=== PATIENT | male | born 1945 | race Caucasian/White ===

== ENCOUNTER 2019-10-13 10:10 | Outpatient (RCR) | payer MEDICARE, SELFPAY ==
[2019-10-13 10:48] LABS: INR 2.9; Prothrombin Time 29.9 Seconds (9.64-11.0)
== END 2019-12-30 10:00 | disposition home or self-care (01) ==
LOC: CHSLAB 10:10
PROVIDERS: Visit Provider Family Medicine
DX: Z79.01 Long term (current) use of anticoagulants (principal)
CPT/HCPCS: 36415; 85610

== ENCOUNTER 2020-02-01 17:53 | Outpatient (CLI) | payer MEDICARE, SELFPAY ==
[2020-02-01 18:07] LABS: Hematocrit 39.2 % (37.0-46.0); Hemoglobin 13.1 g/dL (12.4-15.3); Mean Corpuscular HGB Conc 33.4 g/dL (32.0-36.0); Mean Corpuscular Hemoglobin 29.7 pg (27.0-31.0); Mean Corpuscular Volume 88.9 fL (78.0-102.0); Mean Platelet Volume 11.3 fl (8.7-11.0); Platelet Count Result 130 K/mm3 (150-420); Red Blood Count 4.41 M/mm3 (4.70-6.10); Red Cell Distribution Width 15.6 % (11.6-14.4); White Blood Count 3.8 K/mm3 (4.8-10.8)
[2020-02-01 18:17] LABS: CRP 2.3 mg/dL (0.0-0.9)
[2020-02-01 18:20] LABS: INR 1.9; Prothrombin Time 19.7 Seconds (9.64-11.0)
[2020-02-01 18:27] LABS: Band Neutrophils Percent 0 % (0-6); Basophils Percent Manual 0 % (0-1); Eosinophils Absolute Manual 0.07 K/mm3 (0.02-0.5); Eosinophils Percent Manual 2 % (1-6); Lymphocytes Percent Manual 37 % (18-44); Monocytes Absolute Manual 0.26 K/mm3 (0.1-0.90); Monocytes Percent Manual 7 % (3-9); Neutrophils Absolute Manual 2.05 K/mm3 (1.3-6.7); Neutrophils Percent Manual 54 % (46-73); Platelet Estimate Adequate (Adequate); Total Cells Counted 100
[2020-02-04 13:32] LABS: Procalcitonin <0.10 ng/mL (<0.10)
== END 2020-02-01 17:54 | disposition home or self-care (01) ==
LOC: CHSLAB 17:55
PROVIDERS: PCP Family Medicine; Visit Provider Family Medicine
DX: J06.9 Acute upper respiratory infection, unspecified (principal); I48.91 Unspecified atrial fibrillation; Z79.01 Long term (current) use of anticoagulants
CPT/HCPCS: 36415; 84145; 85025; 85610; 86140

== ENCOUNTER 2020-02-12 19:32 | Emergency (ER) | payer MEDICARE, SELFPAY ==
--- NOTE | ~2020-02-12 | XR_ITS ---
EXAMINATION: XR tibia fibula RT 2V INDICATION: Right lower limb swelling and bruising TECHNIQUE: Two views of the tibia and fibula are obtained on four radiographs. COMPARISON: None available FINDINGS: There are changes of total knee arthroplasty. No fracture, dislocation, or subluxation is i dentified. Soft tissue swelling of the lower limb is noted. There is calcified atherosclerosis. IMPRESSION: 1. Soft tissue swelling without acute osseous abnormality. Reviewed, dictated and finalized at location A.
[2020-02-12 19:55] VITALS: BP 126/70; PULSE 88; RESP 18; TEMP 36.8; O2SAT 95
--- NOTE | 2020-02-12 20:08 | ED.GENADULT ---
HPI - General Adult General Chief complaint: Extremity Injury, Lower Stated complaint: Rt foot pain Source: patient and family () Mode of arrival: ambulatory Limitations: no limitations History of Present Illness HPI narrative: Swelling of the right lower leg x 2 days. Contusion to left anterior leg yesterday . Bruising right foot and ankle this afternoon, not present this AM with associated aching pain in right calf with walking (moderate intensity) relieved with rest; has associated lower right leg tenderness. On warfarin for atrial fibrillation. INR 2 weeks ago = 1.9. Dose of warfarin increased. dx with Flu. Tx with Levaquin. Has residual cough. DVT 2011. Related Data Home Medications Medication Instructions Recorded Confirmed carvedilol 3.125 mg tablet 3.125 mg PO BID tablet 12/02/19 02/12/20 ezetimibe 10 mg tablet 10 mg PO DAILY 12/02/19 02/12/20 isosorbide mononitrate 30 mg 30 mg PO DAILY 12/02/19 02/12/20 tablet,extended release 24 hr nitroglycerin 0.4 mg sublingual 0.4 mg SUBLINGUAL PRN PRN tablet 12/02/19 02/12/20 tablet ramipril 2.5 mg capsule 2.5 mg PO DAILY cap 12/02/19 02/12/20 warfarin 1 mg PO QMWF 02/12/20 02/12/20 warfarin 6 mg PO QMWF 02/12/20 02/12/20 warfarin 7.5 mg PO [id number] 02/12/20 02/12/20 Allergies Allergy/AdvReac Type Severity Reaction Status Date / Time atorvastatin [Lipitor] Allergy Intermediate Unknown Verified 02/09/20 10:19 meperidine [Demerol] Allergy Intermediate Unknown Verified 02/09/20 10:19 morphine Allergy Intermediate Unknown Verified 02/09/20 10:19 Penicillins Allergy Intermediate Unknown Verified 02/09/20 10:19 pravastatin Allergy Intermediate Unknown Verified 02/09/20 10:19 prochlorperazine Allergy Intermediate Unknown Verified 02/09/20 10:19 rosuvastatin [Crestor] Allergy Intermediate Unknown Verified 02/09/20 10:19 simvastatin Allergy Intermediate Unknown Verified 02/09/20 10:19 Review of Systems Constitutional: Constitutional: Denies headache(s) ENT: Denies dizziness, Reports headache(s) and Denies sinus pain Cardiovascular: Cardiovascular: Denies chest pain Respiratory: Respiratory: Denies cough and Denies dyspnea Gastrointestinal: Gastrointestinal: Denies abdominal pain, Denies diarrhea and Denies vomiting Genitourinary: Genitourinary: Denies dysuria Musculoskeletal: Musculoskeletal: Reports no additional musculoskeletal complaints Comments: chronic hypertrophy right leg . [facility] Social History Social History Smoking status: Never smoker Alcohol intake: never Exam Const: General: cooperative Nutritional Appearance: average body habitus Orientation/consciousness: oriented to person HENMT: Face and sinus: normal facial exam Mouth: Yes moist mucous membranes abnormal Eyes: General: appearance normal, both eyes and all related structures Neck: Neck: no lymphadenopathy Resp: Effort & Inspection: normal respiratory effort Auscultation: clear to auscultation bilaterally Cardio: Jugular venous distension: no JVD Rate: regular rate Rhythm: regular rhythm (not irregular) Heart sounds: S1 normal heart sound present and S2 normal heart sound present GI: Inspection: normal to inspection GI Palp: No abdominal tenderness Back/Spine/Pelvis: Back: no CVA tenderness Skin: General skin exam: normal color Neuro: General: patient oriented x3 Extrem: Right lower extremity: lower leg Details: tenderness Location: of the posterior calf, non-pitting edema (from the knee down) and ecchymosis (3 cm faint ecchymotic patch jct of middle and lower 1/3 anterior leg. ); no palpable cords, ankle (ecchmosis prominent distal to medial malleolus. ) and foot Details: other (ecchymosis of foot, sindhu. dorsum with assoc 2-3+ edema. ); joint enlargement noted Left lower extremity: abnormal to inspection (atrophy of calf; foot is externally rotated. ) Course Course Emergency Course: Ortho doc a
[2020-02-12 20:53] LABS: Basophils Absolute Auto 0.02 K/mm3 (0.00-0.10); Basophils Percent Auto 0.4 % (0.0-1.0); Eosinophils Absolute Auto 0.19 K/mm3 (0.02-0.50); Eosinophils Percent Auto 4.1 % (1.0-6.0); Hematocrit 32.9 % (37.0-46.0); Hemoglobin 10.9 g/dL (12.4-15.3); Immature Granulocyte Absolute 0.02 K/mm3 (0.00-0.00); Immature Granulocyte Percent A 0.4 % (0.0-0.0); Lymphocytes Absolute Auto 1.36 K/mm3 (1.10-4.50); Lymphocytes Percent Auto 29.1 % (18.0-42.0); Mean Corpuscular HGB Conc 33.1 g/dL (32.0-36.0); Mean Corpuscular Hemoglobin 29.4 pg (27.0-31.0); Mean Corpuscular Volume 88.7 fL (78.0-102.0); Mean Platelet Volume 11.1 fl (8.7-11.0); Monocytes Absolute Auto 0.43 K/mm3 (0.10-0.90); Monocytes Percent Auto 9.2 % (2.0-11.0); Neutrophils Absolute Auto 2.7 K/mm3 (1.7-7.2); Neutrophils Percent Auto 56.8 % (50.0-70.0); Platelet Count Result 174 K/mm3 (150-420); Red Blood Count 3.71 M/mm3 (4.70-6.10); Red Cell Distribution Width 14.8 % (11.6-14.4); White Blood Count 4.7 K/mm3 (4.8-10.8)
[2020-02-12 21:12] LABS: Alanine Aminotransferase 16 U/L (16-63); Alkaline Phosphatase 74 U/L (46-116); Anion Gap 10.1 mmol/L (7-16); Aspartate Amino Transferase 20 U/L (15-37); Bilirubin,Total 0.6 mg/dL (0.00-1.00); Blood Urea Nitrogen 20 mg/dL (7-18); Carbon Dioxide 29 mmol/L (21-32); Chloride 108 mmol/L (98-108); Estimated CRCL calculation 61 ml/min; Estimated Glomerular Filt Rate > 60; Glucose 113 mg/dL (70-99); INR 4.4; Osmolality Calculated 299 mOsm/kg (285-295); Potassium 4.1 mmol/L (3.5-5.1); Prothrombin Time 43.1 Seconds (9.64-11.0); Sodium 143 mmol/L (136-145); Total Protein 5.9 g/dL (6.4-8.2)
[2020-02-12 21:13] LABS: D Dimer 0.64 mg/L (0.19-0.50)
[2020-02-12 21:16] LABS: Calcium 8.1 mg/dL (8.5-10.1)
[2020-02-12 21:41] LABS: Creatine Kinase 410 U/L (39-308)
--- NOTE | 2020-02-12 22:13 | PC.NURSE ---
[facility] household chores contacted per Dr Allen request for ortho consult.
[2020-02-12 22:56] VITALS: BP 129/79; PULSE 84; RESP 18; O2SAT 95
--- NOTE | 2020-02-12 23:11 | PC.NURSE ---
DR. ACUNA DECLINED PT. PT REQUESTING [facility]. [facility] CONTACTED.
--- NOTE | 2020-02-12 23:14 | PC.NURSE ---
BEDSIDE REPORT GIVEN TO RICHY GRAHAM
--- NOTE | 2020-02-13 00:41 | PC.NURSE ---
0010 Call back from [facility] and spoke c Dr. Shi ERP. Dr. Tai accepts for transfer to [facility] ER for ortho eval. Pt. and informed.
[2020-02-13 00:42] VITALS: BP 130/72; PULSE 85; RESP 20; O2SAT 98
== END 2020-02-13 00:45 | disposition short-term general hospital (02) ==
PROVIDERS: Emergency Provider Family Medicine; PCP Family Medicine
DX: S80.11XA Contusion of right lower leg, initial encounter (principal); M79.604 Pain in right leg; D64.9 Anemia, unspecified
CPT/HCPCS: 36415; 73590; 80053; 82550; 85025; 85380; 85610; 99284; 99285

== ENCOUNTER 2020-02-24 08:38 | Outpatient (RCR) | payer MEDICARE, SELFPAY ==
[2019-12-02 10:48] LABS: INR 3.1; Prothrombin Time 32.8 Seconds (9.64-11.0)
[2019-12-09 09:52] LABS: Prothrombin Time 21.3 Seconds (9.64-11.0)
[2019-12-16 09:01] LABS: INR 2.2; Prothrombin Time 22.7 Seconds (9.64-11.0)
[2019-12-30 11:07] LABS: INR 2.9; Prothrombin Time 28.8 Seconds (9.64-11.0)
[2020-01-13 09:46] LABS: INR 3.1; Prothrombin Time 30.5 Seconds (9.64-11.0)
[2020-01-20 10:13] LABS: INR 2.4; Prothrombin Time 23.9 Seconds (9.64-11.0)
[2020-02-17 10:49] LABS: INR 1.1; Prothrombin Time 11.5 Seconds (9.64-11.0)
[2020-02-24 08:58] LABS: INR 1.3; Prothrombin Time 13.7 Seconds (9.64-11.0)
== END 2020-03-01 23:59 | disposition home or self-care (01) ==
LOC: CHSLAB 08:38
PROVIDERS: PCP Family Medicine; Visit Provider Family Medicine
DX: Z79.01 Long term (current) use of anticoagulants (principal)
CPT/HCPCS: 36415; 85610

== ENCOUNTER 2020-03-02 08:20 | Outpatient (RCR) | payer MEDICARE, SELFPAY ==
[2020-03-02 08:43] LABS: INR 1.8; Prothrombin Time 17.9 Seconds (9.64-11.0)
== END 2020-05-31 23:59 | disposition home or self-care (01) ==
LOC: CHSLAB 08:20
PROVIDERS: PCP Family Medicine; Visit Provider Family Medicine
DX: Z79.01 Long term (current) use of anticoagulants (principal)
CPT/HCPCS: 36415; 85610

== ENCOUNTER 2021-05-02 08:48 | Outpatient (CLI) | payer MEDICARE, SELFPAY ==
[2021-05-02 09:12] LABS: Basophils Absolute Auto 0.04 K/mm3 (0.00-0.10); Basophils Percent Auto 0.6 % (0.0-1.0); Eosinophils Absolute Auto 0.11 K/mm3 (0.02-0.50); Eosinophils Percent Auto 1.6 % (1.0-6.0); Hemoglobin 14.6 g/dL (12.4-15.3); Immature Granulocyte Absolute 0.04 K/mm3 (0.00-0.00); Immature Granulocyte Percent A 0.6 % (0.0-0.0); Lymphocytes Absolute Auto 1.83 K/mm3 (1.10-4.50); Lymphocytes Percent Auto 27.1 % (18.0-42.0); Mean Corpuscular HGB Conc 32.4 g/dL (32.0-36.0); Mean Corpuscular Hemoglobin 29.9 pg (27.0-31.0); Mean Corpuscular Volume 92.2 fL (78.0-102.0); Mean Platelet Volume 11.4 fl (8.7-11.0); Monocytes Absolute Auto 0.54 K/mm3 (0.10-0.90); Neutrophils Absolute Auto 4.2 K/mm3 (1.7-7.2); Neutrophils Percent Auto 62.1 % (50.0-70.0); Platelet Count Result 153 K/mm3 (150-420); Red Blood Count 4.88 M/mm3 (4.70-6.10); Red Cell Distribution Width 13.5 % (11.6-14.4); White Blood Count 6.8 K/mm3 (4.8-10.8)
[2021-05-02 09:34] LABS: Hemoglobin A1C 5.4 % (<5.7)
[2021-05-02 10:23] LABS: Alanine Aminotransferase 24 U/L (16-63); Albumin Level 3.9 g/dL (3.4-5.0); Alkaline Phosphatase 88 U/L (46-116); Anion Gap 9 mmol/L (8-16); Aspartate Amino Transferase 12 U/L (15-37); Bilirubin,Total 0.7 mg/dL (0.00-1.00); Blood Urea Nitrogen 20 mg/dL (7-18); Calcium 9.1 mg/dL (8.5-10.1); Carbon Dioxide 30 mmol/L (21-32); Chloride 100 mmol/L (98-108); Estimated Glomerular Filt Rate > 60; Glucose 75 mg/dL (70-99); Osmolality Calculated 289 mOsm/kg (285-295); Potassium 4.6 mmol/L (3.5-5.1); Prostate Specific Antigen 3.8 ng/mL (< OR = 4.0); Sodium 139 mmol/L (136-145); Total Protein 6.6 g/dL (6.4-8.2)
[2021-05-02 10:24] LABS: Thyroid Stimulating Hormone Reflex 1.59 u/IU/mL (0.36-3.74)
== END 2021-05-02 08:49 | disposition home or self-care (01) ==
LOC: CHSLAB 08:51
PROVIDERS: PCP Family Medicine; Visit Provider Family Medicine
DX: I10 Essential (primary) hypertension (principal); R35.1 Nocturia; Z12.5 Encounter for screening for malignant neoplasm of prostate; R73.02 Impaired glucose tolerance (oral); E78.5 Hyperlipidemia, unspecified
CPT/HCPCS: 36415; 80053; 83036; 84153; 84443; 85025; G0103

== ENCOUNTER 2021-11-14 10:58 | Outpatient (CLI) | payer MEDICARE, SELFPAY ==
[2021-11-14 11:31] LABS: INR 2.4; Prothrombin Time 24.8 Seconds (9.50-12.10)
== END 2021-11-14 10:59 | disposition home or self-care (01) ==
LOC: CHSLAB 11:00
PROVIDERS: PCP Family Medicine; Visit Provider Family Medicine
DX: Z79.01 Long term (current) use of anticoagulants (principal)
CPT/HCPCS: 36415; 85610

== ENCOUNTER 2021-12-20 08:49 | Outpatient (CLI) | payer MEDICARE, SELFPAY ==
--- NOTE | ~2021-12-20 | XR_ITS ---
XR chest 2V DATE: 12/20/2021 09:19 INDICATION: Hypertension. Preprocedural examination. TECHNIQUE: PA and lateral views COMPARISON: 04/28/2017 two-view chest FINDINGS: Normal heart size. There is aortic calcification, ectasia and tortuosity. No pulmonary infi ltrate or consolidation, pleural effusion or pulmonary vascular congestion or pneumothorax is detecte d. Osteoarthritic change at the glenohumeral joints. Degenerative spurring of the thoracic spine. IMPRESSION: Aortic calcification, ectasia and tortuosity No active cardiopulmonary disease Reviewed, dictated and finalized at location A. 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
[2021-12-20 09:09] LABS: Hemoglobin 13.9 g/dL (12.4-15.3); Mean Corpuscular HGB Conc 32.3 g/dL (32.0-36.0); Mean Corpuscular Hemoglobin 30.9 pg (27.0-31.0); Mean Corpuscular Volume 95.6 fL (78.0-102.0); Mean Platelet Volume 11.4 fl (8.7-11.0); Platelet Count Result 164 K/mm3 (150-420); Red Cell Distribution Width 12.7 % (11.6-14.4); White Blood Count 5.6 K/mm3 (4.8-10.8)
[2021-12-20 09:31] LABS: Alanine Aminotransferase 17 U/L (16-63); Albumin Level 3.7 g/dL (3.4-5.0); Alkaline Phosphatase 79 U/L (46-116); Anion Gap 5 mmol/L (8-16); Aspartate Amino Transferase 11 U/L (15-37); Bilirubin,Total 0.5 mg/dL (0.00-1.00); Blood Urea Nitrogen 17 mg/dL (7-18); Calcium 8.9 mg/dL (8.5-10.1); Carbon Dioxide 32 mmol/L (21-32); Chloride 104 mmol/L (98-108); Estimated Glomerular Filt Rate > 60; Glucose 81 mg/dL (70-99); Osmolality Calculated 292 mOsm/kg (285-295); Potassium 4.3 mmol/L (3.5-5.1); Sodium 141 mmol/L (136-145); Total Protein 6.3 g/dL (6.4-8.2)
== END 2021-12-20 08:50 | disposition home or self-care (01) ==
LOC: CHSLAB 08:51
PROVIDERS: PCP Family Medicine; Visit Provider Family Medicine
DX: Z01.818 Encounter for other preprocedural examination (principal)
CPT/HCPCS: 36415; 71046; 80053; 85027; 87081

== ENCOUNTER 2022-01-12 07:44 | Outpatient (CLI) | payer MEDICARE, SELFPAY ==
[2022-01-12 09:28] LABS: SARS-CoV-2 RNA PCR Negative (Negative)
== END 2022-01-12 07:45 | disposition home or self-care (01) ==
LOC: CHSLAB 07:48
PROVIDERS: PCP Family Medicine
DX: Z01.812 Encounter for preprocedural laboratory examination (principal); Z20.822 Contact with and (suspected) exposure to COVID-19
CPT/HCPCS: C9803; U0003; U0005

== ENCOUNTER 2022-01-29 10:01 | Outpatient (RCR) | payer MEDICARE, SELFPAY ==
--- NOTE | 2022-01-29 11:00 | PTOPEVAL ---
Thank you for referring Ernie Rueda Sr. to [facility].? The patient is scheduled to be seen for therapy? ____x/week for ___ weeks. Please review, sign, date and return this plan of care ANUSHKA. I agree with and certify that the following plan of care is medically necessary. Referring Physician Date Admitting Provider: Attending Provider: ZAY RAMÍREZ Referring Provider: OKSANA Outpatient Evaluation Start: 01/29/22 10:03 Freq: Status: Active Protocol: Document 01/29/22 10:09 [facility] (Rec: 01/29/22 10:49 [facility] [id number]) Therapy Assessment Status Assessment Status Assessment Status Evaluation Outpatient Past Medical History Cardiovascular History Hx Atrial Fibrillation Yes Hx Coronary Artery Disease Yes Hx Hypercholesterolemia Yes Hx Hypertension Yes Gastrointestinal History Hx Hernia Yes Genitourinary History Hx Kidney Stones Yes Musculoskeletal History Hx Back Pain Yes Other History Hx Other Medical Conditions Yes: POLIO A CHILD Evaluation Information 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 he Family reports he had a reverse totla shoulder arthroplasty on the R shoulder. he reports he had a lot of tears in the shoulder and had dealt with shoulder issues for more than 1 year. he reports the L shoulder has been having similar issues. he reports at home since surgery, he has been resting and using ice. he reports he is taking pain meds infrequently. Prior Level of Function Comments Additional Prior Level of Function he reports prior to surgery Comments her was having a lot of difficulty reaching any direction away from his body. he reports he would like to get back to driving, wood working, and home care activities (indoor and outdoor ). Pain Assessment Timing of Pain Assessment Timing of Pain Assessment Assessment Pain Scale P
--- NOTE | 2022-02-20 11:07 | PTOPEVAL ---
Thank you for referring Ernie Rueda Sr. to [facility].? The patient is scheduled to be seen for therapy? ____x/week for ___ weeks. Please review, sign, date and return this plan of care ANUSHKA. I agree with and certify that the following plan of care is medically necessary. Referring Physician Date Admitting Provider: Attending Provider: david valencia Referring Provider: *PT Outpatient Evaluation Start: 01/29/22 10:03 Freq: Status: Active Protocol: Document 02/20/22 10:00 [facility] (Rec: 02/20/22 11:03 [facility] [id number]) Therapy Assessment Status Assessment Status Assessment Status Re-evaluation Outpatient Past Medical History Cardiovascular History Hx Atrial Fibrillation Yes Hx Coronary Artery Disease Yes Hx Hypercholesterolemia Yes Hx Hypertension Yes Gastrointestinal History Hx Hernia Yes Genitourinary History Hx Kidney Stones Yes Musculoskeletal History Hx Back Pain Yes Other History Hx Other Medical Conditions Yes: POLIO A CHILD Evaluation Information Problem 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 he reports he does take it off to do exercises of the elbow and wrist. he reports he has a follow up with this coming thursday. he currently is 1 day over 5 weeks post operative. Pain Assessment Timing of Pain Assessment Timing of Pain Assessment Assessment Pain Scale Pain Scale Used Numeric (1 - 10) Self Report Pain Assessment Right Shoulder(s) Reported Pain Level 2 Pain Score Pain Score 2: Self Report Interventions Used Interventions Used By Clinicians Activity or ADL's,Education, Electrical Stimulation, Exercise,Heat,Ice,Medication, Rest Upper Extremity Range of Motion General Upper Extremity Range of Motion Gross Upper Extremity Range of Motion passive R shoulder flex to 120 Comments degrees passive R shoulder ER to 30 degrees in scapular plane General Exercise General Exercises Exercise Description Ther ex Query Text:Record Sets, Reps, -passive shoulder mobiltiy 10 Resistance, and Position minutes to 120 degrees flex,
--- NOTE | 2022-03-20 11:00 | PTOPEVAL ---
Thank you for referring Ernie Rueda Sr. to [facility].? The patient is scheduled to be seen for therapy? ____x/week for ___ weeks. Please review, sign, date and return this plan of care ANUSHKA. I agree with and certify that the following plan of care is medically necessary. Referring Physician Date Admitting Provider: Attending Provider: Allison Vargas Referring Provider: *PT Outpatient Evaluation Start: 01/29/22 10:03 Freq: Status: Active Protocol: Document 03/20/22 10:00 [facility] (Rec: 03/20/22 10:59 [facility] [id number]) Therapy Assessment Status Assessment Status Assessment Status Re-evaluation Outpatient Past Medical History Cardiovascular History Hx Atrial Fibrillation Yes Hx Coronary Artery Disease Yes Hx Hypercholesterolemia Yes Hx Hypertension Yes Gastrointestinal History Hx Hernia Yes Genitourinary History Hx Kidney Stones Yes Musculoskeletal History Hx Back Pain Yes Other History Hx Other Medical Conditions Yes: POLIO A CHILD Evaluation Information 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 he reports Family minimal pain in the R shoulder . he reports he has not yet been using weights for resistance training. he is now 9+ weeks out from surgery and ready to begin further strengthening (up to 5lbs) and full active and passive rom of the R shoulder. Pain Assessment Timing of Pain Assessment Timing of Pain Assessment Assessment Pain Scale Pain Scale Used Numeric (1 - 10) Self Report Pain Assessment Left Shoulder(s) Reported Pain Level 5 Right Shoulder(s) Reported Pain Level 1 Pain Score Pain Score 5,1: Self Report Interventions Used Interventions Used By Clinicians Activity or ADL's,Education, Electrical Stimulation, Exercise,Heat,Ice,Medication, Rest Upper Extremity Range of Motion General Upper Extremity Range of Motion Gross Upper Extremity Range of Motion arom R shoulder flexion = 130 Comments degrees prom R shoulder flexion = 150 degrees arom R shoulder ER = 60 degrees at 90/90 position
--- NOTE | 2022-04-24 11:06 | PTOPEVAL ---
Thank you for referring Ernie Rueda Sr. to [facility].? The patient is scheduled to be seen for therapy? ____x/week for ___ weeks. Please review, sign, date and return this plan of care ANUSHKA. I agree with and certify that the following plan of care is medically necessary. Referring Physician Date Admitting Provider: Attending Provider: Allison Vargas Referring Provider: *PT Outpatient Evaluation Start: 01/29/22 10:03 Freq: Status: Active Protocol: Document 04/24/22 10:08 [facility] (Rec: 04/24/22 10:54 [facility] [id number]) Therapy Assessment Status Assessment Status Assessment Status Discharge Outpatient Past Medical History Cardiovascular History Hx Atrial Fibrillation Yes Hx Coronary Artery Disease Yes Hx Hypercholesterolemia Yes Hx Hypertension Yes Gastrointestinal History Hx Hernia Yes Genitourinary History Hx Kidney Stones Yes Musculoskeletal History Hx Back Pain Yes Other History Hx Other Medical Conditions Yes: POLIO A CHILD Evaluation Information Problem 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 He Family feels as though he can move it better and states that he currently has no limitations from his doctor. He states that he has been performing exercises on his own, but is yet to have the strength that he would like. Pain Assessment Timing of Pain Assessment Timing of Pain Assessment Assessment Pain Scale Pain Scale Used Numeric (1 - 10) Self Report Pain Assessment Left Shoulder(s) Reported Pain Level 0 Right Shoulder(s) Reported Pain Level 0 Pain Score Pain Score 0,0: Self Report Interventions Used Interventions Used By Clinicians Activity or ADL's,Education, Exercise Upper Extremity Range of Motion Scapular/ Shoulder Range of Motion Right Shoulder Flexion - Active 135 Shoulder Flexion - Passive 155 Shoulder Medial Rotation - Passive 45 Shoulder Medial Rotation - Active T1 Query Text:Reach Behind the Back Shoulder Lateral Rotation - Passive 50 Shoulder Lateral Rotation - Active Sacrum Query Text:Reach Behind the Head Upper Extremity Muscle Strength Testing Scapular/Shoulder Right Shoul
== END 2022-04-24 13:56 | disposition home or self-care (01) ==
LOC: CHSPT 10:01
PROVIDERS: PCP Family Medicine
DX: Z96.611 Presence of right artificial shoulder joint (principal)
CPT/HCPCS: 97014; 97110; 97161; 97530; G0283

== ENCOUNTER 2022-04-17 11:17 | Outpatient (CLI) | payer MEDICARE, SELFPAY ==
[2022-04-17 12:01] LABS: Prothrombin Time 20.7 Seconds (9.50-12.10)
== END 2022-04-17 11:18 | disposition home or self-care (01) ==
LOC: CHSLAB 11:21
PROVIDERS: PCP Family Medicine; Visit Provider Family Medicine
DX: Z79.01 Long term (current) use of anticoagulants (principal)
CPT/HCPCS: 36415; 85610

== ENCOUNTER 2022-06-12 10:21 | Outpatient (CLI) | payer MEDICARE, SELFPAY ==
--- NOTE | ~2022-06-12 | US_ITS ---
EXAMINATION: US aorta DATE: 06/12/2022 10:49 INDICATION: Intermittent claudication. Encounter for screening for cardiovascular disorders . Risk fa ctors of hypertension, obesity and prior smoking. TECHNIQUE: Grayscale, color Doppler, and pulsed Doppler images of the aorta and common iliac arteries were obtained. COMPARISON: None. FINDINGS: The mid aorta measures 2.0 cm. The distal aorta measures 2.5 cm tapering to 2.2 cm at the bifurcation . The proximal aorta as well as the right and left common iliac arteries are unable to be visualized, obscured by shadowing bowel gas. IMPRESSION: 1. Visualized mid to distal abdominal aorta is normal in caliber. Reviewed, dictated and finalized at location B.
== END 2022-06-12 10:22 | disposition home or self-care (01) ==
LOC: CHSIMG 10:23
PROVIDERS: PCP Family Medicine; Visit Provider Family Medicine
DX: Z13.6 Encounter for screening for cardiovascular disorders (principal); Z87.891 Personal history of nicotine dependence
CPT/HCPCS: 76775

== ENCOUNTER 2022-09-19 14:52 | Outpatient (CLI) | payer MEDICARE, SELFPAY ==
--- NOTE | ~2022-09-19 | US_ITS ---
EXAMINATION: US soft tissue chest DATE: 09/19/2022 15:38 INDICATION: Injury with large hematoma to the right side of the chest TECHNIQUE: Multiple grayscale and Doppler ultrasound images of the right chest wall at the region of concern were obtained. COMPARISON: None FINDINGS: There appears to be thickening of the subcutaneous fat with somewhat heterogeneous hypoechoic appeara nce and increased refraction artifact at the region of concern which can be seen in setting of edema in the subcutaneous tissues. No discrete fluid collections or masses identified. IMPRESSION: 1. Subcutaneous soft tissue swelling and likely edema at the region of concern. No discrete fluid col lections or masses identified. Reviewed, dictated and finalized at location A. IMPRESSION: 1. Subcutaneous soft tissue swelling and likely edema at the region of concern. No discrete fluid collections or masses identified.
[2022-09-19 15:09] LABS: Hematocrit 38.2 % (37.0-46.0); Hemoglobin 12.5 g/dL (12.4-15.3); Mean Corpuscular HGB Conc 32.7 g/dL (32.0-36.0); Mean Corpuscular Hemoglobin 30.2 pg (27.0-31.0); Mean Corpuscular Volume 92.3 fL (78.0-102.0); Platelet Count Result 162 K/mm3 (150-420); Red Blood Count 4.14 M/mm3 (4.70-6.10); Red Cell Distribution Width 13.6 % (11.6-14.4); White Blood Count 7.7 K/mm3 (4.8-10.8)
[2022-09-19 15:49] LABS: INR 3.8; Prothrombin Time 37.2 Seconds (9.50-12.10)
[2022-09-19 15:51] LABS: Alanine Aminotransferase 15 U/L (16-63); Albumin Level 3.7 g/dL (3.4-5.0); Alkaline Phosphatase 77 U/L (46-116); Anion Gap 5 mmol/L (8-16); Aspartate Amino Transferase 12 U/L (15-37); Bilirubin,Total 0.7 mg/dL (0.00-1.00); Blood Urea Nitrogen 18 mg/dL (7-18); Calcium 8.4 mg/dL (8.5-10.1); Carbon Dioxide 31 mmol/L (21-32); Chloride 105 mmol/L (98-108); Estimated Glomerular Filt Rate > 60; Glucose 79 mg/dL (70-99); Osmolality Calculated 292 mOsm/kg (285-295); Potassium 4.3 mmol/L (3.5-5.1); Sodium 141 mmol/L (136-145); Total Protein 6.2 g/dL (6.4-8.2)
== END 2022-09-19 14:53 | disposition home or self-care (01) ==
LOC: CHSIMG 14:54
PROVIDERS: PCP Family Medicine; Visit Provider Family Medicine
DX: I48.91 Unspecified atrial fibrillation (principal); T14.8XXA Other injury of unspecified body region, initial encounter; R10.9 Unspecified abdominal pain
CPT/HCPCS: 36415; 76604; 80053; 85027; 85610

== ENCOUNTER 2022-11-10 11:32 | Outpatient (CLI) | payer MEDICARE, SELFPAY ==
[2022-11-10 12:08] LABS: Basophils Absolute Auto 0.03 K/mm3 (0.00-0.10); Basophils Percent Auto 0.7 % (0.0-1.0); Eosinophils Absolute Auto 0.19 K/mm3 (0.02-0.50); Eosinophils Percent Auto 4.4 % (1.0-6.0); Hematocrit 34.9 % (37.0-46.0); Hemoglobin 11.6 g/dL (12.4-15.3); Immature Granulocyte Absolute 0.02 K/mm3 (0.00-0.00); Immature Granulocyte Percent A 0.5 % (0.0-0.0); Lymphocytes Absolute Auto 1.46 K/mm3 (1.10-4.50); Lymphocytes Percent Auto 33.6 % (18.0-42.0); Mean Corpuscular HGB Conc 33.2 g/dL (32.0-36.0); Mean Corpuscular Hemoglobin 31.5 pg (27.0-31.0); Mean Corpuscular Volume 94.8 fL (78.0-102.0); Mean Platelet Volume 11.1 fl (8.7-11.0); Monocytes Absolute Auto 0.32 K/mm3 (0.10-0.90); Monocytes Percent Auto 7.4 % (2.0-11.0); Neutrophils Absolute Auto 2.3 K/mm3 (1.7-7.2); Neutrophils Percent Auto 53.4 % (50.0-70.0); Platelet Count Result 163 K/mm3 (150-420); Red Blood Count 3.68 M/mm3 (4.70-6.10); Red Cell Distribution Width 13.3 % (11.6-14.4); White Blood Count 4.4 K/mm3 (4.8-10.8)
[2022-11-10 15:56] LABS: Occult Blood Positive (Negative)
== END 2022-11-10 11:33 | disposition home or self-care (01) ==
LOC: CHSLAB 11:34
PROVIDERS: PCP Family Medicine; Visit Provider Nurse Practitioner Family
DX: I48.91 Unspecified atrial fibrillation (principal); K92.1 Melena
CPT/HCPCS: 36415; 82272; 85025

== ENCOUNTER 2022-12-28 11:36 | Emergency (ER) | payer MEDICARE, SELFPAY ==
[2022-12-28] VITALS (9 sets, daily range): BP systolic 102–140; BP diastolic 77–89; PULSE 72–81; RESP 16–22; TEMP 36.1–36.5; O2SAT 96–100
--- NOTE | 2022-12-28 11:39 | ECG_ITS ---
Measurements Intervals [place] Rate: 71 P: 33 NC: 197 QRS: -5 QRSD: 97 T: 63 QT: 359 QTc: 392 Interpretive Statements SINUS RHYTHM BASELINE ARTIFACT- I, II, III, AVR, AVL, AVF, V1-V3 NORMAL ECG NO PREVIOUS ECG AVAILABLE FOR COMPARISON Electronically Signed On 12-28-2022 15:25:56 RUBBER COMPOUNDER FORMULATOR by Antonio Bradford D.O.
--- NOTE | 2022-12-28 11:44 | ED.GENADULT ---
HPI - General Adult General Chief complaint: Chest Pain Stated complaint: chest pain Time Seen by Provider: 12/28/22 11:39 History of Present Illness HPI narrative: Ernie is a 77M with a PMH of afib, CAD, HTN, OA and HLD that presented to the ED because he had chest pain last night and another twinge this morning. He had a sharp twinge that went away. No dyspnea, lightheadedness, nausea or vomiting. He currently has no pain. Related Data Home Medications Medication Instructions Recorded Confirmed aspirin 81 mg chewable tablet 81 mg PO DAILY 06/10/22 11/13/22 carvedilol 3.125 mg tablet (Coreg) 3.125 mg PO Q12H 06/10/22 11/13/22 docusate calcium 240 mg capsule 240 mg PO QHS 06/10/22 11/13/22 Allergies Allergy/AdvReac Type Severity Reaction Status Date / Time atorvastatin [Lipitor] Allergy Intermediate Unknown Verified 11/13/22 09:58 Latex, Natural Rubber Allergy Intermediate Blister Verified 11/13/22 09:58 meperidine [Demerol] Allergy Intermediate Unknown Verified 11/13/22 09:58 morphine Allergy Intermediate Unknown Verified 11/13/22 09:58 Penicillins Allergy Intermediate Unknown Verified 11/13/22 09:58 pravastatin Allergy Intermediate Unknown Verified 11/13/22 09:58 prochlorperazine Allergy Intermediate Unknown Verified 11/13/22 09:58 rosuvastatin [Crestor] Allergy Intermediate Unknown Verified 11/13/22 09:58 simvastatin Allergy Intermediate Unknown Verified 11/13/22 09:58 heparin AdvReac Intermediate Unknown Verified 11/13/22 09:58 Review of Systems Review of Systems: All systems reviewed & are unremarkable except as noted in HPI and below PMFSH Past Medical History Medical History Anxiety Coronary artery disease Degenerative arthritis of lumbar spine Encounter for screening for malignant neoplasm of prostate Hematoma of lower extremity Hyperlipidemia Hypertension Impaired glucose tolerance Low back pain Osteoarthritis of knee Polio Preoperative examination Renal stones Supratherapeutic INR Umbilical hernia Surgical History Surgical History History of appendectomy History of back surgery Lumbar spine: x's 2 History of cataract removal with insertion of prosthetic lens History of heart artery stent x's 4 History of inguinal hernia repair History of right hip replacement History of right shoulder replacement History of umbilical hernia repair Hx of cholecystectomy Knee joint replacement status Bilateral Family History Family History Father Family history of coronary artery disease Brother Hypertension Family history of type 2 diabetes mellitus Family history of coronary artery disease Sister Family history of type 2 diabetes mellitus Family history of coronary artery disease Hypertension Social History Social History Smoking status: Former smoker Alcohol intake: never Substance use: never Living arrangements: with family Occupation/Education: retired 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 Gender identity (if verbalized by the patient): Male Exam Const: General: healthy appearing and no acute distress; No alert or confusion Nutritional Appearance: well nourished Orientation/consciousness: patient oriented x3 HENMT: Head: normal to inspection Ears: external ears normal Eyes: Conjunctivae: conjunctivae normal Pupils: Equal, round and reactive pupils present EOM: EOMs intact bilaterally Neck: Neck: normal visual inspection Chest: Chest palpation & inspection: normal inspection of the chest Resp: Effort & Inspection: normal respiratory effort Auscultation: clear to auscultation bilaterally Cardio: Rate: regular rate Rhythm: regular rhythm GI: Inspection: non-distended GI Palp: Yes Soft to palpation, No Tenderness to palpatio
[2022-12-28 12:04] LABS: Basophils Absolute Auto 0.03 K/mm3 (0.00-0.10); Basophils Percent Auto 0.5 % (0.0-1.0); Eosinophils Absolute Auto 0.24 K/mm3 (0.02-0.50); Eosinophils Percent Auto 4.3 % (1.0-6.0); Hematocrit 38.3 % (37.0-46.0); Hemoglobin 12.3 g/dL (12.4-15.3); Immature Granulocyte Absolute 0.03 K/mm3 (0.00-0.00); Immature Granulocyte Percent A 0.5 % (0.0-0.0); Lymphocytes Absolute Auto 1.91 K/mm3 (1.10-4.50); Mean Corpuscular HGB Conc 32.1 g/dL (32.0-36.0); Mean Corpuscular Hemoglobin 29.9 pg (27.0-31.0); Mean Platelet Volume 11.6 fl (8.7-11.0); Monocytes Absolute Auto 0.49 K/mm3 (0.10-0.90); Monocytes Percent Auto 8.7 % (2.0-11.0); Neutrophils Absolute Auto 2.9 K/mm3 (1.7-7.2); Platelet Count Result 174 K/mm3 (150-420); Red Blood Count 4.12 M/mm3 (4.70-6.10); Red Cell Distribution Width 12.9 % (11.6-14.4); White Blood Count 5.6 K/mm3 (4.8-10.8)
[2022-12-28 12:25] LABS: Alanine Aminotransferase 19 U/L (16-63); Albumin Level 3.5 g/dL (3.4-5.0); Alkaline Phosphatase 78 U/L (46-116); Anion Gap 6 mmol/L (8-16); Aspartate Amino Transferase 11 U/L (15-37); Bilirubin,Total 0.5 mg/dL (0.00-1.00); Blood Urea Nitrogen 20 mg/dL (7-18); Calcium 8.1 mg/dL (8.5-10.1); Carbon Dioxide 30 mmol/L (21-32); Chloride 105 mmol/L (98-108); Estimated Glomerular Filt Rate > 60; Glucose 89 mg/dL (70-99); NT Pro B Type Natriuretic Pept 28 pg/mL (0-450); Osmolality Calculated 293 mOsm/kg (285-295); Potassium 4.3 mmol/L (3.5-5.1); Sodium 141 mmol/L (136-145); Total Protein 6.2 g/dL (6.4-8.2); Troponin I 8.5 ng/L (0.00-60.4)
== END 2022-12-28 12:45 | disposition home or self-care (01) ==
PROVIDERS: Emergency Provider Family Medicine; PCP Family Medicine
DX: R07.9 Chest pain, unspecified (principal); I48.91 Unspecified atrial fibrillation; I25.10 Atherosclerotic heart disease of native coronary artery without angina pectoris; I10 Essential (primary) hypertension; E78.5 Hyperlipidemia, unspecified; Z87.891 Personal history of nicotine dependence
CPT/HCPCS: 36415; 80053; 83880; 84484; 85025; 93005; 99284

== ENCOUNTER 2023-02-18 10:55 | Outpatient (CLI) | payer MEDICARE, SELFPAY ==
[2023-02-18 11:14] LABS: Basophils Absolute Auto 0.04 K/mm3 (0.00-0.10); Basophils Percent Auto 0.8 % (0.0-1.0); Eosinophils Absolute Auto 0.26 K/mm3 (0.02-0.50); Eosinophils Percent Auto 4.9 % (1.0-6.0); Hematocrit 37.8 % (37.0-46.0); Hemoglobin 12.6 g/dL (12.4-15.3); Immature Granulocyte Absolute 0.01 K/mm3 (0.00-0.00); Immature Granulocyte Percent A 0.2 % (0.0-0.0); Lymphocytes Absolute Auto 2.02 K/mm3 (1.10-4.50); Lymphocytes Percent Auto 37.9 % (18.0-42.0); Mean Corpuscular HGB Conc 33.3 g/dL (32.0-36.0); Mean Corpuscular Hemoglobin 30.7 pg (27.0-31.0); Mean Platelet Volume 11.2 fl (8.7-11.0); Monocytes Percent Auto 7.5 % (2.0-11.0); Neutrophils Absolute Auto 2.6 K/mm3 (1.7-7.2); Neutrophils Percent Auto 48.7 % (50.0-70.0); Platelet Count Result 169 K/mm3 (150-420); Red Blood Count 4.11 M/mm3 (4.70-6.10); Red Cell Distribution Width 14.2 % (11.6-14.4); White Blood Count 5.3 K/mm3 (4.8-10.8)
[2023-02-18 11:27] LABS: INR 2.1; Prothrombin Time 22.1 Seconds (9.50-12.10)
[2023-02-18 11:31] LABS: Anion Gap 8 mmol/L (8-16); Blood Urea Nitrogen 17 mg/dL (7-18); Calcium 8.7 mg/dL (8.5-10.1); Carbon Dioxide 31 mmol/L (21-32); Chloride 104 mmol/L (98-108); Estimated Glomerular Filt Rate > 60; Glucose 96 mg/dL (70-99); Magnesium 1.9 mg/dL (1.8-2.4); Osmolality Calculated 297 mOsm/kg (285-295); Potassium 4.3 mmol/L (3.5-5.1); Sodium 143 mmol/L (136-145)
== END 2023-02-18 10:56 | disposition home or self-care (01) ==
LOC: CHSLAB 10:58
PROVIDERS: PCP Family Medicine; Visit Provider Specialist
DX: R06.02 Shortness of breath (principal); Z95.5 Presence of coronary angioplasty implant and graft; I25.118 Atherosclerotic heart disease of native coronary artery with other forms of angina pectoris
CPT/HCPCS: 36415; 80048; 83735; 85025; 85610

== ENCOUNTER 2023-04-15 22:53 | Emergency (ER) | payer MEDICARE, SELFPAY ==
--- NOTE | ~2023-04-15 | CT_ITS ---
Non-contrast CT scan of the Abdomen and Pelvis Clinical indication: Left flank pain Technique: 2.5 mm axial scans were obtained through the abdomen and pelvis without intravenous or or al contrast. Dose reduction technique was used on this scan by utilizing automated exposure control a nd iterative reconstruction technique. The dose-length product (DLP) was 1217.85 mGy-cm. COMPARISON: 03/17/2017 Findings: Images through the lung bases reveal mild bibasilar pleural scarring or chronic interstiti al change. There is a 6 x 5 mm stone at the proximal left ureter (Hounsfield units approximately 1400), resultin g in moderate left hydronephrosis. There are multiple additional bilateral nonobstructing stones, mary suring up to 8 mm in diameter and the left kidney, and 10 mm in diameter in the right kidney. No righ t ureteral stone or right hydronephrosis. Right lower pole renal cyst present, similar to prior exam. There are cholecystectomy clips with pneumobilia. The liver, spleen, pancreas, and adrenals are other jones appear normal. There are atherosclerotic calcifications of the aorta. There is no evidence of bowel obstruction. There is a ventral hernia superior to the umbilicus contai shavonne fat and a focal loop of small bowel (axial image 93). Images through the pelvis were performed. There is no evidence of ascites or lymphadenopathy. There i s a 2 cm somewhat stellate appearing stone in the urinary bladder. Prostate gland is enlarged. Impression: 6 x 5 mm proximal left ureteral stone, as detailed above, resulting in moderate left hydronephrosis. Multiple additional bilateral nonobstructing renal stones, as detailed above. 2 cm stellate urinary bladder stone. Ventral hernia superior to the oblique is containing a focal small bowel. No bowel obstruction or bow el wall thickening. Enlarged prostate gland. Reviewed, dictated and finalized at [facility]. Impression: 6 x 5 mm proximal left ureteral stone, as detailed above, resulting in moderate left hydronephrosis. Multiple additional bilateral nonobstructing renal stones, as detailed above. 2 cm stellate urinary bladder stone. Ventral hernia superior to the oblique is containing a focal small bowel. No hamilton wel obstruction or bowel wall thickening. Enlarged prostate gland.
--- NOTE | 2023-04-15 22:58 | ED.ABDPAIN ---
HPI - Abdominal Pain General Chief Complaint: Abdominal Pain Stated Complaint: Abdominal Pain Source: patient and family Mode of arrival: ambulatory Limitations: no limitations History of Present Illness HPI narrative: 77-year-old male, with a history of hypertension, oa, HLD coronary artery disease status post 4 stents a recent catheterization 2 months ago which was unremarkable, atrial fibrillation on Coumadin, kidney stones, GI bleeding in October of 2022 without any endoscopy, status post appendectomy status post cholecystectomy status post hernia repair presents to the ER with a 6 hour history of -- left flank abdominal pain without any radiation. he has had pain off and on in the left flank. -- Nausea with vomiting. No diarrhea. -- No fever MD elicited complaint: flank pain Pertinent past history: constipation Onset (ago): hour(s) ( Started 6 hours ago) Pain Consistency: constant Location: L flank Severity: moderate Quality: aching Radiation: none Migration to: no migration Exacerbating factors: nothing Relieving factors: nothing Associated symptoms: nausea and vomiting Related Data Home Medications Medication Instructions Recorded Confirmed aspirin 81 mg chewable tablet 81 mg PO DAILY 06/10/22 04/15/23 carvedilol 3.125 mg tablet (Coreg) 3.125 mg PO Q12H 06/10/22 04/15/23 docusate calcium 240 mg capsule 240 mg PO QHS 06/10/22 04/15/23 furosemide 20 mg tablet 20 mg PO DAILY 04/15/23 04/15/23 Allergies Allergy/AdvReac Type Severity Reaction Status Date / Time atorvastatin [Lipitor] Allergy Intermediate Unknown Verified 04/15/23 23:01 Latex, Natural Rubber Allergy Intermediate Blister Verified 04/15/23 23:01 meperidine [Demerol] Allergy Intermediate Unknown Verified 04/15/23 23:01 morphine Allergy Intermediate Unknown Verified 04/15/23 23:01 Penicillins Allergy Intermediate Unknown Verified 04/15/23 23:01 pravastatin Allergy Intermediate Unknown Verified 04/15/23 23:01 prochlorperazine Allergy Intermediate Unknown Verified 04/15/23 23:01 rosuvastatin [Crestor] Allergy Intermediate Unknown Verified 04/15/23 23:01 simvastatin Allergy Intermediate Unknown Verified 04/15/23 23:01 heparin AdvReac Intermediate Unknown Verified 04/15/23 23:01 acetaminophen [From [place]] AdvReac Vomiting Verified 04/15/23 23:12 hydrocodone [From [place]] AdvReac Vomiting Verified 04/15/23 23:12 Review of Systems Review of Systems: All systems reviewed & are unremarkable except as noted in HPI and below Constitutional: Constitutional: Reports as per HPI and Reports no additional constitutional complaints Eyes: Eyes: Reports as per HPI and Reports no additional eye complaints ENT: Reports system reviewed and no additional complaints, except as documented and Reports as per HPI Cardiovascular: Cardiovascular: Reports as per HPI and Reports no additional cardiovascular complaints Respiratory: Respiratory: Reports as per HPI and Reports no additional respiratory complaints Gastrointestinal: Gastrointestinal: Reports as per HPI and Reports no additional gastrointestinal complaints Comments: left flank pain. Genitourinary: Genitourinary: Reports no additional male genitourinary complaints Musculoskeletal: Musculoskeletal: Reports no additional musculoskeletal complaints Integumentary/Breasts: Skin/Breast: Reports system reviewed and no additional complaints, except as docu and Reports as per HPI Neurologic: Reports system reviewed and no additional complaints, except as documented and Reports as per HPI Psychiatric: Psychiatric: Reports no additional psychiatric complaints and Reports as per HPI Endocrine: Endocrine: Reports no additional endocrine complaints and Reports as per HPI Hematologic/Lymphatic: Hematologic/Lymphatic: Reports no additional hematologic/lymphatic complaints and Reports as per HPI Allergic/Immunologic: Allergic/Immunologic: Reports no additional allergic/immunologic complaints and Reports as per HPI PMFSH
[2023-04-15 23:02] VITALS: BP 147/95; PULSE 82; RESP 20; O2SAT 96
[2023-04-15 23:04] VITALS: TEMP 36.1
[2023-04-15] MEDS: HYDROmorphone HCL INJ (*CRX) 2 MG/ML VIAL 0.5 MG IM (23:17)
[2023-04-15] MEDS: ONDANSETRON HCL ODT 4 MG TABLET PO (23:17)
[2023-04-15 23:39] LABS: Basophils Absolute Auto 0.05 K/mm3 (0.00-0.10); Basophils Percent Auto 0.6 % (0.0-1.0); Eosinophils Percent Auto 2.2 % (1.0-6.0); Hematocrit 36.3 % (37.0-46.0); Hemoglobin 12.1 g/dL (12.4-15.3); Immature Granulocyte Absolute 0.05 K/mm3 (0.00-0.00); Immature Granulocyte Percent A 0.6 % (0.0-0.0); Lymphocytes Percent Auto 13.4 % (18.0-42.0); Mean Corpuscular HGB Conc 33.3 g/dL (32.0-36.0); Mean Corpuscular Hemoglobin 29.9 pg (27.0-31.0); Mean Corpuscular Volume 89.6 fL (78.0-102.0); Mean Platelet Volume 11.4 fl (8.7-11.0); Monocytes Absolute Auto 0.61 K/mm3 (0.10-0.90); Monocytes Percent Auto 6.8 % (2.0-11.0); Neutrophils Absolute Auto 6.9 K/mm3 (1.7-7.2); Neutrophils Percent Auto 76.4 % (50.0-70.0); Platelet Count Result 165 K/mm3 (150-420); Red Blood Count 4.05 M/mm3 (4.70-6.10); Red Cell Distribution Width 13.4 % (11.6-14.4)
[2023-04-15 23:52] LABS: INR 2.4; Prothrombin Time 24.6 Seconds (9.50-12.10)
[2023-04-15 23:53] LABS: Alanine Aminotransferase 19 U/L (16-63); Albumin Level 3.5 g/dL (3.4-5.0); Alkaline Phosphatase 81 U/L (46-116); Anion Gap 9 mmol/L (8-16); Aspartate Amino Transferase 25 U/L (15-37); Bilirubin,Total 0.5 mg/dL (0.00-1.00); Blood Urea Nitrogen 20 mg/dL (7-18); Calcium 8.5 mg/dL (8.5-10.1); Carbon Dioxide 26 mmol/L (21-32); Chloride 101 mmol/L (98-108); Estimated CRCL calculation 47 ml/min; Estimated Glomerular Filt Rate 57; Glucose 136 mg/dL (70-99); Osmolality Calculated 286 mOsm/kg (285-295); Potassium 4.1 mmol/L (3.5-5.1); Sodium 136 mmol/L (136-145); Total Protein 6.5 g/dL (6.4-8.2)
[2023-04-15 23:56] LABS: Lactic Acid Reflex 1.1 mmol/L (0.4-2.0)
[2023-04-15 23:58] LABS: Lipase 34 U/L (16-77); Troponin I 7.8 ng/L (0.00-60.4)
[2023-04-16] MEDS: KETOROLAC 15 MG/ML VIAL (*BKC) IV PUSH (00:22)
[2023-04-16] MEDS: LACTATED RINGERS 500 ML 999 ML IV CONT (00:22)
[2023-04-16 01:30] LABS: Appearance Urine Clear (Clear); Bilirubin Urine Negative (Negative); Blood Urine 2+ (Negative); Color Urine Yellow (Yellow); Glucose Urine UA Negative (Negative); Ketones Urine 1+ (Negative); Leukocyte Esterase Ur Negative LEU/UL (Negative); Nitrate Urine Negative (Negative); Protein Urine Trace (Negative); Specific Grav Ur 1.015 (1.010-1.020); pH Urine 7.5 (5.0-8.0)
[2023-04-16 01:33] LABS: Add Urine Microscopic? YES; Bacteria Urine Trace /hpf; Renal Epithelial Cells Urine Few /hpf; Squamous Epithelial Cell Urine Few /hpf (Few); WBC Urine None seen /hpf (0-3)
[2023-04-16] MEDS: TAMSULOSIN HCL 0.4 MG CAPSULE PO (02:02)
[2023-04-16 02:12] VITALS: BP 122/72; PULSE 79; RESP 18; O2SAT 96
== END 2023-04-16 02:13 | disposition home or self-care (01) ==
PROVIDERS: Emergency Provider Internal Medicine Critical Care Medicine; PCP Family Medicine
DX: N20.0 Calculus of kidney (principal); R10.32 Left lower quadrant pain; I10 Essential (primary) hypertension; E78.5 Hyperlipidemia, unspecified; I25.10 Atherosclerotic heart disease of native coronary artery without angina pectoris; I48.91 Unspecified atrial fibrillation; F41.9 Anxiety disorder, unspecified; Z90.49 Acquired absence of other specified parts of digestive tract; Z79.82 Long term (current) use of aspirin; Z87.891 Personal history of nicotine dependence
CPT/HCPCS: 36415; 74176; 80053; 81001; 83605; 83690; 84484; 85025; 85610; 96361; 96372; 96374; 99284; A9270; J1170; J1885; J7120

== ENCOUNTER 2023-04-17 14:24 | Emergency (ER) | payer MEDICARE, SELFPAY ==
--- NOTE | ~2023-04-17 | CT_ITS ---
EXAMINATION: CT abdomen pelvis wo con DATE: 04/17/2023 15:18 INDICATION: Left flank pain. TECHNIQUE: Computed tomography (CT) of the abdomen and pelvis was performed without intravenous contr ast. Automated exposure control and iterative reconstruction technique were employed. The dose-length product was 1257.41 mGy-cm. COMPARISON: CT abdomen and pelvis 04/16/2023 FINDINGS: The visualized portions of the lung bases demonstrate chronic septal thickening with calcif ications and volume loss in the lower lobes. No pleural effusion. The heart size is normal. There are coronary artery calcifications. No pericardial effusion. The liver is normal. There are changes of c holecystectomy. The spleen, pancreas, and adrenal glands are normal. There is a 3.1 cm cyst in right kidney. There are 7 stones in right kidney measuring up to 11 mm. There are 4 stones in left kidney m easuring up to 8 mm. There is mild left hydronephrosis. There is a 6 mm stone in proximal left ureter . The prostate is severely enlarged. There is a 2.1 cm stone in the bladder. There is diverticulosis of the colon without evidence of diverticulitis. There are diverticula of the duodenum. There is a yan praumbilical ventral hernia containing fat. There is a supraumbilical ventral hernia containing nonob structed small bowel. There is a right-sided ventral hernia containing fat. There is gas in the small bowel mesentery. There are scattered foci of free gas in the anterior peritoneum. There are no patho logically enlarged lymph nodes. There is no free intraperitoneal fluid. There is a total right hip ar throplasty. There are changes of posterior fusion procedure from L4 to S1. There is severe thoracic a nd lumbar spondylosis. IMPRESSION: 1. Free intraperitoneal gas, consistent with perforated viscus. The distribution of gas is suspicious for perforation of small bowel. I called this result to Dr. Fuentes. 2. Ventral hernias including a supraumbilical ventral hernia containing nonobstructed small bowel. 3. 6 mm stone in proximal left ureter with mild left hydronephrosis. 4. Bladder stone and bilateral nonobstructing kidney stones. Reviewed, dictated and finalized at location [facility]. IMPRESSION: 1. Free intraperitoneal gas, consistent with perforated viscus. The distributio n of gas is suspicious for perforation of small bowel. I called this result to Dr. Fuentes. 2. Ventral hernias including a supraumbilical ventral hernia containing nonobst ructed small bowel. 3. 6 mm stone in proximal left ureter with mild left hydronephrosis. 4. Bladder stone and bilateral nonobstructing kidney stones.
[2023-04-17 14:24] VITALS: BP 108/84; PULSE 79; RESP 20; TEMP 36.4; O2SAT 98
--- NOTE | 2023-04-17 14:37 | ED.GENADULT ---
HPI - General Adult General Chief complaint: Nausea/Vomiting/Diarrhea Stated complaint: abdominal pain, headache, vomiting Time Seen by Provider: 04/17/23 14:37 History of Present Illness HPI narrative: 77-year-old male patient with a known history of recently diagnosed renal calculus the left ureter measuring approximately 6 mm with significant hydronephrosis returns back with complaints of increased abdominal pain and increased nausea and vomiting. Patient also states that his pain has been steadily worse since he was seen here 2 days ago. He has been using the medications at home of tramadol for pain with very little relief. He has also been using Zofran and Flomax as well. He states that he has been straining the urine but has not noticed any stones. He denies any fever or chills. He localizes the pain to the lower abdomen most of the time. He has no radiation of pain into the groin or the scrotal sacs. He has no trouble urinating. Patient has had normal bowel movements and is passing gas. He states that his appetite is gone and he has not been able to eat much especially today. Related Data Home Medications Medication Instructions Recorded Confirmed aspirin 81 mg chewable tablet 81 mg PO DAILY 06/10/22 04/15/23 carvedilol 3.125 mg tablet (Coreg) 3.125 mg PO Q12H 06/10/22 04/15/23 docusate calcium 240 mg capsule 240 mg PO QHS 06/10/22 04/15/23 furosemide 20 mg tablet 20 mg PO DAILY 04/15/23 04/15/23 Allergies Allergy/AdvReac Type Severity Reaction Status Date / Time atorvastatin [Lipitor] Allergy Intermediate Unknown Verified 04/16/23 09:33 Latex, Natural Rubber Allergy Intermediate Blister Verified 04/16/23 09:33 meperidine [Demerol] Allergy Intermediate Unknown Verified 04/16/23 09:33 morphine Allergy Intermediate Unknown Verified 04/16/23 09:33 Penicillins Allergy Intermediate Unknown Verified 04/16/23 09:33 pravastatin Allergy Intermediate Unknown Verified 04/16/23 09:33 prochlorperazine Allergy Intermediate Unknown Verified 04/16/23 09:33 rosuvastatin [Crestor] Allergy Intermediate Unknown Verified 04/16/23 09:33 simvastatin Allergy Intermediate Unknown Verified 04/16/23 09:33 heparin AdvReac Intermediate Unknown Verified 04/16/23 09:33 acetaminophen [From [place]] AdvReac Vomiting Verified 04/16/23 09:33 hydrocodone [From [place]] AdvReac Vomiting Verified 04/16/23 09:33 Review of Systems Review of Systems: All systems reviewed & are unremarkable except as noted in HPI and below Constitutional: Constitutional: Reports no additional constitutional complaints Eyes: Eyes: Reports no additional eye complaints ENT: Reports system reviewed and no additional complaints, except as documented Cardiovascular: Cardiovascular: Reports no additional cardiovascular complaints Respiratory: Respiratory: Reports no additional respiratory complaints Gastrointestinal: Gastrointestinal: Reports abdominal pain, Reports nausea and Reports vomiting Genitourinary: Genitourinary: Reports no additional male genitourinary complaints Musculoskeletal: Musculoskeletal: Reports no additional musculoskeletal complaints Integumentary/Breasts: Skin/Breast: Reports system reviewed and no additional complaints, except as docu Neurologic: Reports system reviewed and no additional complaints, except as documented Psychiatric: Psychiatric: Reports no additional psychiatric complaints Endocrine: Endocrine: Reports no additional endocrine complaints Hematologic/Lymphatic: Hematologic/Lymphatic: Reports no additional hematologic/lymphatic complaints Allergic/Immunologic: Allergic/Immunologic: Reports no additional allergic/immunologic complaints PMFSH Past Medical History Medical History Anxiety Coronary artery disease Degenerative arthritis of lumbar spine Encounter for screening for malignant neoplasm of prostate Hematoma of lower extremity Hyperlipidemia Hypertension Impaired glucose fausto
[2023-04-17] MEDS: METOCLOPRAMIDE HCL INJ 10 MG/2 ML VIAL IV PUSH (14:54)
[2023-04-17 15:08] LABS: Basophils Absolute Auto 0.03 K/mm3 (0.00-0.10); Basophils Percent Auto 0.3 % (0.0-1.0); Eosinophils Absolute Auto 0.14 K/mm3 (0.02-0.50); Eosinophils Percent Auto 1.4 % (1.0-6.0); Hematocrit 33.4 % (37.0-46.0); Immature Granulocyte Absolute 0.06 K/mm3 (0.00-0.00); Immature Granulocyte Percent A 0.6 % (0.0-0.0); Lymphocytes Absolute Auto 1.19 K/mm3 (1.10-4.50); Lymphocytes Percent Auto 12.2 % (18.0-42.0); Mean Corpuscular HGB Conc 32.9 g/dL (32.0-36.0); Mean Corpuscular Hemoglobin 29.4 pg (27.0-31.0); Mean Corpuscular Volume 89.3 fL (78.0-102.0); Monocytes Percent Auto 7.2 % (2.0-11.0); Neutrophils Absolute Auto 7.7 K/mm3 (1.7-7.2); Neutrophils Percent Auto 78.3 % (50.0-70.0); Platelet Count Result 153 K/mm3 (150-420); Red Blood Count 3.74 M/mm3 (4.70-6.10); Red Cell Distribution Width 13.4 % (11.6-14.4); White Blood Count 9.8 K/mm3 (4.8-10.8)
[2023-04-17 15:24] LABS: Alkaline Phosphatase 72 U/L (46-116); Anion Gap 7 mmol/L (8-16); Aspartate Amino Transferase 13 U/L (15-37); Bilirubin,Total 0.9 mg/dL (0.00-1.00); Blood Urea Nitrogen 21 mg/dL (7-18); Calcium 8.3 mg/dL (8.5-10.1); Carbon Dioxide 27 mmol/L (21-32); Chloride 97 mmol/L (98-108); Estimated CRCL calculation 37 ml/min; Estimated Glomerular Filt Rate 43; Glucose 122 mg/dL (70-99); Osmolality Calculated 276 mOsm/kg (285-295); Potassium 4.2 mmol/L (3.5-5.1); Sodium 131 mmol/L (136-145); Total Protein 6.1 g/dL (6.4-8.2)
[2023-04-17] MEDS: SODIUM CHLORIDE 0.9% IV 1,000 ML 500 ML IV CONT (15:55)
[2023-04-17 16:01] LABS: Appearance Urine Cloudy (Clear); Bilirubin Urine Negative (Negative); Blood Urine 3+ (Negative); Color Urine Yellow (Yellow); Glucose Urine UA Negative (Negative); Ketones Urine Trace (Negative); Leukocyte Esterase Ur Negative (Negative); Nitrate Urine Negative (Negative); Protein Urine Trace (Negative); Specific Grav Ur 1.025 (1.010-1.020)
[2023-04-17 16:02] LABS: Amylase 43 U/L (25-115); Lipase 22 U/L (16-77)
[2023-04-17 16:03] LABS: Alanine Aminotransferase 16 U/L (16-63)
[2023-04-17 16:07] LABS: Add Urine Microscopic? YES; RBC Urine >75 /hpf (0-2)
[2023-04-17 16:08] LABS: Bacteria Urine 1+ /hpf; Squamous Epithelial Cell Urine Rare /hpf (Few); WBC Urine None seen /hpf (0-3)
[2023-04-17] MEDS: metroNIDAZOLE 500 MG/ISO 100ML 500 MG/100 ML BAG 100 MG IVPB (16:22)
[2023-04-17] MEDS: levoFLOXacin 500 MG/D5W 100 ML 500 MG/100 ML BAG 100 MG IVPB (16:29)
[2023-04-17 16:30] LABS: Lactic Acid Reflex 1.2 mmol/L (0.4-2.0)
[2023-04-17 17:54] VITALS: BP 123/73; PULSE 81; RESP 20; O2SAT 94
[2023-04-17 18:10] VITALS: BP 124/74; PULSE 81; RESP 20; TEMP 36.9; O2SAT 97
== END 2023-04-17 18:39 | disposition short-term general hospital (02) ==
PROVIDERS: Emergency Provider Emergency Medicine; PCP Family Medicine
DX: K56.609 Unspecified intestinal obstruction, unspecified as to partial versus complete obstruction (principal); I25.10 Atherosclerotic heart disease of native coronary artery without angina pectoris; E78.5 Hyperlipidemia, unspecified; I10 Essential (primary) hypertension; Z79.82 Long term (current) use of aspirin; Z87.891 Personal history of nicotine dependence
CPT/HCPCS: 36415; 74176; 80053; 81001; 82150; 83605; 83690; 85025; 96361; 96365; 96368; 96375; 99285; J1956; J2765; J7030

== ENCOUNTER 2023-04-17 20:56 | Inpatient (IN) | payer MEDICARE, SELFPAY ==
--- NOTE | ~2023-04-17 | CT_ITS ---
EXAMINATION: CT abdomen pelvis wo con DATE: 04/18/2023 10:42 INDICATION: Possible small bowel perforation TECHNIQUE: Computed tomography (CT) of the abdomen and pelvis was performed without intravenous contr ast. The dose-length product (DLP) was 1135.21 mGy-cm. Automated exposure control and iterative recon struction technique were employed. Oral contrast was administered. COMPARISON: 04/17/2023 FINDINGS: Chronic septal thickening and volume loss are again noted in the visualized lower lobes. Th e heart size is normal. There is calcified coronary artery atherosclerosis. The gallbladder is surgic ally absent. The liver, spleen, pancreas, and adrenal glands are normal. The previously described 6 m m stone of the proximal left ureter is now in the left renal pelvis. There is mild left hydronephrosi s. Nonobstructing stones of the left kidney measure up to 8 mm. Nonobstructing stones of the right ki dney measure up to 11 mm. There is a 2.1 cm bladder stone. No pathologically enlarged abdominal or pe lvic lymph nodes are identified. There are no dilated loops of bowel. There is a supraumbilical herni a containing nonobstructed small bowel. Again noted are multiple foci of gas in the small bowel mesen breezy, in the anterior abdomen, and in the ventral hernia sac. No definite extraluminal oral contrast is identified. There is an epigastric midline hernia containing fat and free intraperitoneal gas. Annette nges of posterior fusion procedure are present from L4 through S1. IMPRESSION: 1. Persistent gas in the small bowel mesentery and free intraperitoneal gas, consistent with bowel pe rforation. No definite evidence of extraluminal oral contrast. 2. Supraumbilical ventral hernia containing gas and nonobstructed small bowel and epigastric ventral hernia containing fat and gas. 3. 6 mm stone of the left renal pelvis, previously in the proximal ureter. 4. Bilateral nephrolithiasis and bladder stone. Reviewed, dictated and finalized at location [facility]. IMPRESSION: 1. Persistent gas in the small bowel mesentery and free intraperitoneal gas, co nsistent with bowel perforation. No definite evidence of extraluminal oral cont rast. 2. Supraumbilical ventral hernia containing gas and nonobstructed small bowel a nd epigastric ventral hernia containing fat and gas. 3. 6 mm stone of the left renal pelvis, previously in the proximal ureter. 4. Bilateral nephrolithiasis and bladder stone.
--- NOTE | ~2023-04-17 | XR_ITS ---
EXAMINATION: XR retrograde pyelo w/stent LT INDICATION: Stone of the left renal pelvis TECHNIQUE: 10 intraoperative fluoroscopic images are submitted for review. Total fluoroscopic time wa s 85.8 seconds. COMPARISON: None available FINDINGS: Retrograde opacification of the left ureter and renal pelvis demonstrates a filling defect in the renal pelvis, consistent with kidney stone seen on recent CT. A left internal ureteral stent i s placed in expected position. Changes of posterior lumbosacral fusion are noted. IMPRESSION: 1. Stone in the left renal pelvis with left internal ureteral stent placed in expected position. Reviewed, dictated and finalized at location [facility]. IMPRESSION: 1. Stone in the left renal pelvis with left internal ureteral stent placed in e xpected position.
--- NOTE | 2023-04-17 20:15 | PM.IMHP ---
H&P: HPI History of Present Illness Date/Time: 04/17/23 19:15 Chief Complaint: Perforated viscus. Narrative: This is a very pleasant 77-year-old male with history of anxiety, hypertension, dyslipidemia, GERD, benign prostatic hyperplasia, paroxysmal atrial fibrillation on chronic anticoagulation, coronary artery disease with history of stents, and kidney stones who is being directly admitted to the medical floor from the emergency department at the [facility] for close monitoring and surgery consultation after he was found to have evidence of a perforated viscus on CT of the abdomen and pelvis done today. The patient provides the following history; his provides additional history with the patient's permission. He was seen in the emergency department on Thursday evening for evaluation of sudden onset left-sided flank pain and he was found to have a 6 x 5 mm proximal left ureteral stone resulting in moderate left hydronephrosis, multiple additional bilateral nonobstructing renal stones, and a 2 cm stellate urinary bladder stone. He was discharged home with Flomax and tramadol instructions to follow-up with Urology. The tramadol does seem to help with his pain somewhat. He has not passed the stones to his knowledge and he denies dysuria and hematuria. He reports pretty constant nausea the last couple of days since being home in addition to belching and hiccuping. Last night he developed a severe headache and he reports several episodes of pretty violent retching today. While vomiting he developed sudden onset of severe, sharp, diffuse abdominal pain associated with bloating and he return to the ER. Repeat CT scan today showed free intraperitoneal gas consistent with perforated viscus with a distribution suspicious for perforation of small bowel. The ED physician spoke with on-call surgeon Dr. Jung who did not feel the patient had an acute abdomen by description but he did recommend that he be transferred to [place] for close monitoring and evaluation. At the time my evaluation the patient is resting comfortably and he is not having any severe pain at this time. He continues to have nausea and reports feeling a bit better after receiving Reglan at the outside facility. He has not had a fever but does endorse chills. He has not had a bowel movement for several days. He has no history of peptic ulcers. He denies hematemesis, melena, and hematochezia. Review of Systems Review of Systems: Twelve systems were reviewed and are negative except for as per HPI. [facility] Past Medical History Medical History Anxiety Chronic anticoagulation Coronary artery disease Degenerative arthritis of lumbar spine Encounter for screening for malignant neoplasm of prostate Hyperlipidemia Hypertension Impaired glucose tolerance Low back pain Osteoarthritis of knee [place] Preoperative examination Renal stones Supratherapeutic INR Umbilical hernia Surgical History Surgical History History of appendectomy History of back surgery Lumbar spine: x's 2 History of cataract removal with insertion of prosthetic lens History of heart artery stent x's 4 History of inguinal hernia repair History of right hip replacement History of right shoulder replacement History of umbilical hernia repair Hx of cholecystectomy Knee joint replacement status Bilateral Family History Family History Father Family history of coronary artery disease Brother Hypertension Family history of type 2 diabetes mellitus Family history of coronary artery disease Sister Family history of type 2 diabetes mellitus Family history of coronary artery disease Hypertension Social History Social History (Updated 04/18/23 @ 21:26 by Jessica Ewing PA-C) Smoking status: Never smoker Alcohol
[2023-04-17 21:00] VITALS: BMI 30.6
[2023-04-17 21:43] LABS: Anion Gap 5 mmol/L (8-16); Blood Urea Nitrogen 18 mg/dL (9-20); Calcium 7.9 mg/dL (8.4-10.2); Carbon Dioxide 26 mmol/L (22-30); Chloride 98 mmol/L (98-107); Estimated Glomerular Filt Rate 45; Glucose 100 mg/dL (65-110); Magnesium 1.9 mg/dL (1.6-2.3); Potassium 4.2 mmol/L (3.4-5.0); Sodium 129 mmol/L (137-145)
[2023-04-17 21:44] LABS: INR 2.8; Prothrombin Time 32.2 Seconds (11.1-14.7)
[2023-04-17 22:00] VITALS: BP 124/78; PULSE 86; RESP 18; TEMP 36.5; O2SAT 97
--- NOTE | 2023-04-17 22:22 | ADMGEN ---
This patient, Ernie Rueda ., was admitted to 3 [facility] Surg Room 312-01. Patient/family oriented to hospital policies and general routines including ID bracelet, bed and alarms, visiting hours, pain management, procedures, bathroom and other care routines, personal items, smoking policy, room service/diet, and visiting hours. Information on how to activate the Rapid Response Team has been discussed. Patient/Family are encouraged to report perceived risks to care and to ask questions if they do not understand what they are told or what they should do.
[2023-04-17] MEDS: SODIUM CHLORIDE 0.9% IV 1,000 ML 100 ML IV CONT (22:55)
[2023-04-17] MEDS: PHYTONADIONE ADULT INJ 10 MG in DEXTROSE 5% IN WATER 50 ML 100 MG IVPB (22:55)
[2023-04-18 06:00] VITALS: BP 125/81; PULSE 73; RESP 18; TEMP 36.6; O2SAT 97
--- NOTE | 2023-04-18 08:00 | PM.CNGS ---
Assessment and Plan Assessment and plan (1) Recurrent incisional hernia: Code(s): K43.2 - Incisional hernia without obstruction or gangrene Status: Acute Assessment and Plan: I reviewed the CT, and patient's clinical exam and history do not support the findings of a perforated viscus. He has no peritoneal signs and no abdominal tenderness on exam. The free air might be an incidental finding. I will get a CT with oral contrast to confirm whether there is any sign of contrast extravasation. He has known about this recurrent hernia for quite some time but was told previously that repeat surgery will be difficult and higher risk. He has been wearing a hernia belt and reports no change in the symptoms from the hernia. Most of his symptoms seem to be related to the ureteral stone. I will consult Urology for their input. If the CT shows no sign of bowel perforation, I am okay with him having a diet. Will continue to follow for any changes in his abdominal exam. 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 Status: Acute (4) Calculus of proximal left ureter: Code(s): N20.1 - Calculus of ureter Status: Acute (5) Hydronephrosis: Code(s): N13.30 - Unspecified hydronephrosis Status: Acute (6) Bladder calculi: Code(s): N21.0 - Calculus in bladder Status: Acute (7) A-fib: Code(s): I48.91 - Unspecified atrial fibrillation Status: Chronic (8) Coronary artery disease: Code(s): I25.10 - Atherosclerotic heart disease of [place] coronary artery without angina pectoris Status: Chronic (9) Hypertension: Code(s): I10 - Essential (primary) hypertension Status: Chronic History of Present Illness Consult details Consult date: 04/18/23 Reason for consult: abdominal pain Requesting physician: Jessica Ewing PA-C Narrative: This is a 77-year-old man who I am asked to see for a possible perforated bowel. He presented to the emergency department in [place] twice over the last 2 days. On 04/15 he had presented to the emergency department with left flank pain. He was also experiencing nausea and vomiting. He was found have evidence a left ureteral stone with hydronephrosis and a 2 cm bladder stone. He was discharged from the emergency department and then returned again yesterday with worsening symptoms. He was then having lower abdominal pain with nausea and vomiting. A repeat CT at that time showed free air in the intraperitoneal space suspicious for small bowel perforation. He still had persistent left ureteral stone with left hydronephrosis. He was then transferred to [facility] for further treatment. His pain currently is not severe and he denies any abdominal pain. He has not had any fever. His bowels have been moving and his nausea and vomiting her currently resolved. He has had multiple previous abdominal surgeries and has a recurrent incisional hernia containing bowel. He reports no pain over this region and reports no worsening swelling. Review of Systems Review of Systems: All systems reviewed & are unremarkable except as noted in HPI and below Constitutional: Constitutional: Denies chills, Denies fever(s), Denies headache(s) and Denies weight loss Eyes: Eyes: Denies change in vision ENT: Denies dizziness, Denies headache(s), Denies neck mass and Denies throat swelling Cardiovascular: Cardiovascular: Denies chest pain, Denies lightheadedness and Denies dyspnea Respiratory: Respiratory: Denies cough, Denies dyspnea and Denies wheezing Gastrointestinal: Gastrointestinal: Denies abdominal pain, Denies change in bowel habits, Denies nausea and Denies vomiting Genitourinary: Genitourinary: Reports flank pain In
[2023-04-18 08:58] LABS: Basophils Percent Auto 0.5 % (0.2-1.2); Eosinophils Absolute Auto 0.2 K/mm3 (0-0.3); Eosinophils Percent Auto 3.2 % (0-4.4); Hematocrit 38.3 % (42.0-52.0); Hemoglobin 12.4 g/dL (14.0-18.0); Immature Granulocyte Absolute 0.04 K/mm3 (0.00-0.031); Immature Granulocyte Percent A 0.6 % (0-0.5); Lymphocytes Absolute Auto 1.26 K/mm3 (0.9-3.2); Lymphocytes Percent Auto 20.1 % (18.3-44.2); Mean Corpuscular HGB Conc 32.4 g/dl (32-36); Mean Corpuscular Hemoglobin 29.8 pg (26-34); Mean Corpuscular Volume 92.1 fl (80-100); Mean Platelet Volume 11.3 fl (7.4-10.4); Monocytes Absolute Auto 0.6 K/mm3 (0.1-0.6); Monocytes Percent Auto 9.3 % (2.6-8.5); Neutrophils Absolute Auto 4.2 K/mm3 (1.3-6.7); Neutrophils Percent Auto 66.3 % (45.5-73.1); Platelet Count Result 154 k/mm3 (150-375); Red Blood Count 4.16 M/mm3 (4.6-6.20); Red Cell Distribution Width 13.9 % (11.5-14.5); White Blood Count 6.3 K/mm3 (4.5-10.0)
[2023-04-18 09:15] LABS: Alanine Aminotransferase 17 U/L (6-50); Albumin Level 3.9 g/dL (3.5-5.1); Alkaline Phosphatase 72 U/L (38-126); Anion Gap 8 mmol/L (8-16); Aspartate Amino Transferase 22 U/L (17-59); Bilirubin,Total 1.4 mg/dL (0.2-1.3); Blood Urea Nitrogen 16 mg/dL (9-20); Calcium 8.5 mg/dL (8.4-10.2); Carbon Dioxide 25 mmol/L (22-30); Chloride 103 mmol/L (98-107); Estimated CRCL calculation 64 ml/min; Estimated Glomerular Filt Rate > 60; Glucose 88 mg/dL (65-110); Sodium 136 mmol/L (137-145)
[2023-04-18] MEDS: PANTOPRAZOLE SODIUM IV 40 MG VIAL IV PUSH (09:32)
--- NOTE | 2023-04-18 09:55 | PM.IMPN ---
Progress Note: A&P Assessment and Plan (1) Perforated viscus: Code(s): R19.8 - Other specified symptoms and signs involving the digestive system and abdomen Status: Acute Assessment and Plan: No peritoneal signs on abdominal exam. History does not suggest perforated viscus. I wonder perhaps he has barotrauma from severe retching. Chest x-ray ordered to evaluate for possible pneumomediastinum. No subcutaneous emphysema crepitus, or swelling noted over the chest wall or neck. Dr. Jung has been consulted and his input is greatly appreciated. NPO for now. (2) Calculus of proximal left ureter: Code(s): N20.1 - Calculus of ureter Status: Acute Assessment and Plan: Patient will need to follow-up with Urology for definitive management. (3) Hydronephrosis: Code(s): N13.30 - Unspecified hydronephrosis Status: Acute Assessment and Plan: Related to above. Hydronephrosis is improved on today's CT reading. (4) Bladder calculi: Code(s): N21.0 - Calculus in bladder Status: Acute Assessment and Plan: Will need to be managed per Urology as an outpatient. (5) Renal insufficiency: Code(s): N28.9 - Disorder of kidney and ureter, unspecified Status: Acute Assessment and Plan: Related to ureterolithiasis with hydronephrosis and probably some component of dehydration. He is being hydrated. Avoid nephrotoxic agents. Monitor I/O. (6) Chronic anticoagulation: Code(s): Z79.01 - prison (current) use of anticoagulants Status: Acute Assessment and Plan: Hold anticoagulation in case he requires surgical intervention. Subjective Date/time seen: 04/18/23 09:55 Interval history: no new complaints Exam Narrative: General: Mildly ill, nontoxic-appearing male sitting up in bed. Weight: 99.6 kg. BMI: 30.6. HEENT: Wearing corrective lenses. PERRL, EOMI. Sclera anicteric. Tacky mucous membranes. Neck: Supple. No crepitus or subcu emphysema. Respiratory: Lungs are clear to auscultation bilaterally. Cardiovascular: Regular rate and rhythm with S1-S2. Chest: No crepitus or subcutaneous emphysema. Gastrointestinal: Abdomen is soft, protuberant, and nondistended with slightly hypoactive bowel sounds. He does have a ventral hernia which is not tender to palpation. No guarding or rebound tenderness. Skin: Warm and dry. No rash or lesions on limited exam. Extremities: No cyanosis or clubbing. Trace pretibial edema bilaterally (patient states this is chronic). Peripheral pulses intact. Neurological: Alert. Cranial nerves 2-12 are grossly intact. No gross focal deficits to casual conversation. Psychiatric: Pleasant and cooperative with normal mood and affect. Judgment and insight intact. Objective Data Vital Signs Vital Signs: Vital Signs - 24 hr 04/17/23 22:00 04/17/23 20:00 04/18/23 06:00 Temperature 97.7 F 97.8 F Pulse Rate 86 73 Respiratory Rate 18 18 Blood Pressure 124/78 125/81 Pulse Oximetry 97 97 Oxygen Delivery Room Air Intake/Output Intake/Output: Intake & Output 04/15/23 04/16/23 04/17/23 04/18/23 23:59 23:59 23:59 23:59 Intake Total 0 Output Total 2100 Balance -2100 Meds/Results Medications: Active Medications Generic Name Dose Route Start Last Admin Trade Name Freq PRN Reason Stop Dose Admin Sodium Chloride 1,000 mls @ 100 mls/hr 04/17/23 21:05 04/17/23 22:55 Normal Saline Iv IV CONT 100 mls/hr .Q10H KOFI Administration Acetaminophen 1,000 mg in 100 mls @ 400 mls/hr 04/18/23 00:53 Ofirmev 1,000 Mg Ivpb IVPB 04/19/23 00:52 Q6H PRN Pain or Fever Ondansetron HCl 4 mg 04/17/23 20:56 Ondansetron Inj 4 Mg/2 Ml Vial IV PUSH Q6H PRN Nausea And Vomiting Pantoprazole Sodium 40 mg 04/18/23 09:00 04/18/23 09:32 Pantoprazole Sodium Iv 40 Mg Vial IV PUSH 40 mg QAM KOFI Administration Labs Labs: Kwame
[2023-04-18] MEDS: SODIUM CHLORIDE 0.9% IV 1,000 ML 100 ML IV CONT (11:58)
[2023-04-18 14:00] VITALS: BP 133/73; PULSE 75; RESP 16; TEMP 36.6; O2SAT 97
[2023-04-18 22:00] VITALS: BP 130/76; PULSE 72; RESP 16; TEMP 36.3; O2SAT 96
[2023-04-18] MEDS: TAMSULOSIN HCL 0.4 MG CAPSULE PO (22:43)
[2023-04-18] MEDS: carvediloL 3.125 MG TABLET PO (22:43)
[2023-04-18] MEDS: diphenhydrAMINE HCl CAP 25 MG CAPSULE 50 MG PO (22:44)
[2023-04-18] MEDS: traMADol HCL (*CRX) 50 MG TABLET PO (22:44)
[2023-04-18] MEDS: ALPRAZolam (*CRX) 0.5 MG TABLET PO (22:46)
[2023-04-19] VITALS (8 sets, daily range): BP systolic 112–135; BP diastolic 72–89; PULSE 69–95; RESP 12–20; TEMP 35.5–36.7; O2SAT 94–100
[2023-04-19] MEDS: SODIUM CHLORIDE 0.9% IV 1,000 ML 100 ML IV CONT (02:54)
[2023-04-19 06:29] LABS: INR 1.3; Prothrombin Time 17.1 Seconds (11.1-14.7)
--- NOTE | 2023-04-19 07:19 | WPDANESEPP ---
Anes - Eval Pre Procedure Procedure: Cystoscopy, Left Stent Placement Date/Time: 04/19/23 07:19 Surgeon: Florinda Preop Diagnosis: Nonobstructing stone, left renal pelvis Pre Op Diagnosis: Perforated Viscus Patient Data Age: 77 Gender: M Height: 1.8 m Weight: 98.6 kg Last Vital Signs Temp 96 F L 04/19/23 05:56 Pulse 71 04/19/23 05:56 Resp 16 04/19/23 05:56 BP 133/87 04/19/23 05:56 Pulse Ox 97 04/19/23 05:56 O2 Del Method Room Air 04/18/23 20:00 Allergies Allergy/AdvReac Type Severity Reaction Status Date / Time atorvastatin [Lipitor] Allergy Intermediate Unknown Verified 04/16/23 09:33 Latex, Natural Rubber Allergy Intermediate Blister Verified 04/16/23 09:33 meperidine [Demerol] Allergy Intermediate Unknown Verified 04/16/23 09:33 morphine Allergy Intermediate Unknown Verified 04/16/23 09:33 Penicillins Allergy Intermediate Unknown Verified 04/16/23 09:33 pravastatin Allergy Intermediate Unknown Verified 04/16/23 09:33 prochlorperazine Allergy Intermediate Unknown Verified 04/16/23 09:33 rosuvastatin [Crestor] Allergy Intermediate Unknown Verified 04/16/23 09:33 simvastatin Allergy Intermediate Unknown Verified 04/16/23 09:33 heparin AdvReac Intermediate Unknown Verified 04/16/23 09:33 acetaminophen [From [facility]] AdvReac Vomiting Verified 04/16/23 09:33 hydrocodone [From [facility]] AdvReac Vomiting Verified 04/16/23 09:33 Home Medications Medication Instructions Recorded Confirmed Type nitroglycerin 0.4 mg sublingual 0.4 mg sublingual PRN PRN Chest 02/05/22 04/17/23 Rx tablet Pain #30 tabs aspirin 81 mg chewable tablet 81 mg PO DAILY 06/10/22 04/17/23 History carvedilol 3.125 mg tablet (Coreg) 3.125 mg PO Q12H 06/10/22 04/17/23 History docusate calcium 240 mg capsule 240 mg PO QHS 06/10/22 04/17/23 History pantoprazole 40 mg tablet,delayed 40 mg PO QAM #90 tabs 07/07/22 04/17/23 Rx release isosorbide mononitrate 30 mg See Rx Instructions .Route 09/16/22 04/17/23 Rx tablet,extended release 24 hr .COMPLEX #90 tabs naproxen 500 mg tablet See Rx Instructions .Route 10/20/22 04/17/23 Rx .COMPLEX #180 tabs ezetimibe 10 mg tablet See Rx Instructions .Route 01/08/23 04/17/23 Rx .COMPLEX #90 tabs warfarin 6 mg tablet See Rx Instructions .Route 01/28/23 04/18/23 Rx .COMPLEX #90 tabs furosemide 20 mg tablet 20 mg PO DAILY 04/15/23 04/17/23 History ondansetron 4 mg disintegrating 4 mg PO Q8H PRN nausea and 04/16/23 04/17/23 Rx tablet vomiting #20 tabs tamsulosin 0.4 mg capsule (Flomax) 0.4 mg PO HS #7 caps 04/16/23 04/17/23 Rx tramadol 50 mg tablet 50 mg PO Q4H PRN pain #30 tabs 04/16/23 04/17/23 Rx Tylenol PM 1,000 mg PO HS PRN Sleep 04/17/23 04/17/23 History alprazolam 0.5 mg tablet 0.5 mg PO HS PRN anxiety 04/17/23 04/17/23 History ramipril 2.5 mg capsule 2.5 mg PO DAILY 04/17/23 04/17/23 History warfarin 7.5 mg tablet See Rx Instructions .Route .COMPLEX 04/17/23 04/17/23 History Laboratory Tests 04/18/23 04/19/23 08:33 05:29 WBC 6.3 K/mm3 (4.5-10.0) RBC 4.16 L M/mm3 (4.6-6.20) Hgb 12.4 L g/dL (14.0-18.0) Hct 38.3 L % (42.0-52.0) MCV 92.1 fl (80-100) MCH 29.8 pg (26-34) MCHC 32.4 g/dl (32-36) RDW 13.9 % (11.5-14.5) Plt Count 154 k/mm3 (150-375) MPV 11.3 H fl (7.4-10.4) Immature Gran % (Auto) 0.6 H % (0-0.5) Neut % (Auto) 66.3 % (45.5-73.1) Lymph % (Auto) 20.1 % (18.3-44.2) [place] % (Auto) 9.3 H % (2.6-8.5) Eos % (Auto) 3.2 % (0-4.4) Baso % (Auto) 0.5 % (0.2-1.2) Lymph # (Auto) 1.26 K/mm3 (0.9-3.2) [place] # (Auto) 0.6 K/mm3 (0.1-0.6) Eos # (Auto) 0.2 K/mm3 (0-0.3) Baso # (Auto) 0.0 K/mm3 (0.0-0.1) Abs Immat Gran (auto) 0.04 H K/mm3 (0.00-0.031) Absolute Neuts (auto) 4.2 K/mm3 (1.3-6.7) Absolute Nucleated RBC 0.0 K/mm3 (0.0-0.012) Nucleated RBC % 0.0 % (0.0-0.2)
[2023-04-19] MEDS: PANTOPRAZOLE SODIUM IV 40 MG VIAL IV PUSH (08:32)
--- NOTE | 2023-04-19 08:57 | WPDURCON ---
Assessment and Plan Assessment and plan (1) Calculus of proximal left ureter: Code(s): N20.1 - Calculus of ureter Status: Acute Assessment and Plan: Patient with multiple nonobstructing stones in both kidneys including 1 that is approximately 6 mm in size it has been in the left proximal ureter as recently as CT scan 04/17/2023. Repeat scan yesterday to evaluate resolution of bowel abnormalities showed this was in the renal pelvis, but there is persistent mild left hydronephrosis. The patient continues to have intermittent left flank pain. Discussed with the patient will need more extensive management of his bilateral stones, but that placing a stent may offer him pain relief from intermittent obstructive uropathy. Given his pain has been persistent to the point of requiring several emergency department visits over the last several days we will proceed to place a stent today. This hopefully also will help with monitoring of his abdominal pain in the context of new free air on CT, that has been evaluated by General surgery and felt to be somewhat inconsistent with perforated viscus given his normal abdominal exam and vital signs. Patient will need definitive stone management at some point in the near future. (2) Bladder calculi: Code(s): N21.0 - Calculus in bladder Status: Acute Assessment and Plan: Tuna cm bladder stone seen on imaging, discussed with him this will need to be addressed with cystolitholapaxy at some point in the future likely at the time of definitive management kidney stones, for today we will most likely not intervene upon this and simply place a stent the left ureter to attempt to relieve his pain Urology Consult Note HPI Date Seen: 04/19/23 Requesting Physician: Jonas Queen MD Primary Care Provider: Mir Cunningham DO Consult Narrative Narrative: Ernie Rueda Sr. is a 77 year old male Who presented to the hospital Thursday with complaint of left flank pain and mild abdominal pain. He reports this pain started last week Thursday had been intermittent in nature but at times spiking up to 8/10. A CT scan was performed Thursday night that demonstrated a 7 mm stone in the left proximal ureter, there was no evidence of infection, there is also some mesenteric gas and concern for possible free air. A general surgical consult was placed and he was evaluated for possible bowel ischemia, and ultimately his exam and imaging were not felt to be consistent with an obvious surgical emergency. A repeat CT scan yesterday with oral contrast demonstrated persistent small amount of free gas in the abdomen, but his exam, vital signs, and other indicator seemed inconsistent with a bowel perforation and notes he has been expectantly managed by General surgery. The CT scan did show stone had moved somewhat more proximally and was in the renal pelvis but there is persistent mild hydronephrosis at that time. Overnight last night patient had no fevers, no chills, did have some worsening of his left flank pain upper thighs 8/10, this morning he is comfortable. He reported mild hematuria overnight. This morning urine has been yellow, no dysuria, no fevers or chills. Review of Systems Review of Systems: All other systems negative except for the above PMFSH Past Medical History Medical History Anxiety Chronic anticoagulation Coronary artery disease Degenerative arthritis of lumbar spine Encounter for screening for malignant neoplasm of prostate Hyperlipidemia Hypertension Impaired glucose tolerance Low back pain Osteoarthritis of knee [place] Preoperative examination Renal stones Supratherapeutic INR Umbilical hernia Surgical History Surgical History History of appendectomy History of back surgery Lumbar spine: x's 2 History of cataract removal with insertion of p
--- NOTE | 2023-04-19 09:02 | P.PNAN_ITS ---
Anes - Eval Final PreProcedure Day of Procedure 04/19/23 09:02 Patient weight: obese Heart: regular rate and rhythm Lungs: clear to auscultation and normal air movement Airway: Mallampati scale class II Neurological: alert and oriented Last oral intake: >/= 8 hours ASA classification: III Emergent: no Anesthetic plan: proceed Anesthesia type and monitoring: general GIVS Results Review: All pre-operative results and documents have been reviewed as part of the pre- operative evaluation. Informed Consent: The patient's anesthetic plan and its attendant risks and benefits were discussed with the patient/family/POA. Questions were solicited and answers provided to the satisfaction of the patient/family/POA.
[2023-04-19] MEDS: ceFAZolin 2 GM/D5W 50 ML 2 GM/50 ML BAG IVPB (09:14)
[2023-04-19] MEDS: LIDOCAINE HCL 2% GEL UROJET 10 ML PKG MUCOUS MEM (09:29)
--- NOTE | 2023-04-19 09:41 | W.PM.PROC2 ---
Procedure Note - Detailed Date of Procedure 04/19/23 Pre-op Diagnosis Left ureteral stone Post-op Diagnosis Same Procedure Performed Left Ureteral stone Surgeon Alok Neely MD Anesthesia MAC Indications Patient is 77-year-old man who presented to the hospital on Thursday evening with left flank pain that started Thursday. He had previously been in the emergency department day prior to that was found to have a 6 mm stone the left proximal ureter with some mild hydronephrosis as well as nonobstructing stones in both kidneys and bladder stone. On repeat presentation on Thursday evening his CT scan also showed concern for some new free air and he was thus admitted to the hospital for general surgical consultation. General surgery has evaluated the patient and his abdominal exam is benign, vital signs are inconsistent with a perforated viscus, repeat CT scan yesterday continued to show some questionable free air, but General surgery did not feel there is an obvious source or indication for urgent surgical intervention. The patient has had intermittent left flank pain that does seem relatively consistent with renal colic. His CT scan from yesterday showed the stone had moved back into the renal pelvis but he did have persistent mild hydronephrosis he had recurrence of 8/10 left flank pain overnight. Given this we discussed proceeding to the operating room for placement of a ureteral stent on the left. We discussed with more definitive stone management in the near future including for both kidneys and also a bladder stone, but today's procedure was design To temporize the situation and alleviate renal colic is the source of his pain. Findings 1. Approximately 2 cm bladder stone free floating 2. no other abnormalities noted within the bladder 3. orthotopic ureteral orifices are somewhat small, left retrograde pyelogram with normal ureter, filling defect in the proximal ureter consistent with stone that had moved back into the ureter as well as several other filling defects within the calices consistent with known stones Description of Procedure after obtaining informed consent we proceeded to the operating room. The patient was placed in supine position the OR table. SCD boots were placed. He was given a dose of antibiotics. Mac anesthesia was induced. He was then placed in lithotomy position and prepped and draped in usual sterile manner. We began the procedure by passing well lubricated 22 [place] scope per the urethra. There were no abnormalities along course of the urethra. The prostatic urethra was notable for mild trilobar coaptation from prostatic enlargement. We entered the bladder. The bladder is emptied of all urine. Performed full endoscopic evaluation the bladder. There was a free-floating 2 to 2.5 cm stone within the bladder. There were no other mucosal lesions or abnormalities. A focus my attention on the patient's left ureteral orifice. It was in orthotopic location and somewhat small in diameter. It is cannulated with a Bentson wire and a 5 [place] catheter was gently Said into the distal ureter. after obtaining service worker images gentle retrograde pyelogram was performed. This demonstrated filling defect in the proximal ureter consistent with stone as well as several others within the kidney consistent with his known nonobstructing stones. There was mild tortuosity of the proximal ureter. Bentson wire was passed along course of the ureter and able to be fed into an upper pole calyx. The 5 [place] catheter was withdrawn. A 4.8 [place] by 28 cm double-J stent was fed over the wire with good curl in an upper pole calyx. The wire was withdrawn. The bladder was emptied. Completion x-rays confirmed the stent remained in normal position. This concluded the procedure which the patient tolerated without apparent complication. Will plan for the patient to return to the hospital floor for observation. From a urologic perspective he
[2023-04-19] MEDS: LACTATED RINGERS 1,000 ML 30 ML IV CONT (09:43)
--- NOTE | 2023-04-19 10:34 | PM.PNGS ---
Progress Note: A&P Assessment and Plan (1) Recurrent incisional hernia: Code(s): K43.2 - Incisional hernia without obstruction or gangrene Status: Acute Assessment and Plan: No signs of perforation or peritonitis. OK to discharge from surgical standpoint. Will have patient follow up in office to discuss possible hernia repair. Hernia does contain bowel and is at risk for strangulation or bowel obstruction. Since this is more of a chronic issue and patient has known about this for a long time, hopefully we can plan this electively. Discussed warning signs of strangulation and when to seek medical attention. (2) Abnormal CT of the abdomen: Code(s): R93.5 - Abnormal findings on diagnostic imaging of other abdominal regions, including retroperitoneum Status: Acute (3) Calculus of proximal left ureter: Code(s): N20.1 - Calculus of ureter Status: Acute (4) Hydronephrosis: Code(s): N13.30 - Unspecified hydronephrosis Status: Acute (5) Chronic anticoagulation: Code(s): Z79.01 - [facility] (current) use of anticoagulants Status: Acute (6) A-fib: Code(s): I48.91 - Unspecified atrial fibrillation Status: Chronic (7) Coronary artery disease: Code(s): I25.10 - Atherosclerotic heart disease of [place] coronary artery without angina pectoris Status: Chronic (8) Hypertension: Code(s): I10 - Essential (primary) hypertension Status: Chronic Subjective Subjective Date/Time Seen: 04/19/23 10:34 Interval history: Had more left flank pain last night, just had Cysto this AM. No abdominal pain. Tolerating diet. No nausea/vomiting. Exam GI: Inspection: non-distended GI Palp: Yes Soft to palpation, No Tenderness to palpation present (GI), No Guarding due to palpation present (GI) and Yes Hernia present (recurrent incisional) Objective Data Vital Signs Vital Signs: Vital Signs - 24 hr 04/18/23 14:00 04/18/23 22:00 04/18/23 20:00 Temperature 36.6 C 36.3 C L Pulse Rate 75 72 Respiratory Rate 16 16 Blood Pressure 133/73 130/76 Pulse Oximetry 97 96 Oxygen Delivery Room Air 04/19/23 05:56 04/19/23 09:43 04/19/23 09:55 Temperature 35.5 C L 36.7 C Pulse Rate 71 95 83 Respiratory Rate 16 12 18 Blood Pressure 133/87 121/74 134/78 Pulse Oximetry 97 96 97 Oxygen Delivery Room Air Room Air 04/19/23 10:10 04/19/23 10:25 Temperature Pulse Rate 75 70 Respiratory Rate 18 18 Blood Pressure 128/81 112/89 Pulse Oximetry 94 100 Oxygen Delivery Room Air Room Air Intake/Output Intake/Output: Intake & Output 04/16/23 04/17/23 04/18/23 04/19/23 23:59 23:59 23:59 23:59 Intake Total 2820 1100 Output Total 2725 1950 Balance 95 -850 Meds/Results Medications: Active Medications Generic Name Dose Route Start Last Admin Trade Name Freq PRN Reason Stop Dose Admin Acetaminophen 1,000 mg 04/18/23 22:28 Acetaminophen 500 Mg Tablet PO HS PRN Sleep Alprazolam 0.5 mg 04/18/23 22:22 04/18/23 22:46 Alprazolam (*Crx) 0.5 Mg Tablet PO 0.5 mg HS PRN Administration anxiety Carvedilol 3.125 mg 04/18/23 22:25 04/18/23 22:43 Carvedilol 3.125 Mg Tablet PO 3.125 mg Q12HR KOFI Administration Diphenhydramine HCl 50 mg 04/18/23 22:29 04/18/23 22:44 Diphenhydramine Hcl Cap 25 Mg Capsule PO 50 mg HS PRN Administration Sleep Fentanyl Citrate 25 mcg 04/19/23 09:03 Fentanyl Citrate Inj (*Crx) 100 Mcg/2 Ml Vial IV PUSH Q2M PRN Pain Sodium Chloride 1,000 mls @ 100 mls/hr 04/17/23 21:05 04/19/23 02:54 Normal Saline Iv IV CONT 100 mls/hr .Q10H KOFI Administration Lactated Ringer's 1,000 mls @ 30 mls/hr 04/19/23 09:05 04/19/23 09:43 Lr - Lactated Ringers Iv IV CONT 30 mls/hr .Q24H KOFI Administration Lactated Ringer's 1,000 mls @ 30 mls/hr 04/19/23 09:05 Lr - Lactated Ringers Iv IV CONT .Q24H KOFI Miscellaneous Inf
--- NOTE | 2023-04-19 11:41 | PM.DS ---
DS: Admitting Diagnosis Discharge Date April 19, 2023 Admitting Diagnosis perforated viscus, free air on CT. DS: Discharge Diagnosis Discharge Diagnosis (1) Perforated viscus: Code(s): R19.8 - Other specified symptoms and signs involving the digestive system and abdomen Status: Acute Assessment and Plan: No peritoneal signs on abdominal exam. History does not suggest perforated viscus. I wonder perhaps he has barotrauma from severe retching. Chest x-ray ordered to evaluate for possible pneumomediastinum. No subcutaneous emphysema crepitus, or swelling noted over the chest wall or neck. Dr. Jung has been consulted and his input is greatly appreciated. NPO for now. (2) Calculus of proximal left ureter: Code(s): N20.1 - Calculus of ureter Status: Acute Assessment and Plan: Patient will need to see a urologist for definitive management. Perhaps during this stay. (3) Hydronephrosis: Code(s): N13.30 - Unspecified hydronephrosis Status: Acute Assessment and Plan: Related to above. Hydronephrosis is improved on today's CT reading. (4) Bladder calculi: Code(s): N21.0 - Calculus in bladder Status: Acute Assessment and Plan: Will need to see urology. (5) Renal insufficiency: Code(s): N28.9 - Disorder of kidney and ureter, unspecified Status: Acute Assessment and Plan: Related to ureterolithiasis with hydronephrosis and probably some component of dehydration. He is being hydrated. Avoid nephrotoxic agents. Monitor I/O. 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 DS: Summary Hospital Course Hospital Course: He is admitted for free air on CT scan. Clinically no perforated viscus can be identified. Surgical consult and no surgical plan indicated. Ureteral stone noted. Status post urologic procedure by Urology. Okay for discharge. Patient's vital signs are stable and he is tolerating a diet. Follow-up Urology and surgery Time Spent with Patient Time attestation: Total time spent providing and/or coordinating discharge services: Exam Narrative: General: Mildly ill, nontoxic-appearing male sitting up in bed. Weight: 99.6 kg. BMI: 30.6. HEENT: Wearing corrective lenses. PERRL, EOMI. Sclera anicteric. Tacky mucous membranes. Neck: Supple. No crepitus or subcu emphysema. Respiratory: Lungs are clear to auscultation bilaterally. Cardiovascular: Regular rate and rhythm with S1-S2. Chest: No crepitus or subcutaneous emphysema. Gastrointestinal: Abdomen is soft, protuberant, and nondistended with slightly hypoactive bowel sounds. He does have a ventral hernia which is not tender to palpation. No guarding or rebound tenderness. Skin: Warm and dry. No rash or lesions on limited exam. Extremities: No cyanosis or clubbing. Trace pretibial edema bilaterally (patient states this is chronic). Peripheral pulses intact. Neurological: Alert. Cranial nerves 2-12 are grossly intact. No gross focal deficits to casual conversation. Psychiatric: Pleasant and cooperative with normal mood and affect. Judgment and insight intact. DS: Data Data Completed and Pending Labs on day of discharge: Labs from last 24 hours 04/19/23 05:29 PT 17.1 H D INR 1.3 Discharge Plan Discharge Attending physician on discharge: Aj Disla Consulting providers: Baljeet Jung; Alok Neely Discharging Clinician: Aj Disla Patient Disposition: Home, Self-Care Activity: as tolerated Diet: as tolerated Patient Instructions: Antibiotic Form Follow-up/Referrals: Baljeet Jung DO [Physician] - 3 Weeks Discharge Medications: Continued furosemide 20 mg tablet 20 mg PO DAILY tamsulosin [Flomax] 0.4
[2023-04-19] MEDS: carvediloL 3.125 MG TABLET PO (12:22)
== END 2023-04-19 17:55 | disposition home or self-care (01) | DRG 660 ==
PROVIDERS: Physician Assistant; Urology; Admitting Provider Family Medicine; PCP Family Medicine; Visit Provider Chiropractor
PROC: 0T778DZ Dilation of Left Ureter with Intraluminal Device, Via Natural or Artificial Opening Endoscopic (ICD-10-PCS; CPT 52352; principal; 2023-04-19 09:00)
DX: N13.2 Hydronephrosis with renal and ureteral calculous obstruction (principal); I48.20 Chronic atrial fibrillation, unspecified; N21.0 Calculus in bladder; N28.9 Disorder of kidney and ureter, unspecified; E86.0 Dehydration; I25.10 Atherosclerotic heart disease of native coronary artery without angina pectoris; E78.5 Hyperlipidemia, unspecified; I10 Essential (primary) hypertension; M17.10 Unilateral primary osteoarthritis, unspecified knee; K43.2 Incisional hernia without obstruction or gangrene; Z96.653 Presence of artificial knee joint, bilateral; Z96.641 Presence of right artificial hip joint; Z96.611 Presence of right artificial shoulder joint; Z79.01 Long term (current) use of anticoagulants; Z90.49 Acquired absence of other specified parts of digestive tract; Z95.5 Presence of coronary angioplasty implant and graft; Z86.12 Personal history of poliomyelitis; Z79.82 Long term (current) use of aspirin; E66.9 Obesity, unspecified; Z68.30 Body mass index [BMI] 30.0-30.9, adult
CPT/HCPCS: 36415; 74176; 74420; 80048; 80053; 83735; 85025; 85610; A9270; C1758; C1769; C2617; C9113; G0378; G0379; J0131; J0690; J2704; J3010; J3430; J7030; J7120

== ENCOUNTER 2023-05-01 09:49 | Outpatient (CLI) | payer MEDICARE, SELFPAY | END 2023-05-01 09:50 | disposition home or self-care (01) | PROVIDERS: PCP Family Medicine; Visit Provider Urology | DX: N20.1 Calculus of ureter (principal) | CPT/HCPCS: 87086 ==

== ENCOUNTER 2023-05-08 04:21 | Day surgery (SDC) | payer MEDICARE, SELFPAY ==
[2023-04-22 13:31] VITALS: BMI 30.4
--- NOTE | 2023-04-22 14:05 | PC.NURSE ---
Report to the Outpatient Waiting Room, entrance under the green pavilion located off [facility], at time __6:30AM on date __05/08/23 . Planned Procedure Time: __8:30AM . Time changes happen often and if your time is changed the preop area will call you the afternoon before. - You and your visitor will be asked to self-screen and do not enter if you have any COVID symptoms. - A mask is optional within the hospital at this time. Patients may have clear liquids (water, carbonated beverages, clear teas, apple juice) until 3 hours prior to surgery with a maximum of 20 ounces. - No food from midnight until time of surgery Take the following medications with a SIP of water the morning of surgery: __CARVEDILOL, ISORSORBIDE, TRAMADOL & ZOFRAN NEEDED__ DO NOT STOP ANY OF YOUR OTHER PRESCRIPTION MEDICATIONS PRIOR TO SURGERY ?EXCEPT THE FOLLOWING Medications to discontinue per physician ___HOLD ASPIRIN, COUMADIN & NAPROXEN [address] JOYNER(PER PT & )___ Date to take last dose 05/01/23 Please no make-up, nail french, hairspray, perfume, deodorant, or body powder the day of surgery. No jewelry (including any body piercings) or valuables the day of surgery, leave them at home. Please take a shower or bath the night before, or the morning of, surgery with an antibacterial soap. Wear comfortable, loose fitting clothing. Children are encouraged to wear pajamas. - Jewelry must be removed prior to entering the operating room. Rings and piercings that are not removed may be cut off. - The hospital will not accept responsibility for valuables. - Please leave all valuables, including medications, at home the day of surgery. If you are going home after surgery, a licensed commercial trailer truck driver must drive you home. - NO public transportation without another adult if you receive anesthesia. - We recommend that an adult stay with you for 24 hours following discharge. - We also recommend that you do not drive, make important decision, drink alcoholic beverages, or take any drugs that were not prescribed by your health care provider for at least 24 hours after your discharge time. Follow any additional instructions given to you from your surgeon. If you or anyone in your household have experienced Covid symptoms in the past week, please notify your surgeon or the nurse liaison at the phone number below for possible testing. Telephone instructions given to __PATIENT& WIFE and asked if any additional questions and then verbalized understanding. Patient advised to call surgeon office or pre surgery nurse liaison [phone] if any additional questions.
[2023-05-08] VITALS (8 sets, daily range): BP systolic 102–130; BP diastolic 63–80; PULSE 67–81; RESP 12–18; TEMP 36.1–36.4; O2SAT 96–100
--- NOTE | ~2023-05-08 | XR_ITS ---
Supine and upright views of the abdomen Clinical history: Lithotripsy COMPARISON: 08/24/2014 Findings: Bowel gas pattern is nonspecific. No evidence for obstruction or free air. Left ureteral st ent present. Multiple bilateral renal stones are present, measuring up to 9 mm at the left lower pole , and 13 mm at the right lower renal pole. Probable urinary bladder stone measuring up to 2 cm in addie meter. Cholecystectomy clips present. Stable lumbosacral spinal fixation hardware. Right hip arthropl asty in place. Degenerative spondylosis in the lumbar spine noted. Impression: Bilateral nephrolithiasis and urinary bladder stone, as detailed above. Left ureteral stent in place. Reviewed, dictated and finalized at location . Impression: Bilateral nephrolithiasis and urinary bladder stone, as detailed above. Left ureteral stent in place.
[2023-05-08] MEDS: LACTATED RINGERS 1,000 ML 30 ML IV CONT ×2 (07:11→09:15)
--- NOTE | 2023-05-08 07:30 | WPDANESEPPF ---
Anes - Initial Pre Proc Eval Procedure: Operation Date: 05/08/23 08:30 Proposed Procedures p Left Extracorporeal Shock Wave Lithotripsy, - Joel Youngblood MD s Cystoscopy, Laser Ablation of Bladder Stones - Joel Youngblood MD Date/Time: 05/08/23 07:30 Surgeon: Joel Youngblood MD Pre Op Diagnosis: left ureteral kidney stones,bladder stones Patient Data Age: 77 Gender: M Height: 1.8 m Weight: 95.8 kg Last Vital Signs Temp 36.1 C L 05/08/23 06:59 Pulse 79 05/08/23 06:59 Resp 18 05/08/23 06:59 BP 103/75 05/08/23 06:59 Pulse Ox 100 05/08/23 06:59 O2 Del Method Room Air 05/08/23 06:59 Allergies Allergy/AdvReac Type Severity Reaction Status Date / Time Latex, Natural Rubber Allergy Intermediate Blister Verified 05/08/23 07:17 meperidine [Demerol] Allergy Intermediate Hives, Verified 05/08/23 07:17 MILD DYSPNEA atorvastatin [Lipitor] AdvReac Intermediate Muscle Pain Verified 05/08/23 07:17 heparin AdvReac Intermediate Unknown Verified 05/08/23 07:17 hydrocodone [From [place]] AdvReac Intermediate Nausea Verified 05/08/23 07:17 morphine AdvReac Intermediate Vomiting Verified 05/08/23 07:17 pravastatin AdvReac Intermediate Muscle Pain Verified 05/08/23 07:17 prochlorperazine AdvReac Intermediate REDNESS AT Verified 05/08/23 07:17 PATCH SITE rosuvastatin [Crestor] AdvReac Intermediate Muscle Pain Verified 05/08/23 07:17 simvastatin AdvReac Intermediate Muscle Verified 05/08/23 07:17 Spasms Home Medications Medication Instructions Recorded Confirmed Type nitroglycerin 0.4 mg sublingual 0.4 mg sublingual PRN PRN Chest 02/05/22 05/08/23 Rx tablet Pain #30 tabs carvedilol 3.125 mg tablet (Coreg) 3.125 mg PO Q12H 06/10/22 05/08/23 History docusate calcium 240 mg capsule 240 mg PO QHS 06/10/22 05/08/23 History pantoprazole 40 mg tablet,delayed 40 mg PO QAM #90 tabs 07/07/22 05/08/23 Rx release furosemide 20 mg tablet 20 mg PO QAM 04/15/23 05/08/23 History ondansetron 4 mg disintegrating 4 mg PO Q8H PRN nausea and 04/16/23 05/08/23 Rx tablet vomiting #20 tabs tramadol 50 mg tablet 50 mg PO Q4H PRN pain #30 tabs 04/16/23 05/08/23 Rx Tylenol PM 500 mg PO HS PRN Sleep 04/17/23 05/08/23 History alprazolam 0.5 mg tablet 0.5 mg PO HS PRN anxiety 04/17/23 05/08/23 History ramipril 2.5 mg capsule 2.5 mg PO HS 04/17/23 05/08/23 History aspirin 81 mg tablet,delayed 81 mg PO DAILY 04/22/23 05/08/23 History release ezetimibe 10 mg tablet 10 mg PO QAM 04/22/23 05/08/23 History isosorbide mononitrate 30 mg 30 mg PO QAM 04/22/23 05/08/23 History tablet,extended release 24 hr naproxen 500 mg tablet 500 mg PO QAM 04/22/23 05/08/23 History tamsulosin 0.4 mg capsule (Flomax) 0.4 mg PO QAM 04/22/23 05/08/23 History warfarin 7.5 mg tablet 7.5 mg PO DAILY #90 tabs 04/30/23 05/08/23 Rx Laboratory Tests 05/08/23 07:04 PT Pending INR Pending APTT Pending Patient hx anesthesia problems: none Family hx anesthesia problems: none Results Review: All pre-operative results and documents have been reviewed as part of the pre-operative evaluation. REPLACED BY [facility] Past Medical History Medical History Anxiety Chronic anticoagulation Coronary artery disease Degenerative arthritis of lumbar spine Encounter for screening for malignant neoplasm of prostate Hyperlipidemia Hypertension Impaired glucose tolerance Low back pain Osteoarthritis of knee [place] Preoperative examination Renal stones Supratherapeutic INR Umbilical hernia Surgical History Surgical History History of appendectomy History of back surgery Lumbar spine: x's 2 History of cataract removal with insertion of prosthetic lens History of heart artery stent x's 4 History of inguinal hernia repair History of right hip replacement History of right shoulder replacement His
[2023-05-08 07:39] LABS: Prothrombin Time 13.8 Seconds (11.1-14.7)
[2023-05-08 07:40] LABS: Partial Thromboplastin Time 31.8 SECONDS (22.3-36.8)
--- NOTE | 2023-05-08 07:40 | WPDHPUPDATE1 ---
History and Physical Update Update Date/Time: 05/08/23 07:40 History and Physical has been reviewed, including an updated exam of the patient. There are NO changes in the patient's condition. Risks, benefits, and alternatives have been discussed and questions answered. Patient agrees to proceed with procedure. Proceed with left renal eswl, cysto with holmium laser of bladder stone
[2023-05-08] MEDS: ceFAZolin 2 GM/D5W 50 ML 2 GM/50 ML BAG IVPB (07:48)
[2023-05-08] MEDS: LIDOCAINE HCL 2% GEL UROJET 10 ML PKG MUCOUS MEM (09:07)
--- NOTE | 2023-05-08 09:07 | P.OP_ITS ---
Procedure Note - Detailed Date of Procedure 05/08/23 Pre-op Diagnosis left ureteral kidney stones,bladder stones Post-op Diagnosis Same Procedure Performed Cysto with laser of large 2-2.5 cm bladder stone, lithotripsy of left renal calculi x3-each stone approximately 1 cm Surgeon Joel Youngblood MD Anesthesia General Description of Procedure Patient is taken to the operative suite correctly identified. Once anesthesia was obtained was placed in dorsal lithotomy position and prepped draped usual sterile fashion. Twenty-two Macedonian scope was inserted in the bladder direct vision. There was no bladder tumors noted the stent was visualized. He has a large jackstone present. This measures 2-2.5 cm. Using a 1000 micron fiber we lasered the stone. Using the knee Crain we retrieved the stones and sent for analysis. Reinspection revealed no residual stones. 2% viscous lidocaine was inserted into the urethra. Patient had been positioned in the left renal stones and actually been lithotripsy to also. It appears that it he fragmented extremely well. Patient is taken recovery room in stable condition. He will follow-up in 7-10 days with KUB. Possible stent removal if the stone is completely gone. The skin placed it patient please send a copy this to my office Estimated Blood Loss 0 Drains Yes Packing No Pathology Yes Complications No immediate complications Condition Stable Disposition PACU
--- NOTE | 2023-05-08 11:00 | SUR.PHASEII ---
Verified with Dr. Youngblood patient is to resume Coumadin 05/09/23.
== END 2023-05-08 11:09 | disposition home or self-care (01) ==
PROVIDERS: PCP Family Medicine; Visit Provider Urology
PROC: (CPT 50590; principal; 2023-05-08 08:30)
PROC: (CPT 52352; 2023-05-08 08:30)
DX: N20.0 Calculus of kidney (principal); N21.0 Calculus in bladder; I25.10 Atherosclerotic heart disease of native coronary artery without angina pectoris; I10 Essential (primary) hypertension; E78.5 Hyperlipidemia, unspecified; F41.9 Anxiety disorder, unspecified; Z86.12 Personal history of poliomyelitis; Z95.5 Presence of coronary angioplasty implant and graft; Z87.891 Personal history of nicotine dependence; Z79.01 Long term (current) use of anticoagulants; Z79.82 Long term (current) use of aspirin
CPT/HCPCS: 52317; 50590; 36415; 74018; 82365; 85610; 85730; 88300; C1769; J0690; J1100; J2370; J2405; J2704; J3010; J7120

== ENCOUNTER 2023-05-19 08:19 | Outpatient (CLI) | payer MEDICARE, SELFPAY ==
--- NOTE | ~2023-05-19 | XR_ITS ---
XR abdomen/kub 1V 05/19/2023 08:41 Indication: Left ureteral stone. Previous lithotripsy. Procedure: KUB Comparison: 05/08/2023 Findings: There is a left internal ureteral stent. There are bilateral renal stones. The previously v isualized bladder stone not identified on the current study. There are changes of fusion at L4-S1. Se keysha lumbar and lower thoracic spondylosis. There are cholecystectomy clips. Bowel pattern is nonobst ructive. Impression: 1: Bilateral nephrolithiasis with left internal ureteral stent in expected position. Reviewed, dictated and finalized at location L. Impression: 1: Bilateral nephrolithiasis with left internal ureteral stent in expected posi tion.
== END 2023-05-19 08:20 | disposition home or self-care (01) ==
PROVIDERS: PCP Family Medicine; Visit Provider Urology
DX: N20.1 Calculus of ureter (principal)
CPT/HCPCS: 74018

== ENCOUNTER 2023-06-03 09:21 | Outpatient (CLI) | payer MEDICARE, SELFPAY | END 2023-06-03 09:22 | disposition home or self-care (01) | PROVIDERS: PCP Family Medicine; Visit Provider Surgery | DX: K43.2 Incisional hernia without obstruction or gangrene (principal); Z01.818 Encounter for other preprocedural examination | CPT/HCPCS: 36415; 86850; 86900; 86901 ==

== ENCOUNTER 2023-06-11 16:17 | Observation (INO) | payer MEDICARE, SELFPAY ==
--- NOTE | 2023-05-27 14:41 | PC.NURSE ---
Report to the Outpatient Waiting Room, entrance under the green pavilion located off [facility], at time 0830 on date __06/10/23 . Planned Procedure Time: __1030 . Time changes happen often and if your time is changed the preop area will call you the afternoon before. - You and your visitor will be asked to self-screen and do not enter if you have any COVID symptoms. - A mask is optional within the hospital at this time. Patients may have clear liquids (water, carbonated beverages, clear teas, apple juice) until 3 hours prior to surgery with a maximum of 20 ounces. - No food from midnight until time of surgery - Infants may have breast milk until 4 hours before surgery, infant formula 6 hours prior to surgery. - Children will be allowed to drink immediately following surgery. If applicable, please bring a bottle or sippy cup to assist with drinking. Juice, water, soda, and popsicles are readily available. For infants on formula, please bring formula the day of surgery. Pacifiers are allowed. Take the following medications with a SIP of water the morning of surgery: ___CARVEDILOL,ISOSORBIDE DO NOT STOP ANY OF YOUR OTHER PRESCRIPTION MEDICATIONS PRIOR TO SURGERY ?EXCEPT THE FOLLOWING Medications to discontinue per physician ___PT AND STATES WARFARIN 5 DAYS PER OP PER DR BURCIAGA LAST DOSE 06/05/23 HIBICLENS SHOWER MORNING OF SURGERY Please no make-up, nail wolof, hairspray, perfume, deodorant, or body powder the day of surgery. No jewelry (including any body piercings) or valuables the day of surgery, leave them at home. Please take a shower or bath the night before, or the morning of, surgery with an antibacterial soap. Wear comfortable, loose fitting clothing. Children are encouraged to wear pajamas. - Jewelry must be removed prior to entering the operating room. Rings and piercings that are not removed may be cut off. - The hospital will not accept responsibility for valuables. - Please leave all valuables, including medications, at home the day of surgery. If you are going home after surgery, a licensed regional refrigerated cdl truck driver must drive you home. - NO public transportation without another adult if you receive anesthesia. - We recommend that an adult stay with you for 24 hours following discharge. - We also recommend that you do not drive, make important decision, drink alcoholic beverages, or take any drugs that were not prescribed by your health care provider for at least 24 hours after your discharge time. For Pediatric surgeries, we recommend two adults accompany the child home. Follow any additional instructions given to you from your surgeon. If you or anyone in your household have experienced Covid symptoms in the past week, please notify your surgeon or the nurse liaison at the phone number below for possible testing. Telephone instructions given to ___PT AND DONNA and asked if any additional questions and then verbalized understanding. Patient advised to call surgeon office or pre surgery nurse liaison [phone] if any additional questions.
[2023-05-27 14:57] VITALS: BMI 29.3
[2023-06-10] VITALS (19 sets, daily range): BP systolic 98–147; BP diastolic 66–96; PULSE 58–88; RESP 12–20; TEMP 35.8–36.8; O2SAT 93–100
[2023-06-10] MEDS: ACETAMINOPHEN 500 MG TABLET 1000 MG PO ×3 (09:11→23:46)
[2023-06-10] MEDS: KETOROLAC 15 MG/ML VIAL (*BKC) IV PUSH (09:14)
[2023-06-10 09:24] LABS: INR 1.4; Prothrombin Time 17.8 Seconds (11.1-14.7)
[2023-06-10 09:25] LABS: Partial Thromboplastin Time 48.6 SECONDS (22.3-36.8)
--- NOTE | 2023-06-10 09:59 | WPDANESEPPF ---
Anes - Initial Pre Proc Eval Procedure: Operation Date: 06/10/23 10:30 Proposed Procedures p Laparoscopic Recurrent Incisional Hernia Repair with Mesh, Davinci Assisted - Baljeet Jung DO Date/Time: 06/10/23 09:59 Surgeon: Baljeet Jung DO Pre Op Diagnosis: Recurrent Incinsional Hernia 10 cm Patient Data Age: 78 Gender: M Height: 1.8 m Weight: 97.2 kg Last Vital Signs Temp 36.3 C L 06/10/23 08:34 Pulse 76 06/10/23 08:34 Resp 16 06/10/23 08:34 BP 98/75 L 06/10/23 08:34 Pulse Ox 99 06/10/23 08:34 O2 Del Method Room Air 06/10/23 08:34 Allergies Allergy/AdvReac Type Severity Reaction Status Date / Time Latex, Natural Rubber Allergy Intermediate Blister Verified 06/10/23 08:45 meperidine [Demerol] Allergy Intermediate Hives, Verified 06/10/23 08:45 MILD DYSPNEA atorvastatin [Lipitor] AdvReac Intermediate Muscle Pain Verified 06/10/23 08:45 heparin AdvReac Intermediate Unknown Verified 06/10/23 08:45 hydrocodone [From [place]] AdvReac Intermediate Nausea Verified 06/10/23 08:45 hydromorphone [From Dilaudid] AdvReac Intermediate Nausea and Verified 06/10/23 08:45 Vomiting morphine AdvReac Intermediate Vomiting Verified 06/10/23 08:45 pravastatin AdvReac Intermediate Muscle Pain Verified 06/10/23 08:45 prochlorperazine AdvReac Intermediate REDNESS AT Verified 06/10/23 08:45 PATCH SITE rosuvastatin [Crestor] AdvReac Intermediate Muscle Pain Verified 06/10/23 08:45 simvastatin AdvReac Intermediate Muscle Verified 06/10/23 08:45 Spasms Home Medications Medication Instructions Recorded Confirmed Type nitroglycerin 0.4 mg sublingual 0.4 mg sublingual PRN PRN Chest 02/05/22 05/27/23 Rx tablet Pain #30 tabs carvedilol 3.125 mg tablet (Coreg) 3.125 mg PO Q12H 06/10/22 06/10/23 History docusate calcium 240 mg capsule 240 mg PO QHS 06/10/22 06/10/23 History pantoprazole 40 mg tablet,delayed 40 mg PO QAM #90 tabs 07/07/22 06/10/23 Rx release furosemide 20 mg tablet 20 mg PO QAM 04/15/23 06/10/23 History tramadol 50 mg tablet 50 mg PO Q4H PRN pain #30 tabs 04/16/23 06/10/23 Rx Tylenol PM 500 mg PO HS PRN Sleep 04/17/23 06/10/23 History ramipril 2.5 mg capsule 2.5 mg PO HS 04/17/23 06/10/23 History aspirin 81 mg tablet,delayed 81 mg PO DAILY 04/22/23 06/10/23 History release ezetimibe 10 mg tablet 10 mg PO QAM 04/22/23 06/10/23 History isosorbide mononitrate 30 mg 30 mg PO QAM 04/22/23 06/10/23 History tablet,extended release 24 hr naproxen 500 mg tablet 500 mg PO QAM 04/22/23 06/10/23 History alprazolam 0.5 mg tablet 0.5 mg PO HS PRN anxiety #30 tabs 05/25/23 06/10/23 Rx warfarin 6 mg tablet 6 mg PO EVERY OTHER DAY 05/27/23 06/10/23 History warfarin 7.5 mg tablet 7.5 mg PO QMWF 05/27/23 06/10/23 History Laboratory Tests 06/10/23 08:37 PT 17.8 H Seconds (11.1-14.7) INR 1.4 APTT 48.6 H SECONDS (22.3-36.8) Patient hx anesthesia problems: none Family hx anesthesia problems: none Results Review: All pre-operative results and documents have been reviewed as part of the pre-operative evaluation. [facility] Past Medical History Medical History Anxiety Chronic anticoagulation Coronary artery disease Degenerative arthritis of lumbar spine Encounter for screening for malignant neoplasm of prostate Hyperlipidemia Hypertension Impaired glucose tolerance Low back pain Osteoarthritis of knee [place] Preoperative examination Renal stones Supratherapeutic INR Umbilical hernia Surgical History Surgical History History of appendectomy History of back surgery Lumbar spine: x's 2 History of cataract removal with insertion of prosthetic lens History of heart artery stent x's 4 History of inguinal hernia repair History of right hip replacement History of right shoulder replacement History of umbilical hernia repair Hx of cholec
--- NOTE | 2023-06-10 10:04 | SUR.PREOP ---
dr leggett aware of pt/ptt results.
[2023-06-10] MEDS: LACTATED RINGERS 1,000 ML 30 ML IV CONT ×2 (10:06→13:22)
--- NOTE | 2023-06-10 10:13 | PM.IMHP ---
H&P: HPI History of Present Illness Date/Time: 06/10/23 10:13 Chief Complaint: Recurrent incisional hernia Narrative: This is a 78-year-old man who presents for recurrent incisional hernia repair. He has several prior hernia repairs that have been performed but now has a recurrent hernia just superior to his previous repair. Discussions were made with the patient about treatment options and decision was made to proceed with robotic assisted laparoscopic recurrent incisional hernia repair with mesh. He reports no changes since last seen in the office. Review of Systems Review of Systems: All systems reviewed & are unremarkable except as noted in HPI and below Constitutional: Constitutional: Denies chills, Denies fever(s), Denies headache(s) and Denies weight loss Eyes: Eyes: Denies change in vision ENT: Denies dizziness, Denies headache(s), Denies neck mass and Denies throat swelling Cardiovascular: Cardiovascular: Denies chest pain, Denies lightheadedness and Denies dyspnea Respiratory: Respiratory: Denies cough, Denies dyspnea and Denies wheezing Gastrointestinal: Gastrointestinal: Denies abdominal pain, Denies change in bowel habits, Denies nausea and Denies vomiting Genitourinary: Genitourinary: Denies hematuria and Denies dysuria Musculoskeletal: Musculoskeletal: Reports as per HPI Integumentary/Breasts: Skin/Breast: Reports as per HPI Neurologic: Denies dizziness and Denies headache(s) Allergic/Immunologic: Allergic/Immunologic: Denies throat swelling and Denies wheezing [facility] Past Medical History Medical History Anxiety Chronic anticoagulation Coronary artery disease Degenerative arthritis of lumbar spine Encounter for screening for malignant neoplasm of prostate Hyperlipidemia Hypertension Impaired glucose tolerance Low back pain Osteoarthritis of knee Polio Preoperative examination Renal stones Supratherapeutic INR Umbilical hernia Surgical History Surgical History History of appendectomy History of back surgery Lumbar spine: x's 2 History of cataract removal with insertion of prosthetic lens History of heart artery stent x's 4 History of inguinal hernia repair History of right hip replacement History of right shoulder replacement History of umbilical hernia repair Hx of cholecystectomy Knee joint replacement status Bilateral Family History Family History Father Family history of coronary artery disease Brother Hypertension Family history of type 2 diabetes mellitus Family history of coronary artery disease Sister Family history of type 2 diabetes mellitus Family history of coronary artery disease Hypertension Social History Social History Smoking packs per day: 1 Smoking cigarettes per day: 20.0 Years smoked: 35 Smoking pack-years: 35.00 Smoking status: Former smoker Tobacco type: cigarettes Smoking end date: 11/30/94 Alcohol intake: never Substance use: never Substance use type: does not use Lack of Transportation: No Lack of Food: Never True Current Housing: I Have Housing Concerned About Future Housing: No Difficulty Paying Gas/Electric Bills: No Difficulty Paying for Meds: No Currently Unemployed: No Education: High School Diploma/GED Difficulty w/ Childcare or Family Care: No Living arrangements: with family Additional living arrangements comments: Occupation/Education: retired 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
--- NOTE | 2023-06-10 10:16 | WPDHPUPDATE1 ---
History and Physical Update Update Date/Time: 06/10/23 10:16 History and Physical has been reviewed, including an updated exam of the patient. There are NO changes in the patient's condition. Risks, benefits, and alternatives have been discussed and questions answered. Patient agrees to proceed with procedure.
[2023-06-10] MEDS: ceFAZolin 2 GM/D5W 50 ML 2 GM/50 ML BAG IVPB ×2 (10:29→18:22)
[2023-06-10] MEDS: BUPIVACAINE/EPINEPHRINE 0.5% 50 ML VIAL 30 ML INFILTRATE (11:00)
--- NOTE | 2023-06-10 13:09 | W.PM.PROC2 ---
Procedure Note - Detailed Date of Procedure 06/10/23 Pre-op Diagnosis Recurrent Incisional Hernia Post-op Diagnosis Same (3 cm recurrent incisional hernia and 3cm epigastric incisional hernia) Procedure Performed Laparoscopic 6 cm recurrent incisional repair with mesh, da Shashank assisted Surgeon Baljeet Jung DO Anesthesia General and Local (0.5% bupivacaine with epinephrine) Indications This is a 78-year-old man who presented with a recurrent incisional hernia. He was recently hospitalized an obstructing left ureteral stone and was having significant nausea and vomiting. His hernia became larger and CT showed free air in the abdomen. His abdominal exam was benign and no known cause for the free air was identified. He recovered with observation. He was found to have 2 separate hernias. There was an incisional hernia in his upper midline just superior to umbilicus that was recurrent from prior hernia repairs. He also had an incisional hernia in the epigastric/subxiphoid region from previous G-tube placement. Discussions were made with the patient about treatment options and decision was made to proceed with laparoscopic recurrent incisional hernia repair mesh, da Shashank assisted. Findings Laparoscopic recurrent incisional hernia repair was performed. The patient was found to 2 hernias. The recurrent incisional hernia was located just superior to umbilicus and measured 3 cm. 10 cm cephalad to this was another incisional hernia in the epigastric/subxiphoid region. The 2 hernias were too far apart to repair with 1 mesh, therefore each hernia was repaired separately. Epigastric hernia was repaired using [address] Supraumbilical recurrent incisional hernia was repaired using a 10 cm [address] mesh. Description of Procedure Procedure as well as risks, benefits, and alternatives were discussed with the patient. Written consent was obtained and placed in chart prior to procedure. Patient was brought back to surgical suite. He was placed supine on operating table. Time-out was done to confirm patient and procedure. He was then intubated by the anesthesia department. A bump was placed under his left hip, and the bed was flexed slightly to extend the space between his costal margin and iliac crest. His abdomen was prepped and draped in sterile fashion using chlorhexidine prep. A 5 millimeter incision was made in the left upper quadrant, and a 5 millimeter Optiview trocar was advanced through the abdominal layers under direct visualization. Once inside the abdominal cavity, carbon dioxide insufflation was used to create a pneumoperitoneum. His abdomen was inspected. An 8 millimeter incision was made in the left lower quadrant, and an 8 millimeter robotic trocar was placed under direct visualization. Another 8 millimeter incision was made in the left lateral abdomen, and an 8 millimeter robotic trocar was placed under direct visualization. 0.5% bupivacaine with epinephrine was infiltrated locally around the port sites. The 5 millimeter port was removed, the incision was extended to 12 millimeters, and a 12 millimeter air seal port was placed under direct visualization. A Andry-Fink cone was also used to place an 0-Vicryl simple interrupted suture at this trocar site. The robotic arms were brought up to the patient's bedside and secured to the ports. The camera and instruments were inserted, and I then moved over to the robotic console and took control of the camera and instruments. After careful thorough inspection of the abdominal cavity, I began my dissection at the hernia. There were many adhesions to the abdominal wall that were carefully taken down using blunt dissection and scissors with electrocautery the herniated contents were reduced. I then measured the hernia size. There was a supraumbilical hernia measuring about 3 cm x 3 cm and an epigastric hernia just inferior to the xiphoid process measuring 3 cm x 3 cm. The
[2023-06-10] MEDS: fentaNYL CITRATE INJ (*CRX) 100 MCG/2 ML VIAL 25 MCG IV PUSH ×8 (13:25→13:45)
[2023-06-10] MEDS: ONDANSETRON INJ 4 MG/2 ML VIAL IV PUSH (13:55)
[2023-06-10] MEDS: HYDROmorphone HCL INJ (*CRX) 1 MG/ML SYR 0.5 MG IV PUSH ×3 (13:57→14:18)
[2023-06-10] MEDS: IBUPROFEN IV 800 MG/200 ML 800 MG/200 ML BAG 400 MG IVPB (14:40)
[2023-06-10] MEDS: diphenhydrAMINE HCl INJ 50 MG/ML VIAL 12.5 MG IV PUSH (15:09)
--- NOTE | 2023-06-10 15:36 | ADMGEN ---
This patient, Ernie Rueda ., was admitted to 3 [facility] Surg Room 315-01. Patient/family oriented to hospital policies and general routines including ID bracelet, bed and alarms, visiting hours, pain management, procedures, bathroom and other care routines, personal items, smoking policy, room service/diet, and visiting hours. Information on how to activate the Rapid Response Team has been discussed. Patient/Family are encouraged to report perceived risks to care and to ask questions if they do not understand what they are told or what they should do.
[2023-06-10] MEDS: KETOROLAC 15 MG/ML VIAL (*BKC) (18:49)
[2023-06-10] MEDS: carvediloL 3.125 MG TABLET PO (21:18)
[2023-06-11] VITALS (9 sets, daily range): BP systolic 109–137; BP diastolic 64–82; PULSE 68–88; RESP 14–18; TEMP 35.9–36.7; O2SAT 93–96
[2023-06-11] MEDS: ceFAZolin 2 GM/D5W 50 ML 2 GM/50 ML BAG IVPB ×2 (02:11→09:24)
[2023-06-11] MEDS: KETOROLAC 30 MG/ML VIAL (*BKC) 15 MG IV PUSH ×3 (02:56→21:11)
[2023-06-11] MEDS: ACETAMINOPHEN 500 MG TABLET 1000 MG PO ×2 (05:43→12:09)
[2023-06-11 06:36] LABS: Hematocrit 32.1 % (42.0-52.0); Hemoglobin 10.1 g/dL (14.0-18.0); Mean Corpuscular HGB Conc 31.5 g/dl (32-36); Mean Corpuscular Hemoglobin 28.8 pg (26-34); Mean Corpuscular Volume 91.5 fl (80-100); Mean Platelet Volume 10.5 fl (7.4-10.4); Platelet Count Result 249 k/mm3 (150-375); Red Blood Count 3.51 M/mm3 (4.6-6.20); White Blood Count 7.4 K/mm3 (4.5-10.0)
[2023-06-11 06:53] LABS: Anion Gap -1 mmol/L (8-16); Blood Urea Nitrogen 13 mg/dL (9-20); Calcium 8.4 mg/dL (8.4-10.2); Carbon Dioxide 32 mmol/L (22-30); Chloride 103 mmol/L (98-107); Estimated CRCL calculation 69 ml/min; Estimated Glomerular Filt Rate > 60; Glucose 97 mg/dL (65-110); Potassium 3.9 mmol/L (3.4-5.0); Sodium 134 mmol/L (137-145)
[2023-06-11] MEDS: PANTOPRAZOLE 40 MG TABLET PO (08:42)
[2023-06-11] MEDS: ISOSORBIDE MONONITRATE 30 MG TAB.ER.24H PO (08:42)
[2023-06-11] MEDS: IBUPROFEN 600 MG TABLET PO (08:42)
[2023-06-11] MEDS: ENOXAPARIN 40 MG/0.4 ML SYRINGE SUB-Q (08:43)
[2023-06-11] MEDS: ASPIRIN 81 MG ENTERIC TABLET PO (08:43)
[2023-06-11] MEDS: polyethylene glycoL 3350 17 GM POWD.PACK PO (08:44)
[2023-06-11] MEDS: carvediloL 3.125 MG TABLET PO ×2 (08:44→21:04)
--- NOTE | 2023-06-11 14:00 | WPDANESPN ---
Anes - Prog Note Post-Op Date/Time: 06/11/23 14:00 Vital Signs: Last Vital Signs Temp 36.7 C 06/11/23 12:00 Pulse 68 06/11/23 12:00 Resp 16 06/11/23 12:00 BP 128/64 06/11/23 12:00 Pulse Ox 94 06/11/23 12:00 O2 Del Method Room Air 06/11/23 08:42 O2 Flow Rate 1 06/10/23 15:58 Pain Score (VAS): 3 I/O: Intake & Output 06/10/23 06/11/23 06/11/23 23:59 07:59 15:59 Intake Total 550 50 240 Output Total 675 400 Balance -125 -350 240 Laboratory Tests 06/11/23 06:08 06/11/23 06:08 06/11/23 06:08 WBC 7.4 RBC 3.51 L Hgb 10.1 L Hct 32.1 L MCV 91.5 MCH 28.8 MCHC 31.5 L RDW 14.0 Plt Count 249 D MPV 10.5 H Sodium 134 L Potassium 3.9 Chloride 103 Carbon Dioxide 32 H Anion Gap -1 L BUN 13 Creatinine 0.80 Estim Creat Clear Calc 69 Estimated GFR > 60 Glucose 97 Calcium 8.4 Patient Feedback: Patient satisfied with anesthetic care.
--- NOTE | 2023-06-11 15:50 | PM.PNGS ---
Progress Note: A&P Assessment and Plan (1) Recurrent incisional hernia: Code(s): K43.2 - Incisional hernia without obstruction or gangrene Status: Acute Assessment and Plan: Making steady progress on POD#1. Pain still significant and patient trying to avoid narcotics due to his sensitivity to most drugs in that class. Will continue prn Toradol and try oral Tramadol as well. Will keep in hospital one more day. (2) Chronic anticoagulation: Code(s): Z79.01 - intermediate (current) use of anticoagulants Status: Acute Subjective Subjective Date/Time Seen: 06/11/23 15:50 Interval history: Patient still having a lot of pain. Requiring IV toradol to help control. Ambulating minimally with assistance. Tolerating diet. Exam GI: Inspection: non-distended and incision (intact with glue) GI Palp: Yes Soft to palpation and Yes Tenderness to palpation present (GI) (incisional) Objective Data Vital Signs Vital Signs: Vital Signs - 24 hr 06/10/23 15:57 06/10/23 15:58 06/10/23 16:15 Temperature 36.7 C Pulse Rate 72 66 Respiratory Rate 12 16 Blood Pressure 134/75 Pulse Oximetry 97 98 98 Oxygen Delivery Nasal Cannula Nasal Cannula Oxygen Flow Rate 2 1 06/10/23 17:15 06/10/23 21:18 06/10/23 20:00 Temperature 36.8 C 35.8 C L Pulse Rate 65 66 80 Respiratory Rate 16 16 Blood Pressure 132/73 124/66 Pulse Oximetry 99 95 Oxygen Delivery Oxygen Flow Rate 06/11/23 00:00 06/10/23 20:05 06/11/23 04:00 Temperature 36.1 C L 36.0 C L Pulse Rate 88 88 76 Respiratory Rate 14 14 14 Blood Pressure 109/74 129/67 Pulse Oximetry 93 93 94 Oxygen Delivery Room Air Oxygen Flow Rate 06/11/23 08:44 06/11/23 08:42 06/11/23 08:00 Temperature 36.6 C Pulse Rate 76 73 Respiratory Rate 16 Blood Pressure 135/72 Pulse Oximetry 96 Oxygen Delivery Room Air Oxygen Flow Rate 06/11/23 12:00 Temperature 36.7 C Pulse Rate 68 Respiratory Rate 16 Blood Pressure 128/64 Pulse Oximetry 94 Oxygen Delivery Oxygen Flow Rate Intake/Output Intake/Output: Intake & Output 06/08/23 06/09/23 06/10/23/13/23 23:59 23:59 23:59 23:59 Intake Total 1500 290 Output Total 675 400 Balance 825 -110 Meds/Results Medications: Active Medications Generic Name Dose Route Start Last Admin Trade Name Freq PRN Reason Stop Dose Admin Acetaminophen 1,000 mg 06/10/23 18:00 06/11/23 12:09 Acetaminophen 500 Mg Tablet PO 1,000 mg Q6HR KOFI Administration Alprazolam 0.5 mg 06/10/23 15:14 Alprazolam (*Crx) 0.5 Mg Tablet PO HS PRN anxiety Aspirin 81 mg 06/11/23 09:00 06/11/23 08:43 Aspirin 81 Mg Enteric Tablet PO 81 mg DAILY KOFI Administration Carvedilol 3.125 mg 06/10/23 21:00 06/11/23 08:44 Carvedilol 3.125 Mg Tablet PO 3.125 mg Q12HR KOFI Administration Enoxaparin Sodium 40 mg 06/11/23 09:00 06/11/23 08:43 Enoxaparin 40 Mg/0.4 Ml Syringe SUB-Q 40 mg DAILY [facility] Administration Isosorbide Mononitrate 30 mg 06/11/23 09:00 06/11/23 08:42 Isosorbide Mononitrate 30 Mg Tab.Er.24h PO 30 mg QAM KOFI Administration Ketorolac Tromethamine 15 mg 06/10/23 18:18 06/11/23 12:09 Ketorolac 30 Mg/Ml Vial (*Bkc) IV PUSH 15 mg Q6HR PRN Administration Pain 4-6 Naloxone HCl 0.1 mg 06/10/23 15:14 Naloxone Hcl 0.4 Mg/Ml Vial IV PUSH Q2M PRN Opiate Reversal Ondansetron HCl 4 mg 06/10/23 15:14 Ondansetron Inj 4 Mg/2 Ml Vial IV PUSH Q4H PRN Nausea And Vomiting Oxycodone HCl 5 mg 06/10/23 15:14 Oxycodone Hcl (*Crx) 5 Mg Tab Ir PO Q4H PRN Pain Rated 4-6 Oxycodone HCl 10 mg 06/10/23 15:14 Oxycodone Hcl (*Crx) 5 Mg Tab Ir PO Q4H PRN Pain Rated 7-10 Pantoprazole Sodium 40 mg 06/11/23 09:00 07/13/23 08:42 Pantoprazole 40 Mg Tablet PO 40 mg QAM KOFI Administration Polyethylene Glycol 17 gm 06/11/23 09:00 06/11/23 08:44 Polyethyl
--- NOTE | 2023-06-11 18:59 | PC.NURSE ---
Pt has reported pain today. Pt has been given pain medication that he stated helped. Pt has been compliant with care. Pt received final dose of IV abx. Pt is resting so 1800 tylenol has been held until pt wakes up. Will continue to monitor pt.
[2023-06-12] MEDS: ACETAMINOPHEN 500 MG TABLET 1000 MG PO (05:03)
[2023-06-12 06:00] VITALS: BP 138/74; PULSE 78; RESP 16; TEMP 36; O2SAT 95
[2023-06-12 06:09] LABS: Hematocrit 31.6 % (42.0-52.0); Hemoglobin 10.1 g/dL (14.0-18.0); Mean Corpuscular Hemoglobin 29.3 pg (26-34); Mean Corpuscular Volume 91.6 fl (80-100); Mean Platelet Volume 9.6 fl (7.4-10.4); Platelet Count Result 217 k/mm3 (150-375); Red Blood Count 3.45 M/mm3 (4.6-6.20); Red Cell Distribution Width 13.8 % (11.5-14.5); White Blood Count 5.2 K/mm3 (4.5-10.0)
[2023-06-12 06:20] LABS: INR 1.2
[2023-06-12 06:22] LABS: Anion Gap 1 mmol/L (8-16); Blood Urea Nitrogen 14 mg/dL (9-20); Calcium 8.5 mg/dL (8.4-10.2); Carbon Dioxide 32 mmol/L (22-30); Chloride 104 mmol/L (98-107); Estimated CRCL calculation 79 ml/min; Estimated Glomerular Filt Rate > 60; Glucose 99 mg/dL (65-110); Potassium 4.2 mmol/L (3.4-5.0); Sodium 137 mmol/L (137-145)
[2023-06-12 08:00] VITALS: PULSE 92; RESP 16; O2SAT 95
[2023-06-12 08:20] VITALS: O2SAT 95
[2023-06-12] MEDS: ASPIRIN 81 MG ENTERIC TABLET PO (09:12)
[2023-06-12] MEDS: PANTOPRAZOLE 40 MG TABLET PO (09:12)
[2023-06-12] MEDS: ISOSORBIDE MONONITRATE 30 MG TAB.ER.24H PO (09:12)
[2023-06-12 09:13] VITALS: PULSE 92
[2023-06-12] MEDS: polyethylene glycoL 3350 17 GM POWD.PACK PO (09:13)
[2023-06-12] MEDS: ENOXAPARIN 40 MG/0.4 ML SYRINGE SUB-Q (09:13)
[2023-06-12] MEDS: carvediloL 3.125 MG TABLET PO (09:13)
--- NOTE | 2023-06-12 11:59 | PM.DS ---
DS: Admitting Diagnosis Discharge Date 06/12/2023 Admitting Diagnosis Recurrent incisional hernia DS: Discharge Diagnosis Discharge Diagnosis (1) Recurrent incisional hernia: Code(s): K43.2 - Incisional hernia without obstruction or gangrene Status: Acute (2) Chronic anticoagulation: Code(s): Z79.01 - intermodal customer service (current) use of anticoagulants Status: Acute DS: Summary Hospital Course Reason for hospitalization: Recovery after recurrent incisional hernia repair Hospital Course: This is a 78-year-old man who presented with a recurrent incisional hernia. He has had hernia repairs in the past and recently was admitted with a left ureteral stone and CT at that time showed evidence of a hernia containing a loop of small bowel. The hernia was reducible but this did appear to be high risk for obstruction. He was also noted to have an epigastric hernia related to a previous G-tube placement. He presented on 06/10/2023 for laparoscopic recurrent incisional hernia repair with mesh, da Shashank assisted. Surgery was uncomplicated and he was placed in a hospital bed overnight for extended recovery. On postop day 1 he was still struggling with pain control and was not able to get up and ambulate very much. He was trying to avoid narcotics, but the only medications is currently helping with his pain was IV ketorolac. He was transitioned to oral tramadol as well to help with his pain control. He was kept in the hospital 1 more day and 06/12/2023 his pain control was much improved and he was able to get up and ambulate with limited assistance. His hemoglobin and hematocrit remained stable. No significant issues were noted. He was discharged 06/12/2023. Status at Discharge Functional status at discharge: uses cane/walker Overall status at discharge: patient is progressing back to baseline Time Spent with Patient Time attestation: Total time spent providing and/or coordinating discharge services: Time spent: Less than 30 minutes Exam Const: General: comfortable and no acute distress Resp: Auscultation: clear to auscultation bilaterally Cardio: Rate: regular rate Rhythm: regular rhythm GI: Inspection: non-distended and incision (Intact with glue) GI Palp: Yes Soft to palpation, Yes Tenderness to palpation present (GI) (Incisional) and No Guarding due to palpation present (GI) DS: Data Data Completed and Pending Labs on day of discharge: Labs from last 24 hours 06/12/23 06:01 WBC 5.2 RBC 3.45 L Hgb 10.1 L Hct 31.6 L MCV 91.6 MCH 29.3 MCHC 32.0 RDW 13.8 Plt Count 217 MPV 9.6 PT 16.0 H INR 1.2 Sodium 137 Potassium 4.2 Chloride 104 Carbon Dioxide 32 H Anion Gap 1 L BUN 14 Creatinine 0.70 Estim Creat Clear Calc 79 Estimated GFR > 60 Glucose 99 Calcium 8.5 Discharge Plan Discharge Attending physician on discharge: Baljeet Burciaga Discharging Clinician: Baljeet Burciaga Patient Disposition: Home, Self-Care Activity: other - see discharge instructions Diet: other - see discharge instructions Wound Care Instructions: other - see discharge instructions Discharge Instructions: DISCHARGE INSTRUCTION SHEET FOR HERNIA, GALLBLADDER AND APPENDIX SURGERIES DR. BURCIAGA PATIENT TO TAKE HOME 1. May shower in 24 hours, no soaking in bath x 2weeks. 2. Call office for: Wound increasingly painful or bleeding Vomiting Fever of greater than 101 degrees 3. If no bowel movement for three days, take 1 oz. (30 ml) Milk of Magnesia or MiraLax 17g 1 to 2 times daily. 4. No heavy lifting > 10-15 pounds x 6-8 weeks for hernia repairs 5. No driving for 3 days or while taking narcotic pain medications. 6. Ice to surgical site for 48 hours (30 min on, then 30 min off). 7. Up walking 10-30 minutes three times per day. 8. Resume previous home medications. 9. Follow-up 10-14 days in office f
== END 2023-06-12 13:00 | disposition home or self-care (01) ==
LOC: ANHSURGERY 16:26 → ANH3MEDSUR 16:26
PROVIDERS: Anesthesiology; Admitting Provider Surgery; PCP Family Medicine; Visit Provider Surgery
PROC: (CPT 49615; principal; 2023-06-10 10:30)
DX: K43.2 Incisional hernia without obstruction or gangrene (principal); F41.9 Anxiety disorder, unspecified; I25.10 Atherosclerotic heart disease of native coronary artery without angina pectoris; M47.816 Spondylosis without myelopathy or radiculopathy, lumbar region; E78.5 Hyperlipidemia, unspecified; I10 Essential (primary) hypertension; R73.02 Impaired glucose tolerance (oral); R79.1 Abnormal coagulation profile; M54.50 Low back pain, unspecified; Z79.1 Long term (current) use of non-steroidal anti-inflammatories (NSAID); Z79.01 Long term (current) use of anticoagulants; Z79.82 Long term (current) use of aspirin; Z79.891 Long term (current) use of opiate analgesic; Z79.899 Other long term (current) drug therapy; Z87.891 Personal history of nicotine dependence; Z86.12 Personal history of poliomyelitis; Z82.49 Family history of ischemic heart disease and other diseases of the circulatory system
CPT/HCPCS: 49615; S2900; 36415; 80048; 85027; 85610; 85730; A9270; C1781; G0378; J0690; J1100; J1170; J1200; J1650; J1741; J1885; J2405; J2704; J3010; J7120

== ENCOUNTER 2023-06-14 13:35 | Inpatient (IN) | payer MEDICARE, SELFPAY ==
--- NOTE | ~2023-06-14 | XR_ITS ---
Supine portable views of the abdomen Clinical history: Small bowel obstruction COMPARISON: 06/15/2023 Findings: Dilated small bowel loops are again present, with NG tube in place. No free air evident. No abnormal mass lesion or calcification is seen. Lumbosacral spinal fixation hardware and right hip ar throplasty again present. Impression: Small bowel obstruction with NG tube in place. Reviewed, dictated and finalized at location . Impression: Small bowel obstruction with NG tube in place.
--- NOTE | ~2023-06-14 | CT_ITS ---
EXAMINATION: CT abdomen pelvis w con DATE: 06/14/2023 15:24 INDICATION: Generalized abdominal pain. Postop. TECHNIQUE: Computed tomography (CT) of the abdomen and pelvis was performed with 100 mL Omnipaque 350 intravenous contrast. Automated exposure control and iterative reconstruction technique were employe d. The dose-length product was 1508.04 mGy-cm. COMPARISON: CT abdomen and pelvis 04/18/2023 FINDINGS: The visualized portions of the lung bases demonstrate mild atelectasis and mild chronic torrie g disease. No pleural effusion. The heart size is normal. There are coronary artery calcifications. N o pericardial effusion. The liver demonstrates pneumobilia, likely secondary to sphincterotomy. There are changes of cholecystectomy. The spleen, pancreas, and adrenal glands are normal. There is cortic al thinning of the kidneys. There are cysts in the kidneys measuring up to 3.6 cm on the right. A new 2.8 cm mass of left kidney is likely a hemorrhagic cyst. There are 4 stones in right kidney measurin g up to 14 mm. The prostate is moderately enlarged. There is diverticulosis of the colon without evid ence of diverticulitis. The appendix is not visualized. There is a left-sided spigelian hernia contai shavonne a wall of descending colon. There are multiple dilated loops of small bowel with transition poin t in right abdomen. There are diverticula in the duodenum. There is calcified atherosclerosis of the aorta and many of the other arteries. There are no pathologically enlarged lymph nodes. There is a sm all volume of pelvic ascites. There is severe thoracic and lumbar spondylosis. There is mild chronic anterior wedging of multiple vertebral bodies. There are changes of posterior fusion procedure from L 4 to S1. IMPRESSION: 1. Small bowel obstruction with transition point in the right abdomen. 2. Left-sided spigelian hernia containing a wall of nonobstructed descending colon. 3. Small volume of ascites. Reviewed, dictated and finalized at location E. IMPRESSION: 1. Small bowel obstruction with transition point in the right abdomen. 2. Left-sided spigelian hernia containing a wall of nonobstructed descending co nubia. 3. Small volume of ascites.
--- NOTE | ~2023-06-14 | XR_ITS ---
EXAMINATION: XR sm bowel follow through WS DATE: 06/16/2023 15:04 INDICATION: Small bowel obstruction. TECHNIQUE: Oral contrast was administered, and a time course of radiographs of the abdomen was obtain ed. Fluoroscopy of the small bowel was not performed. Fluoroscopy exposure time was 0 minutes. The to brandie number of images was 9. COMPARISON: CT abdomen and pelvis 06/14/2023 FINDINGS: The nasogastric tube tip is in the stomach. There are multiple dilated loops of small bowel. Oral con trast remains in dilated small bowel at 4 hours. There is no contrast in the colon, which is decompre ssed. Surgical clips in the right upper quadrant are likely from cholecystectomy. There are changes o f posterior fusion procedure in lumbosacral spine. There is a right hip arthroplasty. IMPRESSION: 1. Distal small bowel obstruction. Reviewed, dictated and finalized at location A.
--- NOTE | ~2023-06-14 | XR_ITS ---
EXAMINATION: XR abdomen NG/feed tube insert DATE: 06/14/2023 16:22 INDICATION: Nasogastric tube placement. TECHNIQUE: A supine view of the abdomen was obtained. COMPARISON: CT abdomen and pelvis 06/14/2023 FINDINGS: There are multiple dilated loops of small bowel. Normal caliber. The nasogastric tube tip is in the stomach. Surgical clips in the right upper quadran t are likely from cholecystectomy. There are changes of posterior fusion procedure in lumbosacral spi ne. IMPRESSION: 1. Nasogastric tube tip in the stomach. 2. Dilated small bowel, consistent with small bowel obstruction. Reviewed, dictated and finalized at location E.
--- NOTE | ~2023-06-14 | XR_ITS ---
Supine and upright views of the abdomen Clinical history: Small bowel obstruction COMPARISON: 06/14/2023 Findings: Multiple dilated small bowel loops are again consistent with obstruction. No definite free air seen. Lumbosacral spinal fixation hardware and right hip arthroplasty are again present. No free air evident. NG tube in place. No abnormal mass lesion or calcification is seen. Osseous structures a re intact. Impression: Small bowel obstruction with NG tube in place. Reviewed, dictated and finalized at location . Impression: Small bowel obstruction with NG tube in place.
--- NOTE | ~2023-06-14 | XR_ITS ---
Supine and upright views of the abdomen Clinical history: Small bowel obstruction COMPARISON: 06/16/2023 Findings: NG tube in satisfactory position. Dilated loops of small bowel are again consistent with sm all bowel obstruction. No free air evident. No abnormal mass lesion or calcification is seen. Stable orthopedic hardware noted. Impression: Small bowel obstruction with NG tube in place, similar to prior exam. Reviewed, dictated and finalized at location . Impression: Small bowel obstruction with NG tube in place, similar to prior exam.
[2023-06-14 13:40] VITALS: BP 133/80; PULSE 105; RESP 20; TEMP 36.6; O2SAT 96
[2023-06-14 14:15] VITALS: BP 131/66; PULSE 89; RESP 16; O2SAT 99
[2023-06-14 14:26] LABS: Basophils Percent Auto 0.3 % (0.2-1.2); Eosinophils Absolute Auto 0.1 K/mm3 (0-0.3); Eosinophils Percent Auto 0.7 % (0-4.4); Hematocrit 38.3 % (42.0-52.0); Hemoglobin 12.2 g/dL (14.0-18.0); Immature Granulocyte Absolute 0.05 K/mm3 (0.00-0.031); Immature Granulocyte Percent A 0.5 % (0-0.5); Lymphocytes Absolute Auto 1.07 K/mm3 (0.9-3.2); Mean Corpuscular HGB Conc 31.9 g/dl (32-36); Mean Corpuscular Volume 91.2 fl (80-100); Mean Platelet Volume 10.6 fl (7.4-10.4); Monocytes Absolute Auto 0.4 K/mm3 (0.1-0.6); Neutrophils Percent Auto 84.5 % (45.5-73.1); Platelet Count Result 274 k/mm3 (150-375); Red Cell Distribution Width 14.2 % (11.5-14.5); White Blood Count 10.7 K/mm3 (4.5-10.0)
[2023-06-14 14:46] LABS: Alanine Aminotransferase 30 U/L (6-50); Albumin Level 3.8 g/dL (3.5-5.1); Alkaline Phosphatase 92 U/L (38-126); Anion Gap 6 mmol/L (8-16); Aspartate Amino Transferase 41 U/L (17-59); Bilirubin,Total 1.1 mg/dL (0.2-1.3); Blood Urea Nitrogen 20 mg/dL (9-20); Calcium 9.1 mg/dL (8.4-10.2); Carbon Dioxide 30 mmol/L (22-30); Chloride 100 mmol/L (98-107); Estimated CRCL calculation 69 ml/min; Estimated Glomerular Filt Rate > 60; Glucose 139 mg/dL (65-110); Lipase 50 U/L (23-300); Potassium 4.4 mmol/L (3.4-5.0); Sodium 136 mmol/L (137-145)
[2023-06-14] MEDS: SODIUM CHLORIDE 0.9% IV 1,000 ML 999 ML IV CONT (14:47)
[2023-06-14] MEDS: KETOROLAC 30 MG/ML VIAL (*BKC) IV PUSH ×2 (14:48→20:50)
[2023-06-14] MEDS: ONDANSETRON INJ 4 MG/2 ML VIAL IV PUSH ×2 (14:48→20:24)
[2023-06-14 14:53] VITALS: BP 117/82; PULSE 85; RESP 16; O2SAT 95
[2023-06-14 15:09] LABS: Lactic Acid Reflex 1.1 mmol/L (0.7-2.0)
--- NOTE | 2023-06-14 15:24 | ED.ABDPAIN ---
HPI - Abdominal Pain General Chief Complaint: Abdominal Pain <Tika Kat PA-C - Last Filed: 06/14/23 17:54> Stated Complaint: Abdominal pain <Tika Kat PA-C - Last Filed: 06/14/23 17:54> Time Seen by Provider: 06/14/23 13:49 <Tika Kat PA-C - Last Filed: 06/14/23 17:54> History of Present Illness HPI narrative: 78-year-old male with history of A-fib, CAD, hypertension, hyperlipidemia, incisional hernia who is s/p hernia repair from Dr. Jung on 06/10 reports for evaluation of abdominal pain and multiple episodes of emesis since this morning at 6 AM. Patient states he was discharged from the hospital on 06/12 with tramadol for pain control which has been helping until this morning. States his pain was a 3 out of 10 yesterday and has been a 10 out of 10 since 6 AM this morning. Reports his pain is generalized but worse in the lower abdomen. Denies surrounding redness or drainage from his incision sites. Denies fever. He reports multiple episodes of yellow emesis morning and 1 episode of brown emesis prior to arrival. Patient's brought in the bag of brown emesis to the ED which does not appear to look like coffee grounds. He denies fever, urinary complaints, testicular or scrotal swelling, back pain, chest pain or shortness of breath, diarrhea. He has been wearing his abdominal binder since discharge. <Tika Kat PA-C - Last Filed: 06/14/23 17:54> Related Data Home Medications: Home Medications Medication Instructions Recorded Confirmed carvedilol 3.125 mg tablet (Coreg) 3.125 mg PO Q12H 06/10/22 06/14/23 docusate calcium 240 mg capsule 240 mg PO QHS 06/10/22 06/14/23 furosemide 20 mg tablet 20 mg PO QAM 04/15/23 06/14/23 Tylenol PM 500 mg PO HS PRN Sleep 04/17/23 06/14/23 ramipril 2.5 mg capsule 2.5 mg PO HS 04/17/23 06/14/23 aspirin 81 mg tablet,delayed 81 mg PO DAILY 04/22/23 06/14/23 release ezetimibe 10 mg tablet 10 mg PO QAM 04/22/23 06/14/23 isosorbide mononitrate 30 mg 30 mg PO QAM 04/22/23 06/14/23 tablet,extended release 24 hr naproxen 500 mg tablet 500 mg PO QAM 04/22/23 06/14/23 warfarin 6 mg tablet 6 mg PO EVERY OTHER DAY 05/27/23 06/14/23 warfarin 7.5 mg tablet 7 mg PO QMWF 05/27/23 06/14/23 <Tika Kat PA-C - Last Filed: 06/14/23 17:54> Allergies/Adverse Reactions: Allergies Allergy/AdvReac Type Severity Reaction Status Date / Time Latex, Natural Rubber Allergy Intermediate Blister Verified 06/14/23 14:16 meperidine [Demerol] Allergy Intermediate Hives, Verified 06/14/23 14:16 MILD DYSPNEA atorvastatin [Lipitor] AdvReac Intermediate Muscle Pain Verified 06/14/23 14:16 heparin AdvReac Intermediate Unknown Verified 06/14/23 14:16 hydrocodone [From [place]] AdvReac Intermediate Nausea Verified 06/14/23 14:16 hydromorphone [From Dilaudid] AdvReac Intermediate Nausea and Verified 06/14/23 14:16 Vomiting morphine AdvReac Intermediate Vomiting Verified 06/14/23 14:16 pravastatin AdvReac Intermediate Muscle Pain Verified 06/14/23 14:16 prochlorperazine AdvReac Intermediate REDNESS AT Verified 06/14/23 14:16 PATCH SITE rosuvastatin [Crestor] AdvReac Intermediate Muscle Pain Verified 06/14/23 14:16 simvastatin AdvReac Intermediate Muscle Verified 06/14/23 14:16 Spasms <Tika Kat PA-C - Last Filed: 06/14/23 17:54> Review of Systems Review of Systems: CONSTITUTIONAL: Denies fever, chills EYES: Denies visual changes, redness, or discharge. ENT: Denies rhinorrhea, congestion, sore throat, or otalgia. CARDIOVASCULAR: Denies chest pain, palpitations, or edema. RESPIRATORY: Denies cough or dyspnea. GASTROINTESTINAL: See HPI GENITOURINARY: Denies dysuria or hematuria. SKIN: Denies rash or itching. MUSCULOSKELETAL: Denies back pain, joint pain, or myalgia. NEUROLOGIC: Denies headache, numbness, dizziness, or weakness. PSYCHIATRIC: Denies anxiety or depression. <Tika Kat PA-C - Last Filed:
[2023-06-14 16:03] LABS: Appearance Urine Clear (Clear); Bacteria Urine None Seen /hpf; Bilirubin Urine 2+ (Negative); Blood Urine Negative (Negative); Color Urine Dark Yellow (Yellow); Glucose Urine UA Negative (Negative); Ketones Urine 1+ mg/dL (Negative); Leukocyte Esterase Ur Trace LEU/UL (Negative); Nitrate Urine Negative (Negative); Non Pathogenic Casts 0-2; Protein Urine 1+ mg/dL (Negative); RBC Urine 0-2 /hpf (0-2); Specific Grav Ur 1.028 (1.001-1.035); Squamous Epithelial Cell Urine Occasional /hpf (Few); pH Urine 5.5 (5.0-9.0)
[2023-06-14 16:13] LABS: Add Urine Microscopic? YES
[2023-06-14 17:56] VITALS: BP 123/82; PULSE 97; RESP 16; O2SAT 96
--- NOTE | 2023-06-14 18:10 | PC.NURSE ---
This patient, Ernie Rueda ., was admitted to Medical Room 244-. Patient/family oriented to hospital policies and general routines including ID bracelet, bed and alarms, visiting hours, pain management, procedures, bathroom and other care routines, personal items, smoking policy, room service/diet, and visiting hours. Information on how to activate the Rapid Response Team has been discussed. Patient/Family are encouraged to report perceived risks to care and to ask questions if they do not understand what they are told or what they should do.
[2023-06-14 20:00] VITALS: BP 128/84; PULSE 110; RESP 20; TEMP 35.9; O2SAT 96
[2023-06-14] MEDS: SODIUM CHLORIDE 0.9% IV 1,000 ML 100 ML IV CONT (20:31)
[2023-06-14 20:33] LABS: INR 1.1
--- NOTE | 2023-06-14 22:27 | PM.IMHP ---
H&P: HPI History of Present Illness Date/Time: 06/14/23 18:30 Chief Complaint: Abdominal pain, nausea, vomiting. Narrative: This is a very pleasant 77-year-old male with history of anxiety, hypertension, dyslipidemia, GERD, benign prostatic hyperplasia, paroxysmal atrial fibrillation on chronic anticoagulation, coronary artery disease with history of stents, and kidney stones who presented to the emergency department via private vehicle from home for evaluation of abdominal pain, nausea, and vomiting. Patient provides the following history. He had a laparoscopic recurrent incisional hernia repair with mesh on 06/10/[address] Jung. His postop course has been as expected until early this morning when he developed diffuse abdominal pain, nausea, and vomiting. CT of the abdomen and pelvis showed small-bowel obstruction with transition point right abdomen and he is being admitted in this setting. NG tube has been inserted he is feeling a bit better. He denies fever, chills, sweats, chest pain, shortness a breath, hematemesis, diarrhea, and constipation. His last bowel movement was on Thursday and was a bit loose but was otherwise unremarkable. Review of Systems Review of Systems: Twelve systems were reviewed and are negative except for as per HPI. [facility] Past Medical History Medical History (Updated 06/15/23 @ 13:55 by Jessica Ewing PA-C) Anxiety Chronic anticoagulation Coronary artery disease Degenerative arthritis of lumbar spine Hyperlipidemia Hypertension Osteoarthritis of knee Paroxysmal atrial fibrillation Polio Renal stones Surgical History Surgical History (Updated 06/15/23 @ 13:54 by Jessica Ewing PA-C) History of appendectomy History of back surgery Lumbar spine: x's 2 History of bilateral knee arthroplasty History of cataract removal with insertion of prosthetic lens History of cholecystectomy History of heart artery stent x's 4 History of incisional hernia repair History of inguinal hernia repair History of right hip replacement History of right shoulder replacement History of umbilical hernia repair Family History Family History Father Family history of coronary artery disease Brother Hypertension Family history of type 2 diabetes mellitus Family history of coronary artery disease Sister Family history of type 2 diabetes mellitus Family history of coronary artery disease Hypertension Social History Social History (Updated 06/15/23 @ 13:55 by Jessica Ewing PA-C) Social History: Surrogate medical decision maker: Deb Rueda, spouse. Code status: Full code. Smoking packs per day: 1 Smoking cigarettes per day: 20.0 Years smoked: 35 Smoking pack-years: 35.00 Smoking status: Former smoker Tobacco type: cigarettes Smoking end date: 11/30/94 Alcohol intake: never Substance use: never Substance use type: does not use Lack of Transportation: No Lack of Food: Never True Current Housing: I Have Housing Concerned About Future Housing: No Difficulty Paying Gas/Electric Bills: No Difficulty Paying for Meds: No Currently Unemployed: No Education: High School Diploma/GED Difficulty w/ Childcare or Family Care: No Living arrangements: with family Additional living arrangements comments: Occupation/Education: retired 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
[2023-06-15] VITALS (11 sets, daily range): BP systolic 116–138; BP diastolic 67–80; PULSE 86–105; RESP 16–20; TEMP 35.7–36.6; O2SAT 93–97
[2023-06-15] MEDS: fentaNYL CITRATE INJ (*CRX) 100 MCG/2 ML VIAL 25 MCG IV PUSH (01:46)
[2023-06-15] MEDS: KETOROLAC 30 MG/ML VIAL (*BKC) IV PUSH ×3 (02:57→16:11)
[2023-06-15 05:50] LABS: Hematocrit 39.7 % (42.0-52.0); Hemoglobin 12.5 g/dL (14.0-18.0); Mean Corpuscular HGB Conc 31.5 g/dl (32-36); Mean Corpuscular Volume 92.1 fl (80-100); Mean Platelet Volume 10.7 fl (7.4-10.4); Platelet Count Result 293 k/mm3 (150-375); Red Blood Count 4.31 M/mm3 (4.6-6.20); Red Cell Distribution Width 14.5 % (11.5-14.5); White Blood Count 11.1 K/mm3 (4.5-10.0)
[2023-06-15] MEDS: SODIUM CHLORIDE 0.9% IV 1,000 ML 100 ML IV CONT ×2 (05:58→16:11)
[2023-06-15 05:59] LABS: INR 1.2; Prothrombin Time 15.8 Seconds (11.1-14.7)
[2023-06-15 06:03] LABS: Anion Gap 7 mmol/L (8-16); Blood Urea Nitrogen 25 mg/dL (9-20); Calcium 8.9 mg/dL (8.4-10.2); Carbon Dioxide 29 mmol/L (22-30); Chloride 102 mmol/L (98-107); Estimated CRCL calculation 69 ml/min; Estimated Glomerular Filt Rate > 60; Glucose 112 mg/dL (65-110); Magnesium 2.1 mg/dL (1.6-2.3); Potassium 4.1 mmol/L (3.4-5.0); Sodium 138 mmol/L (137-145)
[2023-06-15] MEDS: IBUPROFEN IV 800 MG/200 ML 800 MG/200 ML BAG 400 MG IVPB (06:10)
[2023-06-15] MEDS: PANTOPRAZOLE SODIUM IV 40 MG VIAL IV PUSH (09:26)
[2023-06-15] MEDS: METOPROLOL TARTRATE INJ 5 MG/5 ML VIAL IV PUSH ×3 (09:26→23:28)
[2023-06-15] MEDS: ISOSORBIDE MONONITRATE 30 MG TAB.ER.24H PO (09:28)
[2023-06-15] MEDS: ENOXAPARIN 40 MG/0.4 ML SYRINGE SUB-Q (09:28)
[2023-06-15] MEDS: ONDANSETRON INJ 4 MG/2 ML VIAL IV PUSH ×2 (09:36→14:22)
--- NOTE | 2023-06-15 11:19 | PM.CNGS ---
Assessment and Plan Assessment and plan (1) Small bowel obstruction: Code(s): K56.609 - Unspecified intestinal obstruction, unspecified as to partial versus complete obstruction Status: Acute Assessment and Plan: I have reviewed the CT and discussed the findings with the patient. He has evidence of a small-bowel obstruction with transition in the right lower quadrant. This is likely related to the extensive adhesions that he was found to have during surgery. Continue NG decompression and bowel rest at this time. He is passing a little bit of flatus but has not had a bowel movement. If there is still no significant improvement in bowel function by tomorrow, we will plan to get a Gastrografin small-bowel follow-through. (2) Encounter for examination following surgery: Code(s): Z09 - Encounter for follow-up examination after completed treatment for conditions other than malignant neoplasm Status: Acute History of Present Illness Consult details Consult date: 06/15/23 Reason for consult: other (Small bowel obstruction) Narrative: This is a 78-year-old man who presented to the emergency department yesterday with abdominal pain with nausea and vomiting. He just underwent robotic assisted laparoscopic recurrent incisional hernia repair with mesh on 06/10/2023. He did have a lot of adhesions at the time of the surgery but surgery was otherwise uncomplicated. He did stay in the hospital for 2 days for recovery due to the complexity of the hernia repair. He was doing well when he was discharged and bowels were moving at home. Two days ago he began experiencing some bloating feelings and eventually became nauseated and vomited. He was vomiting multiple times yesterday and therefore came back to the emergency department. He is still passing some flatus, but has not had a bowel movement for couple days now. Review of Systems Review of Systems: All systems reviewed & are unremarkable except as noted in HPI and below Eyes: Eyes: Denies change in vision ENT: Denies hearing loss, Denies neck pain and Denies sore throat Cardiovascular: Cardiovascular: Denies chest pain and Denies dyspnea Respiratory: Respiratory: Denies cough, Denies dyspnea and Denies wheezing Genitourinary: Genitourinary: Denies hematuria and Denies dysuria Musculoskeletal: Musculoskeletal: Denies arthralgias, Denies joint swelling and Denies neck pain Allergic/Immunologic: Allergic/Immunologic: Denies wheezing PMFSH Past Medical History Medical History Anxiety Chronic anticoagulation Coronary artery disease Degenerative arthritis of lumbar spine Encounter for screening for malignant neoplasm of prostate Hyperlipidemia Hypertension Impaired glucose tolerance Low back pain Osteoarthritis of knee Polio Preoperative examination Renal stones Supratherapeutic INR Umbilical hernia Surgical History Surgical History History of appendectomy History of back surgery Lumbar spine: x's 2 History of cataract removal with insertion of prosthetic lens History of heart artery stent x's 4 History of inguinal hernia repair History of right hip replacement History of right shoulder replacement History of umbilical hernia repair Hx of cholecystectomy Knee joint replacement status Bilateral Family History Family History Father Family history of coronary artery disease Brother Hypertension Family history of type 2 diabetes mellitus Family history of coronary artery disease Sister Family history of type 2 diabetes mellitus Family history of coronary artery disease Hypertension Social History Social History Smoking packs per day: 1 Smoking cigarettes per day: 20.0 Years smoked: 35 Smoking pack-years
--- NOTE | 2023-06-15 14:01 | PM.IMPN ---
Progress Note: A&P Assessment and Plan (1) Small bowel obstruction: Code(s): K56.609 - Unspecified intestinal obstruction, unspecified as to partial versus complete obstruction Status: Acute Assessment and Plan: S/P laparoscopic hernia repair with Dr Cosme. Surgery consulted this admission, appreciate recommendations. If NG output does not decrease will proceed with small bowel follow through for tomorrow. -CT shows small bowel obstruction with transition point in the right abdomen. 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 Schedule IVP metoprolol 5 mg every six hours. -Add telemetry (4) Coronary artery disease: Code(s): I25.10 - Atherosclerotic heart disease of [place] coronary artery without angina pectoris Status: Chronic Assessment and Plan: -ASA 81 mg, Ezetimibe 10 mg PO daily, Isosorbide mononitrate 30 mg PO daily, ramipril 2.5 mg PO HS. -stable on home medications (5) Hypertension: Code(s): I10 - Essential (primary) hypertension Status: Chronic Assessment and Plan: Stable on home regimen Blood pressures reviewed. SBP 130's-118's. Subjective Date/time seen: 06/15/23 14:01 Interval history: HPI is obtained from chart This is a very pleasant 77-year-old male with history of anxiety, hypertension, dyslipidemia, GERD, benign prostatic hyperplasia, paroxysmal atrial fibrillation on chronic anticoagulation, coronary artery disease with history of stents, and kidney stones who presented to the emergency department via private vehicle from home for evaluation of abdominal pain, nausea, and vomiting. Patient provides the following history. He had a laparoscopic recurrent incisional hernia repair with mesh on 06/10/[address] Jung. His postop course has been as expected until early this morning when he developed diffuse abdominal pain, nausea, and vomiting. CT of the abdomen and pelvis showed small-bowel obstruction with transition point right abdomen and he is being admitted in this setting. NG tube has been inserted he is feeling a bit better. He denies fever, chills, sweats, chest pain, shortness a breath, hematemesis, diarrhea, and constipation. His last bowel movement was on Thursday and was a bit loose but was otherwise unremarkable. 06/15: Mr. Rueda is seen this morning resting in bed he appears uncomfortable his NG tube to low intermittent wall suction and he says that he is feeling nauseated. A flush in NG-tube with 40 mL water in there is a quick return of approximately 150 mL of dark brown fluid. He also has IV push Zofran which the nursing is giving him. Besides being nauseated and uncomfortable with the NG tube he also has midline abdominal pain does tender to palpation. ROS is otherwise unremarkable. Plan to see surgery today for recommendations. Review of Systems Review of Systems: All systems reviewed & are unremarkable except as noted in HPI and below Exam Narrative: General: well-nourished, ill appearing 78-year-old male, sitting up in bed, appears uncomfortable Neuro: awake, alert and oriented x4, speech clear, no focal neuro deficits noted HEENMT: normocephalic, atraumatic, EOMI, sclerae anicteric, moist oral mucosa Respiratory: Clear to auscultation bilaterally without crackles, rhonchi or wheezes, nonlabored breathing Cardio: regular rate, regular rhythm with S1-S2 Abdomen: round, distended, high pitched tinkling bowel sounds, tender to palpation Extremities: no edema
--- NOTE | 2023-06-15 14:39 | PCCCNOTE ---
On 06/15/23, the student, [Charla Yeboah], provided care and completed [facility] documentation on this patient. I have reviewed the student's documentation and agree with the findings.
[2023-06-15] MEDS: PROMETHAZINE HCL 25 MG/ML AMPUL 12.5 MG IV PUSH (21:25)
[2023-06-15] MEDS: ALPRAZolam (*CRX) 0.5 MG TABLET PO (23:28)
[2023-06-16] VITALS (7 sets, daily range): BP systolic 113–138; BP diastolic 61–81; PULSE 88–96; RESP 16–18; TEMP 36.4–36.6; O2SAT 92–95
[2023-06-16] MEDS: SODIUM CHLORIDE 0.9% IV 1,000 ML 100 ML IV CONT (02:11)
[2023-06-16] MEDS: KETOROLAC 30 MG/ML VIAL (*BKC) IV PUSH ×2 (02:59→11:24)
[2023-06-16 06:02] LABS: Basophils Percent Auto 0.2 % (0.2-1.2); Eosinophils Percent Auto 0.5 % (0-4.4); Hemoglobin 10.9 g/dL (14.0-18.0); Immature Granulocyte Absolute 0.03 K/mm3 (0.00-0.031); Immature Granulocyte Percent A 0.4 % (0-0.5); Lymphocytes Absolute Auto 1.34 K/mm3 (0.9-3.2); Lymphocytes Percent Auto 15.7 % (18.3-44.2); Mean Corpuscular HGB Conc 31.1 g/dl (32-36); Mean Corpuscular Hemoglobin 28.8 pg (26-34); Mean Corpuscular Volume 92.6 fl (80-100); Monocytes Absolute Auto 0.7 K/mm3 (0.1-0.6); Monocytes Percent Auto 7.6 % (2.6-8.5); Neutrophils Absolute Auto 6.5 K/mm3 (1.3-6.7); Neutrophils Percent Auto 75.6 % (45.5-73.1); Platelet Count Result 271 k/mm3 (150-375); Red Blood Count 3.78 M/mm3 (4.6-6.20); Red Cell Distribution Width 14.4 % (11.5-14.5); White Blood Count 8.6 K/mm3 (4.5-10.0)
[2023-06-16 06:05] LABS: INR 1.2; Prothrombin Time 15.3 Seconds (11.1-14.7)
[2023-06-16 06:06] LABS: Partial Thromboplastin Time 36.7 SECONDS (22.3-36.8)
[2023-06-16 06:14] LABS: Alanine Aminotransferase 22 U/L (6-50); Alkaline Phosphatase 68 U/L (38-126); Anion Gap 5 mmol/L (8-16); Aspartate Amino Transferase 26 U/L (17-59); Blood Urea Nitrogen 31 mg/dL (9-20); Calcium 8.3 mg/dL (8.4-10.2); Carbon Dioxide 33 mmol/L (22-30); Chloride 104 mmol/L (98-107); Estimated CRCL calculation 75 ml/min; Estimated Glomerular Filt Rate > 60; Glucose 118 mg/dL (65-110); Magnesium 2.2 mg/dL (1.6-2.3); Potassium 3.8 mmol/L (3.4-5.0); Sodium 142 mmol/L (137-145)
[2023-06-16] MEDS: METOPROLOL TARTRATE INJ 5 MG/5 ML VIAL IV PUSH ×3 (06:22→18:20)
--- NOTE | 2023-06-16 07:50 | PM.IMPN ---
Progress Note: A&P Assessment and Plan (1) Small bowel obstruction: Code(s): K56.609 - Unspecified intestinal obstruction, unspecified as to partial versus complete obstruction Status: Acute Assessment and Plan: S/P laparoscopic hernia repair with Dr Cosme. Surgery consulted this admission, appreciate recommendations. If NG output does not decrease will proceed with small bowel follow through for tomorrow. NG output 1950 ml overnight. Ordered small bowel follow through -CT shows small bowel obstruction with transition point in the right abdomen. -NG tube to LIWS with brown fluid -NPO -Zofran for nausea -D5 1/2 NS @ 125 ml. UOP 200 ml documented overnight. 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 DVT prophylaxis with lovenox -INR 1.2 -regular rate and rhythm. was slightly tachy but that has improved with increase in beta sam -holding Coreg due to NG. Schedule IVP metoprolol 5 mg every six hours. -Add telemetry (4) Coronary artery disease: Code(s): I25.10 - Atherosclerotic heart disease of [place] coronary artery without angina pectoris Status: Chronic Assessment and Plan: -ASA 81 mg, Ezetimibe 10 mg PO daily, Isosorbide mononitrate 30 mg PO daily, ramipril 2.5 mg PO HS. -stable on home medications (5) Hypertension: Code(s): I10 - Essential (primary) hypertension Status: Chronic Assessment and Plan: Stable on home regimen Blood pressures reviewed. SBP 130's-118's. Subjective Date/time seen: 06/16/23 07:50 Interval history: HPI is obtained from chart This is a very pleasant 77-year-old male with history of anxiety, hypertension, dyslipidemia, GERD, benign prostatic hyperplasia, paroxysmal atrial fibrillation on chronic anticoagulation, coronary artery disease with history of stents, and kidney stones who presented to the emergency department via private vehicle from home for evaluation of abdominal pain, nausea, and vomiting. Patient provides the following history. He had a laparoscopic recurrent incisional hernia repair with mesh on 06/10/[address] Jung. His postop course has been as expected until early this morning when he developed diffuse abdominal pain, nausea, and vomiting. CT of the abdomen and pelvis showed small-bowel obstruction with transition point right abdomen and he is being admitted in this setting. NG tube has been inserted he is feeling a bit better. He denies fever, chills, sweats, chest pain, shortness a breath, hematemesis, diarrhea, and constipation. His last bowel movement was on Thursday and was a bit loose but was otherwise unremarkable. 06/15: Mr. Rueda is seen this morning resting in bed he appears uncomfortable his NG tube to low intermittent wall suction and he says that he is feeling nauseated. A flush in NG-tube with 40 mL water in there is a quick return of approximately 150 mL of dark brown fluid. He also has IV push Zofran which the nursing is giving him. Besides being nauseated and uncomfortable with the NG tube he also has midline abdominal pain does tender to palpation. ROS is otherwise unremarkable. Plan to see surgery today for recommendations. 06/16: No acute events overnight. NG output put out almost 2 L. ordered a small-bowel follow-through per Dr. Jung recommendation. Await results and further recommendation from surgery. Review of Systems Review of Systems: All systems reviewed & are unremarkable except as noted in HPI and below Exam Narrative: General: well-nourished,
[2023-06-16] MEDS: ENOXAPARIN 40 MG/0.4 ML SYRINGE SUB-Q (09:23)
[2023-06-16] MEDS: ISOSORBIDE MONONITRATE 30 MG TAB.ER.24H PO (09:24)
[2023-06-16] MEDS: PANTOPRAZOLE SODIUM IV 40 MG VIAL IV PUSH (09:24)
[2023-06-16] MEDS: DEXTROSE 5%/0.45% SOD CHL 1,000 ML 125 ML IV CONT (09:25)
[2023-06-16] MEDS: PROMETHAZINE HCL 25 MG/ML AMPUL 12.5 MG IV PUSH (11:24)
--- NOTE | 2023-06-16 16:25 | PM.PNGS ---
Progress Note: A&P Assessment and Plan (1) Encounter for examination following surgery: Code(s): Z09 - Encounter for follow-up examination after completed treatment for conditions other than malignant neoplasm Status: Acute Assessment and Plan: Patient appears to have persistent SBO. Discussed that this doesn't seem to be resolving and will likely need surgical intervention. Will proceed with diagnostic laparoscopy, possible open, possible bowel resection tomorrow. Will start PPN to continue some nutrition while NPO. Continue monitoring fluid and electrolyte status. (2) Small bowel obstruction: Code(s): K56.609 - Unspecified intestinal obstruction, unspecified as to partial versus complete obstruction Status: Acute (3) Paroxysmal atrial fibrillation: Code(s): I48.0 - Paroxysmal atrial fibrillation Status: Acute Subjective Subjective Date/Time Seen: 06/16/23 16:25 Interval history: Still no bowel function. Became nauseated and vomited during SBFT today. No flatus. Exam GI: Inspection: distended GI Palp: Yes Soft to palpation and Yes Tenderness to palpation present (GI) (minimal mid abdominal and incisional) Auscultation: Hypoactive bowel sounds present Objective Data Vital Signs Vital Signs: Vital Signs - 24 hr 06/15/23 17:56 06/15/23 18:13 06/15/23 18:13 Temperature 36.3 C L Pulse Rate 98 99 105 H Respiratory Rate 18 Blood Pressure 121/72 116/74 Pulse Oximetry 97 95 Oxygen Delivery 06/15/23 19:48 06/15/23 23:28 06/15/23 23:58 Temperature 36.0 C L 36.6 C Pulse Rate 91 90 93 Respiratory Rate 20 20 Blood Pressure 125/75 123/70 Pulse Oximetry 94 94 Oxygen Delivery 06/16/23 04:00 06/16/23 06:22 06/16/23 10:19 Temperature 36.4 C L 36.5 C Pulse Rate 96 96 96 Respiratory Rate 18 16 Blood Pressure 113/73 137/81 Pulse Oximetry 92 92 Oxygen Delivery 06/16/23 09:30 06/16/23 13:39 06/16/23 14:49 Temperature 36.6 C Pulse Rate 88 94 Respiratory Rate 18 Blood Pressure 138/61 Pulse Oximetry 95 Oxygen Delivery Room Air Intake/Output Intake/Output: Intake & Output 06/13/23 06/14/23 06/15/23 06/16/23 23:59 23:59 23:59 23:59 Intake Total 1000 1999 1650 Output Total 200 1999 1050 Balance 800 0 600 Meds/Results Medications: Active Medications Generic Name Dose Route Start Last Admin Trade Name Freq PRN Reason Stop Dose Admin Alprazolam 0.5 mg 06/14/23 19:31 06/15/23 23:28 Alprazolam (*Crx) 0.5 Mg Tablet PO 0.5 mg QHS PRN Administration Sleep Enoxaparin Sodium 40 mg 06/15/23 09:00 06/16/23 09:23 Enoxaparin 40 Mg/0.4 Ml Syringe SUB-Q 40 mg DAILY KOFI Administration Fentanyl Citrate 25 mcg 06/14/23 19:31 06/15/23 01:46 Fentanyl Citrate Inj (*Crx) 100 Mcg/2 Ml Vial IV PUSH 25 mcg Q2H PRN Administration Pain Rated 7-10 Fentanyl Citrate 12.5 mcg 06/14/23 19:31 Fentanyl Citrate Inj (*Crx) 100 Mcg/2 Ml Vial IV PUSH Q2H PRN Pain Rated 4-6 Ibuprofen 800 mg in 200 mls @ 400 mls/hr 06/14/23 19:26 06/15/23 06:10 Caldolor 800 Mg/200 Ml IVPB 400 mls/hr Q6H PRN Administration Pain Rated 1-3 Dextrose/Sodium Chloride 1,000 mls @ 125 mls/hr 06/16/23 07:50 06/16/23 09:25 Dextrose 5% Sodium Chloride 0.45% IV CONT 125 mls/hr .Q8H KOFI Administration Isosorbide Mononitrate 30 mg 06/15/23 09:00 06/16/23 09:24 Isosorbide Mononitrate 30 Mg Tab.Er.24h PO 30 mg QAM KOFI Administration Ketorolac Tromethamine 30 mg 06/14/23 16:51 06/16/23 11:24 Ketorolac 30 Mg/Ml Vial (*Bkc) IV PUSH 06/19/23 16:50 30 mg Q6H PRN Administration Pain Rated 4-6 Metoprolol Tartrate 5 mg 06/15/23 18:00 06/16/23 13:39 Metoprolol Tartrate Inj 5 Mg/5 Ml Vial IV PUSH 5 mg Q6HR KOFI Administration Nitroglycerin 0.4 mg 06/14/23 19:39 Nitroglycerin Sl 0.4 Mg Tablet SUBLINGUAL PRN PRN Chest Pain Pantoprazole Sodium 4
[2023-06-16] MEDS: AMINO ACIDS 4.25%/D5W/LYTES/CA 2,000 ML 100 ML IV CONT (18:26)
[2023-06-16] MEDS: FAT EMULSIONS IV 20% 250 ML 20.83 ML IVPB (18:27)
[2023-06-16 18:47] LABS: Glucose Point of Care 141 mg/dl (65-105)
[2023-06-17] VITALS (17 sets, daily range): BP systolic 107–137; BP diastolic 55–86; PULSE 83–124; RESP 14–18; TEMP 36.1–37.7; O2SAT 90–100; BMI 34.2
[2023-06-17] MEDS: METOPROLOL TARTRATE INJ 5 MG/5 ML VIAL IV PUSH ×3 (00:02→23:23)
[2023-06-17 00:27] LABS: Glucose Point of Care 149 mg/dl (65-105)
--- NOTE | 2023-06-17 01:57 | PC.NURSE ---
Dr. Ashford notified of positive urine culture, results posted 06/15 however no notification of positive was called to patient care team and results were missed and reported 06/16. Provider states as long as patient remains asymptomatic no intervention is required at this time.
[2023-06-17] MEDS: PROMETHAZINE HCL 25 MG/ML AMPUL 12.5 MG IV PUSH ×2 (03:43→10:53)
[2023-06-17] MEDS: KETOROLAC 30 MG/ML VIAL (*BKC) IV PUSH (04:14)
[2023-06-17 05:18] LABS: Basophils Percent Auto 0.5 % (0.2-1.2); Eosinophils Absolute Auto 0.2 K/mm3 (0-0.3); Eosinophils Percent Auto 2.3 % (0-4.4); Hematocrit 37.7 % (42.0-52.0); Hemoglobin 11.4 g/dL (14.0-18.0); Immature Granulocyte Absolute 0.02 K/mm3 (0.00-0.031); Immature Granulocyte Percent A 0.2 % (0-0.5); Lymphocytes Percent Auto 15.2 % (18.3-44.2); Mean Corpuscular HGB Conc 30.2 g/dl (32-36); Mean Corpuscular Hemoglobin 28.4 pg (26-34); Mean Corpuscular Volume 93.8 fl (80-100); Mean Platelet Volume 11.2 fl (7.4-10.4); Monocytes Absolute Auto 0.6 K/mm3 (0.1-0.6); Monocytes Percent Auto 6.9 % (2.6-8.5); Neutrophils Absolute Auto 6.4 K/mm3 (1.3-6.7); Neutrophils Percent Auto 74.9 % (45.5-73.1); Platelet Count Result 306 k/mm3 (150-375); Red Blood Count 4.02 M/mm3 (4.6-6.20); Red Cell Distribution Width 14.5 % (11.5-14.5); White Blood Count 8.6 K/mm3 (4.5-10.0)
[2023-06-17 05:27] LABS: Anion Gap 3 mmol/L (8-16); Blood Urea Nitrogen 38 mg/dL (9-20); Calcium 8.9 mg/dL (8.4-10.2); Carbon Dioxide 37 mmol/L (22-30); Chloride 102 mmol/L (98-107); Estimated CRCL calculation 75 ml/min; Estimated Glomerular Filt Rate > 60; Glucose 129 mg/dL (65-110); Phosphorus 3.6 mg/dL (2.5-4.5); Potassium 3.1 mmol/L (3.4-5.0); Sodium 142 mmol/L (137-145)
[2023-06-17 05:33] LABS: INR 1.1; Prothrombin Time 14.2 Seconds (11.1-14.7)
[2023-06-17 05:34] LABS: Partial Thromboplastin Time 34.9 SECONDS (22.3-36.8)
[2023-06-17 06:15] LABS: Transferrin 159 mg/dL (206-381)
[2023-06-17 06:50] LABS: Glucose Point of Care 143 mg/dl (65-105)
[2023-06-17 08:58] LABS: Glucose Point of Care 124 mg/dl (65-105)
[2023-06-17] MEDS: SODIUM CHLORIDE 0.9% IV 50 ML 80 ML (11:03)
--- NOTE | 2023-06-17 12:03 | PM.IMPN ---
Progress Note: A&P Assessment and Plan (1) Small bowel obstruction: Code(s): K56.609 - Unspecified intestinal obstruction, unspecified as to partial versus complete obstruction Status: Acute Assessment and Plan: S/P laparoscopic hernia repair with Dr Cosme. Surgery consulted this admission, appreciate recommendations. NG output 1950 ml overnight. Ordered small bowel follow through -CT shows small bowel obstruction with transition point in the right abdomen. -NG tube to LIWS with brown fluid -NPO -Zofran for nausea -PPN ordered by Surgery team. -Potassium replacement by IV. -patient to go to OR today for intervention (2) Encounter for examination following surgery: Code(s): Z09 - Encounter for follow-up examination after completed treatment for conditions other than malignant neoplasm Status: Acute Assessment and Plan: Patient appears to have persistent SBO. Discussed that this doesn't seem to be resolving and will likely need surgical intervention. Will proceed with diagnostic laparoscopy, possible open, possible bowel resection tomorrow. Will start PPN to continue some nutrition while NPO. Continue monitoring fluid and electrolyte status. 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 DVT prophylaxis with lovenox -INR 1.2 -regular rate and rhythm. was slightly tachy but that has improved with increase in beta sam -holding Coreg due to NG. Schedule IVP metoprolol 5 mg every six hours. 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 -stable on home medications -NPO at the moment for procedure (6) Hypertension: Code(s): I10 - Essential (primary) hypertension Status: Chronic Assessment and Plan: Stable on home regimen Blood pressures reviewed. BP 119-137/75-82 overnight and this morning Plan -PPN plus potassium replacement -NPO including oral medications. -Continue NGT to suction -Patient to go to OR for SBO intervention today per General Surgery Time Spent With Patient Time with patient: 25 - 35 minutes Subjective Date/time seen: 06/17/23 09:10 Interval history: Copied from Previous note: HPI is obtained from chart This is a very pleasant 77-year-old male with history of anxiety, hypertension, dyslipidemia, GERD, benign prostatic hyperplasia, paroxysmal atrial fibrillation on chronic anticoagulation, coronary artery disease with history of stents, and kidney stones who presented to the emergency department via private vehicle from home for evaluation of abdominal pain, nausea, and vomiting. Patient provides the following history. He had a laparoscopic recurrent incisional hernia repair with mesh on 06/10/[address] Jung. His postop course has been as expected until early this morning when he developed diffuse abdominal pain, nausea, and vomiting. CT of the abdomen and pelvis showed small-bowel obstruction with transition point right abdomen and he is being admitted in this setting. NG tube has been inserted he is feeling a bit better. He denies fever, chills, sweats, chest pain, shortness a breath, hematemesis, diarrhea, and constipation. His last bowel movement was on Thursday and was a bit loose but was otherwise unremarkable. 06/15:? Mr. Rueda is seen this morning resting in bed he appears uncomfortable his NG tube to low intermittent wall
[2023-06-17 12:12] LABS: Glucose Point of Care 127 mg/dl (65-105)
[2023-06-17] MEDS: PANTOPRAZOLE SODIUM IV 40 MG VIAL IV PUSH (12:29)
[2023-06-17] MEDS: POTASSIUM CHLORIDE INJ 40 MEQ in SODIUM CHLORIDE 0.9% IV 500 ML 130 MEQ IVPB (12:30)
--- NOTE | 2023-06-17 14:29 | WPDHPUPDATE1 ---
History and Physical Update Update Date/Time: 06/17/23 14:29 History and Physical has been reviewed, including an updated exam of the patient. There are NO changes in the patient's condition. Risks, benefits, and alternatives have been discussed and questions answered. Patient agrees to proceed with procedure.
--- NOTE | 2023-06-17 14:35 | WPDHPUPDATE1 ---
History and Physical Update Update Date/Time: 06/17/23 14:35 History and Physical has been reviewed, including an updated exam of the patient. There are NO changes in the patient's condition. Risks, benefits, and alternatives have been discussed and questions answered. Patient agrees to proceed with procedure.
[2023-06-17] MEDS: fentaNYL CITRATE INJ (*CRX) 100 MCG/2 ML VIAL 25 MCG IV PUSH ×6 (14:41→19:13)
--- NOTE | 2023-06-17 16:03 | WPDANESEPPF ---
Anes - Initial Pre Proc Eval Procedure: Operation Date: 06/17/23 15:00 Proposed Procedures p Diagnostic Laparoscopy, Possible Open, Possible Bowel Resection - Baljeet Jung DO Date/Time: 06/17/23 16:03 Surgeon: Vidhya De Los Santos DO Pre Op Diagnosis: SBO Patient Data Age: 78 Gender: M Height: 1.8 m Weight: 111.5 kg Last Vital Signs Temp 37.7 C H 06/17/23 14:44 Pulse 110 H 06/17/23 14:44 Resp 16 06/17/23 14:44 BP 134/86 06/17/23 14:44 Pulse Ox 95 06/17/23 14:44 O2 Del Method Room Air 06/17/23 14:44 Allergies Allergy/AdvReac Type Severity Reaction Status Date / Time Latex, Natural Rubber Allergy Intermediate Blister Verified 06/14/23 14:16 meperidine [Demerol] Allergy Intermediate Hives, Verified 06/14/23 14:16 MILD DYSPNEA atorvastatin [Lipitor] AdvReac Intermediate Muscle Pain Verified 06/14/23 14:16 heparin AdvReac Intermediate Unknown Verified 06/14/23 14:16 hydrocodone [From [place]] AdvReac Intermediate Nausea Verified 06/14/23 14:16 hydromorphone [From Dilaudid] AdvReac Intermediate Nausea and Verified 06/14/23 14:16 Vomiting metoprolol AdvReac Intermediate Other Verified 06/15/23 18:00 morphine AdvReac Intermediate Vomiting Verified 06/14/23 14:16 pravastatin AdvReac Intermediate Muscle Pain Verified 06/14/23 14:16 prochlorperazine AdvReac Intermediate REDNESS AT Verified 06/14/23 14:16 PATCH SITE rosuvastatin [Crestor] AdvReac Intermediate Muscle Pain Verified 06/14/23 14:16 simvastatin AdvReac Intermediate Muscle Verified 06/14/23 14:16 Spasms Home Medications Medication Instructions Recorded Confirmed Type nitroglycerin 0.4 mg sublingual 0.4 mg sublingual PRN PRN Chest 02/05/22 06/14/23 Rx tablet Pain #30 tabs carvedilol 3.125 mg tablet (Coreg) 3.125 mg PO Q12H 06/10/22 06/14/23 History docusate calcium 240 mg capsule 240 mg PO QHS 06/10/22 06/14/23 History pantoprazole 40 mg tablet,delayed 40 mg PO QAM #90 tabs 07/07/22 06/14/23 Rx release furosemide 20 mg tablet 20 mg PO QAM 04/15/23 06/14/23 History Tylenol PM 500 mg PO HS PRN Sleep 04/17/23 06/14/23 History ramipril 2.5 mg capsule 2.5 mg PO HS 04/17/23 06/14/23 History aspirin 81 mg tablet,delayed 81 mg PO DAILY 04/22/23 06/14/23 History release ezetimibe 10 mg tablet 10 mg PO QAM 04/22/23 06/14/23 History isosorbide mononitrate 30 mg 30 mg PO QAM 04/22/23 06/14/23 History tablet,extended release 24 hr naproxen 500 mg tablet 500 mg PO QAM 04/22/23 06/14/23 History alprazolam 0.5 mg tablet 0.5 mg PO HS PRN anxiety #30 tabs 05/25/23 06/14/23 Rx warfarin 6 mg tablet 6 mg PO EVERY OTHER DAY 05/27/23 06/14/23 History warfarin 7.5 mg tablet 7 mg PO QMWF 05/27/23 06/14/23 History tramadol 50 mg tablet 50 - 100 mg PO Q6H PRN pain #40 06/12/23 06/14/23 Rx tabs Laboratory Tests 06/16/23 06/17/23 06/17/23 18:45 00:01 04:34 WBC 8.6 K/mm3 (4.5-10.0) RBC 4.02 L M/mm3 (4.6-6.20) Hgb 11.4 L g/dL (14.0-18.0) Hct 37.7 L % (42.0-52.0) MCV 93.8 fl (80-100) MCH 28.4 pg (26-34) MCHC 30.2 L g/dl (32-36) RDW 14.5 % (11.5-14.5) Plt Count 306 k/mm3 (150-375) MPV 11.2 H fl (7.4-10.4) Immature Gran % (Auto) 0.2 % (0-0.5) Neut % (Auto) 74.9 H % (45.5-73.1) Lymph % (Auto) 15.2 L % (18.3-44.2) [place] % (Auto) 6.9 % (2.6-8.5) Eos % (Auto) 2.3 % (0-4.4) Baso % (Auto) 0.5 % (0.2-1.2) Lymph # (Auto) 1.30 K/mm3 (0.9-3.2) [place] # (Auto) 0.6 K/mm3 (0.1-0.6) Eos # (Auto) 0.2 K/mm3 (0-0.3) Baso # (Auto) 0.0 K/mm3 (0.0-0.1) Abs Immat Gran (auto) 0.02 K/mm3 (0.00-0.031) Absolute Neuts (auto) 6.4 K/mm3 (1.3-6.7) Absolute Nucleated RBC 0.0 K/mm3 (0.0-0.012) Nucleated RBC % 0.0 % (0.0-0.2) PT 14.2 Seconds (11.1-14.7) I
[2023-06-17] MEDS: ceFAZolin 2 GM/D5W 50 ML 2 GM/50 ML BAG IVPB (17:13)
[2023-06-17] MEDS: BUPIVACAINE/EPINEPHRINE 0.5% 10 ML VIAL 20 ML INFILTRATE (18:11)
--- NOTE | 2023-06-17 18:24 | W.PM.PROC2 ---
Procedure Note - Detailed Date of Procedure 06/17/23 Pre-op Diagnosis Small-bowel obstruction Post-op Diagnosis Other (Small-bowel obstruction due to adhesive band, left lower quadrant 2 cm incisional hernia) Procedure Performed 1. Diagnostic laparoscopy 2. Laparoscopic adhesiolysis with release of small-bowel obstruction 3. Laparoscopic left lower quadrant 2 cm incisional hernia repair Surgeon Baljeet Jung, DO Anesthesia General and Local (0.5% bupivacaine with epinephrine) Indications This is a 78-year-old man who presented with abdominal pain, bloating, nausea, and vomiting that started 3 days ago. He just recently underwent robotic assisted laparoscopic recurrent incisional hernia repair mesh on 06/10/2023. He was doing well for several days after that and his bowels were moving. Three days ago he then began feeling these symptoms and he was no longer passing flatus or having bowel movements. CT showed evidence of a small-bowel obstruction in the right mid abdomen. A small bowel follow-through was obtained yesterday and persistent obstruction was noted. Discussions were made with the patient about treatment options and decision was made to proceed with diagnostic laparoscopy, possible bowel resection possible. Findings Diagnostic laparoscopy was performed. Upon entering the abdomen I was able to identify some decompressed distal small bowel. I was able to run the bowel proximally until I came upon an adhesive band of scar tissue which was causing a small-bowel obstruction. This adhesive band was excised using laparoscopic scissors and the obstruction appeared to be released. I then ran the remainder of the small bowel and no other significant abnormalities were noted. The bowel was run from the ligament of Treitz to the terminal ileum. There were a few omental adhesions remaining and the low pelvis region, but these were left in place due to being able to identify what was behind this area. The 2 meshes that were placed just 1 week ago appeared in proper position. The patient was found to have a small left lower quadrant incisional hernia measuring 2 cm. This was repaired using 0 Ethibond sutures passed with a suture Passer. No other intra-abdominal abnormalities were noted in the bowel all appeared healthy and viable. Description of Procedure Procedure as well as risks, benefits, and alternatives were discussed with the patient. Written consent was obtained and placed in chart prior to procedure. Patient was brought back to surgical suite. He was placed supine on operating table. Time-out was done to confirm patient and procedure. He was then intubated by the anesthesia department. His abdomen was prepped and draped in sterile fashion using chlorhexidine prep. A 5 mm incision was made in the right upper quadrant and a 5 mm Optiview trocar was advanced through the abdominal layers under direct visualization. Once inside the abdominal cavity, carbon dioxide insufflation was used to create a pneumoperitoneum. The camera was inserted in the abdominal cavity was carefully inspected. No immediate abnormalities were identified other than some dilated small bowel. The patient was placed in slight Trendelenburg position rotated slightly to the left. 5 mm incision was made in the midline mid abdomen and a 5 mm trocar was advanced under direct visualization in between the 2 previously placed meshes. Another 5 mm incision was made in the right lower quadrant a 5 mm trocar was inserted under direct visualization. I then carefully inspected the small bowel. I identified an area decompressed distal small bowel and began running this proximally. I identified an adhesive band of scar tissue that was causing an obstruction. The adhesive band was excised using scissors. This appeared to free up the obstruction. I then continued running the small bowel proximally to assess for any other locations for possible obstruction. No other significant abnormaliti
[2023-06-17] MEDS: LACTATED RINGERS 1,000 ML 30 ML IV CONT (18:30)
[2023-06-17] MEDS: AMINO ACIDS 4.25%/D5W/LYTES/CA 2,000 ML 100 ML IV CONT (20:00)
[2023-06-17] MEDS: FAT EMULSIONS IV 20% 250 ML 20 ML IVPB (20:00)
[2023-06-17 20:21] LABS: Triglycerides 127 mg/dL (<150)
[2023-06-18] VITALS (9 sets, daily range): BP systolic 105–122; BP diastolic 60–77; PULSE 96–115; RESP 16–20; TEMP 36.4–36.6; O2SAT 94–99
[2023-06-18 01:28] LABS: Glucose Point of Care 146 mg/dl (65-105)
[2023-06-18 05:35] LABS: Basophils Percent Auto 0.3 % (0.2-1.2); Eosinophils Percent Auto 0.1 % (0-4.4); Hemoglobin 10.4 g/dL (14.0-18.0); Immature Granulocyte Absolute 0.04 K/mm3 (0.00-0.031); Immature Granulocyte Percent A 0.5 % (0-0.5); Lymphocytes Absolute Auto 0.95 K/mm3 (0.9-3.2); Lymphocytes Percent Auto 12.8 % (18.3-44.2); Mean Corpuscular HGB Conc 31.5 g/dl (32-36); Mean Corpuscular Hemoglobin 29.5 pg (26-34); Mean Corpuscular Volume 93.5 fl (80-100); Mean Platelet Volume 10.8 fl (7.4-10.4); Monocytes Absolute Auto 0.4 K/mm3 (0.1-0.6); Monocytes Percent Auto 5.7 % (2.6-8.5); Neutrophils Percent Auto 80.6 % (45.5-73.1); Platelet Count Result 224 k/mm3 (150-375); Red Blood Count 3.53 M/mm3 (4.6-6.20); Red Cell Distribution Width 14.4 % (11.5-14.5); White Blood Count 7.4 K/mm3 (4.5-10.0)
[2023-06-18] MEDS: METOPROLOL TARTRATE INJ 5 MG/5 ML VIAL IV PUSH (05:44)
[2023-06-18 05:56] LABS: Alanine Aminotransferase 25 U/L (6-50); Albumin Level 2.8 g/dL (3.5-5.1); Alkaline Phosphatase 59 U/L (38-126); Anion Gap 1 mmol/L (8-16); Aspartate Amino Transferase 33 U/L (17-59); Bilirubin,Total 0.5 mg/dL (0.2-1.3); Blood Urea Nitrogen 35 mg/dL (9-20); Calcium 8.1 mg/dL (8.4-10.2); Carbon Dioxide 35 mmol/L (22-30); Chloride 104 mmol/L (98-107); Estimated CRCL calculation 83 ml/min; Estimated Glomerular Filt Rate > 60; Glucose 124 mg/dL (65-110); Magnesium 2.3 mg/dL (1.6-2.3); Phosphorus 3.8 mg/dL (2.5-4.5); Potassium 4.3 mmol/L (3.4-5.0); Sodium 140 mmol/L (137-145)
[2023-06-18 06:29] LABS: Glucose Point of Care 119 mg/dl (65-105)
[2023-06-18] MEDS: ISOSORBIDE MONONITRATE 30 MG TAB.ER.24H PO (08:16)
[2023-06-18] MEDS: ENOXAPARIN 40 MG/0.4 ML SYRINGE SUB-Q (08:17)
[2023-06-18] MEDS: PANTOPRAZOLE SODIUM IV 40 MG VIAL IV PUSH (08:17)
[2023-06-18 08:41] LABS: Glucose Point of Care 125 mg/dl (65-105)
[2023-06-18] MEDS: KETOROLAC 30 MG/ML VIAL (*BKC) IV PUSH (12:29)
--- NOTE | 2023-06-18 12:40 | PM.IMPN ---
Progress Note: A&P Assessment and Plan (1) Small bowel obstruction: Code(s): K56.609 - Unspecified intestinal obstruction, unspecified as to partial versus complete obstruction Status: Acute Assessment and Plan: See below (2) Encounter for examination following surgery: Code(s): Z09 - Encounter for follow-up examination after completed treatment for conditions other than malignant neoplasm Status: Acute Assessment and Plan: Doing well on POD#1. NG removed this AM and started clears. Continue to monitor as patient slowly recovers. Will advance diet tomorrow if continuing to improve. OK to stop PPN. (3) Paroxysmal atrial fibrillation: Code(s): I48.0 - Paroxysmal atrial fibrillation Status: Acute Assessment and Plan: Slightly irregular rate, mildly fast. 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 -stable on home medications (6) Hypertension: Code(s): I10 - Essential (primary) hypertension Status: Chronic Assessment and Plan: Stable on home regimen Plan Advance diet as tolerated Patient seeking prompt discharge. Discussed possible for tomorrow if he tolerates solids tomorrow. Time Spent With Patient Time with patient: 25 - 35 minutes Subjective Date/time seen: 06/18/23 12:40 Interval history: Copied from Previous note: HPI is obtained from chart This is a very pleasant 77-year-old male with history of anxiety, hypertension, dyslipidemia, GERD, benign prostatic hyperplasia, paroxysmal atrial fibrillation on chronic anticoagulation, coronary artery disease with history of stents, and kidney stones who presented to the emergency department via private vehicle from home for evaluation of abdominal pain, nausea, and vomiting. Patient provides the following history. He had a laparoscopic recurrent incisional hernia repair with mesh on 06/10/[address] Jung. His postop course has been as expected until early this morning when he developed diffuse abdominal pain, nausea, and vomiting. CT of the abdomen and pelvis showed small-bowel obstruction with transition point right abdomen and he is being admitted in this setting. NG tube has been inserted he is feeling a bit better. He denies fever, chills, sweats, chest pain, shortness a breath, hematemesis, diarrhea, and constipation. His last bowel movement was on Thursday and was a bit loose but was otherwise unremarkable. 06/15:? Mr. Rueda is seen this morning resting in bed he appears uncomfortable his NG tube to low intermittent wall suction and he says that he is feeling nauseated.? A flush in NG-tube with 40 mL water in there is a quick return of approximately 150 mL of dark brown fluid.? He also has IV push Zofran which the nursing is giving him.? Besides being nauseated and uncomfortable with the NG tube he also has midline abdominal pain does tender to palpation.? ROS is otherwise unremarkable.? Plan to see surgery today for recommendations. 06/16:? No acute events overnight.? NG output put out almost 2 L. ordered a small-bowel follow-through per Dr. Jung recommendation.? Await results and further recommendation from surgery. 06/17 Rounding: No acute events overnight. Patient aware he is to go to OR today. Nausea reported, no vomiting overnight, still not passing any gas. Patient reports pain is well controlled. 06/18 Rounding: No acute events overnight.? Bowel obstruction relieved during operating room and patient has tolerated clear liquids.? Patient is wan
[2023-06-18 12:43] LABS: Glucose Point of Care 100 mg/dl (65-105)
--- NOTE | 2023-06-18 13:18 | PM.PNGS ---
Progress Note: A&P Assessment and Plan (1) Encounter for examination following surgery: Code(s): Z09 - Encounter for follow-up examination after completed treatment for conditions other than malignant neoplasm Status: Acute Assessment and Plan: Doing well on POD#1. NG removed this AM and started clears. Continue to monitor as patient slowly recovers. Will advance diet tomorrow if continuing to improve. OK to stop PPN. (2) Small bowel obstruction: Code(s): K56.609 - Unspecified intestinal obstruction, unspecified as to partial versus complete obstruction Status: Acute (3) Paroxysmal atrial fibrillation: Code(s): I48.0 - Paroxysmal atrial fibrillation Status: Acute Subjective Subjective Date/Time Seen: 06/18/23 13:18 Interval history: Doing well on POD#1. Bowels moving. No nausea/vomiting. Exam GI: Inspection: non-distended and incision (intact with glue) GI Palp: Yes Soft to palpation, Yes Tenderness to palpation present (GI) (incisional) and No Guarding due to palpation present (GI) Auscultation: normal bowel sounds Objective Data Vital Signs Vital Signs: Vital Signs - 24 hr 06/17/23 14:44 06/17/23 18:30 06/17/23 19:00 Temperature 37.7 C H 36.9 C Pulse Rate 110 H 124 H 110 H Respiratory Rate 16 16 14 Blood Pressure 134/86 129/82 127/73 Pulse Oximetry 95 96 100 Oxygen Delivery Room Air Simple Face Mask Room Air Oxygen Flow Rate 6 06/17/23 19:15 06/17/23 19:30 06/17/23 19:36 Temperature Pulse Rate 115 H 115 H Respiratory Rate 18 16 Blood Pressure 121/77 127/83 Pulse Oximetry 95 90 94 Oxygen Delivery Room Air Nasal Cannula Nasal Cannula Oxygen Flow Rate 2 2 06/17/23 18:45 06/17/23 19:46 06/17/23 20:09 Temperature 36.4 C 36.6 C Pulse Rate 116 H 99 100 Respiratory Rate 16 16 16 Blood Pressure 126/55 L 125/64 118/80 Pulse Oximetry 100 94 97 Oxygen Delivery Simple Face Mask Oxygen Flow Rate 6 06/17/23 20:49 06/17/23 23:23 06/18/23 00:59 Temperature 36.4 C 36.4 C Pulse Rate 83 85 98 Respiratory Rate 14 16 Blood Pressure 107/66 107/60 Pulse Oximetry 97 98 Oxygen Delivery Oxygen Flow Rate 06/18/23 05:33 06/18/23 05:44 06/18/23 08:00 Temperature 36.5 C 36.4 C Pulse Rate 100 99 98 Respiratory Rate 16 16 Blood Pressure 109/64 112/62 Pulse Oximetry 99 98 Oxygen Delivery Oxygen Flow Rate 06/18/23 12:23 Temperature Pulse Rate 97 Respiratory Rate Blood Pressure 105/70 Pulse Oximetry 94 Oxygen Delivery Oxygen Flow Rate Intake/Output Intake/Output: Intake & Output 06/15/23 06/16/23 06/17/23 06/18/23 23:59 23:59 23:59 23:59 Intake Total 19995 3020 240 Output Total 1999 2049 2840 1100 Balance 0 525 180 -860 Meds/Results Medications: Active Medications Generic Name Dose Route Start Last Admin Trade Name Freq PRN Reason Stop Dose Admin Alprazolam 0.5 mg 06/14/23 19:31 06/15/23 23:28 Alprazolam (*Crx) 0.5 Mg Tablet PO 0.5 mg QHS PRN Administration Sleep Aspirin 81 mg 06/18/23 12:50 Aspirin 81 Mg Enteric Tablet PO DAILY [facility] Carvedilol 3.125 mg 06/18/23 12:45 Carvedilol 3.125 Mg Tablet PO Q12HR [facility] Docusate Sodium 100 mg 06/18/23 21:00 Docusate Sodium 100 Mg Capsule PO HS [facility] Ezetimibe 10 mg 06/18/23 12:50 Ezetimibe 10 Mg Tablet PO QAM [facility] Enoxaparin Sodium 40 mg 06/15/23 09:00 06/18/23 08:17 Enoxaparin 40 Mg/0.4 Ml Syringe SUB-Q 40 mg DAILY [facility] Administration Fentanyl Citrate 25 mcg 06/14/23 19:31 06/15/23 01:46 Fentanyl Citrate Inj (*Crx) 100 Mcg/2 Ml Vial IV PUSH 25 mcg Q2H PRN Administration Pain Rated 7-10 Fentanyl Citrate 12.5 mcg 06/14/23 19:31 Fentanyl Citrate Inj (*Crx) 100 Mcg/2 Ml Vial IV PUSH Q2H PRN Pain Rated 4-6 Furosemide 20 mg 06/18/23 12:50 Furosemide 20 Mg Tablet PO QAM [facility] Dextrose 1,000 mls @ 50 mls/hr 06/16/23 16:34 Jose
--- NOTE | 2023-06-18 14:22 | WPDANESPN ---
Anes - Prog Note Post-Op Date/Time: 06/18/23 14:22 Cardiovascular status: normal Respiratory status: normal Airway patency: baseline Mental status: baseline Post-Op hydration status: normal Vital Signs: Last Vital Signs Temp 36.4 C 06/18/23 08:00 Pulse 96 06/18/23 14:21 Resp 16 06/18/23 08:00 BP 108/69 06/18/23 14:21 Pulse Ox 94 06/18/23 12:23 O2 Del Method Room Air 06/18/23 08:15 O2 Flow Rate 2 06/17/23 19:36 Pain Score (VAS): 01/09 I/O: Intake & Output 06/17/23 06/18/23 06/18/23 23:59 07:59 15:59 Intake Total 770 0 478 Output Total 575 900 200 Balance 195 -900 278 Laboratory Tests 06/18/23 05:21 06/18/23 05:21 06/17/23 06/18/23 06/18/23 20:03 01:05 05:21 WBC 7.4 RBC 3.53 L Hgb 10.4 L Hct 33.0 L MCV 93.5 MCH 29.5 MCHC 31.5 L RDW 14.4 Plt Count 224 MPV 10.8 H Immature Gran % (Auto) 0.5 Neut % (Auto) 80.6 H Lymph % (Auto) 12.8 L Dixon % (Auto) 5.7 Eos % (Auto) 0.1 Baso % (Auto) 0.3 Lymph # (Auto) 0.95 Dixon # (Auto) 0.4 Eos # (Auto) 0.0 Baso # (Auto) 0.0 Abs Immat Gran (auto) 0.04 H Absolute Neuts (auto) 6.0 Absolute Nucleated RBC 0.0 Nucleated RBC % 0.0 Sodium 140 Potassium 4.3 Chloride 104 Carbon Dioxide 35 H Anion Gap 1 L BUN 35 H Creatinine 0.80 Estim Creat Clear Calc 83 Estimated GFR > 60 Glucose 124 H POC Capillary Glucose 146 H Calcium 8.1 L Phosphorus 3.8 Magnesium 2.3 Total Bilirubin 0.5 AST 33 ALT 25 Alkaline Phosphatase 59 Total Protein 5.0 L Albumin 2.8 L Triglycerides 127 06/18/23 06/18/23 06/18/23 06:13 08:30 12:31 WBC RBC Hgb Hct MCV MCH MCHC RDW Plt Count MPV Immature Gran % (Auto) Neut % (Auto) Lymph % (Auto) Dixon % (Auto) Eos % (Auto) Baso % (Auto) Lymph # (Auto) Dixon # (Auto) Eos # (Auto) Baso # (Auto) Abs Immat Gran (auto) Absolute Neuts (auto) Absolute Nucleated RBC Nucleated RBC % Sodium Potassium Chloride Carbon Dioxide Anion Gap BUN Creatinine Estim Creat Clear Calc Estimated GFR Glucose POC Capillary Glucose 119 H 125 H 100 Calcium Phosphorus Magnesium Total Bilirubin AST ALT Alkaline Phosphatase Total Protein Albumin Triglycerides Post-procedural complaints: none Patient Feedback: Patient satisfied with anesthetic care.
[2023-06-18] MEDS: carvediloL 3.125 MG TABLET PO ×2 (15:19→20:36)
[2023-06-18] MEDS: ASPIRIN 81 MG ENTERIC TABLET PO (15:20)
[2023-06-18] MEDS: EZETIMIBE 10 MG TABLET PO (15:20)
[2023-06-18 17:32] LABS: Glucose Point of Care 84 mg/dl (65-105)
[2023-06-18] MEDS: WARFARIN (*PBKC) 3 MG TABLET 6 MG PO (18:24)
[2023-06-18] MEDS: DOCUSATE SODIUM 100 MG CAPSULE PO (20:36)
[2023-06-18 20:38] LABS: Glucose Point of Care 99 mg/dl (65-105)
[2023-06-19 07:06] LABS: INR 1.1; Prothrombin Time 14.7 Seconds (11.1-14.7)
[2023-06-19 07:25] LABS: Anion Gap 4 mmol/L (8-16); Blood Urea Nitrogen 32 mg/dL (9-20); Calcium 8.1 mg/dL (8.4-10.2); Carbon Dioxide 30 mmol/L (22-30); Chloride 104 mmol/L (98-107); Estimated CRCL calculation 82 ml/min; Estimated Glomerular Filt Rate > 60; Glucose 94 mg/dL (65-110); Magnesium 2.2 mg/dL (1.6-2.3); Potassium 3.8 mmol/L (3.4-5.0); Sodium 138 mmol/L (137-145)
[2023-06-19 07:30] LABS: Hematocrit 33.7 % (42.0-52.0); Hemoglobin 10.6 g/dL (14.0-18.0); Mean Corpuscular HGB Conc 31.5 g/dl (32-36); Mean Corpuscular Hemoglobin 29.6 pg (26-34); Mean Corpuscular Volume 94.1 fl (80-100); Mean Platelet Volume 11.9 fl (7.4-10.4); Platelet Count Result 213 k/mm3 (150-375); Red Blood Count 3.58 M/mm3 (4.6-6.20); Red Cell Distribution Width 14.6 % (11.5-14.5)
--- NOTE | 2023-06-19 07:45 | PM.PNGS ---
Progress Note: A&P Assessment and Plan (1) Encounter for examination following surgery: Code(s): Z09 - Encounter for follow-up examination after completed treatment for conditions other than malignant neoplasm Status: Acute Assessment and Plan: Doing well on POD#2. OK to discharge home today if tolerating breakfast. OK to resume anticoagulation. F/u in office as scheduled. (2) Small bowel obstruction: Code(s): K56.609 - Unspecified intestinal obstruction, unspecified as to partial versus complete obstruction Status: Acute (3) Paroxysmal atrial fibrillation: Code(s): I48.0 - Paroxysmal atrial fibrillation Status: Acute Subjective Subjective Date/Time Seen: 06/19/23 07:45 Interval history: Tolerating diet and bowels moving. No recurrent bloating or nausea. Pain controlled. Exam GI: Inspection: non-distended and incision (intact with glue) GI Palp: Yes Soft to palpation, Yes Tenderness to palpation present (GI) (incisional) and No Guarding due to palpation present (GI) Auscultation: normal bowel sounds Objective Data Vital Signs Vital Signs: Vital Signs - 24 hr 06/18/23 08:00 06/18/23 12:23 06/18/23 08:15 Temperature 36.4 C Pulse Rate 98 97 Respiratory Rate 16 Blood Pressure 112/62 105/70 Pulse Oximetry 98 94 Oxygen Delivery Room Air 06/18/23 14:21 06/18/23 14:21 06/18/23 15:19 Temperature 36.5 C Pulse Rate 96 96 97 Respiratory Rate Blood Pressure 108/69 Pulse Oximetry 98 Oxygen Delivery 06/18/23 19:43 06/18/23 20:36 06/18/23 20:00 Temperature 36.6 C Pulse Rate 115 H 115 H Respiratory Rate 20 Blood Pressure 122/77 Pulse Oximetry 98 Oxygen Delivery Room Air Intake/Output Intake/Output: Intake & Output 06/16/23 06/17/23 06/18/23 06/19/23 23:59 23:59 23:59 23:59 Intake Total 4325 3020 688 Output Total 2050 2840 1300 Balance 525 936 -692 Meds/Results Medications: Active Medications Generic Name Dose Route Start Last Admin Trade Name Freq PRN Reason Stop Dose Admin Alprazolam 0.5 mg 06/14/23 19:31 06/15/23 23:28 Alprazolam (*Crx) 0.5 Mg Tablet PO 0.5 mg QHS PRN Administration Sleep Aspirin 81 mg 06/18/23 12:50 06/18/23 15:20 Aspirin 81 Mg Enteric Tablet PO 81 mg DAILY KOFI Administration Carvedilol 3.125 mg 06/18/23 12:45 06/18/23 20:36 Carvedilol 3.125 Mg Tablet PO 3.125 mg Q12HR KOFI Administration Docusate Sodium 100 mg 06/18/23 21:00 06/18/23 20:36 Docusate Sodium 100 Mg Capsule PO 100 mg HS KOFI Administration Ezetimibe 10 mg 06/18/23 12:50 06/18/23 15:20 Ezetimibe 10 Mg Tablet PO 10 mg QAM KOFI Administration Enoxaparin Sodium 40 mg 06/15/23 09:00 06/18/23 08:17 Enoxaparin 40 Mg/0.4 Ml Syringe SUB-Q 40 mg DAILY KOFI Administration Fentanyl Citrate 25 mcg 06/14/23 19:31 06/15/23 01:46 Fentanyl Citrate Inj (*Crx) 100 Mcg/2 Ml Vial IV PUSH 25 mcg Q2H PRN Administration Pain Rated 7-10 Fentanyl Citrate 12.5 mcg 06/14/23 19:31 Fentanyl Citrate Inj (*Crx) 100 Mcg/2 Ml Vial IV PUSH Q2H PRN Pain Rated 4-6 Furosemide 20 mg 06/18/23 12:50 06/18/23 15:17 Furosemide 20 Mg Tablet PO Not Given QAM [facility] Dextrose 1,000 mls @ 50 mls/hr 06/16/23 16:34 Dextrose 10% IV CONT .Q20H PRN if PN is interrupted Isosorbide Mononitrate 30 mg 06/15/23 09:00 06/18/23 08:16 Isosorbide Mononitrate 30 Mg Tab.Er.24h PO 30 mg QAM KOFI Administration Nitroglycerin 0.4 mg 06/14/23 19:39 Nitroglycerin Sl 0.4 Mg Tablet SUBLINGUAL PRN PRN Chest Pain Pantoprazole Sodium 40 mg 06/19/23 09:00 Pantoprazole 40 Mg Tablet PO QAM KOFI Promethazine HCl 12.5 mg 06/15/23 15:06 06/17/23 10:53 Promethazine Hcl 25 Mg/Ml Ampul IV PUSH 12.5 mg Q4H PRN Administration Nausea And Vomiting Ramipril 2.5 mg 06/18/23 21:00 06/18/23 20:36 Ramipril 1.25 Mg Caps
--- NOTE | 2023-06-19 08:52 | PM.DS ---
DS: Admitting Diagnosis Discharge Date 06/19/2023 Admitting Diagnosis Small-bowel obstruction Chronic anticoagulation Paroxysmal atrial fibrillation Coronary artery disease Hypertension DS: Discharge Diagnosis Discharge Diagnosis (1) Small bowel obstruction: Code(s): K56.609 - Unspecified intestinal obstruction, unspecified as to partial versus complete obstruction Status: Acute (2) Encounter for examination following surgery: Code(s): Z09 - Encounter for follow-up examination after completed treatment for conditions other than malignant neoplasm Status: Acute (3) Paroxysmal atrial fibrillation: Code(s): I48.0 - Paroxysmal atrial fibrillation Status: Acute (4) Chronic anticoagulation: Code(s): Z79.01 - custodial (current) use of anticoagulants Status: Acute (5) Coronary artery disease: Code(s): I25.10 - Atherosclerotic heart disease of [place] coronary artery without angina pectoris Status: Chronic (6) Hypertension: Code(s): I10 - Essential (primary) hypertension Status: Chronic DS: Summary Hospital Course Reason for hospitalization: This is a 78-year-old male patient admitted to the hospital for a small-bowel obstruction after recent hernia repair surgery. Hospital Course: This patient was admitted to the hospital on IV fluids with NG tube in place to low intermittent wall suction due to small-bowel obstruction status post hernia repair surgery. Patient reports he has had several surgeries on his abdomen. He did not improve after several days conservative management so in consultation with General surgery it was deemed that patient would require operative laparotomy attempt laparoscopic approach. During procedure a band of adhesion was noted to be blocking the right-sided small-bowel and was able to be incised. Patient also had a small incisional hernia repaired during this laparotomy. Postprocedure patient was able to start a clear liquid diet which he tolerated well advancing to full liquid diet and solid food today. Patient is tolerating oral intake having normal urine output and normal bowel movements. Patient was evaluated by surgery today and deemed appropriate for discharge. Warfarin has been restarted. Patient was on warfarin and was subtherapeutic upon arrival will with an INR 1.2. He states that he takes his warfarin in the morning so dosing was changed to morning as of today. Patient states that he monitors his INR at home which links up with his prescriber and he plans to test tomorrow which will send results to his prescriber. Patient discharged in improved and stable condition. Status at Discharge Cognitive/behavioral status at discharge: Awake, alert, oriented and pleasant. Functional status at discharge: uses cane/walker Overall status at discharge: patient is progressing back to baseline Time Spent with Patient Time attestation: Total time spent providing and/or coordinating discharge services: Time spent: Greater than 30 minutes Exam Narrative: General: well-nourished, well appearing 78-year-old male, sitting up in bed, appears comfortable Neuro: awake, alert and oriented x4, speech clear, no focal neuro deficits noted HEENMT: normocephalic, atraumatic, EOMI, sclerae anicteric, moist oral mucosa Respiratory: Clear to auscultation bilaterally without crackles, rhonchi or wheezes, nonlabored breathing Cardio: regular rate, regular rhythm with S1-S2 Abdomen: soft, non tender with normal bowel sounds Extremities: no edema, erythema, or tenderness to palpation, DP pulses 2+ bilaterally Incisions: viewed laparoscopic incision well approximated with glue and open to air. Skin: no rashes or lesions, warm and dry Psych: appropriate mood and affect, judgment and insight intact DS: Data Data Completed and Pending Completed studies during hospitalization: CT scan abdomen and pelvis and multiple abdominal x-rays Pending studies at d
[2023-06-19 09:11] LABS: Glucose Point of Care 82 mg/dl (65-105)
[2023-06-19 09:16] VITALS: PULSE 112
[2023-06-19] MEDS: carvediloL 3.125 MG TABLET PO (09:16)
[2023-06-19] MEDS: ASPIRIN 81 MG ENTERIC TABLET PO (09:16)
[2023-06-19] MEDS: FUROSEMIDE 20 MG TABLET PO (09:17)
[2023-06-19] MEDS: ISOSORBIDE MONONITRATE 30 MG TAB.ER.24H PO (09:17)
[2023-06-19] MEDS: PANTOPRAZOLE 40 MG TABLET PO (09:17)
[2023-06-19] MEDS: EZETIMIBE 10 MG TABLET PO (09:17)
[2023-06-19] MEDS: ENOXAPARIN 40 MG/0.4 ML SYRINGE SUB-Q (09:20)
[2023-06-19] MEDS: WARFARIN (*PBKC) 3 MG TABLET 6 MG PO (10:28)
[2023-06-19] MEDS: WARFARIN (*PBKC) 1 MG TABLET PO (10:28)
[2023-06-19 12:35] LABS: Glucose Point of Care 88 mg/dl (65-105)
== END 2023-06-19 14:05 | disposition home or self-care (01) | DRG 337 ==
LOC: ANHED 14:06 → ANH2MED 17:26
PROVIDERS: Emergency Medicine; Nurse Practitioner Acute Care; Surgery; Admitting Provider Student in an Organized Health Care Education/Training Program; Emergency Provider Physician Assistant; PCP Family Medicine; Visit Provider Nurse Practitioner
PROC: 0DTF4ZZ Resection of Right Large Intestine, Percutaneous Endoscopic Approach (ICD-10-PCS; CPT 44204; principal; 2023-06-17 15:00)
DX: K56.50 Intestinal adhesions [bands], unspecified as to partial versus complete obstruction (principal); I25.10 Atherosclerotic heart disease of native coronary artery without angina pectoris; F41.9 Anxiety disorder, unspecified; M19.09 Primary osteoarthritis, other specified site; M17.10 Unilateral primary osteoarthritis, unspecified knee; I10 Essential (primary) hypertension; E78.5 Hyperlipidemia, unspecified; I48.0 Paroxysmal atrial fibrillation; Z96.653 Presence of artificial knee joint, bilateral; Z96.641 Presence of right artificial hip joint; Z96.611 Presence of right artificial shoulder joint; Z79.01 Long term (current) use of anticoagulants; Z86.12 Personal history of poliomyelitis; Z87.442 Personal history of urinary calculi; Z90.49 Acquired absence of other specified parts of digestive tract; Z95.5 Presence of coronary angioplasty implant and graft; Z87.891 Personal history of nicotine dependence; E66.9 Obesity, unspecified; Z68.33 Body mass index [BMI] 33.0-33.9, adult
CPT/HCPCS: 36415; 74018; 74177; 74250; 80048; 80053; 81001; 82948; 83605; 83690; 83735; 84100; 84466; 84478; 85025; 85027; 85610; 85730; 87077; 87086; 87088; 87186; 96361; 96374; 96375; 99285; A9270; C1781; C9113; C9290; G0378; J0330; J0690; J1100; J1170; J1200; J1650; J1741; J1885; J2405; J2550; J2704; J3010; J3480; J7030; J7040; J7120; Q9967

== ENCOUNTER 2023-07-22 10:41 | Outpatient (CLI) | payer MEDICARE, SELFPAY ==
--- NOTE | ~2023-07-22 | CT_ITS ---
EXAMINATION: CT brain wo con DATE: 07/22/2023 11:03 INDICATION: Dizziness. Headache. TECHNIQUE: Computed tomography (CT) of the head was performed without intravenous contrast. The mA wa s adjusted according to patient size. Iterative reconstruction technique was employed. The dose-lengt h product was 605.33 mGy-cm. COMPARISON: Head CT 04/18/2010 FINDINGS: There are scattered areas of low attenuation in the cerebral white matter, which is within normal limits for the patient's age. There is no intracranial hemorrhage, acute infarction, or abnorm al intracranial mass lesion. The ventricles are normal in size. There are likely changes of ocular le ns replacement surgeries. There is mucosal thickening in the paranasal sinuses. The mastoid air cells are normal. IMPRESSION: 1. Normal aging brain. Reviewed, dictated and finalized at location A. IMPRESSION: 1. Normal aging brain.
[2023-07-22 10:52] LABS: Basophils Absolute Auto 0.07 K/mm3 (0.00-0.10); Basophils Percent Auto 1.1 % (0.0-1.0); Eosinophils Percent Auto 9.9 % (1.0-6.0); Hematocrit 32.2 % (37.0-46.0); Hemoglobin 10.3 g/dL (12.4-15.3); Immature Granulocyte Absolute 0.02 K/mm3 (0.00-0.00); Immature Granulocyte Percent A 0.3 % (0.0-0.0); Lymphocytes Absolute Auto 2.34 K/mm3 (1.10-4.50); Lymphocytes Percent Auto 38.4 % (18.0-42.0); Mean Corpuscular Hemoglobin 29.3 pg (27.0-31.0); Mean Corpuscular Volume 91.5 fL (78.0-102.0); Mean Platelet Volume 10.5 fl (8.7-11.0); Monocytes Absolute Auto 0.41 K/mm3 (0.10-0.90); Monocytes Percent Auto 6.7 % (2.0-11.0); Neutrophils Absolute Auto 2.7 K/mm3 (1.7-7.2); Neutrophils Percent Auto 43.6 % (50.0-70.0); Platelet Count Result 206 K/mm3 (150-420); Red Blood Count 3.52 M/mm3 (4.70-6.10); Red Cell Distribution Width 14.8 % (11.6-14.4); White Blood Count 6.1 K/mm3 (4.8-10.8)
[2023-07-22 11:52] LABS: Alanine Aminotransferase 13 U/L (16-63); Albumin Level 3.4 g/dL (3.4-5.0); Alkaline Phosphatase 76 U/L (46-116); Anion Gap 5 mmol/L (8-16); Aspartate Amino Transferase 15 U/L (15-37); Bilirubin,Total 0.5 mg/dL (0.00-1.00); Blood Urea Nitrogen 21 mg/dL (7-18); Calcium 8.6 mg/dL (8.5-10.1); Carbon Dioxide 32 mmol/L (21-32); Chloride 105 mmol/L (98-108); Estimated Glomerular Filt Rate > 60; Folic Acid 9.2 ng/mL (8.6->20); Glucose 97 mg/dL (70-99); Osmolality Calculated 297 mOsm/kg (285-295); Potassium 4.3 mmol/L (3.5-5.1); Sodium 142 mmol/L (136-145); Total Protein 5.9 g/dL (6.4-8.2); Vitamin B12 293 pg/mL (193-986)
[2023-07-22 12:01] LABS: Thyroid Stimulating Hormone Reflex 2.53 u/IU/mL (0.36-3.74)
== END 2023-07-22 10:42 | disposition home or self-care (01) ==
LOC: CHSLAB 10:43
PROVIDERS: PCP Family Medicine; Visit Provider Family Medicine
DX: E53.8 Deficiency of other specified B group vitamins (principal); E11.9 Type 2 diabetes mellitus without complications; R42 Dizziness and giddiness
CPT/HCPCS: 36415; 70450; 80053; 82607; 82746; 84443; 85025

== ENCOUNTER 2023-07-27 12:54 | Outpatient (CLI) | payer MEDICARE, SELFPAY ==
[2023-07-27 13:08] LABS: Basophils Absolute Auto 0.05 K/mm3 (0.00-0.10); Basophils Percent Auto 0.9 % (0.0-1.0); Eosinophils Absolute Auto 0.46 K/mm3 (0.02-0.50); Eosinophils Percent Auto 7.9 % (1.0-6.0); Hematocrit 29.8 % (37.0-46.0); Hemoglobin 9.4 g/dL (12.4-15.3); Immature Granulocyte Absolute 0.03 K/mm3 (0.00-0.00); Immature Granulocyte Percent A 0.5 % (0.0-0.0); Lymphocytes Absolute Auto 2.11 K/mm3 (1.10-4.50); Lymphocytes Percent Auto 36.1 % (18.0-42.0); Mean Corpuscular HGB Conc 31.5 g/dL (32.0-36.0); Mean Corpuscular Hemoglobin 28.9 pg (27.0-31.0); Mean Corpuscular Volume 91.7 fL (78.0-102.0); Mean Platelet Volume 10.4 fl (8.7-11.0); Monocytes Absolute Auto 0.45 K/mm3 (0.10-0.90); Monocytes Percent Auto 7.7 % (2.0-11.0); Neutrophils Absolute Auto 2.8 K/mm3 (1.7-7.2); Neutrophils Percent Auto 46.9 % (50.0-70.0); Platelet Count Result 205 K/mm3 (150-420); Red Blood Count 3.25 M/mm3 (4.70-6.10); Red Cell Distribution Width 14.9 % (11.6-14.4); White Blood Count 5.9 K/mm3 (4.8-10.8)
[2023-07-27 13:55] LABS: Alanine Aminotransferase 16 U/L (16-63); Albumin Level 3.3 g/dL (3.4-5.0); Alkaline Phosphatase 79 U/L (46-116); Anion Gap 6 mmol/L (8-16); Aspartate Amino Transferase 12 U/L (15-37); Bilirubin,Total 0.5 mg/dL (0.00-1.00); Blood Urea Nitrogen 22 mg/dL (7-18); Calcium 8.6 mg/dL (8.5-10.1); Carbon Dioxide 30 mmol/L (21-32); Chloride 106 mmol/L (98-108); Estimated Glomerular Filt Rate > 60; Glucose 90 mg/dL (70-99); Osmolality Calculated 297 mOsm/kg (285-295); Potassium 4.4 mmol/L (3.5-5.1); Sodium 142 mmol/L (136-145); Total Protein 5.8 g/dL (6.4-8.2)
== END 2023-07-27 12:55 | disposition home or self-care (01) ==
LOC: CHSLAB 12:56
PROVIDERS: PCP Family Medicine; Visit Provider Family Medicine
DX: K92.1 Melena (principal); R19.7 Diarrhea, unspecified
CPT/HCPCS: 36415; 80053; 85025

== ENCOUNTER 2023-07-28 10:12 | Outpatient (CLI) | payer MEDICARE, SELFPAY ==
[2023-07-28 10:21] LABS: Occult Blood Positive (Negative)
== END 2023-07-28 10:13 | disposition home or self-care (01) ==
LOC: CHSLAB 10:13
PROVIDERS: PCP Family Medicine; Visit Provider Family Medicine
DX: R19.7 Diarrhea, unspecified (principal)
CPT/HCPCS: 82272

== ENCOUNTER 2023-07-30 07:15 | Outpatient (CLI) | payer MEDICARE, SELFPAY ==
[2023-07-30 07:26] LABS: Basophils Absolute Auto 0.06 K/mm3 (0.00-0.10); Basophils Percent Auto 1.2 % (0.0-1.0); Eosinophils Percent Auto 8.1 % (1.0-6.0); Hematocrit 29.4 % (37.0-46.0); Hemoglobin 9.4 g/dL (12.4-15.3); Immature Granulocyte Absolute 0.01 K/mm3 (0.00-0.00); Immature Granulocyte Percent A 0.2 % (0.0-0.0); Lymphocytes Absolute Auto 1.78 K/mm3 (1.10-4.50); Lymphocytes Percent Auto 36.1 % (18.0-42.0); Mean Corpuscular Hemoglobin 29.2 pg (27.0-31.0); Mean Corpuscular Volume 91.3 fL (78.0-102.0); Mean Platelet Volume 10.3 fl (8.7-11.0); Monocytes Absolute Auto 0.49 K/mm3 (0.10-0.90); Monocytes Percent Auto 9.9 % (2.0-11.0); Neutrophils Absolute Auto 2.2 K/mm3 (1.7-7.2); Neutrophils Percent Auto 44.5 % (50.0-70.0); Platelet Count Result 200 K/mm3 (150-420); Red Blood Count 3.22 M/mm3 (4.70-6.10); White Blood Count 4.9 K/mm3 (4.8-10.8)
== END 2023-07-30 07:16 | disposition home or self-care (01) ==
LOC: CHSLAB 07:16
PROVIDERS: PCP Family Medicine; Visit Provider Family Medicine
DX: I48.91 Unspecified atrial fibrillation (principal)
CPT/HCPCS: 36415; 85025

== ENCOUNTER 2023-08-17 08:53 | Outpatient (CLI) | payer MEDICARE, SELFPAY ==
[2023-08-17 09:12] LABS: Hemoglobin A1C 5.9 % (<5.7)
[2023-08-17 17:09] LABS: Hematocrit 26.9 % (37.0-46.0); Hemoglobin 8.2 g/dL (12.4-15.3)
== END 2023-08-17 08:54 | disposition home or self-care (01) ==
LOC: CHSLAB 08:54
PROVIDERS: Nurse Practitioner Family; PCP Family Medicine; Visit Provider Family Medicine
DX: D62 Acute posthemorrhagic anemia (principal); R73.02 Impaired glucose tolerance (oral); K92.1 Melena
CPT/HCPCS: 36415; 83036; 85014; 85018

== ENCOUNTER 2023-08-20 00:58 | Day surgery (SDC) | payer MEDICARE, SELFPAY ==
[2023-08-12 14:52] VITALS: BMI 28.5
[2023-08-20 08:26] VITALS: BP 110/71; PULSE 100; RESP 18; TEMP 36.2; O2SAT 100
--- NOTE | 2023-08-20 08:33 | WPDANESEPPF ---
Anes - Initial Pre Proc Eval Procedure: Operation Date: 08/20/23 09:30 Proposed Procedures p Esophagogastroduodenoscopy & Colonoscopy - Jurgen Marrufo MD Date/Time: 08/20/23 08:33 Surgeon: Jurgen Marrufo MD Pre Op Diagnosis: anemia, melena Patient Data Age: 78 Gender: M Height: 1.8 m Weight: 93.4 kg Last Vital Signs Temp 97.2 F L 08/20/23 08:26 Pulse 100 08/20/23 08:26 Resp 18 08/20/23 08:26 BP 110/71 08/20/23 08:26 Pulse Ox 100 08/20/23 08:26 O2 Del Method Room Air 08/20/23 08:26 Allergies Allergy/AdvReac Type Severity Reaction Status Date / Time meperidine [Demerol] Allergy Severe Hives, Verified 08/20/23 08:24 MILD DYSPNEA metoprolol Allergy Severe Other Verified 08/20/23 08:24 Latex, Natural Rubber Allergy Intermediate Blister Verified 08/20/23 08:24 atorvastatin [Lipitor] AdvReac Intermediate Muscle Pain Verified 08/20/23 08:24 heparin AdvReac Intermediate Unknown Verified 08/20/23 08:24 hydrocodone [From [place]] AdvReac Intermediate Nausea Verified 08/20/23 08:24 hydromorphone [From Dilaudid] AdvReac Intermediate Nausea and Verified 08/20/23 08:24 Vomiting morphine AdvReac Intermediate Vomiting Verified 08/20/23 08:24 pravastatin AdvReac Intermediate Muscle Pain Verified 08/20/23 08:24 prochlorperazine AdvReac Intermediate REDNESS AT Verified 08/20/23 08:24 PATCH SITE rosuvastatin [Crestor] AdvReac Intermediate Muscle Pain Verified 08/20/23 08:24 simvastatin AdvReac Intermediate Muscle Verified 08/20/23 08:24 Spasms Home Medications Medication Instructions Recorded Confirmed Type nitroglycerin 0.4 mg sublingual 0.4 mg sublingual PRN PRN Chest 02/05/22 08/12/23 Rx tablet Pain #30 tabs carvedilol 3.125 mg tablet (Coreg) 3.125 mg PO Q12H 06/10/22 08/12/23 History docusate calcium 240 mg capsule 240 mg PO QHS 06/10/22 08/12/23 History furosemide 20 mg tablet 20 mg PO QAM 04/15/23 08/12/23 History Tylenol PM 500 mg PO HS PRN Sleep 04/17/23 08/12/23 History ramipril 2.5 mg capsule 2.5 mg PO HS 04/17/23 08/12/23 History aspirin 81 mg tablet,delayed 81 mg PO DAILY 04/22/23 08/12/23 History release ezetimibe 10 mg tablet 10 mg PO QAM 04/22/23 08/12/23 History isosorbide mononitrate 30 mg 30 mg PO QAM 04/22/23 08/12/23 History tablet,extended release 24 hr naproxen 500 mg tablet 500 mg PO QAM 04/22/23 08/12/23 History warfarin 6 mg tablet 6 mg PO EVERY OTHER DAY 05/27/23 08/12/23 History tramadol 50 mg tablet 50 - 100 mg PO Q6H PRN pain #40 06/12/23 08/12/23 Rx tabs pantoprazole 40 mg tablet,delayed See Rx Instructions .Route 07/08/23 08/12/23 Rx release .COMPLEX #90 tabs warfarin 1 mg tablet See Rx Instructions .Route 08/05/23 08/12/23 Rx .COMPLEX #60 tabs alprazolam 0.5 mg tablet 0.5 mg PO HS anxiety 08/12/23 08/12/23 History Patient hx anesthesia problems: none Family hx anesthesia problems: none Results Review: All pre-operative results and documents have been reviewed as part of the pre-operative evaluation. [facility] Past Medical History Medical History A-fib Anxiety Chronic anticoagulation Coronary artery disease Degenerative arthritis of lumbar spine Hyperlipidemia Hypertension Low back pain Osteoarthritis of knee Paroxysmal atrial fibrillation [place] Renal stones Surgical History Surgical History History of appendectomy History of back surgery Lumbar spine: x's 2 History of bilateral knee arthroplasty History of cataract removal with insertion of prosthetic lens History of cholecystectomy History of heart artery stent x's 4 History of incisional hernia repair History of incisional hernia repair Diagnostic laparoscopy, laparoscopic adhesiolysis with release of small bowel obstruction, LAP LLQ 2 cm incisional hernia repair on 06/17/23 History of inguinal hernia repair History of right h
[2023-08-20] MEDS: LACTATED RINGERS 1,000 ML 150 ML IV CONT (08:34)
--- NOTE | 2023-08-20 08:39 | PM.HPGS ---
History of Present Illness History of Present Illness Consent: Risks, benefits, and alternatives have been discussed and questions answered. Patient agrees to proceed with procedure. Chief complaint: anemia, melena Narrative: Ernie Rueda Sr. is a 78 year old male with occult blood in stool and progressive anemia, never had scopes and he is using coumadin because heart disease Review of Systems Constitutional: Constitutional: Denies headache(s) and Denies weakness Eyes: Eyes: Denies blurry vision ENT: Reports Normal hearing present, Denies headache(s) and Denies neck pain Cardiovascular: Cardiovascular: Denies chest pain and Denies dyspnea Respiratory: Respiratory: Denies dyspnea Gastrointestinal: Gastrointestinal: Reports no additional gastrointestinal complaints Genitourinary: Genitourinary: Denies dysuria Musculoskeletal: Musculoskeletal: Denies neck pain Integumentary/Breasts: Skin/Breast: Denies dry skin Neurologic: Reports Normal hearing present, Denies headache(s) and Denies weakness Psychiatric: Psychiatric: Denies anxiety Endocrine: Endocrine: Denies change in body appearance Hematologic/Lymphatic: Hematologic/Lymphatic: Denies easy bleeding Allergic/Immunologic: Allergic/Immunologic: Denies urticaria PMFSH Past Medical History Medical History (Updated 08/20/23 @ 08:40 by Jurgen Marrufo MD) A-fib Anxiety Chronic anticoagulation Coronary artery disease Degenerative arthritis of lumbar spine Hyperlipidemia Hypertension Low back pain Occult blood positive stool Osteoarthritis of knee Paroxysmal atrial fibrillation [place] Renal stones Surgical History Surgical History (Updated 07/30/23 @ 13:30 by Arlette West CMA) History of appendectomy History of back surgery Lumbar spine: x's 2 History of bilateral knee arthroplasty History of cataract removal with insertion of prosthetic lens History of cholecystectomy History of heart artery stent x's 4 History of incisional hernia repair History of incisional hernia repair Diagnostic laparoscopy, laparoscopic adhesiolysis with release of small bowel obstruction, LAP LLQ 2 cm incisional hernia repair on 06/17/23 History of inguinal hernia repair History of right hip replacement History of right shoulder replacement History of umbilical hernia repair Family History Family History Father Family history of coronary artery disease Brother Hypertension Family history of type 2 diabetes mellitus Family history of coronary artery disease Sister Family history of type 2 diabetes mellitus Family history of coronary artery disease Hypertension Social History Social History Social History: Surrogate medical decision maker: Deb Rueda, spouse. Code status: Full code. Smoking packs per day: 1 Smoking cigarettes per day: 20.0 Years smoked: 35 Smoking pack-years: 35.00 Smoking status: Former smoker Tobacco type: cigarettes Smoking end date: 11/30/94 Alcohol intake: current Substance use: never Substance use type: does not use Lack of Transportation: No Lack of Food: Never True Current Housing: I Have Housing Concerned About Future Housing: No Difficulty Paying Gas/Electric Bills: No Difficulty Paying for Meds: No Currently Unemployed: No Education: High School Diploma/GED Difficulty w/ Childcare or Family Care: No Living arrangements: with family Additional living arrangements comments: Occupation/Education: retired 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
--- NOTE | 2023-08-20 08:57 | SUR.OPER ---
EGD: [id number] COLON: Start 856
[2023-08-20 09:16] VITALS: BP 103/69; PULSE 84; RESP 18; O2SAT 98
[2023-08-20 09:26] VITALS: BP 109/72; PULSE 87; RESP 19; O2SAT 99
[2023-08-20 09:36] VITALS: BP 120/75; PULSE 83; RESP 20; O2SAT 99
== END 2023-08-20 09:53 | disposition home or self-care (01) ==
PROVIDERS: PCP Family Medicine; Visit Provider Internal Medicine Gastroenterology
PROC: 0DJ08ZZ Inspection of Upper Intestinal Tract, Via Natural or Artificial Opening Endoscopic (ICD-10-PCS; CPT 43235; principal; 2023-08-20 09:30)
DX: D64.9 Anemia, unspecified (principal); D12.3 Benign neoplasm of transverse colon; K57.30 Diverticulosis of large intestine without perforation or abscess without bleeding; K64.8 Other hemorrhoids; K44.9 Diaphragmatic hernia without obstruction or gangrene; K29.70 Gastritis, unspecified, without bleeding; K57.10 Diverticulosis of small intestine without perforation or abscess without bleeding; K31.9 Disease of stomach and duodenum, unspecified; I11.9 Hypertensive heart disease without heart failure; I25.10 Atherosclerotic heart disease of native coronary artery without angina pectoris; I48.0 Paroxysmal atrial fibrillation; E78.5 Hyperlipidemia, unspecified; F41.9 Anxiety disorder, unspecified; Z86.12 Personal history of poliomyelitis; Z95.5 Presence of coronary angioplasty implant and graft; Z87.891 Personal history of nicotine dependence; Z79.82 Long term (current) use of aspirin; Z79.01 Long term (current) use of anticoagulants
CPT/HCPCS: 45380; 43239; 88305; J2704; J7120

== ENCOUNTER 2023-08-31 13:05 | Outpatient (CLI) | payer MEDICARE, SELFPAY ==
[2023-08-31 13:19] LABS: Hematocrit 25.8 % (37.0-46.0); Hemoglobin 7.8 g/dL (12.4-15.3)
[2023-08-31 13:44] LABS: Iron 21 ug/dL (65-175)
== END 2023-08-31 13:06 | disposition home or self-care (01) ==
LOC: CHSLAB 13:07
PROVIDERS: PCP Family Medicine; Visit Provider Family Medicine
DX: D62 Acute posthemorrhagic anemia (principal); R19.5 Other fecal abnormalities
CPT/HCPCS: 36415; 83540; 85014; 85018

== ENCOUNTER 2023-09-22 09:11 | Outpatient (RCR) | payer MEDICARE, SELFPAY ==
[2023-09-21 11:52] LABS: Hematocrit 22.9 % (37.0-46.0)
[2023-09-21 13:12] LABS: Hemoglobin 6.8 g/dL (12.4-15.3)
[2023-09-22] MEDS: SODIUM CHLORIDE 0.9% IV 250 ML 10 ML IVPB (09:30)
[2023-09-22 09:37] VITALS: BP 90/60; PULSE 92; RESP 16; TEMP 36.6; O2SAT 97
[2023-09-22 09:50] VITALS: BP 108/68; PULSE 92; RESP 16; TEMP 36.4; O2SAT 97
[2023-09-22 09:51] VITALS: BMI 28.5
--- NOTE | 2023-09-22 09:52 | PC.NURSE ---
0915 Patient here for blood transfusion of 1 unit PRBC's. Education given. All concerns answered. Permit signed. 0935 1 unit PRBC's started at 80 ml/hr.
--- NOTE | 2023-09-22 10:08 | PC.NURSE ---
0950 No s/sx of blood transfusion reaction noted or reported. Up rate to 100 ml/hr.
[2023-09-22 10:50] VITALS: BP 93/59; PULSE 86; RESP 14; TEMP 36.5; O2SAT 96
[2023-09-22 11:50] VITALS: BP 103/67; PULSE 84; RESP 14; TEMP 36.6; O2SAT 97
[2023-09-22 12:05] VITALS: BP 104/69; PULSE 88; RESP 14; TEMP 36.6; O2SAT 97
--- NOTE | 2023-09-22 12:08 | PC.NURSE ---
1050 Tolerated blood transfusion well. UP rate to 125 ml/hr from her on out. 1205 1 Unit of PRBC's completed. Normal saline infusing.
[2023-09-22 12:33] VITALS: BP 108/63; PULSE 76; RESP 14; TEMP 36.6
--- NOTE | 2023-09-22 12:47 | PC.NURSE ---
1245 Lab here to draw post H/H. No concerns voiced.
[2023-09-22 12:49] LABS: Hematocrit 24.1 % (37.0-46.0); Hemoglobin 7.3 g/dL (12.4-15.3)
--- NOTE | 2023-09-22 13:02 | PC.NURSE ---
Safe exit of hospital per ambulatory with . Education regiven on post transfusion.
== END 2023-09-22 09:12 ==
LOC: CHSTREATRM 09:11
PROVIDERS: PCP Family Medicine; Visit Provider Nurse Practitioner Family
DX: D62 Acute posthemorrhagic anemia (principal)
CPT/HCPCS: 36415; 36430; 85014; 85018; 86850; 86900; 86901; 86920; J7050; P9016

== ENCOUNTER 2023-09-24 09:30 | Outpatient (CLI) | payer MEDICARE, SELFPAY ==
[2023-09-24 09:38] LABS: Hematocrit 25.2 % (37.0-46.0); Hemoglobin 7.6 g/dL (12.4-15.3)
== END 2023-09-24 09:31 | disposition home or self-care (01) ==
LOC: CHSLAB 09:31
PROVIDERS: PCP Family Medicine; Visit Provider Family Medicine
DX: D62 Acute posthemorrhagic anemia (principal)
CPT/HCPCS: 36415; 85014; 85018

== ENCOUNTER 2023-09-29 08:38 | Outpatient (CLI) | payer MEDICARE, SELFPAY ==
[2023-09-29 08:43] VITALS: BMI 28.5
[2023-09-29 08:57] VITALS: BP 96/69; PULSE 88; RESP 16; TEMP 36.4; O2SAT 98
[2023-09-29] MEDS: IRON SUCROSE COMPLEX 200 MG in SODIUM CHLORIDE 0.9% IV 250 ML 125 MG IVPB (09:00)
--- NOTE | 2023-09-29 11:11 | PC.NURSE ---
Patient here for #1 of 5 IV Venofer infusions. Education given to patient and his . All Concerns answered. IV Venofer administered. SEE MAR. Tolerated well. Will return 10/02/23 at 0900 for #2. Safe exit of hospital with ambulatory.
== END 2023-09-29 08:39 | disposition home or self-care (01) ==
LOC: CHSTREATRM 08:42
PROVIDERS: PCP Family Medicine; Visit Provider Family Medicine
DX: D50.9 Iron deficiency anemia, unspecified (principal); I10 Essential (primary) hypertension
CPT/HCPCS: 96365; 96366; J1756; J7050

== ENCOUNTER 2023-10-02 08:36 | Outpatient (CLI) | payer MEDICARE, SELFPAY ==
[2023-10-02] MEDS: IRON SUCROSE COMPLEX 200 MG in SODIUM CHLORIDE 0.9% IV 250 ML 125 MG IVPB (09:08)
[2023-10-02 09:09] VITALS: BP 93/59; PULSE 87; RESP 16; TEMP 36.4; O2SAT 98
[2023-10-02 09:10] VITALS: BMI 28.5
--- NOTE | 2023-10-02 12:52 | PC.NURSE ---
Patient here today for #2 of 5 Venofer IV infusions. Education given. No concerns voiced today. IV Venofer administered. SEE MAR. Tolerated well. Will return 10/06/23 0900 for #3. Safe exit of hospital with per ambulatory.
== END 2023-10-02 08:37 | disposition home or self-care (01) ==
LOC: CHSTREATRM 08:40
PROVIDERS: PCP Family Medicine; Visit Provider Family Medicine
DX: D50.9 Iron deficiency anemia, unspecified (principal)
CPT/HCPCS: 96365; 96366; J1756; J7050

== ENCOUNTER 2023-10-06 08:35 | Outpatient (CLI) | payer MEDICARE, SELFPAY ==
[2023-10-06 08:49] VITALS: BMI 28.5
[2023-10-06 08:51] VITALS: BP 101/64; PULSE 80; RESP 16; TEMP 36.4; O2SAT 98
[2023-10-06] MEDS: IRON SUCROSE COMPLEX 200 MG in SODIUM CHLORIDE 0.9% IV 250 ML 125 MG IVPB (09:04)
--- NOTE | 2023-10-06 11:18 | PC.NURSE ---
Patient here for #3 of 5 IV Venofer infusion. No concerns voiced. IV Venofer administered. SEE MAR. Tolerated well. Will return 10/09/23 at 0900 for #4. Safe exit of hospital with per ambulation.
== END 2023-10-06 08:36 | disposition home or self-care (01) ==
LOC: CHSTREATRM 08:37
PROVIDERS: PCP Family Medicine; Visit Provider Family Medicine
DX: D50.9 Iron deficiency anemia, unspecified (principal)
CPT/HCPCS: 96365; 96366; J1756; J7050

== ENCOUNTER 2023-10-09 08:48 | Outpatient (CLI) | payer MEDICARE, SELFPAY ==
[2023-10-09 09:04] VITALS: BMI 28.5
[2023-10-09 09:06] VITALS: BP 109/64; PULSE 82; RESP 14; TEMP 36.6; O2SAT 97
[2023-10-09] MEDS: IRON SUCROSE COMPLEX 200 MG in SODIUM CHLORIDE 0.9% IV 50 ML 250 MG IVPB (09:24)
--- NOTE | 2023-10-09 11:19 | PC.NURSE ---
Patient here for #4 of 5 IV Venofer infusions. NO concerns voiced. IV Venofer administered. SEE MAR. Tolerated well. Will return 10/13/23 at 0900 for #5. Safe exit of hospital with ambulatory.
== END 2023-10-09 08:49 | disposition home or self-care (01) ==
LOC: CHSTREATRM 08:52
PROVIDERS: PCP Family Medicine; Visit Provider Family Medicine
DX: D50.9 Iron deficiency anemia, unspecified (principal)
CPT/HCPCS: 96365; 96366; J1756

== ENCOUNTER 2023-10-13 08:34 | Outpatient (CLI) | payer MEDICARE, SELFPAY ==
[2023-10-13 08:56] VITALS: BP 107/70; PULSE 78; RESP 16; TEMP 36.6; O2SAT 98; BMI 28.5
[2023-10-13] MEDS: IRON SUCROSE COMPLEX 200 MG in SODIUM CHLORIDE 0.9% IV 250 ML 125 MG IVPB (09:15)
--- NOTE | 2023-10-13 11:16 | PC.NURSE ---
Patient here for #5 of 5 IV Venofer infusions. No concerns voiced. IV Venofer administered. SEE MAR. Tolerated well. Safe exit of hospital per /ambulatory.
== END 2023-10-13 08:35 | disposition home or self-care (01) ==
LOC: CHSTREATRM 08:37
PROVIDERS: PCP Family Medicine; Visit Provider Family Medicine
DX: D50.9 Iron deficiency anemia, unspecified (principal)
CPT/HCPCS: 96365; 96366; J1756; J7050

== ENCOUNTER 2023-11-05 13:20 | Outpatient (CLI) | payer MEDICARE, SELFPAY ==
[2023-11-05 13:36] LABS: Basophils Absolute Auto 0.05 K/mm3 (0.00-0.10); Basophils Percent Auto 0.9 % (0.0-1.0); Eosinophils Absolute Auto 0.25 K/mm3 (0.02-0.50); Eosinophils Percent Auto 4.7 % (1.0-6.0); Hematocrit 36.4 % (37.0-46.0); Hemoglobin 11.3 g/dL (12.4-15.3); Immature Granulocyte Absolute 0.01 K/mm3 (0.00-0.00); Immature Granulocyte Percent A 0.2 % (0.0-0.0); Lymphocytes Absolute Auto 1.77 K/mm3 (1.10-4.50); Lymphocytes Percent Auto 33.3 % (18.0-42.0); Mean Corpuscular Hemoglobin 27.4 pg (27.0-31.0); Mean Corpuscular Volume 88.3 fL (78.0-102.0); Mean Platelet Volume 10.5 fl (8.7-11.0); Monocytes Absolute Auto 0.43 K/mm3 (0.10-0.90); Monocytes Percent Auto 8.1 % (2.0-11.0); Neutrophils Absolute Auto 2.8 K/mm3 (1.7-7.2); Neutrophils Percent Auto 52.8 % (50.0-70.0); Platelet Count Result 196 K/mm3 (150-420); Red Blood Count 4.12 M/mm3 (4.70-6.10); Red Cell Distribution Width 18.5 % (11.6-14.4); White Blood Count 5.3 K/mm3 (4.8-10.8)
[2023-11-05 14:19] LABS: Ferritin 85 ng/mL (26-388); Iron 46 ug/dL (65-175); Percent Iron Saturation 15 % (12-57)
== END 2023-11-05 13:21 | disposition home or self-care (01) ==
LOC: CHSLAB 13:23
PROVIDERS: PCP Family Medicine; Visit Provider Nurse Practitioner Family
DX: D62 Acute posthemorrhagic anemia (principal)
CPT/HCPCS: 36415; 82728; 83540; 83550; 85025

== ENCOUNTER 2023-12-02 11:24 | Outpatient (CLI) | payer MEDICARE, SELFPAY ==
[2023-12-02 11:34] LABS: Hematocrit 36.8 % (37.0-46.0); Hemoglobin 11.5 g/dL (12.4-15.3)
== END 2023-12-02 11:25 | disposition home or self-care (01) ==
LOC: CHSLAB 11:26
PROVIDERS: PCP Family Medicine; Visit Provider Family Medicine
DX: R53.1 Weakness (principal)
CPT/HCPCS: 36415; 85014; 85018

== ENCOUNTER 2024-03-23 10:11 | Outpatient (CLI) | payer MEDICARE, SELFPAY ==
[2024-03-23 10:35] LABS: Basophils Absolute Auto 0.04 K/mm3 (0.00-0.10); Basophils Percent Auto 0.7 % (0.0-1.0); Eosinophils Absolute Auto 0.28 K/mm3 (0.02-0.50); Eosinophils Percent Auto 5.2 % (1.0-6.0); Hemoglobin 13.4 g/dL (12.4-15.3); Immature Granulocyte Absolute 0.01 K/mm3 (0.00-0.00); Immature Granulocyte Percent A 0.2 % (0.0-0.0); Lymphocytes Absolute Auto 1.71 K/mm3 (1.10-4.50); Lymphocytes Percent Auto 31.6 % (18.0-42.0); Mean Corpuscular HGB Conc 31.9 g/dL (32-36); Mean Corpuscular Hemoglobin 28.8 pg (27.0-31.0); Mean Corpuscular Volume 90.1 fL (78.0-102.0); Mean Platelet Volume 11.3 fl (8.7-11.0); Monocytes Absolute Auto 0.33 K/mm3 (0.10-0.90); Monocytes Percent Auto 6.1 % (2.0-11.0); Neutrophils Absolute Auto 3.04 K/mm3 (1.70-7.20); Neutrophils Percent Auto 56.2 % (50.0-70.0); Platelet Count Result 177 K/mm3 (150-420); Red Blood Count 4.66 M/mm3 (4.70-6.10); Red Cell Distribution Width 14.8 % (11.6-14.4); White Blood Count 5.4 K/mm3 (4.8-10.8)
[2024-03-23 10:49] LABS: Prothrombin Time 10.8 Seconds (9.50-12.1)
[2024-03-23 11:32] LABS: Alanine Aminotransferase 18 U/L (16-63); Albumin Level 3.5 g/dL (3.4-5.0); Alkaline Phosphatase 76 U/L (46-116); Anion Gap 6 mmol/L (4-12); Aspartate Amino Transferase 15 U/L (15-37); Bilirubin,Total 0.6 mg/dL (0.00-1.00); Blood Urea Nitrogen 24 mg/dL (7-18); Calcium 8.7 mg/dL (8.5-10.1); Carbon Dioxide 32 mmol/L (21-32); Chloride 105 mmol/L (98-108); Estimated Glomerular Filt Rate > 60; Ferritin 36 ng/mL (26-388); Glucose 91 mg/dL (70-99); Iron 69 ug/dL (65-175); Magnesium 1.8 mg/dL (1.8-2.4); Osmolality Calculated 300 mOsm/kg (285-295); Percent Iron Saturation 21 % (12-57); Potassium 4.3 mmol/L (3.5-5.1); Sodium 143 mmol/L (136-145); Total Protein 6.5 g/dL (6.4-8.2)
== END 2024-03-23 10:12 | disposition home or self-care (01) ==
LOC: CHSLAB 10:12
PROVIDERS: PCP Family Medicine; Visit Provider Family Medicine
DX: R10.9 Unspecified abdominal pain (principal); I48.91 Unspecified atrial fibrillation; D50.9 Iron deficiency anemia, unspecified; D62 Acute posthemorrhagic anemia
CPT/HCPCS: 36415; 80053; 82728; 83540; 83550; 83735; 85025; 85610

== ENCOUNTER 2024-10-14 10:45 | Outpatient (CLI) | payer MEDICARE, SELFPAY ==
[2024-10-14 10:55] LABS: Basophils Absolute Auto 0.04 K/mm3 (0.00-0.10); Basophils Percent Auto 0.7 % (0.0-1.0); Eosinophils Absolute Auto 0.46 K/mm3 (0.02-0.50); Eosinophils Percent Auto 7.8 % (1.0-6.0); Hematocrit 42.8 % (37.0-46.0); Hemoglobin 14.2 g/dL (12.4-15.3); Immature Granulocyte Absolute 0.01 K/mm3 (0.00-0.00); Immature Granulocyte Percent A 0.2 % (0.0-0.0); Lymphocytes Absolute Auto 1.96 K/mm3 (1.10-4.50); Lymphocytes Percent Auto 33.2 % (18.0-42.0); Mean Corpuscular HGB Conc 33.2 g/dL (32-36); Mean Corpuscular Hemoglobin 30.7 pg (27.0-31.0); Mean Corpuscular Volume 92.4 fL (78.0-102.0); Mean Platelet Volume 10.7 fl (8.7-11.0); Monocytes Absolute Auto 0.43 K/mm3 (0.10-0.90); Monocytes Percent Auto 7.3 % (2.0-11.0); Neutrophils Absolute Auto 3.01 K/mm3 (1.70-7.20); Neutrophils Percent Auto 50.8 % (50.0-70.0); Platelet Count Result 182 K/mm3 (150-420); Red Blood Count 4.63 M/mm3 (4.70-6.10); Red Cell Distribution Width 13.1 % (11.6-14.4); White Blood Count 5.9 K/mm3 (4.8-10.8)
[2024-10-14 11:39] LABS: Alanine Aminotransferase 16 U/L (16-63); Albumin Level 3.4 g/dL (3.4-5.0); Alkaline Phosphatase 87 U/L (46-116); Anion Gap 5 mmol/L (4-12); Aspartate Amino Transferase 11 U/L (15-37); Bilirubin,Total 0.7 mg/dL (0.00-1.00); Blood Urea Nitrogen 22 mg/dL (7-18); Calcium 9.6 mg/dL (8.5-10.1); Carbon Dioxide 32 mmol/L (21-32); Chloride 106 mmol/L (98-108); Estimated Glomerular Filt Rate > 60; Folic Acid 10.2 ng/mL (8.6->20); Glucose 85 mg/dL (70-99); Iron 77 ug/dL (65-175); Osmolality Calculated 298 mOsm/kg (285-295); Percent Iron Saturation 22 % (12-57); Potassium 4.8 mmol/L (3.5-5.1); Sodium 143 mmol/L (136-145); Total Protein 6.8 g/dL (6.4-8.2); Vitamin B12 212 pg/mL (193-986)
== END 2024-10-14 10:46 | disposition home or self-care (01) ==
LOC: CHSLAB 10:46
PROVIDERS: PCP Family Medicine; Visit Provider Family Medicine
DX: D64.9 Anemia, unspecified (principal); E53.8 Deficiency of other specified B group vitamins; E03.9 Hypothyroidism, unspecified; D62 Acute posthemorrhagic anemia
CPT/HCPCS: 36415; 80053; 82607; 82746; 83540; 83550; 84443; 85025

== ENCOUNTER 2025-02-22 09:38 | Outpatient (CLI) | payer MEDICARE, SELFPAY ==
--- NOTE | ~2025-02-22 | CT_ITS ---
EXAMINATION: CT abdomen pelvis wo con DATE: 02/22/2025 10:05 INDICATION: Bilateral kidney stones TECHNIQUE: Computed tomography (CT) of the abdomen and pelvis was performed without intravenous contr ast. The dose-length product was 361.35 mGy-cm. Automated exposure control and iterative reconstructi on technique were employed. COMPARISON: CT dated 06/14/2023 FINDINGS: There is dependent atelectasis. Heart size normal. No significant pleural or pericardial ef fusion. There is a right hip arthroplasty. Nonobstructive bowel pattern. There are multiple nonobstru cting right renal stones. No significant hydronephrosis. There is a calcification at the expected loc ation the right UVJ measuring 6 mm, suspicious for a UVJ stone. There is an intermediate density mass in the lower pole of the right kidney measuring 3.7 cm which appears minimally larger than on prior examination. Recommend correlation with ultrasound. Significant hydronephrosis identified, although s treak artifact limits evaluation of the pelvis. Prostate gland is enlarged. There are surgical change s consistent with prior ventral hernia repair. There are cholecystectomy clips. Liver, spleen, pancre as, adrenal glands and left kidney are unremarkable. Nonobstructive bowel gas pattern. Colonic divert iculosis without evidence for diverticulitis. Status post posterior spinal fusion at L4-S1. Severe hayden mbar spondylosis. IMPRESSION: 1. Probable 6 mm right UVJ stone. Nonobstructing right nephrolithiasis. No hydronephrosis. 2: Intermediate density 3.7 cm right renal mass at the lower pole. Recommend correlation with ultraso und. Reviewed, dictated and finalized at location A. IMPRESSION: 1. Probable 6 mm right UVJ stone. Nonobstructing right nephrolithiasis. No hydr onephrosis. 2: Intermediate density 3.7 cm right renal mass at the lower pole. Recommend co rrelation with ultrasound.
--- OUTSIDE RECORDS SUMMARY | 2025-02-22 10:36 | XMS_ITS | Encounter Summary ---
Author Organization [facility] Address [address] [place] [address] Care Team Providers Care Python Engineer Name Role Phone Deshawn West MD Primary Care Provider [phone] Rene Carballo MD Unavailable Unavailabl e Jitendra Ferris MD Primary Care Provider Mir Cunningham DO Primary Care Provider [phone] Jenna Marcelo APRN, NP-C Unavailable [phone] Nav Carr MD Unavailable [phone] Karol Gamino MD Unavailable Encounter Details Date Type Department Care Team (Late Contact Info) Description 06/27/2019 Abstract [facility] [address] [place] [phone] Rene Carballo MD Social History Tobacco Use Types Packs/Day Years Used Date Smoking Tobacco: Former Smokeless Tobacco: Never Alcohol Use Standard Drinks/Week Comments Yes 0 (1 standard drink = 0.6 oz pur e alcohol) Sex and Gender Information Value Date Recorded Sex Assigned at Not on file Legal Sex Male 2:43 AM CDT Gender Identity Not on file Sexual Orientation Not on file Occupation Industry Job Start Date Job End Date retired Not on file Not on file Not on file documented as of this encounter Plan of Treatment Upcoming Encounters Date Type Department Care Team (Late Contact Info) Description 06/23/2025 10:00 AM CDT Appointment [facility] Non Invasive Cardiology - [place] [address] [place], [place] [phone] Karol Gamino MD [address] [place] [address] 06/30/2025 10:45 AM CDT Office Visit [facility] [address] [place] [address] Karol Gamino MD [address] [place] [address] documented as of this encounter Procedures Procedure Name Priority Date/Time Associated Diagnosis Comments PROTHROMBIN TIME, VENOUS Routine 06/24/2019 Essential hypertension Chronic atrial fibrillation CAD (coronary artery disease) BASIC METABOLIC PANEL Routine 06/24/2019 Essential hypertension Chronic atrial fibrillation CAD (coronary artery disease) CBC W/DIFF AUTOMATED Routine 06/24/2019 Essential hypertension Chronic atrial fibrillation CAD (coronary artery disease) MAGNESIUM Routine 06/24/2019 Essential hypertension Chronic atrial fibrillation CAD (coronary artery disease) documented in this encounter Results * BASIC METABOLIC PANEL (06/24/2019) SODIUM S/P/B 140 POTASSIUM S/P/B 3.9 CO2 27 CHLORIDE S/P/B 104 GLUCOSE 102 mg/dL CALCIUM S/P/B 8.5 BUN 15 CREATININE S/P/B 1.06 0.7 - 1.3 06/24/2019 Rene Carballo MD LABORATORY Final Resul t * MAGNESIUM (06/24/2019) MAGNESIUM 1.8 06/24/2019 Rene Carballo MD LABORATORY Final Resul t * CBC W/DIFF AUTOMATED (06/24/2019) WBC 5.9 RBC 4.3 HGB 13.7 HCT 40.6 MCV 93 MCH 31 MCHC 33 RDW 13 PLT 141 06/24/2019 Rene Carballo MD LABORATORY Final Resul t * PROTHROMBIN TIME, VENOUS (06/24/2019) PROTIME WHOLE BLOOD 26.1 INR WHOLE BLOOD 2.40 06/24/2019 Rene Carballo MD LABORATORY Final Resul t documented in this encounter Visit Diagnoses Diagnosis Essential hypertension Unspecified essential hypertension Chronic atrial fibrillation ([facility]/HCC [facility]/HCC) Atrial fibrillation CAD (coronary artery disease) Coronary atherosclerosis of unspecified type of vessel, [place] or graft documented in this encounter Care Teams Python Engineer Relationship Specialty Start Date End Date Deshawn West MD [address] [place] [address] PCP - General FAMILY PRACTICE 06/14/19 02/12/20 Jitendra Ferris MD [address] [place] [address] PCP - General FAMILY PRACTICE 02/13/20 12/16/21 Mir Cunningham DO [address] [place] [address] PCP - General FAMILY PRACTICE 12/17/21 Rene Carballo MD [address] [place] [address] Chamberlain Piece Dyeing Machine Tender CARDIOVASCULAR DISEASE 06/14/19 03/15/24 Jenna Marcelo, LARD RENDERER, YARD ATTENDANT-C [address] [facility] [address] [place] [address] NURSE PRACTITIONER 12/17/21 03/15/24 Nav Carr MD [address] [place] [phone] ORTHOPAEDIC SURGERY 12/17/21 Karol Gamino MD [address] [place] [address] Consulting Physician CARDIOVASCULAR DISEASE 03/16/24 documented as of this encounter
--- OUTSIDE RECORDS SUMMARY | 2025-02-22 10:36 | XMS_ITS | Clinical Summary ---
Author Organization [facility] Medical Office Building [facility] Address [address] [place] [address] Care Team Providers Care Lining Strap Closer Name Role Phone Unknown, Notinfile Primary Care Provider Unavail able Allergies Active Allergy Reactions Criticality Noted Date Comments Heparin Other (See comments) Low 09/07/2023 resistant Latex Rash Medium 02/24/2023 Meperidine Rash,Hives Medium 05/09/2016 Morphine Nausea only,Vomiting Medium 02/02/2019 Oxycodone-Acetaminophen Rash Medium 02/02/2019 Penicillins Hives,Unknown Medium 05/09/2016 Large dose of cillins causes hives Large dose of cillins causes hives Pravastatin Unknown 05/09/2016 Prochlorperazine Swelling,Unknown Medium 05/09/2016 Swelling at patch site Swelling at patch site Rosuvastatin Muscle pain Medium 05/09/2016 Scopolamine Swelling Medium 05/24/2019 Simvastatin Unknown 05/09/[address] (PROTONIX) 40 mg EC tablet Take 1 tablet (40 mg total) by mouth daily Active ezetimibe (ZETIA) 10 mg tablet Take 1 tablet (10 mg total) by mouth daily Active nitroglycerin (NITROSTAT) 0.[address] under the tongue every 5 (five) minutes as needed for chest pain Up to three doses. 07/01/2019 Active carvedilol (COREG) 3.125 mg tablet Take 1 tablet (3.125 mg total) by mouth 2 (two) times a day with meals Active isosorbide mononitrate ER (IMDUR) 30 mg 24 hr tablet Take 1 tablet (30 mg total) by mouth nightly Active ramipril (ALTACE) 2.5 mg capsuleIndicatio ns:hypertension Take 1 capsule (2.5 mg total) by mouth nightly Active ALPRAZolam (XANAX) 0.5 mg tablet 03/20/2021 Active furosemide (LASIX) 20 mg tablet Take 1 tablet (20 mg total) by mouth daily Active traMADoL (ULTRAM) 50 mg tablet Take by mouth every 6 (six) hours as needed for pain Active aspirin 81 mg enteric coated tablet Take 1 tablet (81 mg total) by mouth daily 09/10/2023 Active apixaban (ELIQUIS) 5 mg tablet Take 1 tablet (5 mg total) by mouth 2 (two) times a day Active Hospital, Clinic, or Other Facility Administered Medication Ordered Dose Route Frequency Start Date End Date Status lidocaine (XYLOCAINE) 20 mg/mL (2 %) injection 4 mLIndications:Admi nistration of Local Anesthesia 4 mL OTHER One-Time Injection 02/09/2025 02/09/2025 Ended methylPREDNISolone acetate (DEPO-medrol) injection 80 mgIndications:[facility] hanteric bursitis, right hip 80 mg intra-artic One-Time Injection 02/09/2025 02/09/2025 Ended Active Problems Problem Noted Date Diagnosed Date Aftercare following right hip joint replacement surgery 07/29/2019 Pain due to total right knee replacement 019 Laceration of bile duct 11/10/2012 Resolved Problems Problem Noted Date Diagnosed Date Resolved Date Primary osteoarthritis of right hip 02/02/2019 07/29/2019 Encounters Date Type Department Care Team Description 02/09/2025 11:30 AM CDT Office Visit [facility] Orthopedics and Sports Medicine [address] [place] [phone] Hardik Brantley MD Trochanteric bursitis, right hip (Primary Dx); Right leg pain; It band syndrome, right 02/09/2025 7:49 AM CDT - 02/09/2025 11:59 PM CDT Hospital Encounter [facility] [address] [place] [phone] Discharge Disposition: Discharge to home or self care 02/09/2025 7:49 AM CDT - 02/09/2025 11:59 PM CDT Hospital Encounter [facility] Orthopedics and Sports Medicine [address] [facility] [address] [place] [address] Discharge Disposition: Discharge to home or self care from Last 3 Months Surgical History Surgery Date Site/Laterality Comments BACK SURGERY FLUORO GUIDED INJECTION HIP RIGHT 02/10/2019 Right JOINT REPLACEMENT KNEES HERNIA REPAIR CHOLECYSTECTOMY APPENDECTOMY CARDIAC STENT PLACEMENT x4 COLONOSCOPY UPPER GASTROINTESTINAL ENDOSCOPY CATARACT EXTRACTION, BILATERAL TOTAL SHOULDER REPLACEMENT Right TOTAL HIP ARTHROPLASTY Right Medical History Medical History Date Comments Hypertension Abnormal heart rate H/O blood clots Hypercholesteremia Hiatal hernia Kidney stone Anemia Atrial fibrillation (HCC) GERD (gastroesophageal reflux disease) Pulmonary embolus (HCC) Cataract BCC (basal cell carcinoma of skin) Kidney disease CAD (coronary artery disease) Small bowel mass Colon polyp Anxiety Family History Medical History Relation Name Comments Alcohol abuse Other Cancer Other Diabetes Other Heart disease Other Hypertension Other Relation Name Status Comments Other Social History Tobacco Use Types Packs/Day Years Used Date Smoking Tobacco: Former Cigarettes Smokeless Tobacco: Never Tobacco Cessation:Counseling Given: Not Answered Alcohol Use Standard Drinks/Week Comments Never 0 (1 standard drink = 0.6 oz pur e alcohol) AUDIT-C Answer Date Recorded Q1: How often do you have a drink containing alcohol? Never 10/24/2024 Q2: How many drinks containi ng alcohol do you have on a typical day when you are drinking? Patient does not drink Q3: How often do you have si x or more drinks on one occasion? Never 10/24/2024 Personal Safety Answer Date Recorded Have you ever been in or are you currently in a harmful physical or emotional relationship or is someone making you feel afraid or unsafe? Denies 10/24/2024 Sex and Gender Information Value Date Recorded Sex Assigned at Not on file Legal Sex Male 10:37 PM PIPING MANAGER Gender Identity Not on file Sexual Orientation Not on file Obstetrics History Last Filed Vital Signs Vital Sign Reading Time Taken Comments Blood Pressure 124/79 02/09/2025 11:21 AM CDT Pulse 85 02/09/2025 11:21 AM CDT Temperature 36.1 C (97 F) 10/24/2024 10:15 AM PIPING MANAGER Respiratory Rate 12 10/24/2024 11:29 AM PIPING MANAGER Oxygen Saturation 98% 10/24/2024 11:28 AM PIPING MANAGER Inhaled Oxygen Concentration - - Weight 93.4 kg (206 lb) 02/09/2025 11:21 AM CDT Height 180.3 cm (5' 11 ) 02/09/2025 11:21 AM CDT Body Mass Index 28.73 02/09/2025 11:21 AM CDT Plan of Treatment Health Maintenance Due Date Last Done Comments Depression Screening 1944 DTaP/Tdap/Td Vaccine (1 - Tdap) 1955 Hepatitis B Screening 1962 Pneumococcal vaccine 65+ (1 of 1 - PCV) 1994 Zoster Vaccine (1 of 2) 1994 Abdominal Aortic Aneurysm (AAA) Screen 2009 Well Visit 65+ 2009 Influenza Vaccine (#1) 2024 Fall Risk Assessment 10/24/2025 10/24/2024 Medical Devices Implanted Type Area Botany Teacher Device Identifier Shelf Expiration Date Model / Serial / Lot Depuy Orth[employer] [id number] [place] 60mm Sector Hip Shell Acetabular Gription Sterile Latex Free - [id number] Implanted:Qty: 1 on 07/18/2019 by Hardik Brantley MD at [facility] Right: Hip [employer] 05/29/2029 [id number] / / [id number] Depuy [employer] [id number] Actis Collar Hip 4 High Offset Stem Femoral - [id number] Implanted:Qty: 1 on 07/18/2019 by Hardik Brantley MD at [facility] Right: Hip [employer] 05/29/2029 [id number] / / [id number] [employer] [id number] Articul/Ronnie 36mm Cementless Hip +1.5mm 12/14 Taper Head Femoral Latex Free - [id number] Implanted:Qty: 1 on 07/18/2019 by Hardik Brantley MD at [facility] Right: Hip [employer] 05/29/2024 [id number] / / [id number] Dep[employer] [id number] [place]o 60mm 36mm Hip Neutral Liner Acetabular Altrx Sterile Latex Free - [id number] Implanted:Qty: 1 on 07/18/2019 by Hardik Brantley MD at [facility] Right: Hip [employer] [id number] 05/29/2024 [id number] / / [id number] Procedures Procedure Name Priority Date/Time Associated Diagnosis Comments IA ARTHROCENTESIS ASPIR&/INJ MAJOR JT/BURSA W/O US Routine 02/09/2025 11:30 AM CDT Trochanteric bursitis, right hip XR PELVIS 1 OR 2 VIEWS Schedule Routine, Read Routine (OP Routine) 02/09/2025 11:21 AM CDT Right leg pain XR KNEE RIGHT 3 VIEWS Schedule Routine, Read Routine (OP Routine) 02/09/2025 11:21 AM CDT Right leg pain from Last 3 Months Results * IA ARTHROCENTESIS ASPIR&/INJ MAJOR JT/BURSA W/O US (02/09/2025 11:30 AM CDT) Narrative Hardik Brantley MD - 02/09/2025 11:30 AM CDT Hardik Brantley MD 02/09/2025 12:48 PM Greater trochanteric bursa injection Performed by: Hardik Brantley MD Authorized by: Hardik Brantley MD Greater Trochanteric Bursa Injection: Consent Given by: Patient Site marked: the procedure site was marked Timeout: prior to procedure the correct patient, procedure, and site was verified Verbal consent obtained?: Yes Prior to the start of the procedure, verbal verification by the procedure participant(s) confirmed (as applicable): corect patient idenity; correct site/side marked and visible; agreement on the procedure to be done; correct patient positioning; an accurate procedure consent form, relevant images and results correctly labeled and displayed; any safety precautions based on clinical history and/or medication use have been addressed.: Supporting Documentation: Indications: Pain and therapeutic Procedure Details: Site: Right Greater Trochanteric Bursa Prep: patient was prepped and draped in usual sterile fashion Patient position: Sidelying Needle Size: 22 G Ultrasound guidance: No Approach: Lateral Medications: 80 mg methylPREDNISolone acetate 80 mg/mL; 4 mL lidocaine 20 mg/mL (2 %) Patient tolerance: Patient tolerated the procedure well with no immediate complications us Hardik Brantley MD IN CLINIC/BEDSIDE ORDERA BLES Final Result * XR Pelvis 1 or 2 Views (02/09/2025 11:21 AM CDT) Anatomical Region Laterality Modality Body, Pelvis N/A Digital Radiogra phy Narrative 02/09/2025 12:47 PM CDT Right total hip arthroplasty in appropriate position with no interval change. Hardik Brantley MD IMG XR PROCEDURES Final Result * XR Knee Right 3 View (02/09/2025 11:21 AM CDT) Anatomical Region Laterality Modality Lower Extremities, Knee Right Digital Radiography Narrative 02/09/2025 12:47 PM CDT Primary left and revision right total knee arthroplasties without any obvious abnormality or signs of loosening. Hardik Brantley MD IMG XR PROCEDURES Final Result from Last 3 Months Insurance MEDICARE [facility] INSURANCE MEDICARE [place] [facility] INSURANCE [place] [id number] MEDICARE [facility] INSURANCE [place] [id number] Advance Directives For more information, please contact: [phone] * Full Code (Latest Code Status on File) Date Activated Date Inactivated Comments 10/24/2024 10:23 AM 10/24/2024 4:01 PM * Full Code Date Activated Date Inactivated Comments 09/07/2023 10:26 AM 09/07/2023 4:56 PM * Full Code Date Activated Date Inactivated Comments 07/18/2019 4:59 PM 07/19/2019 11:38 PM Care Teams Lining Strap Closer Relationship Specialty Start Date End Date Unknown, Notinfile PCP - General 10/14/24
--- OUTSIDE RECORDS SUMMARY | 2025-02-22 10:36 | XMS_ITS | Encounter Summary ---
Author Organization [facility] Address Critical access hospital[address] [place] [address] Care Team Providers Care Header Setup Operator Name Role Phone Rene Carballo MD Unavailable Unavailabl e Mir Cunningham DO Primary Care Provider [phone] Jenna Marcelo APRN DESK TOP PUBLISHER-C Unavailable Nav Carr MD Unavailable [phone] Karol Gamino MD Unavailable Encounter Details Date Type Department Care Team (Late st Contact Info) Description 03/30/2023 Abstract [facility] [address] [place] [phone] Rene Carballo MD Social History Tobacco Use Types Packs/Day Years Used Date Smoking Tobacco: Former Smokeless Tobacco: Never Tobacco Cessation:Counseling Given: Not Answered Comments:quit many years Alcohol Use Standard Drinks/Week Comments Not Currently 0 (1 standard drink = 0.6 oz pur e alcohol) Sex and Gender Information Value Date Recorded Sex Assigned at Not on file Legal Sex Male 2:43 AM CDT Gender Identity Not on file Sexual Orientation Not on file Occupation Industry Job Start Date Job End Date retired Not on file Not on file Not on file COVID-19 Exposure Response Date Recorded In the last 10 days, have yo u been in contact with someone who was confirmed or suspected to have Coronavirus/COVID-19? No / Unsure 03/31/2023 3:24 PM CDT documented as of this encounter Functional Status * RETIRED Are you deaf or do you have serious difficulty hearing Answer Date of Assessment Author Status No 01/15/2022 5:58 AM SERVICE GIRL Activ e documented as of this encounter Plan of Treatment Upcoming Encounters Date Type Department Care Team (Late st Contact Info) Description 06/23/2025 10:00 AM CDT Appointment [facility] Non Invasive Cardiology - [place] [place] [address] [place] [address] Karol Gamino MD [address] [place] [address] 06/30/2025 10:45 AM CDT Office Visit [facility] [address] [place] [address] Karol Gamino MD [address] [place] [address] documented as of this encounter Visit Diagnoses Not on filedocumented in this encounter Care Teams Header Setup Operator Relationship Specialty Start Date End Date Mir Cunningham DO [address] [place] [address] PCP - General FAMILY PRACTICE 12/17/21 Rene Carballo MD [place] Ramp Supervisor CARDIOVASCULAR DISEASE 06/14/19 03/15/24 Jenna Marcelo, QUIQUE, DESK TOP PUBLISHER-C [address] [facility] [address] [place] [address] NURSE PRACTITIONER 12/17/21 03/15/24 Nav Carr MD [address] [facility] [address] [place] [phone] ORTHOPAEDIC SURGERY 12/17/21 Karol Gamino MD [address] [place] [address] Consulting Physician CARDIOVASCULAR DISEASE 03/16/24 documented as of this encounter
--- OUTSIDE RECORDS SUMMARY | 2025-02-22 10:36 | XMS_ITS | Referral Summary ---
Author Organization [facility] Medical Office Building B Address [address] [place] [address] Care Team Providers Care Curing Bin Operator Name Role Phone Unknown, Notinfile Primary Care Provider Unavail able Encounters Date Type Department Care Team Description 02/09/2025 7:49 AM CDT - 02/09/2025 11:59 PM CDT Hospital Encounter [facility] [place] Orthopedics [facility] Sports Medicine [address] [place] [phone] Discharge Disposition: Discharge to home or self care 02/09/2025 7:49 AM CDT - 02/09/2025 11:59 PM CDT Hospital Encounter [facility] [address] [place] [phone] Discharge Disposition: Discharge to home or self care 02/09/2025 11:30 AM CDT Office Visit [facility] [address] [place] [phone] Hardik Brantley MD Trochanteric bursitis, right hip (Primary Dx); Right leg pain; It band syndrome, right from Last 3 Months Allergies Active Allergy Reactions Criticality Noted Date [...] 02/09/2025 Ended methylPREDNISolone acetate (DEPO-medrol) injection 80 mgIndications:Troc hanteric bursitis, right hip 80 mg intra-artic One-Time Injection 02/09/2025 02/09/2025 Ended Active Problems Problem Noted Date Diagnosed Date Aftercare following right hip joint replacement surgery 07/29/2019 Pain due to total right knee replacement 019 Laceration of bile duct 11/10/2012 Resolved Problems Problem Noted Date Diagnosed Date Resolved Date Primary osteoarthritis of right hip 02/02/2019 07/29/2019 Social History Tobacco Use Types Packs/Day Years [...] on file Legal Sex Male 10:37 PM BULK CLERK Gender Identity Not on file Sexual Orientation Not on file Last Filed Vital Signs Vital Sign Reading Time Taken Comments Blood Pressure 124/79 02/09/2025 11:21 AM CDT Pulse 85 02/09/2025 11:21 AM CDT Temperature 36.1 C (97 F) 10/24/2024 10:15 AM BULK CLERK Respiratory Rate 12 10/24/2024 11:29 AM BULK CLERK Oxygen Saturation 98% 10/24/2024 11:28 AM BULK CLERK Inhaled Oxygen Concentration - - Weight 93.4 kg (206 lb) 02/09/2025 11:21 AM CDT Height 180.3 cm (5' 11 ) 02/09/2025 11:21 AM CDT Body Mass Index 28.73 02/09/2025 11:21 AM CDT Plan of Treatment Not on file Medical Devices Implanted Type Area Bicycle Courier Device Identifier Shelf Expiration Date Model / Serial / Lot Depuy [employer] [id number] Morgan 60mm Sector Hip Shell Acetabular Gription Sterile Latex Free - [id number] Implanted:Qty: 1 on 07/18/2019 by Hardik Brantley MD at [facility] Right: Hip [employer] 05/29/2029 [id number] / / [id number] Dep[employer] [id number] Actis Collar Hip 4 High Offset Stem Femoral - [id number] Implanted:Qty: 1 on 07/18/2019 by Hardik Brantley MD at [facility] Right: Hip [employer] 05/29/2029 [id number] / / [id number] [employer] [id number] Articul/Ronnie 36mm Cementless Hip +1.5mm 12/14 Taper Head Femoral Latex Free - [id number] Implanted:Qty: 1 on 07/18/2019 by Hardik Brantley MD at [facility] Right: Hip [employer] 05/29/2024 [id number] / / [id number] Depuy [employer] [id number] Morgan 60mm 36mm Hip Neutral Liner Acetabular Altrx Sterile Latex Free - [id number] Implanted:Qty: 1 on 07/18/2019 by Hardik Brantley MD at [facility] Right: Hip [employer] [id number] 05/29/2024 [id number] / / [id number] Procedures Procedure Name Priority Date/Time Associated Diagnosis Comments ID ARTHROCENTESIS ASPIR&/INJ MAJOR JT/BURSA W/O US Routine 02/09/2025 11:30 AM CDT Trochanteric bursitis, right hip XR PELVIS 1 OR 2 VIEWS Schedule Routine, Read Routine (OP Routine) 02/09/2025 11:21 AM CDT Right leg pain XR KNEE RIGHT 3 VIEWS Schedule Routine, Read Routine (OP Routine) 02/09/2025 11:21 AM CDT Right leg pain from Last 3 Months Results * ID ARTHROCENTESIS ASPIR&/INJ MAJOR JT/BURSA W/O US (02/09/2025 [...] the procedure well with no immediate complications Hardik Brantley MD IN CLINIC/BEDSIDE ORDERA BLES [...] Result from Last 3 Months Insurance MEDICARE [facility] INSURANCE MEDICARE [facility] [place] [address] [facility] INSURANCE [place] [id number] Advance Directives For more information, please contact: [phone] * Full Code (Latest Code Status on File) Date Activated Date Inactivated Comments 10/24/2024 10:23 AM 10/24/2024 4:01 PM * Full Code Date Activated Date Inactivated Comments 09/07/2023 10:26 AM 09/07/2023 4:56 PM * Full Code Date Activated Date Inactivated Comments 07/18/2019 4:59 PM 07/19/2019 11:38 PM Care Teams Curing Bin Operator Relationship Specialty Start Date End Date Unknown, Notinfile PCP - General 10/14/24
--- OUTSIDE RECORDS SUMMARY | 2025-02-22 10:36 | XMS_ITS | Clinical Summary ---
Author Organization [facility] Address Formerly [facility] [place] [address] Care Team Providers Care Qa Intern Name Role Phone Mir Cunningham DO Primary Care Provider [phone] Nav Carr MD Unavailable [phone] Karol Gamino MD Unavailable Allergies Active Allergy Reactions Criticality Noted Date Comments Hydromorphone Vomiting 10/14/2023 Heparin Other (see comment) Low 09/07/2023 resistant Latex Rash Low 02/24/2023 Meperidine Hives,Rash Medium 05/09/2016 Morphine Nausea Only,Vomiting Medium 05/09/2016 Oxycodone-Acetaminophen Rash Medium 02/02/2019 Penicillins Unknown,Hives Medium 05/09/2016 Large dose of cillins causes hives Pravastatin Unknown 05/09/2016 Prochlorperazine Unknown,Swelling Medium 05/09/2016 Swelling at patch site Rosuvastatin Myalgias 05/09/2016 Scopolamine Swelling Medium 05/24/2019 Simvastatin Unknown 05/09/2016 Medications isosorbide mononitrate ER 30 MG 24 hr tabletIndications: heart Take 1 tablet (30 mg total) by mouth daily. Indications: heart 1 04/09/20 19 Active ALPRAZolam 0.5 MG tablet Take 1 tablet (0.5 mg total) by mouth as needed for Anxiety. 0 04/08/20 19 Active pantoprazole EC (PROTONIX) 40 MG tabletIndications: Reflux Esophagitis Take 1 tablet (40 mg total) by mouth daily. Indications: Lower Esophagus Inflammation From Backflow of Stomach Acid 07/18/20 14 Active ezetimibe (ZETIA) 10 MG tabletIndications: Hyperlipidemia Take 1 tablet (10 mg total) by mouth daily. Indications: High Amount of Fats in the Blood 02/22/20 11 Active Docusate Sodium (STOOL SOFTENER OR)Indications:Con stipation Take 1 tablet by mouth nightly. Indications: Constipation Active ramipril 2.5 MG capsuleIndications :heart Take 1 capsule (2.5 mg total) by mouth nightly. Indications: heart Active aspirin (ASPIRIN CHILDRENS) 81 MG chewable tabletIndications: Anticoagulant Therapy,hold Chew 1 tablet (81 mg total) by mouth 2 (two) times a day. Indications: Anticoagulant Therapy, hold 60 tablet 01/15/20 22 Active nitroglycerin (NITROSTAT) 0.[address] 1 tablet (0.4 mg total) under the tongue every 5 (five) minutes as needed for Chest Pain. 25 tablet 1 11/19/20 22 Active ELIQUIS 5 MG tablet Take 1 tablet (5 mg total) by mouth 2 (two) times daily. 10/08/20 23 Active evolocumab (REPATHA) 140 MG/ML injection (SYRINGE)Indicatio ns:Mixed hyperlipidemia Inject 1 mL (140 mg total) into the skin every 14 (fourteen) days. 2.1 mL 11 06/20/20 24 Active carvedilol (COREG) 3.125 MG tablet Take 1 tablet (3.125 mg total) by mouth 2 (two) times daily. 180 tablet 2 08/18/20 24 Active furosemide (LASIX) 20 MG tablet Take 1 tablet by mouth once daily 90 tablet 2 11/16/20 24 Active Active Problems Problem Noted Date Diagnosed Date CHAUDHRY (dyspnea on exertion) 05/24/2023 S/P coronary artery stent placement 04/13/2020 Osteoarthritis of knee HLD (hyperlipidemia) GERD (gastroesophageal reflux disease) Essential hypertension Chronic low back pain CAD (coronary artery disease) Atrial fibrillation ([facility]/HCC) Anxiety Resolved Problems Problem Noted Date Diagnosed Date Resolved Date Pre-operative cardiovascular examination 08/10/2020 Family History Medical History Relation Comments Cancer Brother Diabetes Brother Heart Disease Brother Hypertension Brother Heart Disease Father mva Mother Diabetes Sister Heart Disease Sister Hypertension Sister Relation Status Comments Brother Father (Age 74) Maternal Grandfather Maternal Grandmother Mother (Age 49) Paternal Grandfather Paternal Grandmother Sister Social History Tobacco Use Types Packs/Day Years [...] file Not on file Not on file Last Filed Vital Signs Vital Sign Reading Time Taken Comments Blood Pressure 106/78 06/20/2024 10:09 AM CDT Pulse 87 06/20/2024 10:09 AM CDT Temperature 36.6 C (97.8 F) 02/24/2023 10:21 AM CDT Respiratory Rate 16 06/20/2024 10:09 AM CDT Oxygen Saturation 98% 06/20/2024 10:09 AM CDT Inhaled Oxygen Concentration - - Weight 92.5 kg (204 lb) 06/20/2024 10:09 AM CDT Height 177.8 cm (5' 10 ) 06/20/2024 10:09 AM CDT Body Mass Index 29.27 06/20/2024 10:09 AM CDT Plan of Treatment Upcoming Encounters Date Type Department Care Team (Late st Contact Info) Description 06/23/2025 10:00 AM CDT Appointment [facility] Non Invasive Cardiology - [facility] [address] [place] [address] Karol Gamino MD [address] [place], [place] [address] 06/30/2025 10:45 AM CDT [facility] [address] [place] [address] Karol Gamino MD [address] [place], [place] [address] Health Maintenance Due Date Last Done Comments Pneumococcal Vaccine: 65+ Years (1 of 2 - PCV) 1950 DTaP, Tdap and Td Vaccines ( 1 - Tdap) 1963 Zoster Vaccines (1 of 2) 1994 Annual Medicare Wellness Visit 2009 RSV Immunization or 60+ Years (1 - 1-dose 75+ series) 2019 ASCVD LDL 12/28/2019 12/28/2018, 10/03/2010 COVID-19 Vaccine (2023-2 5 season) 2024 Influenza Adult (#1) 2024 Meningococcal B Vaccine Aged Out No l onger eligible based on patient's age to complete this topic Meningococcal Vaccine Aged Out No nubia jono eligible based on patient's age to complete this topic RSV Immunizations Under 20 Months Aged Out No longer eligible b ased on patient's age to complete this topic Medical Devices Implanted Type Area Sheltered Workshop Worker Device Identifier Shelf Expiration Date Model / Serial / Lot Tray Humeral Comprehensive +3mm Standard Shoulder Reverse - [id number] Implanted:Qty: 1 on 01/15/2022 by Nav Carr MD at [facility] Humeral Right: Shoulder [employer] [id number] 05/11/2031 [id number] / / [id number] Screw Bone Comprehensive Titanium 3.5 Mm L20 Mm Od4.75 Mm Lo - [id number] Implanted:Qty: 1 on 01/15/2022 by Nav Carr MD at [facility] Screw Right: Shoulder [employer] [id number] 09/19/2031 [id number] / / [id number] Screw Beck 4.75 Ti Hex Reverse Shoulder 25mm - [id number] Implanted:Qty: 1 on 01/15/2022 by Nav Carr MD at [facility] Screw Right: Shoulder [employer] [id number] 11/11/2031 [id number] / / [id number] Screw Fixed Locking Biomet 4.75 X 30mm - [id number] Implanted:Qty: 1 on 01/15/2022 by Nav Carr MD at [facility] Screw Right: Shoulder [employer] [id number] 10/17/2031 [id number] / / [id number] Screw Bone Comprehensive Titanium 3.5 Mm L20 Mm Od4.75 Mm Lo - [id number] Implanted:Qty: 1 on 01/15/2022 by Nav Carr MD at [facility] Screw Right: Shoulder [employer] [id number] 09/23/2031 [id number] / / [id number] Screw Beck 6.5mm Ti Reverse Shoulder 30mm - [id number] Implanted:Qty: 1 on 01/15/2022 by Nav Carr MD at [facility] Screw Right: Shoulder [employer] [id number] 12/13/2031 [id number] / / [id number] Component Glenoid 40mm Standard Reverse Glenosphere Comprehensive Versa-Dial Shoulder - [id number] Implanted:Qty: 1 on 01/15/2022 by Nav Carr MD at [facility] Shoulder Components Right: Shoulder [employer] [id number] 12/30/2031 [id number] / / [id number] Medium Augmented Baseplate With Mini Taper Adapter Porous Plasma Uncemented Implanted:Qty: 1 on 01/15/2022 by Nav Carr MD at [facility] Right: Shoulder [employer] [id number] 12/13/2026 [id number] / / [id number] Primary Shoulder Stem Implanted:Qty: 1 on 01/15/2022 by Nav Carr MD at [facility] Right: Shoulder [employer] [id number] 05/19/2031 [id number] / / [id number] Poly Bearing Implanted:Qty: 1 on 01/15/2022 by Nav Carr MD at [facility] Right: Shoulder [employer] [id number] 03/14/2026 [id number] / / [id number] Explanted Type Area Sheltered Workshop Worker Device Identifier Shelf Expiration Date Model / Serial / Lot Peripheral Screw Drill Bit Explanted:Qty: 1 on 01/15/2022 by Nav Carr MD at [facility] Right: Shoulder [employer] [id number] 12/18/2031 [id number] / / [id number] Augmented Reamer Guide Bushing Explanted:Qty: 1 on 01/15/2022 by Nav Carr MD at [facility] Right: Shoulder [employer] [id number] 09/20/2029 [id number] / / [id number] Threaded Tip Steinmann Pin Explanted:Qty: 1 on 01/15/2022 by Nav Carr MD at [facility] Right: Shoulder [employer] [id number] 11/20/2031 [id number] / / [id number] Augmented Reamer Guide Screw Explanted:Qty: 1 on 01/15/2022 by Nav Carr MD at [facility] Right: Shoulder [employer] [id number] 12/09/2031 [id number] / / [id number] Augmented Drill With Stop Explanted:Qty: 1 on 01/15/2022 by Nav Carr MD at [facility] Right: Shoulder [employer] [id number] 08/08/2031 [id number] / / [id number] Procedures Procedure Name Priority Date/Time Associated Diagnosis Comments LIPID PANEL Routine 12/28/2018 from Last 3 Months or Most Recently Relevant to Health Maintenance Results * LIPID PANEL (12/28/2018) CHOLESTEROL 201 HDL 49 TRIGLYCERIDES 124 CHOL/HDL RATIO 4.1 LDL (CALCULATED) 127 12/28/2018 us Doc [facility] Abstract LABORATORY Final Result from Last 3 Months or Most Recently Relevant to Health Maintenance Insurance MEDICARE [place] [place] [id number] [place]IC[place] [place] [id number] Advance Directives * Full Code (Latest Code Status on File) Date Activated Date Inactivated Comments 02/24/2023 2:30 PM 02/24/2023 5:47 PM * Full Code Date Activated Date Inactivated Comments 02/24/2023 1:36 PM 02/24/2023 2:30 PM * Full Code Date Activated Date Inactivated Comments 07/01/2019 5:07 PM 07/01/2019 7:49 PM Care Teams Qa Intern Relationship Specialty Start Date End Date Mir Cunningham DO [address] [place] [address] PCP - General FAMILY PRACTICE 12/17/21 Nav Carr MD [address] [place] [id number] ORTHOPAEDIC SURGERY 12/17/21 Karol Gamino MD [address] [place] [address] Consulting Physician CARDIOVASCULAR DISEASE 03/16/24
--- OUTSIDE RECORDS SUMMARY | 2025-02-22 10:36 | XMS_ITS | Encounter Summary ---
Author Organization [facility] Address [address] [place] [address] Care Team Providers Care Textile Conversion Manager Name Role Phone ClementepageDeshawn MD Primary Care Provider [phone] Rene Carballo MD Unavailable Unavailabl e Jitendra Ferris MD Primary Care Provider Mir Cunningham DO Primary Care Provider [phone] Jenna Marcelo APRN, NP-C Unavailable Nav Carr MD Unavailable [phone] Karol Gamino MD Unavailable Encounter Details Date Type Department Care Team (Late Contact Info) Description 06/15/2019 Abstract [facility] [address] [place] [address] Abstract, Doc [facility] Social History Tobacco Use Types Packs/Day Years Used Date Smoking Tobacco: Never Alcohol Use Standard Drinks/Week Comments [...] Info) Description 06/23/2025 10:00 AM CDT Appointment [facility] Non Invasive Cardiology - [facility] [address] [address] Karol Gamino MD [address] [place] [address] 06/30/2025 10:45 AM CDT Office Visit [facility] [address] [place] [address] Karol Gamino MD [address] [place], [place] [address] documented as of this encounter Visit Diagnoses Not on filedocumented in this encounter Care Teams Textile Conversion Manager Relationship Specialty Start Date End Date Deshawn West MD [address] [place] [address] PCP - General FAMILY PRACTICE 06/14/19 02/12/20 Jitendra Ferris MD [address] [place] [address] PCP - General FAMILY PRACTICE 02/13/20 12/16/21 Mir Cunningham DO [address] [place] [address] PCP - General FAMILY PRACTICE 12/17/21 Rene Carballo MD [address] [place] [address] [place] [employer] Ramp Agent CARDIOVASCULAR DISEASE 06/14/19 03/15/24 Jenna Marcelo APRN, PNEUDRAULIC SYSTEMS MECHANIC-C [address] [facility] [address] [place] [address] NURSE PRACTITIONER 12/17/21 03/15/24 Nav Carr MD [address] [place] [phone] ORTHOPAEDIC SURGERY 12/17/21 Karol Gamino MD [address] [place] [address] Consulting Physician CARDIOVASCULAR DISEASE 03/16/24 documented as of this encounter
--- OUTSIDE RECORDS SUMMARY | 2025-02-22 10:36 | XMS_ITS | Encounter Summary ---
Author Organization [facility] Address [address] [place] [address] Care Team Providers Care Personnel Counselor Name Role Phone Rene Carballo MD Unavailable Unavailabl e Mir Cunningham DO Primary Care Provider [phone] Jenna Marcelo APRN HOTEL RECREATIONAL FACILITIES MANAGER-C Unavailable Nav Carr MD Unavailable [phone] Karol Gamino MD Unavailable Encounter Details Date Type Department Care Team (Late st Contact Info) Description 02/19/2023 Hospital Orders Only [facility] Paint Formulator Pre/Post [address] [place], [place] [address] Rene Carballo MD Social History Tobacco Use Types Packs/Day Years Used Date Smoking Tobacco: Former Smokeless Tobacco: Never Comments:quit many years Alcohol Use Standard Drinks/Week [...] suspected to have Coronavirus/COVID-19? No / Unsure 02/10/2023 9:02 AM CDT documented as of this encounter Functional Status * RETIRED Are you deaf or do you have serious difficulty hearing Answer Date of Assessment Author Status No 01/15/2022 5:58 AM ELECTROLOG OPERATOR Activ e documented as of this encounter Plan of Treatment Upcoming Encounters Date Type Department Care Team (Late st Contact Info) Description 06/23/2025 10:00 AM CDT Appointment [facility] Non Invasive Cardiology - [facility] [place] [address] [place] [address] Karol Gamino MD [address] [place] [address] 06/30/2025 10:45 AM CDT Office Visit [facility] [address] [place] [address] Karol Gamino MD [address] [place] [address] documented as of this encounter Visit Diagnoses Not on filedocumented in this encounter Care Teams Personnel Counselor Relationship Specialty Start Date End Date Mir Cunningham DO [address] [place] [address] PCP - General FAMILY PRACTICE 12/17/21 Rene Carballo MD [place] Spanish Teacher CARDIOVASCULAR DISEASE 06/14/19 03/15/24 Jenna Marcelo, AGRICULTURE LABORATORY TECHNICIAN, HOTEL RECREATIONAL FACILITIES MANAGER-C [address] [facility] [address] [place] [address] NURSE PRACTITIONER 12/17/21 03/15/24 Nav Carr MD [address] [facility] [address] [place] [address] ORTHOPAEDIC SURGERY 12/17/21 Karol Gamino MD [address] [place] [address] Consulting Physician CARDIOVASCULAR DISEASE 03/16/24 documented as of this encounter
== END 2025-02-22 09:39 | disposition home or self-care (01) ==
PROVIDERS: PCP Family Medicine; Visit Provider Urology
DX: N20.1 Calculus of ureter (principal)
CPT/HCPCS: 74176

== ENCOUNTER 2025-02-28 10:22 | Outpatient (CLI) | payer MEDICARE, SELFPAY ==
--- NOTE | ~2025-02-28 | XR_ITS ---
CHEST RADIOGRAPH, PA AND LATERAL CLINICAL HISTORY: R05.9 - Cough, unspecified x 3 days . COMPARISON: 12/20/2021 TECHNIQUE: PA and lateral views of the chest. FINDINGS The cardiomediastinal silhouette is unremarkable. The lungs are clear. Visualized osseous structures and soft tissues are unremarkable. IMPRESSION: No focal infiltrate or effusion. Reviewed, dictated and finalized at location A.
--- NOTE | 2025-02-28 10:38 | ECG_ITS ---
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
[2025-02-28 11:02] LABS: Anion Gap 6 mmol/L (4-12); Blood Urea Nitrogen 16 mg/dL (7-18); Calcium 9.2 mg/dL (8.5-10.1); Carbon Dioxide 33 mmol/L (21-32); Chloride 102 mmol/L (98-108); Estimated Glomerular Filt Rate > 60; Glucose 105 mg/dL (70-99); Osmolality Calculated 293 mOsm/kg (285-295); Potassium 3.9 mmol/L (3.5-5.1); Sodium 141 mmol/L (136-145)
--- OUTSIDE RECORDS SUMMARY | 2025-02-28 11:28 | XMS_ITS | Encounter Summary ---
Author Organization [facility] Address [address] [place] [address] Care Team Providers Care Gold Beater Name Role Phone Rene Carballo MD Unavailable Unavailabl e Mir Cunningham DO Primary Care Provider [phone] Jenna Marcelo APRN TRANSIT SURVEY WORKER-C Unavailable [phone] Nav Carr MD Unavailable [phone] Karol Gamino MD Unavailable Encounter Details Date Type Department Care Team (Late st Contact Info) Description 02/19/2023 Hospital Orders Only [facility] Appliance Installer Pre/Post [address] [place], [place] [address] Rene Carballo MD Social History Tobacco Use [...] Assessment Author Status No 01/15/2022 5:58 AM HAND POTTER Activ e documented as of this encounter Plan of Treatment Upcoming Encounters Date Type Department Care Team (Late st Contact Info) Description 06/23/2025 10:00 AM CDT Appointment [facility] Non Invasive Cardiology - [facility] [place] [address] [place] [address] Karol Gamino MD [address] [place] [address] 06/30/2025 10:45 AM CDT Office Visit [facility] [address] [place] [address] Karol Gamino MD [address] [place] [address] documented as of this encounter Visit Diagnoses Not on filedocumented in this encounter Care Teams Gold Beater Relationship Specialty Start Date End Date Mir Cunningham DO [address] [place] [address] PCP - General FAMILY PRACTICE 12/17/21 Rene Carballo MD [place] Information Security Architect CARDIOVASCULAR DISEASE 06/14/19 03/15/24 Jenna Marcelo, CHANNEL REBUILDER, TRANSIT SURVEY WORKER-C [address] [facility] [address] [place] [address] NURSE PRACTITIONER 12/17/21 03/15/24 Nav Carr MD [address] [facility] [address] [place] [phone] ORTHOPAEDIC SURGERY 12/17/21 Karol Gamino MD [address] [place] [address] Consulting Physician CARDIOVASCULAR DISEASE 03/16/24 documented as of this encounter
--- OUTSIDE RECORDS SUMMARY | 2025-02-28 11:28 | XMS_ITS | Clinical Summary ---
Author Organization [facility] Building B Address [address] [place] [address] Care Team Providers Care Land Title Examiner Name Role Phone Unknown, Notinfile Primary Care [...] 02/09/2025 Ended methylPREDNISolone acetate (DEPO-medrol) injection 80 mgIndications:[facility] hanteric bursitis, right hip 80 mg [...] Description 02/09/2025 11:30 AM CDT Office Visit [facility] Medicine [address] [place] [phone] Hardik Brantley MD Trochanteric bursitis, right hip (Primary Dx); Right leg pain; It band syndrome, right 02/09/2025 7:49 AM CDT - 02/09/2025 11:59 PM CDT Hospital Encounter [facility] Sports Medicine [address] [place] [phone] Discharge Disposition: Discharge to home or self care 02/09/2025 7:49 AM CDT - 02/09/2025 11:59 PM CDT Hospital Encounter [facility] Orthopedics and Sports Medicine 4 [facility] [address] [place] [address] Discharge Disposition: Discharge to home [...] on file Legal Sex Male 10:37 PM CHEMICAL PROCESS ENGINEER Gender Identity Not on file Sexual Orientation Not on file Obstetrics History Last Filed Vital Signs Vital Sign Reading Time Taken Comments Blood Pressure 124/79 02/09/2025 11:21 AM CDT Pulse 85 02/09/2025 11:21 AM CDT Temperature 36.1 C (97 F) 10/24/2024 10:15 AM CHEMICAL PROCESS ENGINEER Respiratory Rate 12 10/24/2024 11:29 AM CHEMICAL PROCESS ENGINEER Oxygen Saturation 98% 10/24/2024 11:28 AM CHEMICAL PROCESS ENGINEER Inhaled Oxygen Concentration - - Weight 93.4 [...] 10/24/2025 10/24/2024 Medical Devices Implanted Type Area Marine Geologist Device Identifier Shelf Expiration Date Model / Serial / Lot Depuy Orthopaedics Inc [id number] Sweet Water 60mm Sector Hip Shell Acetabular Gription Sterile Latex Free - [id number] Implanted:Qty: 1 on 07/18/2019 by Hardik Brantley MD at [facility] Right: Hip Depuy Orthopaedics Inc 05/29/2029 [id number] / / [id number] Depuy Orthopaedics Inc [id number] Actis Collar Hip 4 High Offset Stem Femoral - [id number] Implanted:Qty: 1 on 07/18/2019 by Hardik Brantley MD at [facility] Right: Hip Depuy Orthopaedics Inc 05/29/2029 [id number] / / [id number] Depuy Orthopaedics Inc [id number] Articul/Ronnie 36mm Cementless Hip +1.5mm 12/14 Taper Head Femoral Latex Free - [id number] Implanted:Qty: 1 on 07/18/2019 by Hardik Brantley MD at [facility] Right: Hip Depuy Orthopaedics Inc 05/29/2024 [id number] / / [id number] Depuy Orthopaedics Inc [id number] Sweet Water 60mm 36mm Hip Neutral Liner Acetabular Altrx Sterile Latex Free - [id number] Implanted:Qty: 1 on 07/18/2019 by Hardik Brantley MD at [facility] Right: Hip Depuy Orthopaedics Inc [id number] 05/29/2024 [id number] / / [id number] Procedures Procedure Name Priority Date/Time Associated Diagnosis Comments [place] ARTHROCENTESIS ASPIR&/INJ MAJOR JT/BURSA W/O US Routine 02/09/2025 11:30 AM CDT Trochanteric bursitis, right hip XR PELVIS 1 OR 2 VIEWS Schedule Routine, Read Routine (OP Routine) 02/09/2025 11:21 AM CDT Right leg pain XR KNEE RIGHT 3 VIEWS Schedule Routine, Read Routine (OP Routine) 02/09/2025 11:21 AM CDT Right leg pain from Last 3 Months Results * [place] ARTHROCENTESIS ASPIR&/INJ MAJOR JT/BURSA W/O US (02/09/2025 [...] Result from Last 3 Months Insurance MEDICARE [facility] INSURANCE MEDICARE [place] [employer] INSURANCE [place] [id number] MEDICARE [facility] INSURANCE [place] [id number] Advance Directives For more information, please contact: [phone] * Full Code (Latest Code Status on File) Date Activated Date Inactivated Comments 10/24/2024 10:23 AM 10/24/2024 4:01 PM * Full Code Date Activated Date Inactivated Comments 09/07/2023 10:26 AM 09/07/2023 4:56 PM * Full Code Date Activated Date Inactivated Comments 07/18/2019 4:59 PM 07/19/2019 11:38 PM Care Teams Land Title Examiner Relationship Specialty Start Date End Date Unknown, Notinfile PCP - General 10/14/24
--- OUTSIDE RECORDS SUMMARY | 2025-02-28 11:28 | XMS_ITS | Encounter Summary ---
Author Organization [facility] Address [address] [place] [address] Care Team Providers Care Sign Builder Supervisor Name Role Phone Deshawn West MD Primary Care Provider [phone] Rene Carballo MD Unavailable Unavailabl e Jitendra Ferris MD Primary Care Provider Mir Cunningham DO Primary Care Provider [phone] Jenna Marcelo APRN, NP-C Unavailable Nav Carr MD Unavailable [phone] Karol Gamino MD Unavailable Encounter Details Date Type Department Care Team (Late Contact Info) Description 06/27/2019 Abstract [facility] [address] [place] [phone] Rene Carballo MD Social History Tobacco Use [...] Info) Description 06/23/2025 10:00 AM CDT Appointment [facility] Non Invasive Cardiology - [place] [facility] [place] [address] [place], [place] [address] Karol Gamino MD [address] [place] [address] 06/30/2025 10:45 AM CDT Office Visit [facility] [address] [place] [address] Karol Gamino MD [address] [place] [address] documented as of this encounter Procedures Procedure [...] hypertension Unspecified essential hypertension Chronic atrial fibrillation ([facility]/HCC [facility]/HCC) Atrial fibrillation CAD (coronary artery disease) Coronary atherosclerosis of unspecified type of vessel, qawalangin or graft documented in this encounter Care Teams Sign Builder Supervisor Relationship Specialty Start Date End Date Deshawn West MD [address] [place] [address] PCP - General FAMILY PRACTICE 06/14/19 02/12/20 Jitendra Ferris MD [address] [place] [address] PCP - General FAMILY PRACTICE 02/13/20 12/16/21 Mir Cunningham DO [address] [place] [address] PCP - General FAMILY PRACTICE 12/17/21 Rene Carballo MD [address] [place] [address] [place] [employer] Power Plant Engineer CARDIOVASCULAR DISEASE 06/14/19 03/15/24 Jenna Marcelo, SHELLFISH MEAT SEPARATOR OPERATOR, WRAP CHECKER-C [address] [facility] [address] [place] [address] NURSE PRACTITIONER 12/17/21 03/15/24 Nav Carr MD [address] [place] [phone] ORTHOPAEDIC SURGERY 12/17/21 Karol Gamino MD [address] [place] [address] Consulting Physician CARDIOVASCULAR DISEASE 03/16/24 documented as of this encounter
--- OUTSIDE RECORDS SUMMARY | 2025-02-28 11:28 | XMS_ITS | Encounter Summary ---
Author Organization [facility] Address Critical access hospital[address] [place] [address] Care Team Providers Care Log Handler Name Role Phone Rene Carballo MD Unavailable Unavailabl e Mir Cunningham DO Primary Care Provider [phone] Jenna Marcelo APRN PROGRAM PROJECT ANALYST-C Unavailable Nav Carr MD Unavailable [phone] Karol Gamino MD Unavailable Encounter Details Date Type Department Care Team (Late st Contact Info) Description 03/30/2023 Abstract [facility] [address] [place] [phone] Rene Carballo MD Social History Tobacco Use [...] Assessment Author Status No 01/15/2022 5:58 AM PURSE SEINER Activ e documented as of this encounter Plan of Treatment Upcoming Encounters Date Type Department Care Team (Late st Contact Info) Description 06/23/2025 10:00 AM CDT Appointment [facility] Non Invasive Cardiology - [facility] [place] [address] [place] [address] Karol Gamino MD [address] [place] [address] 06/30/2025 10:45 AM CDT Office Visit [facility] [address] [place] [address] Karol Gamino MD [address] [place] [address] documented as of this encounter Visit Diagnoses Not on filedocumented in this encounter Care Teams Log Handler Relationship Specialty Start Date End Date Mir Cunningham DO [address] [place] [address] PCP - General FAMILY PRACTICE 12/17/21 Rene Carballo MD [place] Core Machine Tender CARDIOVASCULAR DISEASE 06/14/19 03/15/24 Jenna Marcelo, QUIQUE, PROGRAM PROJECT ANALYST-C [address] [facility] [address] [place] [address] NURSE PRACTITIONER 12/17/21 03/15/24 Nav Carr MD [address] [facility] [address] [place] [phone] ORTHOPAEDIC SURGERY 12/17/21 Karol Gamino MD [address] [place] [address] Consulting Physician CARDIOVASCULAR DISEASE 03/16/24 documented as of this encounter
--- OUTSIDE RECORDS SUMMARY | 2025-02-28 11:28 | XMS_ITS | Clinical Summary ---
Author Organization [facility] Address [facility] [place] [address] Care Team Providers Care Value Stream Coach Name Role Phone Mir Cunningham DO Primary Care Provider [phone] Nav Carr MD Unavailable [phone] Karol Gamino MD Unavailable Allergies Active Allergy [...] pain CAD (coronary artery disease) Atrial fibrillation ([facility]/HCC [facility]/HCC) Anxiety Resolved Problems Problem Noted Date Diagnosed [...] Info) Description 06/23/2025 10:00 AM CDT Appointment [facility] Non Invasive Cardiology - [facility] [address] [place] [address] Karol Gamino MD [address] [place], [place] [address] 06/30/2025 10:45 AM CDT [facility] Visit [facility] [address] [place] [address] Karol Gamino MD [address] [place], [place] [address] Health Maintenance Due Date Last Done Comments [...] this topic Medical Devices Implanted Type Area Order Clerk Device Identifier Shelf Expiration Date Model / Serial / Lot Tray Humeral Comprehensive +3mm Standard Shoulder Reverse - [id number] Implanted:Qty: 1 on 01/15/2022 by Nav Carr MD at [facility] Humeral Right: Shoulder BI[employer] INC [id number] 05/11/2031 [id number] / / [id number] Screw Bone Comprehensive Titanium 3.5 Mm L20 Mm Od4.75 Mm Lo - [id number] Implanted:Qty: 1 on 01/15/2022 by Nav Carr MD at [facility] Screw Right: Shoulder [employer] INC [id number] 09/19/2031 [id number] / / [id number] Screw Beck 4.75 Ti Hex Reverse Shoulder 25mm - [id number] Implanted:Qty: 1 on 01/15/2022 by Nav Carr MD at [facility] Screw Right: Shoulder [employer] INC [id number] 11/11/2031 [id number] / / [id number] Screw Fixed Locking Biomet 4.75 X 30mm - [id number] Implanted:Qty: 1 on 01/15/2022 by Nav Carr MD at [facility] Screw Right: Shoulder [employer] INC [id number] 10/17/2031 [id number] / / [id number] Screw Bone Comprehensive Titanium 3.5 Mm L20 Mm Od4.75 Mm Lo - [id number] Implanted:Qty: 1 on 01/15/2022 by Nav Carr MD at [facility] Screw Right: Shoulder BI[employer] INC [id number] 09/23/2031 [id number] / / [id number] Screw Beck 6.5mm Ti Reverse Shoulder 30mm - [id number] Implanted:Qty: 1 on 01/15/2022 by Nav Carr MD at [facility] Screw Right: Shoulder [employer] INC [id number] 12/13/2031 [id number] / / [id number] Component Glenoid 40mm Standard Reverse Glenosphere Comprehensive Versa-Dial Shoulder - [id number] Implanted:Qty: 1 on 01/15/2022 by Nav Carr MD at [facility] Shoulder Components Right: Shoulder BIOMET INC [id number] 12/30/2031 [id number] / / [id number] Medium Augmented Baseplate With Mini Taper Adapter Porous Plasma Uncemented Implanted:Qty: 1 on 01/15/2022 by Nav Carr MD at [facility] Right: Shoulder [employer]ECK INC [id number] 12/13/2026 [id number] / / [id number] Primary Shoulder Stem Implanted:Qty: 1 on 01/15/2022 by Nav Carr MD at [facility] Right: Shoulder [employer] INC [id number] 05/19/2031 [id number] / / [id number] Poly Bearing Implanted:Qty: 1 on 01/15/2022 by Nav Carr MD at [facility] Right: Shoulder [employer] INC [id number] 03/14/2026 [id number] / / [id number] Explanted Type Area Order Clerk Device Identifier Shelf Expiration Date Model / Serial / Lot Peripheral Screw Drill Bit Explanted:Qty: 1 on 01/15/2022 by Nav Carr MD at [facility] Right: Shoulder [employer] [id number] 12/18/2031 [id number] / / [id number] Augmented Reamer Guide Bushing Explanted:Qty: 1 on 01/15/2022 by Nav Carr MD at [facility] Right: Shoulder [employer] [id number] 09/20/2029 [id number] / / [id number] Threaded Tip Steinmann Pin Explanted:Qty: 1 on 01/15/2022 by Nav Carr MD at [facility] Right: Shoulder [employer] INC [id number] 11/20/2031 [id number] / / [id number] Augmented Reamer Guide Screw Explanted:Qty: 1 on 01/15/2022 by Nav Carr MD at [facility] Right: Shoulder [employer] [id number] 12/09/2031 [id number] / / [id number] Augmented Drill With Stop Explanted:Qty: 1 on 01/15/2022 by Nav Carr MD at [facility] Right: Shoulder [employer] INC [id number] 08/08/2031 [id number] / / [id number] Procedures Procedure Name Priority Date/Time Associated Diagnosis Comments LIPID PANEL Routine 12/28/2018 from Last 3 Months or Most Recently Relevant to Health Maintenance Results * LIPID PANEL (12/28/2018) CHOLESTEROL 201 HDL 49 TRIGLYCERIDES 124 CHOL/HDL RATIO 4.1 LDL (CALCULATED) 127 12/28/2018 us Doc [facility] Abstract LABORATORY Final Result from Last 3 Months or Most Recently Relevant to Health Maintenance Insurance [place]ICARE [place] [employer] [place] [id number] [employer]IC[place] [employer] [place] [id number] Advance Directives * Full Code (Latest Code Status on File) Date Activated Date Inactivated Comments 02/24/2023 2:30 PM 02/24/2023 5:47 PM * Full Code Date Activated Date Inactivated Comments 02/24/2023 1:36 PM 02/24/2023 2:30 PM * Full Code Date Activated Date Inactivated Comments 07/01/2019 5:07 PM 07/01/2019 7:49 PM Care Teams Value Stream Coach Relationship Specialty Start Date End Date Mir Cunningham DO [address] [place] [address] PCP - General FAMILY PRACTICE 12/17/21 Nav Carr MD [address] [place] [phone] ORTHOPAEDIC SURGERY 12/17/21 Karol Gamino MD [address] [place] [address] Consulting Physician CARDIOVASCULAR DISEASE 03/16/24
--- OUTSIDE RECORDS SUMMARY | 2025-02-28 11:28 | XMS_ITS | Referral Summary ---
Author Organization [facility] Medical Office Building B Address [address] [place] [address] Care Team Providers Care Corporate Travel Counselor Name Role Phone Unknown, Notinfile Primary Care Provider Unavail able Encounters Date Type Department Care Team Description 02/09/2025 7:49 AM CDT - 02/09/2025 11:59 PM CDT Hospital Encounter [facility] Medical [facility] Orthopedics and Sports Medicine [address] [place] [phone] Discharge Disposition: Discharge to home or self care 02/09/2025 7:49 AM CDT - 02/09/2025 11:59 PM CDT Hospital Encounter [facility] Orthopedics and Sports Medicine [address] [place] [phone] Discharge Disposition: Discharge to home or self care 02/09/2025 11:30 AM CDT Office Visit [facility] Orthopedics and Sports Medicine [address] [place] [phone] Hardik Brantley MD Trochanteric bursitis, right hip [...] on file Legal Sex Male 10:37 PM TRAM DRIVER Gender Identity Not on file Sexual Orientation Not on file Last Filed Vital Signs Vital Sign Reading Time Taken Comments Blood Pressure 124/79 02/09/2025 11:21 AM CDT Pulse 85 02/09/2025 11:21 AM CDT Temperature 36.1 C (97 F) 10/24/2024 10:15 AM TRAM DRIVER Respiratory Rate 12 10/24/2024 11:29 AM TRAM DRIVER Oxygen Saturation 98% 10/24/2024 11:28 AM TRAM DRIVER Inhaled Oxygen Concentration - - Weight 93.4 kg (206 lb) 02/09/2025 11:21 AM CDT Height 180.3 cm (5' 11 ) 02/09/2025 11:21 AM CDT Body Mass Index 28.73 02/09/2025 11:21 AM CDT Plan of Treatment Not on file Medical Devices Implanted Type Area Pocket Closer Device Identifier Shelf Expiration Date Model / Serial / Lot Depuy Orthopaedics Inc [id number] Totz 60mm Sector Hip Shell Acetabular Gription Sterile Latex Free - [id number] Implanted:Qty: 1 on 07/18/2019 by Hardik Brantley MD at [facility] Right: Hip Depuy Orthopaedics Inc 05/29/2029 [id number] / / [id number] Depuy Orthopaedics Inc [id number] Actis Collar Hip 4 High Offset Stem Femoral - [id number] Implanted:Qty: 1 on 07/18/2019 by Hardik Brantley MD at [facility] Right: Hip Depuy Orthopaed[employer] Inc 05/29/2029 [id number] / / [id number] Depuy Orthopaedics Inc [id number] Articul/Ronnie 36mm Cementless Hip +1.5mm 12/14 Taper Head Femoral Latex Free - [id number] Implanted:Qty: 1 on 07/18/2019 by Hardik Brantley MD at [facility] Right: Hip Depuy Orth[employer]ed[employer] Inc 05/29/2024 [id number] / / [id number] Depuy Orthopaed[employer] Inc [id number] Totz 60mm 36mm Hip Neutral Liner Acetabular Altrx Sterile Latex Free - [id number] Implanted:Qty: 1 on 07/18/2019 by Hardik Brantley MD at [facility] Right: Hip Depuy Orthopaed[employer] Inc [id number] 05/29/2024 [id number] / / [id number] Procedures Procedure Name Priority Date/Time Associated Diagnosis Comments [place] ARTHROCENTESIS ASPIR&/INJ MAJOR JT/BURSA W/O US Routine 02/09/2025 11:30 AM CDT Trochanteric bursitis, right hip XR PELVIS 1 OR 2 VIEWS Schedule Routine, Read Routine (OP Routine) 02/09/2025 11:21 AM CDT Right leg pain XR KNEE RIGHT 3 VIEWS Schedule Routine, Read Routine (OP Routine) 02/09/2025 11:21 AM CDT Right leg pain from Last 3 Months Results * [place] ARTHROCENTESIS ASPIR&/INJ MAJOR JT/BURSA W/O US (02/09/2025 [...] Result from Last 3 Months Insurance MEDICARE [facility] INSURANCE MEDICARE [facility] INSURANCE MEDICARE [facility] INSURANCE PRAV[place] Lord [id number] Advance Directives For more information, please contact: [phone] * Full Code (Latest Code Status on File) Date Activated Date Inactivated Comments 10/24/2024 10:23 AM 10/24/2024 4:01 PM * Full Code Date Activated Date Inactivated Comments 09/07/2023 10:26 AM 09/07/2023 4:56 PM * Full Code Date Activated Date Inactivated Comments 07/18/2019 4:59 PM 07/19/2019 11:38 PM Care Teams Corporate Travel Counselor Relationship Specialty Start Date End Date Unknown, Notinfile PCP - General 10/14/24
--- OUTSIDE RECORDS SUMMARY | 2025-02-28 11:28 | XMS_ITS | Encounter Summary ---
Author Organization [facility] Address [address] [place] [address] Care Team Providers Care Bench Assembly Inspector Name Role Phone ClementepageDeshawn MD Primary Care Provider [phone] Rene Carballo MD Unavailable Unavailabl e Jitendra Ferris MD Primary Care Provider Mir Cunningham DO Primary Care Provider [phone] Jenna Marcelo APRN, NP-C Unavailable Nav Carr MD Unavailable [phone] Karol Gamino MD Unavailable Encounter Details Date Type Department Care Team (Late Contact Info) Description 06/15/2019 Abstract [facility] [address] [place] [address] Abstract, Doc [facility] Social History Tobacco Use [...] Info) Description 06/23/2025 10:00 AM CDT Appointment [facility] Non Invasive Cardiology - [facility] [address] [address] Karol Gamino MD [address] [place] [address] 06/30/2025 10:45 AM CDT Office Visit [facility] [address] [place] [address] Karol Gamino MD [address] [place], [place] [address] documented as of this encounter Visit Diagnoses Not on filedocumented in this encounter Care Teams Bench Assembly Inspector Relationship Specialty Start Date End Date Deshawn West MD [address] [place] [address] PCP - General FAMILY PRACTICE 06/14/19 02/12/20 Jitendra Ferris MD [address] [place] [address] PCP - General FAMILY PRACTICE 02/13/20 12/16/21 Mir Cunningham DO [address] [place] [address] PCP - General FAMILY PRACTICE 12/17/21 Rene Carballo MD [address] [place] [address] [place] Plant Ecologist CARDIOVASCULAR DISEASE 06/14/19 03/15/24 Jenna Marcelo APRN, ASBESTOS WIRE FINISHER-C [address] [facility] [address] [place] [address] NURSE PRACTITIONER 12/17/21 03/15/24 Nav Carr MD [address] [place] [phone] ORTHOPAEDIC SURGERY 12/17/21 Karol Gamino MD [address] [place] [address] Consulting Physician CARDIOVASCULAR DISEASE 03/16/24 documented as of this encounter
== END 2025-02-28 10:23 | disposition home or self-care (01) ==
PROVIDERS: PCP Family Medicine; Visit Provider Anesthesiology
DX: Z51.81 Encounter for therapeutic drug level monitoring (principal); I10 Essential (primary) hypertension; R05.9 Cough, unspecified; R94.31 Abnormal electrocardiogram [ECG] [EKG]; I21.9 Acute myocardial infarction, unspecified
CPT/HCPCS: 36415; 71046; 80048; 93005

== ENCOUNTER 2025-03-24 12:23 | Outpatient (CLI) | payer MEDICARE, SELFPAY ==
--- OUTSIDE RECORDS SUMMARY | 2025-03-24 12:28 | XMS_ITS | Encounter Summary ---
Author Organization [facility] Address [address] [place] [address] Care Team Providers Care Lockstitch Back Maker Name Role Phone ClementepageDeshawn MD Primary Care Provider [phone] Rene Carballo MD Unavailable [phone] Jitendra Ferris MD Primary Care Provider Mir Cunningham DO Primary Care Provider [phone] Jenna Marcelo APRN, NP-C Unavailable Nav Carr MD Unavailable [phone] Karol Gamino MD Unavailable Encounter Details Date Type Department Care Team (Late Contact Info) Description 06/15/2019 Abstract [facility] [address] [place] [phone] Abstract, Doc Preve[place] Social History Tobacco Use [...] Upcoming Encounters Date Type Department Care Team ([facility] Contact Info) Description 06/23/2025 10:00 AM CDT Appointment [facility] Non Invasive Card[facility] - [facility] [address] [address] Karol Gamino MD [address] [place] [address] 06/30/2025 10:45 AM CDT Office Visit [facility] [address] [place] [address] Karol Gamino MD [address] [place] [address] documented as of this encounter Visit Diagnoses Not on filedocumented in this encounter Care Teams Lockstitch Back Maker Relationship Specialty Start Date End Date Deshawn West MD [address] [place] [address] PCP - General FAMILY PRACTICE 06/14/19 02/12/20 Jitendra Ferris MD [address] [place] [address] PCP - General FAMILY PRACTICE 02/13/20 12/16/21 Mir Cunningham DO [address] [place] [address] PCP - General FAMILY PRACTICE 12/17/21 Rene Carballo MD [address] [place] [address] [place] Cook Italian Style Food CARDIOVASCULAR DISEASE 06/14/19 03/15/24 Jenna Marcelo APRN, SENIOR TECHNICAL PROGRAM MANAGER-C [address] [facility] [address] [place] [address] NURSE PRACTITIONER 12/17/21 03/15/24 Nav Carr MD [address] [place] [phone] ORTHOPAEDIC SURGERY 12/17/21 Karol Gamino MD [address] [place] [address] Consulting Physician CARDIOVASCULAR DISEASE 03/16/24 documented as of this encounter
--- OUTSIDE RECORDS SUMMARY | 2025-03-24 12:28 | XMS_ITS | Encounter Summary ---
Author Organization [facility] Address [address] [place] [address] Care Team Providers Care Baker Helper Name Role Phone Rene Carballo MD Unavailable [phone] Mir Cunningham DO Primary Care Provider [phone] Jenna Marcelo APRN, NP-C Unavailable Nav Carr MD Unavailable [phone] Karol Gamino MD Unavailable Encounter Details Date Type Department Care Team (Late st Contact Info) Description 03/30/2023 Abstract [facility] [address] [place] [address] Rene Carballo MD [address] [place] [address] Social History Tobacco Use Types Packs/Day Years [...] Assessment Author Status No 01/15/2022 5:58 AM WARDROBE MANAGER Activ e documented as of this encounter Plan of Treatment Upcoming Encounters Date Type Department Care Team (Late st Contact Info) Description 06/23/2025 10:00 AM CDT Appointment [facility] - [facility] [address] [place] [address] Karol Gamino MD [address] [place] [address] 06/30/2025 10:45 AM CDT Office Visit [facility] [address] [place] [address] Karol Gamino MD [address] [place] [address] documented as of this encounter Visit Diagnoses Not on filedocumented in this encounter Care Teams Baker Helper Relationship Specialty Start Date End Date Mir Cunningham DO [address] [place] [address] PCP - General FAMILY PRACTICE 12/17/21 Rene Carballo MD [address] [place] [phone] [place] Integrated Pest Management Technician CARDIOVASCULAR DISEASE 06/14/19 03/15/24 Jenna Marcelo APRN, DATA OPERATIONS LEADER-C [address] [facility] [address] [place] [phone] NURSE PRACTITIONER 12/17/21 03/15/24 Nav Carr MD [address] [facility] [address] [place] [phone] ORTHOPAEDIC SURGERY 12/17/21 Karol Gamino MD [address] [place] [address] Consulting Physician CARDIOVASCULAR DISEASE 03/16/24 documented as of this encounter
--- OUTSIDE RECORDS SUMMARY | 2025-03-24 12:28 | XMS_ITS | Encounter Summary ---
Author Organization [facility] Address [address] [place] [address] Care Team Providers Care Tableau Administrator Name Role Phone ClementepageDeshawn MD Primary Care Provider [phone] Rene Carabllo MD Unavailable [phone] Jitendra Ferris MD Primary Care Provider Mir Cunningham DO Primary Care Provider [phone] Jenna Marcelo APRN, NP-C Unavailable Nav Carr MD Unavailable [phone] Karol Gamino MD Unavailable Encounter Details Date Type Department Care Team (Late Contact Info) Description 06/27/2019 Abstract [facility] [address] [place] [address] Rene Carballo MD [address] [place] [address] Social History Tobacco Use Types [...] [facility] - [facility] [address] [place] [address] Karol Gamino MD [address] [place] [address] 06/30/2025 10:45 AM CDT Office Visit [facility] [address] [place] [address] Karol Gamino MD [address] [place] [address] documented as of this encounter Procedures Procedure [...] hypertension Unspecified essential hypertension Chronic atrial fibrillation (CMS/HCC HHS/HCC) Atrial fibrillation CAD (coronary artery disease) Coronary atherosclerosis of unspecified type of vessel, [place] or graft documented in this encounter Care Teams Tableau Administrator Relationship Specialty Start Date End Date Deshawn West MD [address] [place] [address] PCP - General FAMILY PRACTICE 06/14/19 02/12/20 Jitendra Ferris MD [address] [place] [address] PCP - General FAMILY PRACTICE 02/13/20 12/16/21 Mir Cunningham DO [address] [place] [address] PCP - General FAMILY PRACTICE 12/17/21 Rene Carballo MD [address] [place] [address] [place] Licensing Registration Examiner CARDIOVASCULAR DISEASE 06/14/19 03/15/24 Jenna Marcelo APRN, BACK UP WORKER-C [address] [facility] [address] [place] [address] NURSE PRACTITIONER 12/17/21 03/15/24 Nav Carr MD [address] [place] [address] [address] [place] [address] ORTHOPAEDIC SURGERY 12/17/21 Karol Gamino MD [address] [place] [address] Consulting Physician CARDIOVASCULAR DISEASE 03/16/24 documented as of this encounter
--- OUTSIDE RECORDS SUMMARY | 2025-03-24 12:28 | XMS_ITS | Encounter Summary ---
Author Organization [facility] Address [facility] [place] [address] Care Team Providers Care Chief Nursing Executive Name Role Phone Rene Carballo MD Unavailable [phone] Mir Cunningham DO Primary Care Provider [phone] Jenna Marcelo APRN PHOTO CHECKER-C Unavailable Nav Carr MD Unavailable [phone] Karol Gamino MD Unavailable Encounter Details Date Type Department Care Team (Late st Contact Info) Description 02/19/2023 Hospital Orders Only [place] [employer] Examiner Pre/Post [address] [place] [address] Rene Carballo MD [address] [place] [address] Social History Tobacco Use Types [...] Assessment Author Status No 01/15/2022 5:58 AM VETERINARY RADIOLOGIST Activ e documented as of this encounter Plan of Treatment Upcoming Encounters Date Type Department Care Team (Late st Contact Info) Description 06/23/2025 10:[address] [facility] Non Invasive Cardiology - [facility] [place] [address] [place] [address] Karol Gamino MD [address] [place] [address] 06/30/2025 10:45 AM CDT Office Visit [facility] [address] [place] [address] Karol Gamino MD [address] [place] [address] documented as of this encounter Visit Diagnoses Not on filedocumented in this encounter Care Teams Chief Nursing Executive Relationship Specialty Start Date End Date Mir Cunningham DO [address] [place] [address] PCP - General FAMILY PRACTICE 12/17/21 Rene Carballo MD [address] [place] [phone] [place] Fashion Consultant CARDIOVASCULAR DISEASE 06/14/19 03/15/24 Jenna Marcelo APRN, PHOTO CHECKER-C [address] [facility] [address] [place] [address] NURSE PRACTITIONER 12/17/21 03/15/24 Nav Carr MD [address] [facility] [address] [place] [phone] ORTHOPAEDIC SURGERY 12/17/21 Karol Gamino MD [address] [place] [address] Consulting Physician CARDIOVASCULAR DISEASE 03/16/24 documented as of this encounter
--- OUTSIDE RECORDS SUMMARY | 2025-03-24 12:28 | XMS_ITS | Referral Summary ---
Author Organization [facility] Address [address] [place] [address] Care Team Providers Care Front Window Cashier Name Role Phone Unknown, Notinfile Primary Care Provider Unavail able Encounters Date Type Department Care Team Description 02/09/2025 7:49 AM CDT - 02/09/2025 11:59 PM CDT Hospital Encounter [facility] Medical [facility] [address] [place] [phone] Discharge Disposition: Discharge to home or self care 02/09/2025 7:49 AM CDT - 02/09/2025 11:59 PM CDT Hospital Encounter [facility] [address] [place] [phone] Discharge Disposition: Discharge to home or self care 02/09/2025 11:30 AM CDT Office Visit [facility] [address] [place] [phone] Hardik Brantley MD Trochanteric bursitis, right hip [...] mouth 2 (two) times a day Active Active Problems Problem Noted Date Diagnosed [...] on file Legal Sex Male 10:37 PM DRAGSAW OPERATOR Gender Identity Not on file Sexual Orientation Not on file Last Filed Vital Signs Vital Sign Reading Time Taken Comments Blood Pressure 124/79 02/09/2025 11:21 AM CDT Pulse 85 02/09/2025 11:21 AM CDT Temperature 36.1 C (97 F) 10/24/2024 10:15 AM DRAGSAW OPERATOR Respiratory Rate 12 10/24/2024 11:29 AM DRAGSAW OPERATOR Oxygen Saturation 98% 10/24/2024 11:28 AM DRAGSAW OPERATOR Inhaled Oxygen Concentration - - Weight 93.4 kg (206 lb) 02/09/2025 11:21 AM CDT Height 180.3 cm (5' 11 ) 02/09/2025 11:21 AM CDT Body Mass Index 28.73 02/09/2025 11:21 AM CDT Plan of Treatment Not on file Medical Devices Implanted Type Area Chemical Worker Device Identifier Shelf Expiration Date Model / Serial / Lot [employer] [id number] Couderay 60mm Sector Hip Shell Acetabular Gription Sterile Latex Free - [id number] Implanted:Qty: 1 on 07/18/2019 by Hardik Brantley MD at [facility] Right: Hip [employer] 05/29/2029 [id number] / / [id number] [employer] [id number] Actis Collar Hip 4 High Offset Stem Femoral - [id number] Implanted:Qty: 1 on 07/18/2019 by Hardik Brantley MD at [facility] Right: Hip [employer] 05/29/2029 [id number] / / [id number] [employer] [id number] Articul/Ronnie 36mm Cementless Hip +1.5mm 11/12 Taper Head Femoral Latex Free - [id number] Implanted:Qty: 1 on 07/18/2019 by Hardik Brantley MD at [facility] Right: Hip [employer] 05/29/2024 [id number] / / [id number] [employer] [id number] Cou[place]ay 60mm 36mm Hip Neutral Liner Acetabular Altrx Sterile Latex Free - [id number] Implanted:Qty: 1 on 07/18/2019 by Hardik Brantley MD at [facility] Right: Hip [employer] [id number] 05/29/2024 [id number] / / [id number] Procedures Procedure Name Priority Date/Time Associated Diagnosis Comments GA ARTHROCENTESIS ASPIR&/INJ MAJOR JT/BURSA W/O US Routine 02/09/2025 11:30 AM CDT Trochanteric bursitis, right hip XR PELVIS 1 OR 2 VIEWS Schedule Routine, Read Routine (OP Routine) 02/09/2025 11:21 AM CDT Right leg pain XR KNEE RIGHT 3 VIEWS Schedule Routine, Read Routine (OP Routine) 02/09/2025 11:21 AM CDT Right leg pain from Last 3 Months Results * GA ARTHROCENTESIS ASPIR&/INJ MAJOR JT/BURSA W/O US (02/09/2025 [...] Result from Last 3 Months Insurance MEDICARE [facility] INSURANCE MEDICARE [facility] INSURANCE MEDICARE [place] [id number] Advance Directives For more information, please contact: [phone] * Full Code (Latest Code Status on File) Date Activated Date Inactivated Comments 10/24/2024 10:23 AM 10/24/2024 4:01 PM * Full Code Date Activated Date Inactivated Comments 09/07/2023 10:26 AM 09/07/2023 4:56 PM * Full Code Date Activated Date Inactivated Comments 07/18/2019 4:59 PM 07/19/2019 11:38 PM Care Teams Front Window Cashier Relationship Specialty Start Date End Date Unknown, Notinfile PCP - General 10/14/24
--- OUTSIDE RECORDS SUMMARY | 2025-03-24 12:28 | XMS_ITS | Clinical Summary ---
Author Organization [facility] Address [facility] [place] [address] Care Team Providers Care Booth Usher Name Role Phone Mir Cunningham DO Primary Care Provider [phone] Nav Carr MD Unavailable [phone] Karol Gamino MD Unavailable Allergies Active Allergy [...] pain CAD (coronary artery disease) Atrial fibrillation ([facility]/HCC [facility]/HCC) Anxiety Resolved Problems Problem Noted Date Diagnosed Date Resolved Date Pre-operative cardiovascular examination 08/10/2020 Encounters Date Type Department Care Team Description 03/01[facility]2025 [facility] [address] [place] [address] Karol Gamino MD Information from Last 3 Months Family History Medical History Relation Comments Cancer [...] Info) Description 06/23/2025 10:00 AM CDT Appointment [facility] Non Invasive Cardiology - [facility] [address] [place] [address] Karol Gamino MD [address], [place] [id number] 06/30/2025 10:45 AM CDT [facility] [address] [place] [address] Karol Gamino MD [address], [place] [id number] [phone] Maintenance Due Date Last Done Comments DTaP, Tdap and Td Vaccines ( 1 - Tdap) 1963 Pneumococcal Vaccine: 50+ Years (1 of 2 - PCV) 1963 Zoster Vaccines (1 of 2) 1994 Annual Medicare Wellness Visit 2009 RSV Immunization or 60+ Years (1 - 1-dose 75+ series) 2019 ASCVD LDL 12/28/2019 12/28/2018, 10/03/2010 COVID-19 Vaccine (1 - 2023-2 5 season) 2024 Meningococcal B Vaccine Aged Out No l onger eligible based on patient's age to complete this topic Meningococcal Vaccine Aged Out No nubia jono eligible based on patient's age to complete this topic RSV Immunizations Under 20 Months Aged Out No longer eligible b ased on patient's age to complete this topic Medical Devices Implanted Type Area Ecotherapist Device Identifier Shelf Expiration Date Model / Serial / Lot Tray Humeral Comprehensive +3mm Standard Shoulder Reverse - [id number] Implanted:Qty: 1 on 01/15/2022 by Nav Carr MD at [facility] Humeral Right: Shoulder BIOM[employer] INC [id number] 05/11/2031 [id number] / / [id number] Screw Bone Comprehensive Titanium 3.5 Mm L20 Mm Od4.75 Mm Lo - [id number] Implanted:Qty: 1 on 01/15/2022 by Nav Carr MD at [facility] Screw Right: Shoulder [employer]OM[employer] INC [id number] 09/19/2031 [id number] / / [id number] Screw Beck 4.75 Ti Hex Reverse Shoulder 25mm - [id number] Implanted:Qty: 1 on 01/15/2022 by Nav Carr MD at [facility] Screw Right: Shoulder [employer] INC [id number] 11/11/2031 [id number] / / [id number] Screw Fixed Locking Biomet 4.75 X 30mm - [id number] Implanted:Qty: 1 on 01/15/2022 by Nav Carr MD at [facility] Screw Right: Shoulder [employer] [id number] 10/17/2031 [id number] / / [id number] Screw Bone Comprehensive Titanium 3.5 Mm L20 Mm Od4.75 Mm Lo - [id number] Implanted:Qty: 1 on 01/15/2022 by Nav Carr MD at [facility] Screw Right: Shoulder [employer] INC [id number] 09/23/2031 [id number] / / [id number] Screw Beck 6.5mm Ti Reverse Shoulder 30mm - [id number] Implanted:Qty: 1 on 01/15/2022 by Nav Carr MD at [facility] Screw Right: Shoulder [employer] INC [id number] 12/13/2031 [id number] / / [id number] Component Glenoid 40mm Standard Reverse Glenosphere Comprehensive Versa-Dial Shoulder - [id number] Implanted:Qty: 1 on 01/15/2022 by Nav Carr MD at [facility] Shoulder Components Right: Shoulder BIOM[employer] INC [id number] 12/30/2031 [id number] / / [id number] Medium Augmented Baseplate With Mini Taper Adapter Porous Plasma Uncemented Implanted:Qty: 1 on 01/15/2022 by Nav Carr MD at [facility] Right: Shoulder [employer]ECK INC [id number] 12/13/2026 [id number] / / [id number] Primary Shoulder Stem Implanted:Qty: 1 on 01/15/2022 by Nav Carr MD at [facility] Right: Shoulder [employer] INC [id number] 05/19/2031 [id number] / / [id number] Poly Bearing Implanted:Qty: 1 on 01/15/2022 by Nav Carr MD at [facility] Right: Shoulder [employer] [id number] 03/14/2026 [id number] / / [id number] Explanted Type Area Ecotherapist Device Identifier Shelf Expiration Date Model / Serial / Lot Peripheral Screw Drill Bit Explanted:Qty: 1 on 01/15/2022 by Nav Carr MD at [facility] Right: Shoulder [employer] [id number] 12/18/2031 [id number] / / [id number] Augmented Reamer Guide Bushing Explanted:Qty: 1 on 01/15/2022 by Nav Carr MD at [facility] Right: Shoulder [employer] [id number] 09/20/2029 [id number] / / [id number] Threaded Tip Steinmann Pin Explanted:Qty: 1 on 01/15/2022 by Nav Carr MD at [facility] Right: Shoulder [employer] [id number] 11/20/2031 [id number] / / [id number] Augmented Reamer Guide Screw Explanted:Qty: 1 on 01/15/2022 by Nav Carr MD at [facility] Right: Shoulder [employer] INC [id number] 12/09/2031 [id number] / / [id number] Augmented Drill With Stop Explanted:Qty: 1 on 01/15/2022 by Nav Carr MD at [facility] Right: Shoulder [employer] [id number] 08/08/2031 [id number] / / [id number] Procedures Procedure Name Priority Date/Time Associated Diagnosis Comments LIPID PANEL Routine 12/28/2018 from Last 3 Months or Most Recently Relevant to Health Maintenance Results * LIPID PANEL (12/28/2018) CHOLESTEROL 201 HDL 49 TRIGLYCERIDES 124 CHOL/HDL RATIO 4.1 LDL (CALCULATED) 127 12/28/2018 us Doc [facility] Final Result from Last 3 Months or Most Recently Relevant to Health Maintenance Insurance MEDICARE [place] [id number] MEDICARE Member Subscriber Plan / Payer (Ef fective 2016-Present) Name:Ernie Rueda Sr. Relation to Subscriber:Self Name:Ernie Rueda Sr. Payer ID:Not on file Group ID:Not on file Type:Indemnity Address: ATTN CLAIMS [address] [place] [phone] Advance Directives * Full Code (Latest Code Status on File) Date Activated Date Inactivated Comments 02/24/2023 2:30 PM 02/24/2023 5:47 PM * Full Code Date Activated Date Inactivated Comments 02/24/2023 1:36 PM 02/24/2023 2:30 PM * Full Code Date Activated Date Inactivated Comments 07/01/2019 5:07 PM 07/01/2019 7:49 PM Care Teams Booth Usher Relationship Specialty Start Date End Date Mir Cunningham DO [address] [place] [address] PCP - General FAMILY PRACTICE 12/17/21 Nav Carr MD [address] [place] [id number] ORTHOPAEDIC SURGERY 12/17/21 Karol Gamino MD [address] [place] [address] Consulting Physician CARDIOVASCULAR DISEASE 03/16/24
--- OUTSIDE RECORDS SUMMARY | 2025-03-24 12:28 | XMS_ITS | Clinical Summary ---
Author Organization [facility] Medical Office Building B Address [address] [place] [address] Care Team Providers Care Mail Handler Name Role Phone Unknown, Notinfile Primary Care [...] Description 02/09/2025 11:30 AM CDT Office Visit [facility] Medical [facility] Orthopedics and Sports Medicine [address] [place] [address] [place] [phone] Hardik Brantley MD Trochanteric bursitis, right hip (Primary Dx); Right leg pain; It band syndrome, right 02/09/2025 7:49 AM CDT - 02/09/2025 11:59 PM CDT Hospital Encounter [facility] Orthopedics and Sports Medicine [address] [place] [address] [place] [phone] Discharge Disposition: Discharge to home or self care 02/09/2025 7:49 AM CDT - 02/09/2025 11:59 PM CDT Hospital Encounter [facility] Orthopedics and Sports Medicine [address] [place] [address] [place] [phone] Discharge Disposition: Discharge to home or self [...] on file Legal Sex Male 10:37 PM ADDICTION NURSE Gender Identity Not on file Sexual Orientation Not on file Obstetrics History Last Filed Vital Signs Vital Sign Reading Time Taken Comments Blood Pressure 124/79 02/09/2025 11:21 AM CDT Pulse 85 02/09/2025 11:21 AM CDT Temperature 36.1 C (97 F) 10/24/2024 10:15 AM ADDICTION NURSE Respiratory Rate 12 10/24/2024 11:29 AM ADDICTION NURSE Oxygen Saturation 98% 10/24/2024 11:28 AM ADDICTION NURSE Inhaled Oxygen Concentration - - Weight 93.4 [...] 10/24/2025 10/24/2024 Medical Devices Implanted Type Area Magnetic Prospecting Supervisor Device Identifier Shelf Expiration Date Model / Serial / Lot Depuy Orthopaedics Inc [id number] [place] 60mm Sector Hip Shell Acetabular Gription Sterile Latex Free - [id number] Implanted:Qty: 1 on 07/18/2019 by Hardik Brantley MD at [facility] Right: Hip Depuy Orthopaed[employer] Inc 05/29/2029 [id number] / / [id number] Depuy Orthopaedics Inc [id number] Actis Collar Hip 4 High Offset Stem Femoral - [id number] Implanted:Qty: 1 on 07/18/2019 by Hardik Brantley MD at [facility] Right: Hip Depuy Orthopaed[employer] Inc 05/29/2029 [id number] / / [id number] Depuy Orthopaed[employer] Inc [id number] Articul/Ronnie 36mm Cementless Hip +1.5mm 12/14 Taper Head Femoral Latex Free - [id number] Implanted:Qty: 1 on 07/18/2019 by Hardik Brantley MD at [facility] Right: Hip Depuy Orthopaed[employer] Inc 05/29/2024 [id number] / / [id number] Depuy Orthopaedics Inc [id number] [place] 60mm 36mm Hip Neutral Liner Acetabular Altrx Sterile Latex Free - [id number] Implanted:Qty: 1 on 07/18/2019 by Hardik Brantley MD at [facility] Right: Hip Depuy Orthopaed[employer] Inc [id number] 05/29/2024 [id number] / / [id number] Procedures Procedure Name Priority Date/Time Associated Diagnosis Comments [place] ARTHROCENTESIS ASPIR&/INJ MAJOR JT/BURSA W/O US Routine 02/09/2025 11:30 AM CDT Trochanteric bursitis, right hip XR PELVIS 1 OR 2 VIEWS Schedule Routine, Read Routine (OP Routine) 02/09/2025 11:21 AM CDT Right leg pain XR KNEE RIGHT 3 VIEWS Schedule Routine, Read Routine (OP Routine) 02/09/2025 11:21 AM CDT Right leg pain from Last 3 Months Results * [place] ARTHROCENTESIS ASPIR&/INJ MAJOR JT/BURSA W/O US (02/09/2025 [...] Result from Last 3 Months Insurance MEDICARE [facility] INSURANCE MEDICARE [employer] [place] [id number] MEDICARE [place] [employer] [place] [id number] Advance Directives For more information, please contact: [phone] * Full Code (Latest Code Status on File) Date Activated Date Inactivated Comments 10/24/2024 10:23 AM 10/24/2024 4:01 PM * Full Code Date Activated Date Inactivated Comments 09/07/2023 10:26 AM 09/07/2023 4:56 PM * Full Code Date Activated Date Inactivated Comments 07/18/2019 4:59 PM 07/19/2019 11:38 PM Care Teams Mail Handler Relationship Specialty Start Date End Date Unknown, Notinfile PCP - General 10/14/24
[2025-03-24 12:48] LABS: Basophils Absolute Auto 0.05 K/mm3 (0.00-0.10); Basophils Percent Auto 0.7 % (0.0-1.0); Eosinophils Absolute Auto 0.36 K/mm3 (0.02-0.50); Eosinophils Percent Auto 5.4 % (1.0-6.0); Hematocrit 44.1 % (37.0-46.0); Hemoglobin 14.4 g/dL (12.4-15.3); Immature Granulocyte Absolute 0.03 K/mm3 (0.00-0.00); Immature Granulocyte Percent A 0.4 % (0.0-0.0); Lymphocytes Absolute Auto 2.31 K/mm3 (1.10-4.50); Lymphocytes Percent Auto 34.6 % (18.0-42.0); Mean Corpuscular HGB Conc 32.7 g/dL (32-36); Mean Corpuscular Volume 94.8 fL (78.0-102.0); Mean Platelet Volume 10.3 fl (8.7-11.0); Monocytes Absolute Auto 0.46 K/mm3 (0.10-0.90); Monocytes Percent Auto 6.9 % (2.0-11.0); Neutrophils Absolute Auto 3.46 K/mm3 (1.70-7.20); Platelet Count Result 200 K/mm3 (150-420); Red Blood Count 4.65 M/mm3 (4.70-6.10); Red Cell Distribution Width 13.1 % (11.6-14.4); White Blood Count 6.7 K/mm3 (4.8-10.8)
[2025-03-24 14:01] LABS: Alanine Aminotransferase 20 U/L (16-63); Albumin Level 3.5 g/dL (3.4-5.0); Alkaline Phosphatase 92 U/L (46-116); Anion Gap 8 mmol/L (4-12); Aspartate Amino Transferase 13 U/L (15-37); Bilirubin,Total 0.7 mg/dL (0.00-1.00); Blood Urea Nitrogen 18 mg/dL (7-18); Calcium 8.8 mg/dL (8.5-10.1); Carbon Dioxide 31 mmol/L (21-32); Chloride 104 mmol/L (98-108); Estimated Glomerular Filt Rate > 60; Ferritin 136 ng/mL (26-388); Glucose 89 mg/dL (70-99); Iron 90 ug/dL (65-175); Osmolality Calculated 296 mOsm/kg (285-295); Percent Iron Saturation 37 % (12-57); Potassium 4.7 mmol/L (3.5-5.1); Sodium 143 mmol/L (136-145); Total Protein 6.6 g/dL (6.4-8.2)
== END 2025-03-24 12:24 | disposition home or self-care (01) ==
LOC: CHSLAB 12:24
PROVIDERS: PCP Family Medicine; Visit Provider Family Medicine
DX: D62 Acute posthemorrhagic anemia (principal); I48.91 Unspecified atrial fibrillation; D50.9 Iron deficiency anemia, unspecified
CPT/HCPCS: 36415; 80053; 82728; 83540; 83550; 85025

== ENCOUNTER 2025-03-30 02:27 | Day surgery (SDC) | payer MEDICARE, SELFPAY ==
[2025-02-27 15:41] VITALS: BMI 28.5
--- NOTE | 2025-02-27 16:24 | PC.NURSE ---
Report to the Outpatient Waiting Room, entrance under the green pavilion located off [facility], at time ___7:15AM____ on date ___03/09/25____. Planned Procedure Time: ____9:15AM____.? Time changes happen often and if your time is changed the preop area will call you the afternoon before. - You and your visitor will be asked to self-screen and do not enter if you have any COVID symptoms. Please call surgeon if you need to reschedule. - A mask is optional within the hospital at this time. Patients may have clear liquids (water, carbonated beverages, clear teas, apple juice) until 3 hours prior to surgery (6:15AM) with a maximum of 20 ounces. - No food from midnight until time of surgery and no smoking, or chewing tobacco (or any form of nicotine). No chewing gum, candy or mints. Take only the following medications with a SIP of water on the morning of surgery: ____CARVEDILOL, ISOSORBIDE DO NOT STOP ANY OF YOUR OTHER PRESCRIPTION MEDICATIONS PRIOR TO SURGERY EXCEPT THE FOLLOWING Hold all vitamins and supplements for 3 days per anesthesiologist. Medications to discontinue per physician __HOLD ELIQUIS 2 DAYS PRE-OP PER DR ARCEO- LAST DOSE 03/06/25. HOLD ASPIRIN 7 DAYS PRE-OP PER DR ARCEO- LAST DOSE 03/01/25. Please no make-up, nail divehi, hairspray, perfume, deodorant, or body powder the day of surgery.? No jewelry (including any body piercings) or valuables the day of surgery, leave them at home.? Please take a shower or bath the night before, or the morning of, surgery with an antibacterial soap.? Wear comfortable, loose fitting clothing.? Children are encouraged to wear pajamas. - Jewelry must be removed prior to entering the operating room.? Rings and piercings that are not removed may be cut off. - The hospital will not accept responsibility for valuables.? - Please leave all valuables, including medications, at home the day of surgery. If you are going home after surgery, a licensed truck driver salesperson must drive you home.? - NO public transportation without another adult if you receive anesthesia. - We recommend that an adult stay with you for 24 hours following discharge. - We also recommend that you do not drive, make important decision, drink alcoholic beverages, or take any drugs that were not prescribed by your health care provider for at least 24 hours after your discharge time. For Pediatric surgeries, we recommend two adults accompany the child home. Follow any additional instructions given to you from your surgeon. Telephone instructions given to _PATIENT & WIFE and asked if any additional questions and then verbalized understanding. Patient advised to call surgeon office or pre surgery nurse liaison [phone] if any additional questions.
--- NOTE | 2025-03-16 12:43 | PC.NURSE ---
Report to the Outpatient Waiting Room, entrance under the green pavilion located off [facility], at time ___7:00AM____ on date ___03/30/25____. Planned Procedure Time: __9:00AM .? Time changes happen often and if your time is changed the preop area will call you the afternoon before. - You and your visitor will be asked to self-screen and do not enter if you have any COVID symptoms. Please call surgeon if you need to reschedule. - A mask is optional within the hospital at this time. Patients may have clear liquids (water, carbonated beverages, clear teas, apple juice) until 3 hours prior to surgery (6:00AM) with a maximum of 20 ounces. - No food from midnight until time of surgery and no smoking, or chewing tobacco (or any form of nicotine). No chewing gum, candy or mints. Take only the following medications with a SIP of water on the morning of surgery: __CARVEDILOL, ISOSORBIDE DO NOT STOP ANY OF YOUR OTHER PRESCRIPTION MEDICATIONS PRIOR TO SURGERY EXCEPT THE FOLLOWING Hold all vitamins and supplements for 3 days per anesthesiologist. Medications to discontinue per physician/DR ARCEO: ____HOLD ELIQUIS 2 DAYS PRE-OP -LAST DOSE 03/27/25. HOLD ASPIRIN 7 DAYS PRE-OP- LAST DOSE 03/22/25._ Please no make-up, nail burkinan, hairspray, perfume, deodorant, or body powder the day of surgery.? No jewelry (including any body piercings) or valuables the day of surgery, leave them at home.? Please take a shower or bath the night before, or the morning of, surgery with an antibacterial soap.? Wear comfortable, loose fitting clothing.? - Jewelry must be removed prior to entering the operating room.? Rings and piercings that are not removed may be cut off. - The hospital will not accept responsibility for valuables.? - Please leave all valuables, including medications, at home the day of surgery. If you are going home after surgery, a licensed racing car driver must drive you home.? - NO public transportation without another adult if you receive anesthesia. - We recommend that an adult stay with you for 24 hours following discharge. - We also recommend that you do not drive, make important decision, drink alcoholic beverages, or take any drugs that were not prescribed by your health care provider for at least 24 hours after your discharge time. Follow any additional instructions given to you from your surgeon. Telephone instructions given to __PATIENT & WIFE and asked if any additional questions and then verbalized understanding. Patient advised to call surgeon office or pre surgery nurse liaison [phone] if any additional questions.
--- NOTE | 2025-03-20 15:08 | PM.HPGS ---
History of Present Illness History of Present Illness Consent: Risks, benefits, and alternatives have been discussed and questions answered. Patient agrees to proceed with procedure. Chief complaint: right ureteral and renal stones Narrative: Ernie Rueda Sr. is a 79 year old male who is status post right ESWL in April 2023. He was noncompliant with follow-up after that procedure. I recently saw him with intermittent right flank pain. CT imaging demonstrates a 6-7 mm right distal ureteral stone and an 8 mm right renal stone. He has had no fevers chills or gross hematuria. He is anticoagulated with Eliquis but has been able to stop that and passed. Review of Systems Review of Systems: All systems reviewed & are unremarkable except as noted in HPI and below PMFSH Past Medical History Medical History (Updated 03/20/25 @ 15:11 by Miller Pal MD) Ureterolithiasis Duodenal nodule Occult blood positive stool Paroxysmal atrial fibrillation Chronic anticoagulation Anxiety Renal stones Polio Osteoarthritis of knee Degenerative arthritis of lumbar spine Hyperlipidemia Hypertension Coronary artery disease Low back pain A-fib Surgical History Surgical History History of incisional hernia repair Diagnostic laparoscopy, laparoscopic adhesiolysis with release of small bowel obstruction, LAP LLQ 2 cm incisional hernia repair on 06/17/23 History of bilateral knee arthroplasty History of incisional hernia repair History of cholecystectomy History of cataract removal with insertion of prosthetic lens History of inguinal hernia repair History of umbilical hernia repair History of right shoulder replacement History of right hip replacement History of back surgery Lumbar spine: x's 2 History of heart artery stent x's 4 History of appendectomy Family History Family History Father Family history of coronary artery disease Brother Hypertension Family history of type 2 diabetes mellitus Family history of coronary artery disease Sister Family history of type 2 diabetes mellitus Family history of coronary artery disease Hypertension Social History Social History Social History: Surrogate medical decision maker: Deb Rueda, spouse. Code status: Full code. Smoking packs per day: 1 Smoking cigarettes per day: 20.0 Years smoked: 35 Smoking pack-years: 35.00 Smoking status: Former smoker Tobacco type: cigarettes Smoking end date: 11/30/94 Alcohol intake: current Substance use: never Substance use type: does not use Lack of Transportation: No Lack of Food: Never True Current Housing: I Have Housing Concerned About Future Housing: No Difficulty Paying Gas/Electric Bills: No Difficulty Paying for Meds: No Currently Unemployed: No Education: High School Diploma/GED Difficulty w/ Childcare or Family Care: No Living arrangements: with family Additional living arrangements comments: Occupation/Education: retired 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 Spiritual care concerns: No Meds Home Medications and Allergies Home Medications ?Medication ?Instructions ?Recorded ?Confirmed ?Type carvedilol 3.125 mg tablet (Coreg) 3.125 mg PO Q12H 06/10/22 02/27/25 History docusate calcium 240 mg capsule 240 mg PO QHS 06/10/22 02/27/25 History furosemide 20 mg tablet 20 mg PO QAM 04/15/23 02/27/25 History Tylenol PM 500 mg PO HS PRN Sleep 04/17/23 03/16/25 History aspirin 81 mg tablet,delayed 81 mg PO DAILY 04/22/23 02/27/25 History release tramadol 50 mg tablet 50 - 100 mg (1 - 2 x 50 mg) PO Q6H 06/12/23 02/27/25 Rx PRN pain #40 tabs nitroglycerin 0.4 mg sublingual 0.4 mg sublingual PRN PRN Chest 08/15/24 02/27/25 Rx tablet Pain #30 tabs ramipril 2.5 mg capsule See Rx Instructions .Route 11/16/24 02/27/25 Rx .COMPLEX #90 caps apixaban 5 mg tablet (Eliquis) See Rx Instructions .Route 01/17/25 02/27/25 Rx .COMPLEX #180 tabs ezetimibe 10 mg tablet See Rx Instructions .Route 01/17/25 02/27/25 Rx .COMPLEX #90 tabs pantoprazole 40 mg tablet,delayed See Rx Instructions .Route 01/17/25 02/27/25 Rx release .COMPLEX #90 tabs alprazolam 0.5 mg tablet 0.5 mg PO HS PRN anxiety 02/27/25 02/27/25 History diphenhydramine 25 1 tablet PO HS PRN sleep 02/27/25 02/27/25 History mg-acetaminophen 500 mg tablet (Pain Relief PM Rapid Release) isosorbide mononitrate 30 mg See Rx Instructions .Route 02/28/25 03/16/25 Rx tablet,extended release 24 hr .COMPLEX #90 tabs diphenhydramine 25 1 tablet PO HS PRN sleep 03/16/25 03/16/25 History mg-acetaminophen 500 mg tablet (Pain Relief PM) Allergies Allergy/AdvReac Type Severity Reaction Status Date / Time meperidine (Demerol) Allergy Severe Hives, Verified 03/16/25 12:41 MILD DYSPNEA Latex, Natural Rubber Allergy Intermediate Blister Verified 03/16/25 12:41 metoprolol AdvReac Severe Other Verified 03/16/25 12:41 atorvastatin (Lipitor) AdvReac Intermediate Muscle Pain Verified 03/16/25 12:41 heparin AdvReac Intermediate Unknown Verified 03/16/25 12:41 hydrocodone (From [place]) AdvReac Intermediate Nausea Verified 03/16/25 12:41 hydromorphone (From Dilaudid) AdvReac Intermediate Nausea and Verified 03/16/25 12:41 Vomiting morphine AdvReac Intermediate Vomiting Verified 03/16/25 12:41 pravastatin AdvReac Intermediate Muscle Pain Verified 03/16/25 12:41 prochlorperazine AdvReac Intermediate REDNESS AT Verified 03/16/25 12:41 PATCH SITE rosuvastatin (Crestor) AdvReac Intermediate Muscle Pain Verified 03/16/25 12:41 simvastatin AdvReac Intermediate Muscle Verified 03/16/25 12:41 Spasms Exam Const: General: no acute distress Resp: Effort & Inspection: normal respiratory effort GI: Inspection: non-distended GI Palp: No abdominal tenderness and No Guarding due to palpation present (GI) Auscultation: normal bowel sounds Assessment and Plan Assessment and plan (1) Right renal stone: Code(s): N20.0 - Calculus of kidney Status: Acute (2) Right ureteral stone: Code(s): N20.1 - Calculus of ureter Status: Acute Assessment and Plan: Cystoscopy, right ureteroscopy with stone extraction, possible laser lithotripsy, retrograde pyelography and stent placement
--- NOTE | 2025-03-29 14:38 | P.PNAN_ITS ---
Anes - Initial Pre Proc Eval Procedure: Operation Date: 03/30/25 09:00 Proposed Procedures p Cystoscopy, Right Ureteroscopy, Possible Right Retrograde Pyelogram, Possible Right Stone Extraction, Possible Right Stent Placement, Possible Holmium Laser Procedure - Miller Pal MD Date/Time: 03/29/25 14:38 Surgeon: Miller Pal MD Pre Op Diagnosis: right ureteral and renal stones Patient Data Age: 79 Gender: M Height: 1.8 m Weight: 93 kg Allergies Allergy/AdvReac Type Severity Reaction Status Date / Time meperidine (Demerol) Allergy Severe Hives, Verified 03/24/25 12:05 MILD DYSPNEA Latex, Natural Rubber Allergy Intermediate Blister Verified 03/24/25 12:05 metoprolol AdvReac Severe Other Verified 03/24/25 12:05 atorvastatin (Lipitor) AdvReac Intermediate Muscle Pain Verified 03/24/25 12:05 heparin AdvReac Intermediate Unknown Verified 03/24/25 12:05 hydrocodone (From [place]) AdvReac Intermediate Nausea Verified 03/24/25 12:05 hydromorphone (From Dilaudid) AdvReac Intermediate Nausea and Verified 03/24/25 12:05 Vomiting morphine AdvReac Intermediate Vomiting Verified 03/24/25 12:05 pravastatin AdvReac Intermediate Muscle Pain Verified 03/24/25 12:05 prochlorperazine AdvReac Intermediate REDNESS AT Verified 03/24/25 12:05 PATCH SITE rosuvastatin (Crestor) AdvReac Intermediate Muscle Pain Verified 03/24/25 12:05 simvastatin AdvReac Intermediate Muscle Verified 03/24/25 12:05 Spasms Home Medications ?Medication ?Instructions ?Recorded ?Confirmed ?Type docusate calcium 240 mg capsule 240 mg PO QHS 06/10/22 03/24/25 History furosemide 20 mg tablet 20 mg PO QAM 04/15/23 03/24/25 History Tylenol PM 500 mg PO HS PRN Sleep 04/17/23 03/24/25 History aspirin 81 mg tablet,delayed 81 mg PO DAILY 04/22/23 03/24/25 History release tramadol 50 mg tablet 50 - 100 mg (1 - 2 x 50 mg) PO Q6H 06/12/23 03/24/25 Rx PRN pain #40 tabs nitroglycerin 0.4 mg sublingual 0.4 mg sublingual PRN PRN Chest 08/15/24 03/24/25 Rx tablet Pain #30 tabs apixaban 5 mg tablet (Eliquis) See Rx Instructions .Route 01/17/25 03/24/25 Rx .COMPLEX #180 tabs ezetimibe 10 mg tablet See Rx Instructions .Route 01/17/25 03/24/25 Rx .COMPLEX #90 tabs pantoprazole 40 mg tablet,delayed See Rx Instructions .Route 01/17/25 03/24/25 Rx release .COMPLEX #90 tabs diphenhydramine 25 1 tablet PO HS PRN sleep 02/27/25 03/24/25 History mg-acetaminophen 500 mg tablet (Pain Relief PM Rapid Release) isosorbide mononitrate 30 mg See Rx Instructions .Route 02/28/25 03/24/25 Rx tablet,extended release 24 hr .COMPLEX #90 tabs diphenhydramine 25 1 tablet PO HS PRN sleep 03/16/25 03/24/25 History mg-acetaminophen 500 mg tablet (Pain Relief PM) alprazolam 0.5 mg tablet 0.5 mg PO HS PRN anxiety #30 tabs 03/21/25 03/24/25 Rx Patient hx anesthesia problems: none Family hx anesthesia problems: none Results Review: All pre-operative results and documents have been reviewed as part of the pre- operative evaluation. [facility] Past Medical History Medical History Ureterolithiasis Duodenal nodule Occult blood positive stool Paroxysmal atrial fibrillation Chronic anticoagulation Anxiety Renal stones Polio Osteoarthritis of knee Degenerative arthritis of lumbar spine Hyperlipidemia Hypertension Coronary artery disease Low back pain A-fib Surgical History Surgical History History of incisional hernia repair Diagnostic laparoscopy, laparoscopic adhesiolysis with release of small bowel obstruction, LAP LLQ 2 cm incisional hernia repair on 06/17/23 History of bilateral knee arthroplasty History of incisional hernia repair History of cholecystectomy History of cataract removal with insertion of prosthetic lens History of inguinal hernia repair History of umbilical hernia repair History of right shoulder replacement History of right hip replacement History of back surgery Lumbar spine: x's 2 History of heart artery stent x's 4 History of appendectomy Family History Family History Father Family history of coronary artery disease Brother Hypertension Family history of type 2 diabetes mellitus Family history of coronary artery disease Sister Family history of type 2 diabetes mellitus Family history of coronary artery disease Hypertension Social History Social History Social History: Surrogate medical decision maker: Deb Rueda, spouse. Code status: Full code. Smoking packs per day: 1 Smoking cigarettes per day: 20.0 Years smoked: 35 Smoking pack-years: 35.00 Smoking status: Former smoker Tobacco type: cigarettes Smoking end date: 11/30/94 Alcohol intake: current Substance use: never Substance use type: does not use Lack of Transportation: No Lack of Food: Never True Current Housing: I Have Housing Concerned About Future Housing: No Difficulty Paying Gas/Electric Bills: No Difficulty Paying for Meds: No Currently Unemployed: No Education: High School Diploma/GED Difficulty w/ Childcare or Family Care: No Living arrangements: with family Additional living arrangements comments: Occupation/Education: retired 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 Informed Consent: The patient's anesthetic plan and its attendant risks and benefits were discussed with the patient/family/POA. Questions were solicited and answers provided to the satisfaction of the patient/family/POA.
[2025-03-30] VITALS (10 sets, daily range): BP systolic 100–123; BP diastolic 69–82; PULSE 65–94; RESP 12–21; TEMP 36.2–36.4; O2SAT 94–100
--- NOTE | ~2025-03-30 | XR_ITS ---
EXAMINATION: XR fluoroscopy no charge DATE: 03/30/2025 08:46 INDICATION: Bladder stone extraction TECHNIQUE: 4 fluoroscopic images of the pelvis were obtained during procedure performed by Dr. Pal . Radiologist was not present for the imaging or procedure. The amount of fluoroscopy time used durin g this procedure was 0.1 minutes. Total DAP was 0.141 mGym^2. COMPARISON: None. FINDINGS: Images demonstrate cannulation of the right ureter. Partially visualized right total hip arthroplasty . L4-S1 instrumented posterior spinal fusion with bilateral vertical connor and pedicle screw fixation. IMPRESSION: 1. Fluoroscopy utilized during reported bladder stone extraction. See procedure note for further deta il. Reviewed, dictated and finalized at location B. IMPRESSION: 1. Fluoroscopy utilized during reported bladder stone extraction. See procedure note for further detail.
--- NOTE | 2025-03-30 06:29 | WPDHPUPDATE1 ---
History and Physical Update Update Date/Time: 03/30/25 06:29 History and Physical has been reviewed, including an updated exam of the patient. There are NO changes in the patient's condition. Risks, benefits, and alternatives have been discussed and questions answered. Patient agrees to proceed with procedure.
[2025-03-30] MEDS: LACTATED RINGERS 1,000 ML 30 ML IV CONT (07:30)
[2025-03-30] MEDS: ceFAZolin 2 GM/D5W 50 ML 2 GM/50 ML BAG IVPB (08:12)
[2025-03-30] MEDS: LIDOCAINE 2% GEL UROJET 10 ML PKG MUCOUS MEM (08:31)
--- NOTE | 2025-03-30 08:48 | W.PM.PROC2 ---
Procedure Note - Detailed Date of Procedure 03/30/25 Pre-op Diagnosis Right ureteral Post-op Diagnosis Same Procedure Performed Cystoscopy, right ureteroscopy with stone extraction Surgeon Miller Pal MD Anesthesia General Description of Procedure Patient is to the operative suite was routine sterile fashion dorsal lithotomy position after the uneventful induction of a general LMA anesthetic. Cystoscopy was undertaken with a 21 F rigid cystoscope. There was no urethral stricture. There was moderate lateral lobe hyperplasia with a small median lobe of the prostate. Prostatic urethra was estimated at 2.5 cm. Bladder mucosa is normal. Inside 6 mm stone bladder which I suspect has just recently passed from his right distal ureter. There was some hyperemia of the right ureteral orifice. A 0.035 in glidewire was advanced into the right ureter and the distal ureter was dilated with an 8 F 10 F dilator. Ureteroscopy was undertaken with a semi-rigid ureteral scope. There were no additional ureteral stones identified in and nurse no other mucosal defects or abnormal findings. Using a 1.9 F disposable stone basket the stone in his bladder is extracted with ease. Patient tolerated this procedure well was taken recovery good condition.
[2025-03-30] MEDS: fentaNYL CITRATE INJ (*CRX) 100 MCG/2 ML VIAL 25 MCG IV PUSH ×4 (09:36→10:03)
== END 2025-03-30 10:55 | disposition home or self-care (01) ==
PROVIDERS: PCP Family Medicine; Visit Provider Urology
PROC: (CPT 52352; principal; 2025-03-30 09:00)
DX: N20.1 Calculus of ureter (principal); Z87.891 Personal history of nicotine dependence
CPT/HCPCS: 52352; 82365; 88300; 99199; C1769; J0690; J2003; J2405; J2704; J3010; J7120; Q9966

== ENCOUNTER 2025-07-14 08:52 | Outpatient (CLI) | payer MEDICARE, SELFPAY ==
--- NOTE | ~2025-07-14 | US_ITS ---
US renal BI 07/14/2025 09:13 Procedure: Realtime transabdominal ultrasound of the kidneys and bladder. Indication: Renal stones Comparison: CT dated 02/22/2025 Findings: Renal echotexture is normal bilaterally without hydronephrosis, contour deforming mass or r enal calculus. There are stones in the lower pole of the right kidney measuring up to 1.6 cm. There i s a right renal cyst measuring 3.3 cm. The right kidney measures 10.5 cm and left kidney measures 11. 5 cm. Bladder within normal limits. Mildly enlarged prostate gland. There is bladder wall thickening measuring 4.7 mm, likely hypertrophy secondary to outlet obstruction. Impression: 1: Enlarged prostate gland with bladder wall thickening, likely secondary to outlet obstruction. 2: Nonobstructing right nephrolithiasis. 3: Right renal cyst measuring 3.3 cm. Reviewed, dictated and finalized at location A. Impression: 1: Enlarged prostate gland with bladder wall thickening, likely secondary to ou tlet obstruction. 2: Nonobstructing right nephrolithiasis. 3: Right renal cyst measuring 3.3 cm.
--- OUTSIDE RECORDS SUMMARY | 2025-07-14 08:58 | XMS_ITS | Clinical Summary ---
Author Organization [facility] Medical Office Building B Address [address] [place] [address] Care Team Providers Care Game Farm Supervisor Name Role Phone Unknown, Notinfile Primary Care [...] Primary osteoarthritis of right hip 02/02/2019 07/29/2019 Surgical History Surgery Date Site/Laterality Comments BACK [...] on file Legal Sex Male 10:37 PM MULTIGRAPHER Gender Identity Not on file Sexual Orientation Not on file Obstetrics History Last Filed Vital Signs Vital Sign Reading Time Taken Comments Blood Pressure 124/79 02/09/2025 11:21 AM CDT Pulse 85 02/09/2025 11:21 AM CDT Temperature 36.1 C (97 F) 10/24/2024 10:15 AM MULTIGRAPHER Respiratory Rate 12 10/24/2024 11:29 AM MULTIGRAPHER Oxygen Saturation 98% 10/24/2024 11:28 AM MULTIGRAPHER Inhaled Oxygen Concentration - - Weight 93.4 kg (206 lb) 02/09/2025 11:21 AM CDT Height 180.3 cm (5' 11) 02/09/2025 11:21 AM CDT Body Mass Index 28.73 02/09/2025 11:21 AM CDT Plan of Treatment Health Maintenance Due Date Last Done Comments Depression Screening 1944 DTaP/Tdap/Td Vaccine (1 - Tdap) 1955 Hepatitis B Screening 1962 Pneumococcal vaccine 65+ (1 of 1 - PCV) 1994 Zoster Vaccine (1 of 2) 1994 Abdominal Aortic Aneurysm (AAA) Screen 2009 Well Visit 65+ 2009 Influenza Vaccine (#1) 2025 Fall Risk Assessment 10/24/2025 10/24/2024 Medical Devices Implanted Type Area Psychiatric Social Worker Device Identifier Shelf Expiration Date Model / Serial / Lot Depuy Orthopaedics Inc [id number] [place] 60mm Sector Hip Shell Acetabular Gription Sterile Latex Free - [id number] Implanted:Qty: 1 on 07/18/2019 by Hardik Bratnley MD at [facility] Right: Hip Depuy Orthopaed[employer] Inc 05/29/2029 [id number] / / [id number] Depuy Orthopaed[employer] Inc [id number] Actis Collar Hip 4 High Offset Stem Femoral - [id number] Implanted:Qty: 1 on 07/18/2019 by Hardik Brantley MD at [facility] Right: Hip Depuy [employer] Inc 05/29/2029 [id number] / / [id number] Depuy Orthopaed[employer] Inc [id number] Articul/Ronnie 36mm Cementless Hip +1.5mm 12/14 Taper Head Femoral Latex Free - [id number] Implanted:Qty: 1 on 07/18/2019 by Hardik Brantley MD at [facility] Right: Hip Depuy Orthopaed[employer] Inc 05/29/2024 [id number] / / [id number] Depuy Orthopaedics Inc [id number] [place] 60mm 36mm Hip Neutral Liner Acetabular Altrx Sterile Latex Free - [id number] Implanted:Qty: 1 on 07/18/2019 by Hardik Brantley MD at [facility] Right: Hip Depuy Orthopaed[employer] Inc [id number] 05/29/2024 [id number] / / [id number] Insurance MEDICARE [facility] INSURANCE MEDICARE [facility] INSURANCE MEDICARE [facility] INSURANCE Advance Directives For more information, please contact: [phone] * Full Code (Latest Code Status on File) Date Activated Date Inactivated Comments 10/24/2024 10:23 AM 10/24/2024 4:01 PM * Full Code Date Activated Date Inactivated Comments 09/07/2023 10:26 AM 09/07/2023 4:56 PM * Full Code Date Activated Date Inactivated Comments 07/18/2019 4:59 PM 07/19/2019 11:38 PM Care Teams Game Farm Supervisor Relationship Specialty Start Date End Date Unknown, Notinfile PCP - General 10/14/24
== END 2025-07-14 08:53 | disposition home or self-care (01) ==
LOC: CHSIMG 08:54
PROVIDERS: PCP Family Medicine; Visit Provider Urology
DX: N20.0 Calculus of kidney (principal); N40.0 Benign prostatic hyperplasia without lower urinary tract symptoms; N28.1 Cyst of kidney, acquired
CPT/HCPCS: 76775

== ENCOUNTER 2025-09-15 10:19 | Outpatient (CLI) | payer MEDICARE, SELFPAY ==
[2025-09-15 10:33] LABS: Hematocrit 44.0 % (37.0-46.0); Hemoglobin 14.5 g/dL (12.4-15.3); Mean Corpuscular HGB Conc 33.0 g/dL (32-36); Mean Corpuscular Hemoglobin 31.0 pg (27.0-31.0); Mean Corpuscular Volume 94.2 fL (78.0-102.0); Platelet Count Result 171 K/mm3 (150-420); Red Blood Count 4.67 M/mm3 (4.70-6.10); White Blood Count 7.1 K/mm3 (4.8-10.8)
[2025-09-15 10:44] LABS: Alanine Aminotransferase 14 U/L (6-50); Albumin Level 4.2 g/dL (3.5-5.1); Alkaline Phosphatase 65 U/L (38-126); Anion Gap 8 mmol/L (4-12); Aspartate Amino Transferase 25 U/L (17-59); Bilirubin,Total 0.8 mg/dL (0.2-1.3); Blood Urea Nitrogen 18 mg/dL (9-20); Calcium 9.6 mg/dL (8.4-10.2); Carbon Dioxide 29 mmol/L (22-30); Chloride 106 mmol/L (98-107); Estimated Glomerular Filt Rate > 60; Glucose 97 mg/dL (65-110); Osmolality Calculated 297 mOsm/kg (285-295); Potassium 4.5 mmol/L (3.4-5.0); Sodium 143 mmol/L (137-145); Total Protein 7.6 g/dL (6.3-8.2)
[2025-09-15 10:54] LABS: Band Neutrophils Percent 0 % (0-6); Basophils Absolute Manual 0.07 K/mm3 (0-0.1); Basophils Percent Manual 1 % (0-1); Eosinophils Absolute Manual 0.49 K/mm3 (0.02-0.50); Eosinophils Percent Manual 7 % (1-6); Lymphocytes Absolute Manual 2.84 K/mm3 (1.1-4.5); Lymphocytes Percent Manual 40 % (18-44); Monocytes Absolute Manual 0.42 K/mm3 (0.1-0.90); Monocytes Percent Manual 6 % (3-9); Neutrophils Absolute Manual 3.26 K/mm3 (1.3-6.7); Neutrophils Percent Manual 46 % (46-73); Total Cells Counted 100
--- OUTSIDE RECORDS SUMMARY | 2025-09-15 10:58 | XMS_ITS | Clinical Summary ---
Author Organization [facility] Address [address] [place] [address] Care Team Providers Care Special Services Director Name Role Phone Unknown, Notinfile Primary Care [...] on file Legal Sex Male 10:37 PM LITERACY CONSULTANT Gender Identity Not on file Sexual Orientation Not on file Obstetrics History Last Filed Vital Signs Vital Sign Reading Time Taken Comments Blood Pressure 124/79 02/09/2025 11:21 AM CDT Pulse 85 02/09/2025 11:21 AM CDT Temperature 36.1 C (97 F) 10/24/2024 10:15 AM LITERACY CONSULTANT Respiratory Rate 12 10/24/2024 11:29 AM LITERACY CONSULTANT Oxygen Saturation 98% 10/24/2024 11:28 AM LITERACY CONSULTANT Inhaled Oxygen Concentration - - Weight 93.4 [...] 10/24/2025 10/24/2024 Medical Devices Implanted Type Area Windows Desktop Support Device Identifier Shelf Expiration Date Model / Serial / Lot [employer] [id number] Mondamin 60mm Sector Hip Shell Acetabular Gription Sterile Latex Free - [id number] Implanted:Qty: 1 on 07/18/2019 by Hardik Brantley MD at [facility] Right: Hip [employer] 05/29/2029 [id number] / / [id number] [employer] [id number] Actis Collar Hip 4 High Offset Stem Femoral - [id number] Implanted:Qty: 1 on 07/18/2019 by Hardik Brantley MD at [facility] Right: Hip [employer] 05/29/2029 [id number] / / [id number] [employer] [id number] Articul/Ronnie 36mm Cementless Hip +1.5mm 12/14 Taper Head Femoral Latex Free - [id number] Implanted:Qty: 1 on 07/18/2019 by Hardik Brantley MD at [facility] Right: Hip [employer] 05/29/2024 [id number] / / [id number] [employer] [id number] Mondamin 60mm 36mm Hip Neutral Liner Acetabular Altrx Sterile Latex Free - [id number] Implanted:Qty: 1 on 07/18/2019 by Hardik Brantley MD at [facility] Right: Hip [employer] [id number] 05/29/2024 [id number] / / [id number] Insurance MEDICARE [facility] Address: [facility] [address] [place] [address] [facility] MEDICARE [facility] [employer] MEDICARE [facility] Advance Directives For more information, please contact: [phone] * Full Code (Latest Code Status on File) Date Activated Date Inactivated Comments 10/24/2024 10:23 AM 10/24/2024 4:01 PM * Full Code Date Activated Date Inactivated Comments 09/07/2023 10:26 AM 09/07/2023 4:56 PM * Full Code Date Activated Date Inactivated Comments 07/18/2019 4:59 PM 07/19/2019 11:38 PM Care Teams Special Services Director Relationship Specialty Start Date End Date Unknown, Notinfile PCP - General 10/14/24
--- OUTSIDE RECORDS SUMMARY | 2025-09-15 10:58 | XMS_ITS | Encounter Summary ---
Author Organization [facility] Address [address] [place] [address] Care Team Providers Care Carpet Yarn Winder Operator Name Role Phone ClementepageDeshawn MD Primary Care Provider [phone] Rene Carballo MD Unavailable [phone] Jitendra Ferris MD Primary Care Provider Mir Cunningham DO Primary Care Provider [phone] Jenna Marcelo APRN, NP-C Unavailable Nav Carr MD Unavailable [phone] Karol Gamino MD Unavailable Encounter Details Date Type Department Care Team (Late Contact Info) Description 06/27/2019 Abstract [facility] [address] [place] [address] Rene Carballo MD [address] [place] [address] Social History Tobacco Use Types [...] Care Team (Late st Contact Info) Description 06/04/2026 8:00 AM CDT Appointment [facility] Non Invasive Cardiology - [facility] [address] [place] [address] Karol Gamino MD [address] [place] [address] 06/04/2026 9:45 AM CDT Office Visit [facility] [address] [place] [address] Karol Gamino MD [address] [place] [address] documented as of this encounter Procedures Procedure [...] Coronary atherosclerosis of unspecified type of vessel, [place] or graft documented in this encounter Care Teams Carpet Yarn Winder Operator Relationship Specialty Start Date End Date Deshawn West MD [address] [place] [address] PCP - General FAMILY PRACTICE 06/14/19 02/12/20 Jitendra Ferris MD [address] [place] [address] PCP - General FAMILY PRACTICE 02/13/20 12/16/21 Mir Cunningham DO [address] [place] [address] PCP - General FAMILY PRACTICE 12/17/21 Rene Carballo MD [address] [place] [address] [employer] C[employer] Surveyor CARDIOVASCULAR DISEASE 06/14/19 03/15/24 Jenna Marcelo APRN, RADIOTELEGRAPH OPERATOR SERVICER-C [address] [facility] [address] [place] [address] NURSE PRACTITIONER 12/17/21 03/15/24 Nav Carr MD [address] [place] [address] [address] [place] [address] ORTHOPAEDIC SURGERY 12/17/21 Karol aGmino MD [address] [place] [address] Consulting Physician CARDIOVASCULAR DISEASE 03/16/24 documented as of this encounter
--- OUTSIDE RECORDS SUMMARY | 2025-09-15 10:58 | XMS_ITS | Encounter Summary ---
Author Organization [facility] Address [facility] [place] [address] Care Team Providers Care Credit Operations Processor Name Role Phone Rene Carballo MD Unavailable [phone] Mir Cunningham DO Primary Care Provider [phone] Jenna Marcelo APRN TUMBLER PLATER-C Unavailable Nav Carr MD Unavailable [phone] Karol Gamino MD Unavailable Encounter Details Date Type Department Care Team (Late st Contact Info) Description 02/19/2023 Hospital Orders Only [facility] Global Logistics Manager Pre/Post [address] [place] [address] Rene Carballo MD [address] [place] [address] Social History Tobacco Use Types [...] Assessment Author Status No 01/15/2022 5:58 AM MANAGER PROGRAM Activ e documented as of this encounter Plan of Treatment Upcoming Encounters Date Type Department Care Team (Late st Contact Info) Description 06/04/2026 8:00 AM CDT Appointment [facility] Non Invasive Cardiology - [facility] [address] [place] [address] Karol Gamino MD [address] [place] [address] 06/04/2026 9:45 AM CDT Office Visit [facility] [address] [place] [address] Karol Gamino MD [address] [place] [address] documented as of this encounter Visit Diagnoses Not on filedocumented in this encounter Care Teams Credit Operations Processor Relationship Specialty Start Date End Date Mir Cunningham DO [address] [place] [address] PCP - General FAMILY PRACTICE 12/17/21 Rene Carballo MD [address] [place] [phone] [place] [employer] CARDIOVASCULAR DISEASE 06/14/19 03/15/24 Jenna Marcelo APRN, TUMBLER PLATER-C [address] [facility] [address] [place] [phone] NURSE PRACTITIONER 12/17/21 03/15/24 Nav Carr MD [address] [facility] [address] [place] [id number] ORTHOPAEDIC SURGERY 12/17/21 Karol Gamino MD [address] [place] [address] Consulting Physician CARDIOVASCULAR DISEASE 03/16/24 documented as of this encounter
--- OUTSIDE RECORDS SUMMARY | 2025-09-15 10:58 | XMS_ITS | Clinical Summary ---
Author Organization [facility] Address [facility] [place] [address] Care Team Providers Care Duck Farmer Name Role Phone Mir Cunningham DO Primary Care Provider Nav Carr MD Unavailable [phone] Eugene Traylor MD Unavailable Allergies Active Allergy Reactions Criticality [...] days. 2.1 mL 11 06/20/20 24 Active furosemide (LASIX) 20 MG tablet Take 1 tablet by mouth once daily 90 tablet 2 11/16/20 24 Active carvedilol (COREG) 3.125 MG tablet Take 1 tablet by mouth twice daily 180 tablet 05/08/20 25 Active Active Problems Problem Noted Date Diagnosed Date CHAUDHRY (dyspnea on exertion) 05/24/2023 S/P coronary artery stent placement 04/13/2020 Osteoarthritis of knee HLD (hyperlipidemia) GERD (gastroesophageal reflux disease) Essential hypertension Chronic low back pain CAD (coronary artery disease) Atrial fibrillation Anxiety Resolved Problems Problem Noted Date Diagnosed Date Resolved Date Pre-operative cardiovascular examination 08/10/2020 Encounters Date Type Department Care Team Description 06/30/2025 10:45 AM CDT Office Visit [facility] [place] [address] [place] [address] Eugene Traylor MD Heart Problem 06/30/2025 Telephone [facility] [place] [address] [place] [address] Eugene Traylor MD Appointment Request 06/30/2025 Orders Only [facility] [address] [place] [address] Eugene Traylor MD 06/30/2025 Travel 06/29/2025 Telephone [facility] [address] [place] [address] Eugene Traylor MD Appointment Reminder 06/23/2025 9:54 AM CDT - 06/23/2025 11:59 PM CDT Hospital Encounter [facility] Non Invasive Cardiology - [facility] [address] [place] [address] Eugene Traylor MD Discharge Disposition: Home or Self Care (Routine Discharge) 06/23/2025 [facility] [place] [facility] [address] [place] [address] Danette Mitchell [facility] Study 06/23/2025 Travel 06/22/2025 Orders Only [facility] [address] [place] [address] Eugene Traylor MD from Last 3 Months Family History Medical [...] Sign Reading Time Taken Comments Blood Pressure 126/78 06/30/2025 10:34 AM CDT Pulse 84 06/30/2025 10:34 AM CDT Temperature 36.6 C (97.8 F) 02/24/2023 10:21 AM CDT Respiratory Rate 14 06/30/2025 10:34 AM CDT Oxygen Saturation 95% 06/30/2025 10:34 AM CDT Inhaled Oxygen Concentration - - Weight 95 kg (209 lb 6.4 oz) 06/30/2025 10:34 AM CDT Height 177.8 cm (5' 10) 06/30/2025 10:34 AM CDT Body Mass Index 30.05 06/30/2025 10:34 AM CDT Plan of Treatment Upcoming Encounters Date Type Department Care Team (Late st Contact Info) Description 06/04/2026 8:00 AM CDT Appointment [facility] Non Invasive Cardiology - [facility] [address] [place] [address] Eugene Traylor MD [address] [place] [address] 06/04/2026 9:45 AM CDT Office Visit [facility] [address] [place] [address] Eugene Traylor MD [address] [place], [place] [id number] Health Maintenance Due Date Last Done Comments DTaP, Tdap and Td Vaccines ( 1 - Tdap) 1963 Pneumococcal Vaccine: 50+ Years (1 of 2 - PCV) 1963 Zoster Vaccines (1 of 2) 1994 Annual Medicare Wellness Visit 2009 RSV Immunization or 60+ Years (1 - 1-dose 75+ series) 2019 ASCVD LDL 12/28/2019 12/28/2018, 10/03/2010 COVID-19 Vaccine (2023-2 5 season) 2025 Influenza Adult (#1) 2025 Hepatitis A Vaccines Aged Out No long er eligible based on patient's age to complete this topic Meningococcal B Vaccine Aged Out No l onger eligible based on patient's age to complete this topic Meningococcal Vaccine Aged Out No nubia jono eligible based on patient's age to complete this topic RSV Immunizations Under 20 Months Aged Out No longer eligible b ased on patient's age to complete this topic Medical Devices Implanted Type Area Stable Hand Device Identifier Shelf Expiration Date Model / Serial / Lot Tray Humeral Comprehensive +3mm Standard Shoulder Reverse - [id number] Implanted:Qty: 1 on 01/15/2022 by Nav Carr MD at [facility] Humeral Right: Shoulder [employer] [id number] 05/11/2031 [id number] / / [id number] Screw Bone Comprehensive Titanium 3.5 Mm L20 Mm Od4.75 Mm Lo - [id number] Implanted:Qty: 1 on 01/15/2022 by Nav Carr MD at [facility] Screw Right: Shoulder [employer] [id number] 09/19/2031 [id number] / / [id number] Screw Beck 4.75 Ti Hex Reverse Shoulder 25mm - [id number] Implanted:Qty: 1 on 01/15/2022 by Nav Carr MD at [facility] Screw Right: Shoulder [employer] [id number] 11/11/2031 [id number] / / [id number] Screw Fixed Locking Biomet 4.75 X 30mm - [id number] Implanted:Qty: 1 on 01/15/2022 by Nav Carr MD at [facility] Screw Right: Shoulder [employer] [id number] 10/17/2031 [id number] / / [id number] Screw Bone Comprehensive Titanium 3.5 Mm L20 Mm Od4.75 Mm Lo - [id number] Implanted:Qty: 1 on 01/15/2022 by Nav Carr MD at [facility] Screw Right: Shoulder [employer] [id number] 09/23/2031 [id number] / / [id number] Screw Beck 6.5mm Ti Reverse Shoulder 30mm - [id number] Implanted:Qty: 1 on 01/15/2022 by Nav Carr MD at [facility] Screw Right: Shoulder [employer] [id number] 12/13/2031 [id number] / / [id number] Component Glenoid 40mm Standard Reverse Glenosphere Comprehensive Versa-Dial Shoulder - [id number] Implanted:Qty: 1 on 01/15/2022 by Nav Carr MD at [facility] Shoulder Components Right: Shoulder [employer] [id number] 12/30/2031 [id number] / / [id number] Medium Augmented Baseplate With Mini Taper Adapter Porous Plasma Uncemented Implanted:Qty: 1 on 01/15/2022 by Nav Carr MD at [facility] Right: Shoulder [employer] [id number] 12/13/2026 [id number] / / [id number] Primary Shoulder Stem Implanted:Qty: 1 on 01/15/2022 by Nav Carr MD at [facility] Right: Shoulder [employer] [id number] 05/19/2031 [id number] / / [id number] Poly Bearing Implanted:Qty: 1 on 01/15/2022 by Nav Carr MD at [facility] Right: Shoulder [employer] [id number] 03/14/2026 [id number] / / [id number] Explanted Type Area Stable Hand Device Identifier Shelf Expiration Date Model / Serial / Lot Peripheral Screw Drill Bit Explanted:Qty: 1 on 01/15/2022 by Nav Carr MD at [facility] Right: Shoulder [employer] [id number] 12/18/2031 [id number] / / [id number] Augmented Reamer Guide Bushing Explanted:Qty: 1 on 01/15/2022 by Nav Carr MD at [facility] Right: Shoulder [employer] [id number] 09/20/2029 [id number] / / [id number] Threaded Tip Steinmann Pin Explanted:Qty: 1 on 01/15/2022 by Nav Carr MD at [facility] Right: Shoulder [employer] [id number] 11/20/2031 [id number] / / [id number] Augmented Reamer Guide Screw Explanted:Qty: 1 on 01/15/2022 by Nav Carr MD at [facility] Right: Shoulder [employer] [id number] 12/09/2031 [id number] / / [id number] Augmented Drill With Stop Explanted:Qty: 1 on 01/15/2022 by Nav Carr MD at [facility] Right: Shoulder [employer] [id number] 08/08/2031 [id number] / / [id number] Procedures Procedure Name Priority Date/Time Associated Diagnosis Comments ELECTROCARDIOGRAM (NON MIDMARK ACQUIRED) Routine 06/30/2025 10:39 AM CDT Mixed hyperlipidemia Primary hypertension USE ECHOCARDIOGRAM Routine 06/23/2025 10 :35 AM CDT 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 LIPID PANEL Routine 12/28/2018 from Last 3 Months or Most Recently Relevant to Health Maintenance Results * ELECTROCARDIOGRAM (06/30/2025 10:39 AM CDT) 06/30/2025 10:3 9 AM CDT Narrative [facility] - 06/30/2025 4:55 PM CDT [facility] [address] [place] [address] Test Date: 2025-06-30 Pat Name: ZAK TIRADO Department: 105 Room: Gender: Male Chick Sexer: : 1945 Requested By: EUGENE TRAYLOR Order Number: [id number] Reading MD: Eugene Traylor Measurements Intervals [place] Rate: 86 P: 24 FL: 198 QRS: -5 QRSD: 100 T: 67 QT: 356 QTc: 427 Interpretive Statements SINUS RHYTHM Procedure Note Eugene Traylor MD - 06/30/2025 [facility] [place] [address] [place] [address] Test Date: 2025-06-30 Pat Name: ZAK TIRADO Department: 105 Room: Gender: Male Chick Sexer: : 1945 Requested By: EUGENE TRAYLOR Order Number: [id number] Reading MD: Eugene Traylor Measurements Intervals [place] Rate: 86 P: 24 FL: 198 QRS: -5 QRSD: 100 T: 67 QT: 356 QTc: 427 Interpretive Statements SINUS RHYTHM us Eugene Traylor MD PROCEDURES-ORDERABLE NO CHARGE F inal Result [facility] * USE ECHOCARDIOGRAM (06/23/2025 10:35 AM CDT) Anatomical Region Laterality Modality Cardiac Echocardiogram 06/23/2025 10:0 6 AM CDT Narrative 06/24/2025 3:15 PM CDT Echocardiography Report Pat.Name: CANDIDA ZAK TRAMMELL Pat.ID: [id number] St.Date: 06/23/2025 Refer.MD: [id number] KYMBERLY KNIGHT EWDPROV EWDPROV Exam Time: 10:06:00 AM Study Type:ECHO WITH CARDIAC DOPPLER COMP Height: 70 in Weight: 204 lb BSA: 2.1 m2 Age: 7 1945,80Y Sex: M BP: 106/78 HR: 85 bpm Sonogrphr: Chris Crabtree [facility] Pat. Stat.:Outpatient CPT - 4: [id number] Reason for Study:Ascending aortic enlargement, AI Procedures: 2D, M-mode, Doppler, Color Flow Race: W ++++++++++++++++++++++++++++++++++++ SUMMARY: ++++++++++++++++++++++++++++++++++++ The left ventricular size is normal. The calculated ejection fraction is 50%. Mild left ventricular hypertrophy. Left ventricular diastolic function is abnormal (grade 1 - impaired relaxation). Wall motion appears normal in all segments. The right ventricular size is normal. Right ventricular systolic function is at the upper limit of normal. The aortic root measures 4.0 cm. The proximal ascending aorta measures 4.2cm. Mild to moderate aortic regurgitation. Trace mitral regurgitation. A trace of tricuspid regurgitation. ++++++++++++++++++++++++++++++++++++ FINDINGS: ++++++++++++++++++++++++++++++++++++ LV: The left ventricular size is normal. The left ventricular systolic function is normal. The calculated ejection fraction is 50%. Mild left ventricular hypertrophy. Left ventricular diastolic function is abnormal (grade 1 - impaired relaxation). WM: Wall motion appears normal in all segments. LVOT: The left ventricular outflow tract size is normal. RV: The right ventricular size is normal. Right ventricular systolic function is at the upper limit of normal. IVS: Mild septal hypertrophy. LA: The left atrial volume is normal ( less than 34 ml/M2). RA: Right atrial size is normal. IAS: Atrial septum shows no evidence of patent foramen ovale. GLENROY: No evidence of pericardial effusion. AO: Aortic root is mildly dilated. Ascending aorta is mildly dilated. The aortic root measures 4.0 cm. The proximal ascending aorta measures 4.2cm. SVn: Systemic veins not well visualized. AV: Structurally normal aortic valve. The aortic valve is trileaflet. No evidence of aortic valve stenosis. Mild to moderate aortic regurgitation. MV: Structurally normal mitral valve. Trace mitral regurgitation. No evidence of mitral stenosis. PV: Structurally normal pulmonic valve. No evidence of pulmonic valve stenosis. No evidence of pulmonic regurgitation. TV: Structurally normal tricuspid valve. A trace of tricuspid regurgitation. No evidence of tricuspid valve stenosis. ++++++++++++++++++++++++++++++++++++ MEASUREMENTS: ++++++++++++++++++++++++++++++++++++ DOPPLER LVOT LVOTpkPG 3 mmHg LVOTmnPG 2 mmHg LVOTpkVel 90.7 cm/s (70-110) LVOT SV 77 ml LVOT TVI 18.6 cm AV Forward Flow AV TVI 22.6 cm AV pkPG 6 mmHg AV pkVel 122 cm/s (100-170) Area (TVI) 3.42 cm2 (3-5) AV mnVel 86.6 cm/s Area (Fransico) 3.09 cm2 (3-5) AV mnPG 3 mmHg AV Regurg Flow AV pkVel 322 cm/s AV P1/2t 467 msec AV pkPG 41 mmHg MV Forward Flow MV DeTm 367 msec MV E/A 0.7 MVA P1/2t 2.04 cm2 (4-6)* MV pkE 41.1 cm/s (60-130)* MV P1/2t 108 msec (30-60)+* MV pkA 62.1 cm/s Lat E' Lat e 7.94 cm/s Lat E/E' Lat E/e 5.2 Med E' Med e 4.79 cm/s Med E/E' Med E/e 8.6 Aortic Valve Aortic Valve Ar 1.63 Aortic Valve Ve 0.74 AV DI Value 0.8 OKSANA (VTI) Index Value 1.63 LV Mass 2D Value 182 g LV Mass Bguum9T Value 86.7 g/m2 Right Ventricle Right Ventricle 7.56 cm/s 2D Left Ventricle LVIDd 4.27 cm (3.6-5.2) LV EF(Bi-Plane) 50.5 % (63-77)* LVIDs 3.04 cm (2.3-3.9) LVPW LVPWd 1.22 cm Ventricular Septum IVSd 1.17 cm Aorta Ao Rtd 4.01 cm (zsc 3.1)* Ao Asc 4.2 cm (zsc 5.3)* LVOT LVOT 2.3 cm Ratios IVS LA Biplane LAVol I BP 26.8 ml/m2 MMODE TA Tricuspid Annul 1.75 cm <Electronic Signature> 06/24/2025 03:15 PM Eugene Traylor M.D. Procedure Note Eugene Traylor MD - 06/24/2025 Echocardiography Report Pat.Name: ZAK TIRADO Kay.ID: [id number] .Date: 06/23/2025 Armando.: [id number] KYMBERLY KNIGHT EWDPROV EWDPROV Exam Time: 10:06:00 AM Study Type:ECHO WITH CARDIAC DOPPLER COMP Height: 70 in Weight: 204 lb BSA: 2.1 m2 Age: 7 1945,80Y Sex: M BP: 106/78 HR: 85 bpm Sonogrphr: Carlos Crabtreeleydi [facility] Pat. Stat.:Outpatient CPT - 4: [id number] Reason for Study:Ascending aortic enlargement, AI Procedures: 2D, M-mode, Doppler, Color Flow Race: W ++++++++++++++++++++++++++++++++++++ SUMMARY: ++++++++++++++++++++++++++++++++++++ The left ventricular size is normal. The calculated ejection fraction is 50%. Mild left ventricular hypertrophy. Left ventricular diastolic function is abnormal (grade 1 - impaired relaxation). Wall motion appears normal in all segments. The right ventricular size is normal. Right ventricular systolic function is at the upper limit of normal. The aortic root measures 4.0 cm. The proximal ascending aorta measures 4.2cm. Mild to moderate aortic regurgitation. Trace mitral regurgitation. A trace of tricuspid regurgitation. ++++++++++++++++++++++++++++++++++++ FINDINGS: ++++++++++++++++++++++++++++++++++++ LV: The left ventricular size is normal. The left ventricular systolic function is normal. The calculated ejection fraction is 50%. Mild left ventricular hypertrophy. Left ventricular diastolic function is abnormal (grade 1 - impaired relaxation). WM: Wall motion appears normal in all segments. LVOT: The left ventricular outflow tract size is normal. RV: The right ventricular size is normal. Right ventricular systolic function is at the upper limit of normal. IVS: Mild septal hypertrophy. LA: The left atrial volume is normal ( less than 34 ml/M2). RA: Right atrial size is normal. IAS: Atrial septum shows no evidence of patent foramen ovale. GLENROY: No evidence of pericardial effusion. AO: Aortic root is mildly dilated. Ascending aorta is mildly dilated. The aortic root measures 4.0 cm. The proximal ascending aorta measures 4.2cm. SVn: Systemic veins not well visualized. AV: Structurally normal aortic valve. The aortic valve is trileaflet. No evidence of aortic valve stenosis. Mild to moderate aortic regurgitation. MV: Structurally normal mitral valve. Trace mitral regurgitation. No evidence of mitral stenosis. PV: Structurally normal pulmonic valve. No evidence of pulmonic valve stenosis. No evidence of pulmonic regurgitation. TV: Structurally normal tricuspid valve. A trace of tricuspid regurgitation. No evidence of tricuspid valve stenosis. ++++++++++++++++++++++++++++++++++++ MEASUREMENTS: ++++++++++++++++++++++++++++++++++++ DOPPLER LVOT LVOTpkPG 3 mmHg LVOTmnPG 2 mmHg LVOTpkVel 90.7 cm/s (70-110) LVOT SV 77 ml LVOT TVI 18.6 cm AV Forward Flow AV TVI 22.6 cm AV pkPG 6 mmHg AV pkVel 122 cm/s (100-170) Area (TVI) 3.42 cm2 (3-5) AV mnVel 86.6 cm/s Area (Fransico) 3.09 cm2 (3-5) AV mnPG 3 mmHg AV Regurg Flow AV pkVel 322 cm/s AV P1/2t 467 msec AV pkPG 41 mmHg MV Forward Flow MV DeTm 367 msec MV E/A 0.7 MVA P1/2t 2.04 cm2 (4-6)* MV pkE 41.1 cm/s (60-130)* MV P1/2t 108 msec (30-60)+* MV pkA 62.1 cm/s Lat E' Lat e 7.94 cm/s Lat E/E' Lat E/e 5.2 Med E' Med e 4.79 cm/s Med E/E' Med E/e 8.6 Aortic Valve Aortic Valve Ar 1.63 Aortic Valve Ve 0.74 AV DI Value 0.8 OKSANA (VTI) Index Value 1.63 LV Mass 2D Value 182 g LV Mass Isuvq4S Value 86.7 g/m2 Right Ventricle Right Ventricle 7.56 cm/s 2D Left Ventricle LVIDd 4.27 cm (3.6-5.2) LV EF(Bi-Plane) 50.5 % (63-77)* LVIDs 3.04 cm (2.3-3.9) LVPW LVPWd 1.22 cm Ventricular Septum IVSd 1.17 cm Aorta Ao Rtd 4.01 cm (zsc 3.1)* Ao Asc 4.2 cm (zsc 5.3)* LVOT LVOT 2.3 cm Ratios IVS LA Biplane LAVol I BP 26.8 ml/m2 MMODE TA Tricuspid Annul 1.75 cm <Electronic Signature> 06/24/2025 03:15 PM Eugene Traylor M.D. us Eugene Traylor MD ECHO Final Result * LIPID PANEL (12/28/2018) CHOLESTEROL 201 HDL 49 TRIGLYCERIDES 124 CHOL/HDL RATIO 4.1 LDL (CALCULATED) 127 12/28/2018 Doc [facility] Abstract LABORATORY Final Result from Last 3 Months or Most Recently Relevant to Health Maintenance Insurance [facility] [id number] MEDICARE [facility] [id number] Advance Directives * Full Code (Latest Code Status on File) Date Activated Date Inactivated Comments 02/24/2023 2:30 PM 02/24/2023 5:47 PM * Full Code Date Activated Date Inactivated Comments 02/24/2023 1:36 PM 02/24/2023 2:30 PM * Full Code Date Activated Date Inactivated Comments 07/01/2019 5:07 PM 07/01/2019 7:49 PM Care Teams Duck Farmer Relationship Specialty Start Date End Date Mir Cunningham DO [address] [place] [address] PCP - General FAMILY PRACTICE 12/17/21 Nav Carr MD [address] [place] [phone] ORTHOPAEDIC SURGERY 12/17/21 Eugene Traylor MD [address] [place] [address] Consulting Physician CARDIOVASCULAR DISEASE 03/16/24
--- OUTSIDE RECORDS SUMMARY | 2025-09-15 10:58 | XMS_ITS | Encounter Summary ---
Author Organization [facility] Address [address] [place] [address] Care Team Providers Care Prospecting Driller Helper Name Role Phone ClementepageDeshawn MD Primary Care Provider [phone] Rene Carballo MD Unavailable [phone] Jitendra Ferris MD Primary Care Provider Mir Cunningham DO Primary Care Provider [phone] Jenna Marcelo APRN, NP-C Unavailable Nav Carr MD Unavailable [phone] Karol Gamino MD Unavailable Encounter Details Date Type Department Care Team (Late Contact Info) Description 06/15/2019 Abstract [facility] [address] [place] [phone] Abstract, Doc [facility] Social History Tobacco Use [...] Upcoming Encounters Date Type Department Care Team ([facility] Contact Info) Description 06/04/2026 8:00 AM CDT Appointment [facility] Non Invasive Cardiology - [place] [facility] [address] [address] Karol Gamino MD [address] [place] [address] 06/04/2026 9:45 AM CDT Office Visit [facility] [address] [place] [address] Karol Gamino MD [address] [place] [address] documented as of this encounter Visit Diagnoses Not on filedocumented in this encounter Care Teams Prospecting Driller Helper Relationship Specialty Start Date End Date Deshawn West MD [address] [place] [address] PCP - General FAMILY PRACTICE 06/14/19 02/12/20 Jitendra Ferris MD [address] [place] [address] PCP - General FAMILY PRACTICE 02/13/20 12/16/21 Mir Cunningham DO [address] [place] [address] PCP - General FAMILY PRACTICE 12/17/21 Rene Carballo MD [address] [place] [address] [place] Sleeve Machine Tender CARDIOVASCULAR DISEASE 06/14/19 03/15/24 Jenna Marcelo APRN, SIGN BOARD ERECTOR-C [address] [facility] [address] [place] [address] NURSE PRACTITIONER 12/17/21 03/15/24 Nav Carr MD [address] [place] [phone] ORTHOPAEDIC SURGERY 12/17/21 Karol Gamino MD [address] [place] [address] Consulting Physician CARDIOVASCULAR DISEASE 03/16/24 documented as of this encounter
--- OUTSIDE RECORDS SUMMARY | 2025-09-15 10:58 | XMS_ITS | Encounter Summary ---
Author Organization [facility] Address [address] [place] [address] Care Team Providers Care Spectrographic Analyst Name Role Phone Rene Carballo MD Unavailable [phone] Mir Cunningham DO Primary Care Provider [phone] Jenna Marcelo APRN, NP-C Unavailable Nav Carr MD Unavailable [phone] Karol Gamino MD Unavailable Encounter Details Date Type Department Care Team (Late st Contact Info) Description 03/30/2023 Abstract [facility] [address] [place] [address] Rene Carballo MD [address] [place] [address] Social History Tobacco Use Types [...] Assessment Author Status No 01/15/2022 5:58 AM 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 SOCIOLOGIST Activ e documented as of this encounter Plan of Treatment Upcoming Encounters Date Type Department Care Team (Late st Contact Info) Description 06/04/2026 8:00 AM CDT Appointment [facility] Non Invasive Cardiology - [facility] [address] [place] [address] Karol Gamino MD [address] [place] [address] 06/04/2026 9:45 AM CDT [facility] [address] [place] [address] Karol Gamino MD [address] [place] [address] documented as of this encounter Visit Diagnoses Not on filedocumented in this encounter Care Teams Spectrographic Analyst Relationship Specialty Start Date End Date Mir Cunningham DO [address] [place] [address] PCP - General FAMILY PRACTICE 12/17/21 Rene Carballo MD [address] [place] [phone] [place] Margarine Maker CARDIOVASCULAR DISEASE 06/14/19 03/15/24 Jenna Marcelo APRN, SR. MANAGER-C [address] [facility] [address] [place] [phone] NURSE PRACTITIONER 12/17/21 03/15/24 Nav Carr MD [address] [place] [phone] ORTHOPAEDIC SURGERY 12/17/21 Karol Gamino MD [address] [place] [address] Consulting Physician CARDIOVASCULAR DISEASE 03/16/24 documented as of this encounter
[2025-09-15 11:00] LABS: Iron 76 ug/dL (49-181)
[2025-09-15 11:10] LABS: Percent Iron Saturation 32 % (20-50)
[2025-09-15 11:33] LABS: Thyroid Stimulating Hormone Reflex 1.020 uIU/mL (0.465-4.68)
[2025-09-15 12:07] LABS: Vitamin B12 235.0 pg/mL (239-931)
== END 2025-09-15 10:20 | disposition home or self-care (01) ==
LOC: CHSLAB 10:20
PROVIDERS: PCP Family Medicine; Visit Provider Family Medicine
DX: E03.9 Hypothyroidism, unspecified (principal); D62 Acute posthemorrhagic anemia; E53.8 Deficiency of other specified B group vitamins
CPT/HCPCS: 36415; 80053; 82607; 82746; 83540; 83550; 84443; 85025